=== PATIENT | female | born 1975 | race Caucasian/White ===

== ENCOUNTER 2022-01-21 08:31 | Outpatient (CLI) | payer BC, SELFPAY ==
[2022-01-21 13:51] LABS: Chloride* 101 mmol/L (96-114); Sodium* 133 mmol/L (135-149)
[2022-01-21 13:52] LABS: Potassium* 4.3 mmol/L (3.6-5.1)
[2022-01-21 13:54] LABS: Carbon Dioxide* 25 mmol/L (20-32); Creatinine* 0.5 mg/dL (0.5-1.5); Estimated Glomerular Filt Rate 117 ml/min
[2022-01-21 13:55] LABS: Blood Urea Nitrogen* 14 mg/dL (5-24); Calcium* 9.1 mg/dL (8.4-10.6); Glucose* 95 mg/dL (60-115)
== END 2022-01-21 08:32 | disposition home or self-care (01) ==
LOC: LONREF 08:33
PROVIDERS: PCP Family Medicine; Visit Provider Family Medicine
DX: I10 Essential (primary) hypertension (principal)
CPT/HCPCS: 80048

== ENCOUNTER 2022-01-22 14:27 | Outpatient (CLI) | payer BC, SELFPAY | END 2022-01-22 14:28 | disposition home or self-care (01) | LOC: NFLDREF 14:28 | PROVIDERS: PCP Family Medicine; Visit Provider Registered Nurse | DX: N75.0 Cyst of Bartholin's gland (principal) | CPT/HCPCS: 87070; 87186 ==

== ENCOUNTER 2022-02-11 14:33 | Outpatient (CLI) | payer BC, SELFPAY | END 2022-02-11 14:34 | disposition home or self-care (01) | LOC: AMB 02-18 07:16 | PROVIDERS: PCP Family Medicine; Visit Provider Family Medicine | DX: F10.129 Alcohol abuse with intoxication, unspecified (principal) | CPT/HCPCS: A0425; A0427 ==

== ENCOUNTER 2022-02-11 15:08 | Emergency (ER) | payer BC, SELFPAY ==
[2022-02-11 15:18] VITALS: BP 150/110; PULSE 130; RESP 18; TEMP 36.6; O2SAT 97
[2022-02-11 15:51] VITALS: BP 145/103; PULSE 119; O2SAT 94
--- NOTE | 2022-02-11 15:51 | ED.ALCOHOL ---
HPI - Alcohol General Chief Complaint: Alcohol/Intoxication Stated Complaint: Vomiting Time Seen by Provider: 02/11/22 15:28 History of Present Illness HPI narrative: This 46-year-old female comes in intoxicated with alcohol and has frequent vomiting. She comes in by ambulance. An IV had been established. She did receive Zofran and now has no report of nausea or vomiting. She is not reporting any pain. She states that she knows that she has a problem with alcohol and needs to go to treatment. She states that she has boys at home that she needs take care of and wants to detox at home. She states that she does not crave alcohol but drinks because she is bored. She does have withdrawal symptoms though that arise to propel her to take alcohol again. She is wanting to go home and not willing to go into a detox facility. She does have a person who is willing to come and take her there. She did receive an IV dose of Ativan 0.5 mg. She is not currently tremulous or showing signs of withdrawal. Related Data Home Medications Medication Instructions Recorded Confirmed omeprazole 20 mg capsule,delayed 20 mg PO QDAY PRN 01/21/22 01/22/22 release Previous Rx's Medication Instructions Recorded amoxicillin 875 mg-potassium 1 tab PO BID #20 tabs 01/21/22 clavulanate 125 mg tablet buspirone 30 mg tablet 30 mg PO BID #180 tabs 01/21/22 escitalopram oxalate 20 mg tablet 20 mg PO QDAY #90 tabs 01/21/22 gabapentin 100 mg capsule 100 mg PO QDAY #90 caps 01/21/22 gabapentin 300 mg capsule 300 mg PO QHS #90 caps 01/21/22 naltrexone 50 mg tablet 50 mg PO QDAY #90 tabs 01/21/22 verapamil 120 mg tablet,extended 120 mg PO BID #180 tabs 01/21/22 release lorazepam 0.5 mg tablet (Ativan) 0.5 mg PO BID PRN #10 tabs 02/11/22 Allergies Allergy/AdvReac Type Severity Reaction Status Date / Time No Known Allergies Allergy Unknown Verified 01/22/22 13:41 Review of Systems Status of ROS Reports: 10 or more systems reviewed and unremarkable except as noted in History and below Narrative Constitutional: No fevers, no weight gain or loss. Eyes: No discharge. No vision changes. HENT: No congestion, no sore throat, no ear pain. Cardiovascular: No chest pain, no palpitations. Respiratory: No shortness of breath, no wheezes, no cough. Gastrointestinal: No abdominal pain, no vomiting, no diarrhea. Genitourinary: No dysuria, no hematuria. Musculoskeletal: Normal range of motion. Skin: No rashes, no pruritis. Neurological: No dizziness, weakness, sensory change, speech change. Endo/Heme/Allergies: No bruising or bleeding. No polydipsia. Pysch: no suicidality, no anxiety, no insomnia. Alcohol intoxication. All other systems reviewed and are negative. [facility] Medical History Alcoholic intoxication Fracture of rib Hypothyroidism Surgical History History of section History of loop electrical excision procedure (LEEP) History of tubal ligation Status post cervical spinal arthrodesis Family History Other Diabetes Social History Narrative: alcohol abuse Smoking Status: Current every day smoker Exam Narrative: Exam Narrative: Constitutional: Well-developed, well-nourished, no acute distress. HEENT: Normocephalic, atraumatic. Neck: Normal range of motion. Nontender. Supple. Heart: Regular. No murmurs. Tachycardia. Intact distal pulses. Lungs: Clear to auscultation. No chest discomfort. No wheezes, rhonchi, or rales. Abdomen: Normal bowel sounds. Nontender. No rebound tenderness. Genitalia: Deferred. Back: No midline tenderness. Normal range of motion. Extremities: Normal range of motion. No injury. Skin: Intact. No rash. Warm. No erythema or pallor. Neurologic: No altered sensation. No weakness. Alert and oriented. Psychiatric: No suicidality. No anxiety or depression. No insomnia. Alcohol intoxication. Nursing notes and vitals signs are reviewed. Const: Vital Signs, click to edit/add: Vital Signs - 24 hr 02/11/22 15:18 Temperature 97.9 F Pulse Rate [Right Pulse Oximeter] 130 H Respiratory Rate 18 Blood Pressure [Ri ght Upper Arm] 150/110 H Pulse Oximetry 97 Oxygen Delivery Me thod Room Air Course Vital Signs Vital signs: Initial Vital Signs Temperature 97.9 F 02/11/22 15:18 Temperature Source Temporal Artery Scan 02/11/22 15:18 Pulse Rate 130 H 02/11/22 15:18 Respiratory Rate 18 02/11/22 15:18 Blood Pressure 150/110 H 02/11/22 15:18 Blood Pressure Mean 123 02/11/22 15:18 Blood Pressure Position Sitting 02/11/22 15:18 Pulse Oximetry 97 02/11/22 15:18 Oxygen Delivery Method 02/11/22 15:18 Vital Signs Temperature 97.9 F 02/11/22 15:18 Pulse Rate 130 H 02/11/22 15:18 Respiratory Rate 18 02/11/22 15:18 Blood Pressure 150/110 H 02/11/22 15:18 Pulse Oximetry 97 02/11/22 15:18 Oxygen Delivery Method 02/11/22 15:18 Temperature 97.9 F 02/11/22 15:18 Pulse Rate 130 H 02/11/22 15:18 Respiratory Rate 18 02/11/22 15:18 Blood Pressure 150/110 H 02/11/22 15:18 Pulse Oximetry 97 02/11/22 15:18 Oxygen Delivery Method 02/11/22 15:18 MDM - Alcohol MDM Narrative Medical decision making narrative: This patient comes in because of vomiting related to alcohol. She received Zofran and now feels great relief of the nausea and vomiting symptoms. She is intoxicated with alcohol. She is wanting to return home and is declining any inpatient detox facility resources. She does have a friend who is willing to take her home. I did provide a few tablets of Ativan and stated that this does not mix with alcohol and that she should return if worsening symptoms occur. Discharge Plan Discharge Clinical Impression: Alcohol intoxication Patient Disposition: Home w/ Parent or Adult Condition: Unchanged Additional Instructions: Take medication as needed and indicated. Return if worsening symptoms occur. Prescriptions: New lorazepam [Ativan] 0.5 mg tablet 0.5 mg PO BID PRNQty: 10 0RF No Action omeprazole 20 mg capsule,delayed release(DR/EC) 20 mg PO QDAY PRN buspirone 30 mg tablet 30 mg PO BID Qty: 180 3RF gabapentin 300 mg capsule 300 mg PO QHS Qty: 90 3RF gabapentin 100 mg capsule 100 mg PO QDAY Qty: 90 3RF amoxicillin-pot clavulanate 875-125 mg tablet 1 tab PO BID Qty: 20 0RF verapamil 120 mg tablet extended release 120 mg PO BID Qty: 180 3RF escitalopram oxalate 20 mg tablet 20 mg PO QDAY Qty: 90 3RF Rx Instructions: Take along with 10 mg tablet naltrexone 50 mg tablet 50 mg PO QDAY Qty: 90 3RF Follow Up/Referrals: Dakota Ashraf MD [Primary Care Provider] - Stand Alone [facility]: [facility] Info Inst[facility]
[2022-02-11] MEDS: LORazepam 2 MG/ML inj 0.5 MG IV (16:13)
[2022-02-11 16:35] VITALS: PULSE 112; O2SAT 94
== END 2022-02-11 16:41 | disposition home or self-care (01) ==
PROVIDERS: Emergency Provider Emergency Medicine Emergency Medical Services; PCP Family Medicine
DX: F10.129 Alcohol abuse with intoxication, unspecified (principal)
CPT/HCPCS: 96374; 99283; 99284; J2060

== ENCOUNTER 2022-08-24 09:40 | Emergency (ER) | payer BC, SELFPAY ==
[2022-08-24] VITALS (23 sets, daily range): BP systolic 116–142; BP diastolic 81–100; PULSE 81–101; RESP 8–16; TEMP 36.3; O2SAT 90–100; BMI 23.2
--- NOTE | 2022-08-24 10:51 | CRLHL7_ITS ---
For Patients: As a result of the Century Cures Act, medical imaging exams and procedure reports are released immediately into your electronic medical record. You may view this report before your referring provider. If you have questions, please contact your health care provider. INDICATION: Esophageal pain since Friday. Pain with eating and drinking. TECHNIQUE: Volumetric helical scanning of the thorax was performed with 100 cc of Omnipaque 350 contrast material IV. Coronal and sagittal reconstructions were obtained. COMPARISON: Chest x-ray of 08/19/2022. FINDINGS: No esophageal wall thickening, esophageal foreign body or periesophageal abnormality is evident. There is no mediastinal or hilar lymphadenopathy. The lungs are clear. There is no significant airway abnormality. No pleural effusion is demonstrated. The heart size is normal. Images of the upper abdomen demonstrate a fatty liver. IMPRESSION: 1. Negative chest CT. No esophageal abnormality evident. 2. Fatty liver. Please note that all CT scans at this facility use dose modulation, iterative reconstruction, and/or weight-based dosing when appropriate to reduce radiation dose to as low as reasonably achievable. Dictated by Akbar Alba MD @ 08/24/2022 12:16:49 PM (Electronically Signed)
--- NOTE | 2022-08-24 10:57 | ED.NURSE ---
Endo coder operator called and message left by [facility], per Dr. Jarrell, to schedule an Upper Endoscopy appt for Friday or Friday next week.
--- NOTE | 2022-08-24 11:01 | ED_ITS ---
HPI - General Adult General Chief complaint: Unspecified Complaint, Adult Stated complaint: not able to eat/drink since friday Time Seen by Provider: 08/24/22 10:37 Source: patient Mode of arrival: ambulatory Limitations: no limitations History of Present Illness HPI narrative: Patient is a 47 year white female college who quit drinking about 8 days ago. She was seen in the ED for some burning esophageal type symptoms she has been on proton pump inhibitor she has a history of GERD. She reports that she is hungry and feels like she would like to eat but has trouble with eating she can eat and drink small sips. She has not had a history of an EGD in the past. She has a history of hypertension alcohol abuse, vomiting, depression anxiety. Denies anterior chest pain denies fevers chills or weight loss but does feel like she has lost some weight since she is not eating as much as normal Related Data Previous Rx's Medication Instructions Recorded buspirone 30 mg tablet 30 mg PO BID #180 tabs 01/21/22 escitalopram oxalate 20 mg tablet 20 mg PO QDAY #90 tabs 01/21/22 gabapentin 100 mg capsule 100 mg PO QDAY #90 caps 01/21/22 naltrexone 50 mg tablet 50 mg PO QDAY #90 tabs 01/21/22 verapamil 120 mg tablet,extended 120 mg PO BID #180 tabs 01/21/22 release albuterol sulfate 90 mcg/actuation 2 puff inhalation Q4H PRN 04/14/22 aerosol inhaler (Proventil HFA) shortness of breath or wheezing #8.5 grams azithromycin 250 mg tablet See Rx Instructions PO .COMPLEX #6 07/05/22 tabs gabapentin 300 mg capsule See Rx Instructions PO .ud #120 07/05/22 caps lorazepam 0.5 mg tablet (Ativan) 0.5 mg PO BID PRN alcohol 08/01/22 withdrawal #14 tabs nitrofurantoin 100 mg PO BID #10 caps 08/19/22 monohydrate/macrocrystals 100 mg capsule (Macrobid) benzonatate 200 mg capsule 200 mg PO TID PRN cough #30 caps 08/22/22 omeprazole 20 mg capsule,delayed 20 mg PO QDAY #90 caps 08/22/22 release sucralfate 100 mg/mL oral 10 ml PO QID 30 days #1,200 mL 08/22/22 suspension (Carafate) sucralfate 1 gram tablet 1 g PO BID #30 tabs 08/24/22 sucralfate 1 gram tablet 1 g PO Q6H #30 tabs 08/24/22 Allergies Allergy/AdvReac Type Severity Reaction Status Date / Time No Known Allergies Allergy Unknown Verified 08/24/22 11:15 Review of Systems Status of ROS: Reports: 6 or more systems reviewed and unremarkable except as noted in History and below PFSH [facility] Medical History COVID-19 ?U07.1 - COVID-19 (ICD-10) Bartholin's gland abscess ?N75.1 - Abscess of Bartholin's gland (ICD-10) Injury of finger of right hand ?S69.91XA - Unspecified injury of right wrist, hand and finger(s), initial encounter (ICD-10) Hypothyroidism ?E03.9 - Hypothyroidism, unspecified (ICD-10) Fracture of rib ?S22.39XA - Fracture of one rib, unspecified side, initial encounter for closed fracture (ICD-10) Alcoholic intoxication ?F10.929 - Alcohol use, unspecified with intoxication, unspecified (ICD-10) Surgical History Status post cervical spinal arthrodesis ?Z98.1 - Arthrodesis status (ICD-10) History of tubal ligation ?Z98.51 - Tubal ligation status (ICD-10) History of loop electrical excision procedure (LEEP) ?Z98.890 - Other specified postprocedural states (ICD-10) History of section ?Z98.891 - History of uterine scar from previous surgery (ICD-10) Family History Other Diabetes Social History Narrative: alcohol abuse Smoking Status: Current every day smoker What tobacco products do you use: cigarettes Smoking packs per day: 1 Smoking cigarettes per day: 20.0 Years smoked: 10 Smoking pack-years: 10.00 Do you use any of these nicotine containing products: None Second hand tobacco smoke exposure: No How often do you have a drink containing alcohol: never AUDIT-C Alcohol total score: 0 Non-prescribed substance use: denies use service: No Exam Narrative: Exam Narrative: Objective: Vital signs are unremarkable, respiratory rate appears normal it is for listed is 8 but it appears higher than that. No cyanosis Alert orient x3 Does not smell of alcohol alcohol HEENT is unremarkable throat is clear neck is supple chest is clear heart Reg without murmur abdomen benign soft nontender. Extremities are no edema neurologic nonfocal Const: Vital Signs, click to edit/add: Vital Signs - 24 hr 08/24/22 13:30 08/24/22 13:31 08/24/22 13:45 Pulse Rate 88 86 87 Blood Pressure 125/91 H Pulse Oximetry 92 92 90 08/24/22 14:00 08/24/22 14:01 08/24/22 14:15 Pulse Rate 89 89 93 Blood Pressure 142/91 H Pulse Oximetry 93 94 99 Course Vital Signs Vital signs: Initial Vital Signs Temperature 97.4 F L 08/24/22 09:43 Temperature Source Temporal Artery Scan 08/24/22 09:43 Pulse Rate 101 H 08/24/22 09:43 Respiratory Rate 8 L 08/24/22 09:43 Blood Pressure 116/81 08/24/22 09:43 Blood Pressure Mean 92 08/24/22 09:43 Blood Pressure Position Sitting 08/24/22 09:43 Pulse Oximetry 99 08/24/22 09:43 Oxygen Delivery Method Room Air 08/24/22 09:43 Vital Signs Temperature 97.4 F L 08/24/22 09:43 Pulse Rate 101 H 08/24/22 09:43 Respiratory Rate 8 L 08/24/22 09:43 Blood Pressure 116/81 08/24/22 09:43 Pulse Oximetry 99 08/24/22 09:43 Oxygen Delivery Method Room Air 08/24/22 09:43 Temperature 97.4 F L 08/24/22 09:43 Pulse Rate 93 08/24/22 14:15 Respiratory Rate 16 08/24/22 09:46 Blood Pressure 142/91 H 08/24/22 14:01 Pulse Oximetry 99 08/24/22 14:15 Oxygen Delivery Method Room Air 08/24/22 09:43 Medical Decision Making MDM Narrative Medical decision making narrative: [age] year white female colic who has quit drinking about 8 days ago now with symptoms of esophagitis. She has been on a proton pump inhibitor I think she needs an EGD promptly. Will schedule this within the next couple of days. Will give her some IV fluid and GI cocktail today. Check her laboratory studies and do a chest CT scan to make sure there is no intrathoracic abnormality. Will give her some Carafate as well, will also continue her proton pump inhibitor, and EGD as mentioned above. Addendum: Patient has a very low potassium this will be corrected IV over the next couple of hours. Will give her oral Carafate. Started on Carafate 1 g q.i.d. for the next couple of weeks. Schedule her for an EGD study. She was comfortable this plan at this time, I am awaiting CT results. Addendum 12 19p p.m.: The patient's chest CT looks negative no esophageal abnormalities, fatty liver noted. She does have elevated liver function tests, alcohol is negative. Will give her Carafate for home 1 g q.i.d., set up an EGD should be called Friday with a time. Recommend light diet bland diet small amounts of food and fluid regularly. Will give 125 milk oval in potassium bicar b to take tonight about 8:00 p.m. recheck with regular doctor in the next couple of days to reassess overall condition and symptom symptoms Lab Data Labs: Lab Results 08/24/22 Range/Units 11:00 WBC 9.37 (4.50-11.00) K/uL RBC 4.06 (4.00-5.20) m/uL Hgb 13.9 (12.0-16.0) gm/dL Hct 39.8 (33.0-51.0) % MCV 98 (80-100) fL MCH 34 (26-34) pg MCHC 35 (32-36) gm/dL RDW Coeff of Comfort 13.2 (11.5-15.5) % Plt Count 218 (140-440) K/uL Neut % (Auto) 54.4 (42.0-72.0) % Lymph % (Auto) 22.0 (20-44) % Galax % (Auto) 15.0 H (0.0-11.0) % Eos % (Auto) 7.3 H (0.0-7.0) % Baso % (Auto) 0.1 (0.0-3.0) % Neut # (Auto) 5.10 (1.7-7.0) K/uL Lymph # (Auto) 2.06 (0.90-2.90) K/uL Galax # (Auto) 1.40 H (0.00-0.90) K/UL Eos # (Auto) 0.70 H (0.00-0.50) K/uL Baso # (Auto) 0.01 (0.00-0.30) K/uL Sodium 125 L (135-149) mmol/L Potassium 2.6 L* (3.6-5.1) mmol/L Chloride 93 L (96-114) mmol/L Carbon Dioxide 29 (20-32) mmol/L BUN 13 (5-24) mg/dL Creatinine 0.4 L (0.5-1.5) mg/dL Estimated Creat Clear 169.08 Estimated GFR 123 ml/min Glucose 112 (60-115) mg/dL Calcium 9.0 (8.4-10.6) mg/dL Total Bilirubin 0.7 (0.1-1.5) mg/dL Direct Bilirubin 0.4 (0.0-0.5) mg/dL AST 85 H (12-35) U/L ALT 108 H (4-35) U/L Alkaline Phosphatase 165 H (40-150) U/L C-Reactive Protein 2.2 H (0.5-1.0) mg/dL Total Protein 6.9 (6.0-8.3) g/dL Albumin 3.7 (3.3-5.0) g/dL Amylase 48 (18-89) U/L HCG, Qual Negative (Negative) Ethyl Alcohol < 0.01 L (0.01-0.03) % Discharge Plan Discharge Clinical Impression: Dysphagia, Esophagitis, Acute hypokalemia Patient Disposition: Home w/ Parent or Adult Condition: Improved Additional Instructions: [place] diet, fluids, small frequent meals, continue meds at home, will add Carafate to the mix 4 times a day. We will schedule a upper endoscopy for you to look into your esophagus and stomach. Please call clinic to schedule if you do not receive a call on Friday. Return as needed. Take potassium supplement at about 8:00 p.m. tonight. Activity Level: Light activity Discharge Diet: Full Liquid Prescriptions: New sucralfate 1 gram tablet 1 g PO BID Qty: 30 2RF sucralfate 1 gram tablet 1 g PO Q6H Qty: 30 2RF No Action buspirone 30 mg tablet 30 mg PO BID Qty: 180 3RF gabapentin 100 mg capsule 100 mg PO QDAY Qty: 90 3RF verapamil 120 mg tablet extended release 120 mg PO BID Qty: 180 3RF escitalopram oxalate 20 mg tablet 20 mg PO QDAY Qty: 90 3RF Rx Instructions: Take along with 10 mg tablet naltrexone 50 mg tablet 50 mg PO QDAY Qty: 90 3RF gabapentin 300 mg capsule See Rx Instructions PO .ud Qty: 120 5RF Rx Instructions: 300 mg QAM and QMidday, and 600 mg QHS orally UD; azithromycin 250 mg tablet See Rx Instructions PO .COMPLEX Qty: 6 0RF Rx Instructions: For 250 mg dose pack: take 500 mg today (day 1), then 250 mg for 4 days (days 2-5) PO sucralfate [Carafate] 100 mg/mL suspension 10 ml PO QID 30 Days Qty: 1200 2RF Rx Instructions: swish in mouth and swallow; use after food/drink omeprazole 20 mg capsule,delayed release(DR/EC) 20 mg PO QDAY Qty: 90 0RF nitrofurantoin monohyd/m-cryst [Macrobid] 100 mg capsule 100 mg PO BID Qty: 10 0RF Rx Instructions: must administer with a meal/food albuterol sulfate [Proventil HFA] 90 mcg/actuation HFA aerosol inhaler 2 puff inhalation Q4H PRN (Reason: shortness of breath or wheezing) Qty: 8.5 11RF lorazepam [Ativan] 0.5 mg tablet 0.5 mg PO BID PRN (Reason: alcohol withdrawal) Qty: 14 0RF benzonatate 200 mg capsule 200 mg PO TID PRN (Reason: cough) Qty: 30 0RF Follow Up/Referrals: Dakota Ashraf MD [Primary Care Provider] - Stand Alone Forms: [facility] Info Instructions
[2022-08-24 11:09] LABS: Basophils Absolute Auto 0.01 K/uL (0.00-0.30); Basophils Percent Auto 0.1 % (0.0-3.0); Eosinophils Percent Auto 7.3 % (0.0-7.0); Hematocrit 39.8 % (33.0-51.0); Hemoglobin* 13.9 gm/dL (12.0-16.0); Immature Granulocytes Abs Auto 0.11 K/uL (0.00-0.30); Immature Granulocytes Pct Auto 1.2 %; Lymphocytes Absolute Auto 2.06 K/uL (0.90-2.90); Mean Corpuscular HGB Conc 35 gm/dL (32-36); Mean Corpuscular Hemoglobin 34 pg (26-34); Mean Corpuscular Volume 98 fL (80-100); Neutrophils Percent Auto 54.4 % (42.0-72.0); Platelet Count* 218 K/uL (140-440); RDW Coefficient of Variation % 13.2 % (11.5-15.5); Red Blood Count 4.06 m/uL (4.00-5.20); White Blood Count* 9.37 K/uL (4.50-11.00)
[2022-08-24] MEDS: 0.9 % SODIUM CHLORIDE 1000 ml 1,000 ML 6000 ML IV (11:11)
[2022-08-24] MEDS: LORazepam 2 MG/ML inj 1 MG IVP (11:11)
[2022-08-24 11:22] LABS: Slide Review Reflex No
[2022-08-24 11:24] LABS: Chloride* 93 mmol/L (96-114)
[2022-08-24 11:25] LABS: HCG Qualitative Serum* Negative (Negative); Sodium* 125 mmol/L (135-149)
[2022-08-24 11:26] LABS: Albumin* 3.7 g/dL (3.3-5.0)
[2022-08-24 11:27] LABS: Amylase* 48 U/L (18-89); Creatinine* 0.4 mg/dL (0.5-1.5); Est. Creatinine Clearance* 169.08; Estimated Glomerular Filt Rate 123 ml/min
[2022-08-24 11:28] LABS: Aspartate Amino Transferase* 85 U/L (12-35); Bilirubin Direct* 0.4 mg/dL (0.0-0.5); Bilirubin Total* 0.7 mg/dL (0.1-1.5); Blood Urea Nitrogen* 13 mg/dL (5-24); Carbon Dioxide* 29 mmol/L (20-32); Glucose* 112 mg/dL (60-115); Total Protein* 6.9 g/dL (6.0-8.3)
[2022-08-24 11:29] LABS: Alanine Aminotransferase* 108 U/L (4-35); Alkaline Phosphatase* 165 U/L (40-150)
[2022-08-24 11:30] LABS: C Reactive Protein* 2.2 mg/dL (0.5-1.0)
[2022-08-24 11:33] LABS: Ethanol* < 0.01 % (0.01-0.03); Potassium* 2.6 mmol/L (3.6-5.1)
[2022-08-24] MEDS: GI COCKTAIL (VISC LIDO/ANTACID) 30 ML PO (12:04)
[2022-08-24] MEDS: SUCRALFATE 1 GM TABLET PO (12:04)
[2022-08-24] MEDS: POTASSIUM CHLORIDE 10 MEQ/100 ML PIGGYBACK 100 MEQ IVPB ×2 (12:04→13:16)
[2022-08-24] MEDS: POTASSIUM BICARB 25 MEQ EFFERVESCENT TAB PO (14:21)
== END 2022-08-24 14:23 | disposition home or self-care (01) ==
PROVIDERS: Emergency Provider Family Medicine; PCP Family Medicine
DX: R13.10 Dysphagia, unspecified (principal); K20.90 Esophagitis, unspecified without bleeding; E87.6 Hypokalemia
CPT/HCPCS: 36415; 71260; 80048; 80076; 82077; 82150; 84703; 85025; 86140; 96365; 96375; 99284; A9270; J2060; J3480; J7030; Q9967

== ENCOUNTER 2022-08-28 11:08 | Outpatient (CLI) | payer BC, SELFPAY ==
--- NOTE | 2022-08-28 11:15 | CRLHL7_ITS ---
For Patients: As a result of the Cures Act, medical imaging exams and procedure reports are released immediately into your electronic medical record. You may view this report before your referring provider. If you have questions, please contact your health care provider. INDICATION: Esophageal pain with swallowing fluids. Recent history of excessive vomiting. Possible gastroesophageal reflux disease with esophagitis. TECHNIQUE : Single and double contrast esophagram. FINDINGS: The single-contrast esophagram is within normal limits. No stricture, mass, obstruction, and no holdup of barium. No hiatal hernia. Reflux could not be elicited in the upright position. Subsequently a double contrast esophagram was performed. Again there is no evidence for stricture, mass, or obstruction. No evidence for esophagitis. No hiatal hernia or reflux. The patient was imaged in the supine as well as right and left lateral decubitus positions without and with Valsalva maneuvers. The stomach and duodenum are grossly unremarkable. Incidental note is made of a 2 level cervical spine fusion. 2 minutes 32 seconds fluoroscopic time utilized. IMPRESSION: Normal single and double-contrast esophagram. No evidence for esophagitis. No evidence for hiatal hernia. Reflux could not be elicited. Dictated by Sonu Steward MD @ 08/28/2022 12:11:54 PM (Electronically Signed)
== END 2022-08-28 11:09 | disposition home or self-care (01) ==
LOC: RAD 11:08
PROVIDERS: PCP Family Medicine; Visit Provider Nurse Practitioner Family
DX: K22.89 Other specified disease of esophagus (principal)
CPT/HCPCS: 74221

== ENCOUNTER 2022-10-08 15:22 | Outpatient (CLI) | payer BC, SELFPAY | END 2022-10-08 15:23 | disposition home or self-care (01) | LOC: LONREF 15:22 | PROVIDERS: PCP Family Medicine; Visit Provider Family Medicine | DX: R53.83 Other fatigue (principal); I10 Essential (primary) hypertension | CPT/HCPCS: 84443 ==

== ENCOUNTER 2023-05-14 16:50 | Outpatient (CLI) | payer BC, SELFPAY ==
--- NOTE | 2023-05-14 17:00 | US_ITS ---
Patient: ULISES MARTINEZ Facility:?[facility] Patient ID:?[id number] Site Patient ID:?[id number] Site :?[id number] Study:?US-Pelvis PELVIS TA & TV-05/14/2023 5:37:40 PM Ordering Physician:?CRYSTAL RUFFIN Final Report: INDICATION: Abnormal uterine bleeding COMPARISON: none TECHNIQUE: 2D castro scale and color Doppler images were acquired of the pelvis using a transabdominal and transvaginal approach. FINDINGS: Sonographic images demonstrate a normal size and smooth outer contour of the uterus. Uterus measures 8.1 cm in length by 3.7 cm in AP diameter by 4.7 cm in transverse dimension. section scar. The endometrial lining appears normal and measures 3 mm in composite thickness. The right ovary measures 3.8 x 1.1 x 1.3 cm in size and the left ovary measures 3.6 x 1.6 x 1.3 cm. The ovaries demonstrate normal arterial and venous blood flow on color Doppler analysis. There are no suspicious fluid collections within the cul-de-sac. IMPRESSION: The endometrium is not thickened. No uterine fibroid. Dictated by Randy Jones MD @ 05/15/2023 10:26:30 AM Signed by:?Randy Jones MD @05/15/2023 10:26:30 AM (Electronic Signature)
== END 2023-05-14 16:51 | disposition home or self-care (01) ==
LOC: US 16:53
PROVIDERS: PCP Family Medicine; Visit Provider Obstetrics & Gynecology
DX: N93.9 Abnormal uterine and vaginal bleeding, unspecified (principal)
CPT/HCPCS: 76830; 76856

== ENCOUNTER 2023-05-21 09:22 | Outpatient (CLI) | payer BC, SELFPAY | END 2023-05-21 09:23 | disposition home or self-care (01) | LOC: FRMREF 09:24 | PROVIDERS: PCP Family Medicine; Visit Provider Obstetrics & Gynecology | DX: N92.0 Excessive and frequent menstruation with regular cycle (principal) | CPT/HCPCS: 84443 ==

== ENCOUNTER 2023-05-26 15:10 | Outpatient (CLI) | payer BC, SELFPAY | END 2023-05-26 15:11 | disposition home or self-care (01) | LOC: LKVREF 15:12 | PROVIDERS: PCP Family Medicine; Visit Provider Family Medicine | DX: I10 Essential (primary) hypertension (principal) | CPT/HCPCS: 80048 ==

== ENCOUNTER 2023-06-05 08:36 | Day surgery (SDC) | payer BC, SELFPAY ==
[2023-06-05 09:13] LABS: Ur HCG Qualitative* Negative (Negative)
[2023-06-05] MEDS: LACTATED RINGERS 1000 ML 1,000 ML 100 ML IV (09:40)
[2023-06-05] MEDS: SODIUM CHLORIDE 0.9 % (FLUSH) 10 ML SYRINGE IVF (09:40)
[2023-06-05 09:49] VITALS: BP 126/88; PULSE 74; RESP 16; TEMP 36.4; O2SAT 97; BMI 24.0
--- NOTE | 2023-06-05 09:56 | W.PM.H&PU ---
History & Physical Update History & Physical Update H&P Reviewed and patient assessed: No changes noted
--- NOTE | 2023-06-05 09:56 | PM.PROC ---
Procedure Note Time Seen by Provider: 10:34 Date Seen: 06/05/23 Date of procedure: 06/05/23 Will [facility] bill your pro fee for this procedure?: Yes Procedure: Preoperative diagnosis: 47 year-old with heavy menstrual bleeding Postoperative diagnosis: Same Procedure: 1. Hysteroscopy, Dilation and Curettage using the Truclear incisor 2. Endometrial ablation with the Erin. Anesthesia: Conscious sedation, paracervical block. Surgeon: Jossie Jose MD Photographic Colorist: None Estimated blood loss: 5 mL IV Fluid: 600 mL Specimen: Endometrial curettings to pathology. Findings: Exam under anesthesia: Uterus: Mid position, less than less than 10 week sized, mobile, with no masses or nodularity palpable. Uterus sounded to 9 cm. The cervix sounded to 4.5 cm. Cavity length 4.5 cm. No adnexal masses or nodularity palpable. On hysteroscopy: Atrophic endometrium Procedure: Stefany was taken to the operating operating room more conscious sedation was found to be adequate. The patient was placed on in the dorsal lithotomy position and an exam under anesthesia was performed with findings stated above. She was then prepped and draped in a normal sterile manner. A bivalve speculum was placed in the vagina. The cervix appears multiparous. The paracervical block was placed using 0.5% Marcaine, 5 mL was injected at the 4 and 8 o'clock positions on the cervix. The anterior lip of the cervix was grasped with a single-tooth tenaculum. The cervix dilated to Hegar 6. The uterus sounded to 9 cm. The Truclear hysteroscope was advanced into the uterus. A diagnostic hysteroscopy was performed with normal saline as the insufflation medium. Findings are stated above. No curettage was performed. Saline deficit at the end of the procedure 90 mL. Total saline used 510 mL. Attention was turned to performing the endometrial ablation. The hysteroscope was removed. The cervix was then dilated to Hegar 8. The Erin device was advanced into the uterus. The cavity check was completed and the ablation took place over 2 min. The Erin was removed, the hysteroscope readvanced to document ablation of the entire cavity. The hysteroscope was then removed. The Allis clamp was removed from the cervix. Nothing was needed for hemostasis. The speculum was removed from the vaginal canal. The patient tolerated the procedure well. Sponge, lap and instrument counts were correct x2 at the end of the procedure. The patient was taken to the recovery area in stable condition. Patient received 30 mg of Toradol IV and 2 gm of Ancef prior to the procedure.
[2023-06-05] MEDS: CEFAZOLIN 2 GM INJ IVP (10:19)
[2023-06-05] MEDS: KETOROLAC 30 MG/ML inj IVP (10:19)
--- NOTE | 2023-06-05 10:30 | W.ANESCHARGE ---
Anesthesia Charges Start Date/Time Anesthesia Start Date: 06/05/23 Anesthesia Start Time: 10:07 Stop Date/Time Anesthesia Stop Date: 06/05/23 Anesthesia Stop Time: 10:44
[2023-06-05] MEDS: BUPIVACAINE 0.5% 30 ML INJECTION (10:32)
[2023-06-05 10:41] VITALS: BP 143/90; PULSE 81; RESP 16; TEMP 36.7; O2SAT 96
[2023-06-05 10:45] VITALS: BP 141/78; PULSE 77; RESP 16; O2SAT 97
--- NOTE | 2023-06-05 10:46 | W.ANESCHARGE ---
Anesthesia Charges Start Date/Time Anesthesia Start Date: 06/05/23 Anesthesia Start Time: 10:07 Stop Date/Time Anesthesia Stop Date: 06/05/23 Anesthesia Stop Time: 10:44
[2023-06-05 11:00] VITALS: BP 125/91; PULSE 61; RESP 16; O2SAT 98
[2023-06-05 11:15] VITALS: BP 125/82; PULSE 60; RESP 16; O2SAT 96
[2023-06-05 11:30] VITALS: BP 125/73; PULSE 68; RESP 16; O2SAT 98
[2023-06-05] MEDS: OXYCODONE 5 MG TABLET PO (11:30)
== END 2023-06-05 11:55 | disposition home or self-care (01) ==
PROVIDERS: PCP Family Medicine; Visit Provider Obstetrics & Gynecology
PROC: 0UF98ZZ Fragmentation in Uterus, Via Natural or Artificial Opening Endoscopic (ICD-10-PCS; CPT 58563; principal; 2023-06-05 10:15)
DX: N85.8 Other specified noninflammatory disorders of uterus (principal); N92.0 Excessive and frequent menstruation with regular cycle
CPT/HCPCS: 58563; 00952; 81025; A9270; J0665; J0690; J1100; J1885; J2405; J2704; J3010; J7120

== ENCOUNTER 2023-07-22 07:08 | Outpatient (CLI) | payer BC, SELFPAY ==
--- NOTE | 2023-07-22 07:15 | MR_ITS ---
Patient: ULISES MARTINEZ Facility:?[facility] Patient ID:?[id number] Site Patient ID:?[id number]. Site :?[id number] Study:?MRI-Spine W/O-07/22/2023 8:09:26 AM Ordering Physician:JULIUS JIN Final Report: Indication: Spinal stenosis, lumbar region. Technique: Noncontrast MRI scan of the lumbar spine. Comparison: MRI scan lumbar spine 03/15/2020. Findings: General: Normal conus termination at the L1-L2 disc space. Unremarkable lower thoracic cord. Modic type 2 endplate signal change and Schmorl`s nodes at L4-L5. No fracture or suspicious bone lesion. Normal paraspinal soft tissues. Disc levels: L1-L2: Unremarkable L1-L2 disc and facet joints. L2-L3: Unremarkable L2-L3 disc and facet joints. L3-L4: Mild disc space height loss and decreased disc signal. Mild posterior broad-based disc bulge. Mild bilateral facet hypertrophy. No focal disc protrusion, nerve root impingement or spinal stenosis. L4-L5: Decreased disc signal and mild disc space height loss, slightly progressed since the previous exam. Posterior broad-based disc protrusion and tiny posterior central focal disc extrusion with 3 millimeters of caudal migration, unchanged. No nerve root impingement. Bilateral facet hypertrophy. Mild spinal stenosis, unchanged. L5-S1:Mild posterior broad-based disc bulge and bilateral facet hypertrophy. No focal disc protrusion, nerve root impingement or spinal stenosis. Mild right and moderate left neural foraminal stenosis. Impression: 1. No acute abnormality. 2. Degenerative spondylosis of the lumbar spine. 3. L4-L5 posterior broad-based disc protrusion and tiny posterior central focal disc extrusion with mild spinal stenosis, unchanged. Dictated by Efrain Rojas MD @ 07/22/2023 11:45:18 AM Signed by:?Efrain Rojas MD @07/22/2023 11:45:18 AM (Electronic Signature)
--- OUTSIDE RECORDS SUMMARY | 2023-07-22 07:15 | XMS_ITS | Encounter Summary ---
Author Name Unknown Organization 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 Name Role Phone Unavailable Primary Care Provider Unavailabl e Encounter Details Date Type Department Care Team ([facility] st Contact Info) Description 03/21/2021 Scanned - Medical Reports [facility] [address] [place], [place] [id number] Abstract, Provider, Social History Tobacco Use Types Packs/Day Years Used Date Smoking Tobacco: Never Assessed Sex and Gender Information Value Date Recorded Sex Assigned at Not on file Gender Identity Not on file Sexual Orientation Not on file Job Start Date Occupation Industry Not on file Not on file Not on file documented as of this encounter Plan of Treatment Not on file documented as of this encounter Visit Diagnoses Not on filedocumented in this encounter
--- OUTSIDE RECORDS SUMMARY | 2023-07-22 07:15 | XMS_ITS | Continuity of Care Document ---
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 [address], [id number], [place]. [phone] Established Level 3 or 15-24 min [facility], [address] [address], [place], [id number], [place] tel:[phone] [facility] GI Symptoms or Concerns (chief complaint) Gagging episodeUnspec ified abdominal painAbnormal results of liver function studies 0 Jerry Barros. [address] [place] [address], [id number], [place]. tel:[phone] Referring Provider: Referral Self, USE FOR SELF REFERRALS. [facility], [address] [address], [place], [id number], [place] tel:[phone] [facility] Superficial gastritis, presence of bleeding unspecified, unspecified chronicityNau sea with vomiting, unspecifiedUn specified abdominal painOther gastritis without bleeding 0 Jerry Barros. [address] [place] [address], [id number], [place]. tel:[phone] Referring Provider: Referral Self, USE FOR SELF REFERRALS. Established Level 4 or 25-39 min [facility], [address] [address], [place], [id number], [place] tel:[phone] [facility] Comment (chief complaint) Gagging episodeAbnorm al results of liver function studies 0 Jerry Barros. [address] [place] [address], [id number], [place]. tel:[phone] Referring Provider: Referral Self, USE FOR SELF REFERRALS. [facility], [address] [address], [place], [id number], [place] tel:[phone] [facility] Abnormal results of liver function studies 0 Jerry Barros. [address] [facility], [address], [id number], [place]. tel:[phone] Referring Provider: Referral Self, USE FOR SELF REFERRALS. [facility], [address] [address], [place], [id number], [place] tel:[phone] [facility] No Information 0 Jerry Barros. [address] [facility], [address], [id number], [place]. tel:[phone] Referring Provider: Referral Self, USE FOR SELF REFERRALS. Established Level 4 or 25-39 min [facility], [address] [address], [place], [id number], [place] tel:[phone] [facility] GI Symptoms or Concerns (chief complaint) Abnormal LFTsGagging episode 0 Jerry Barros. [address] [facility], [facility] [address], [place], [id number], [place]. tel:[phone] Referring Provider: Papo Fuller, [address] [facility] [address], [facility] [place], [address] . tel:[phone] [facility], [address] [address], [facility] [place], [id number], [place] tel:[phone] [facility] No Information 0 Pilar Gomes. [address] [facility], [facility] [address], [place], [id number], [place]. [phone] Family History Family Member Type Diagnosis Age [...] has had a very difficult time with COVID and since being under lock-down and/or fci in place, she has been turning increasingly [...]
--- OUTSIDE RECORDS SUMMARY | 2023-07-22 07:15 | XMS_ITS | Clinical Summary ---
Author Name Unknown Organization [employer] [facility] [employer] Address [place], [place] [address] Care Team Providers Care Workers' Compensation Magistrate Name Role Phone Dakota Ashraf MD Primary Care Provider Allergies No known active allergies Medications Medication Sig Dispensed Refills Start Date End Date Status CRANBERRY 1,000 MG CAP 0 07/21/2006 Active VITAMIN TAB 0 07/21/2006 Active NAPROSYN 500 MG TABIndications:Oth er disorder of menstruation and other abnormal bleeding from female genital tract take 1 tablet (500 mg) by oral route 2 times per day with food 30 0 08/09/2006 Active CLEOCIN 2 % VAGINAL CREAMIndications:V aginitis and vulvovaginitis, unspecified 1 appl q hs 1 0 08/13/2006 Active busPIRone (BUSPAR) 5 mg tablet Take 5 mg by mouth 3 times daily. 02/15/2020 Active diazePAM (VALIUM) 5 mg tablet 02/15/2020 Active escitalopram oxalate (LEXAPRO) 5 mg tablet Take 5 mg by mouth once daily. 02/15/2020 Active folic acid 1 mg tablet Take 1 mg by mouth once daily. 02/15/2020 Active multivitamin (MVI) tablet Take 1 tablet by mouth once daily. 02/15/2020 Active nicotine 14 mg/24 hr (NICODERM; HABITROL) 14 mg/24 hr patch 02/15/2020 Active omeprazole (PRILOSEC) 20 mg Delayed-Release capsule TK 1 C PO QD 30 MIN TO 1 HOUR AC 01/12/2020 Active potassium chloride (K-DUR) 20 mEq Extended-Release tablet Take 20 mEq by mouth once daily with a meal. 02/15/2020 Active predniSONE (DELTASONE) 20 mg tablet 02/08/2020 Active ondansetron (ZOFRAN) 4 mg tablet TK 1 T PO Q 6 H PRN 12/07/2019 Activ e thiamine mononitrate, vit B1, (VITAMIN B1) 100 mg tablet Take 100 mg by mouth once daily. 02/15/2020 Active verapamil SR (CALAN SR) 120 mg Sustained-Release tablet 02/13/2020 Active naltrexone (REVIA) 50 mg tablet Take 1 tablet by mouth once daily. 0 02/21/2020 Active acetaminophen (TYLENOL EXTRA STRGTH) 500 mg tablet Take 1 tablet by mouth every 6 hours. Max acetaminophen dose: 4000mg in 24 hrs. 0 02/21/2020 Active gabapentin (NEURONTIN) 100 mg capsuleIndications :Peripheral sensory neuropathy Take 100mg in the morning, 100mg in the afternoon and 300mg at bedtime for neuropathy. 120 capsule 02/21/2020 Active bacitracin-polymyx in b (POLYSPORIN) 500-10,000 unit/gram oint ointmentIndication s:Folliculitis Apply topically to affected area(s) 3 times daily. 1 Tube 02/21/2020 Active Encounters Date Type Department Care Team Description 04/30/2023 Lab Requisition [facility] [phone] Bonny Lopez MD from Last 3 Months Family History Medical History Relation Name Comments Heart Disease Father Diabetes Mother Cancer Sister ? ovarian Relation Name Status Comments Father Mother Sister Social History Tobacco Use Types Packs/Day Years Used Date Smoking Tobacco: Every Day Cigarettes Smokeless Tobacco: Never Tobacco Cessation:Ready to Q uit: No; Counseling Given: Yes Alcohol Use Standard Drinks/Week Comments Yes 0 (1 standard drink = 0.6 oz pur e alcohol) socially Social Connections Answer Date Recorded Frequency of Communication with Friends and Fami ly Not on file 03/10/2021 Financial Resource Strain Answer Date R ecorded Difficulty of Paying Living Expenses Not on file 03/10/2021 Difficulty of Paying Living Expenses Not on file 03/10/2021 Sex and Gender Information Value Date Recorded Sex Assigned at Not on file Gender Identity Not on file Sexual Orientation Not on file Obstetrics History Last Filed Vital Signs Vital Sign Reading Time Taken Comments Blood Pressure 144/97 11/23/2021 10:01 AM CDT Pulse 106 11/23/2021 10:01 AM CDT Temperature 36.7 ??C (98.1 ??F) 11/23/2021 1 0:01 AM CDT Respiratory Rate 20 11/23/2021 10:0 1 AM CDT Oxygen Saturation 98% 11/23/2021 10: 01 AM CDT Inhaled Oxygen Concentration - - Weight 74.3 kg (163 lb 11.2 oz) 02/21/2020 8:26 AM APPLE PACKING HEADER Height 169.4 cm (5' 6.69) 02/21/2020 8:26 AM CS T Body Mass Index 25.88 02/21/2020 8:26 AM APPLE PACKING HEADER Plan of Treatment Health Maintenance Due Date Last Done Comments Tdap 07/09/1986 Depression screening for age 12+ 1987 HIV for age 15-65 07/09/1990 Hepatitis C screening for age 18-79 07/09/1993 Tetanus booster 1995 Colonoscopy through age 75 07/09/2020 Lipids for age 45-75 07/09/2020 Mammogram for age 45-75 07/09/2020 BMI (ht and wt on same day) for age 18+ 02/20/2021 02/21/2020 COVID-19 vaccine series (2022- season) 2022 03/14/2021 Influenza for age 9-49 11/09/2023 Pap test for age 21-65 01/21/2025 , 01/21/2022, 09/16/2016, Additional history exists Pneumococcal series for age 6-64 Aged Out No longer eligible based on patient's age to complete this topic Procedures Procedure Name Priority Date/Time Associated Diagnosis Comments LAB TRACKING EVENT Routine 04/29/2023 1: 35 PM APPLE PACKING HEADER PATH TISSUE EXAM Routine 04/29/2023 1:35 PM APPLE PACKING HEADER HPV THIN PREP Routine 01/21/2022 8:30 AM APPLE PACKING HEADER from Last 3 Months or Most Recently Relevant to Health Maintenance Results * LAB TRACKING EVENT (04/29/2023 1:35 PM APPLE PACKING HEADER) Other (Other) Client Collect / Unknown 04/29/2023 1:35 PM APPLE PACKING HEADER 04/30/2023 4:40 PM APPLE PACKING HEADER Bonny Lopez MD LAB [facility] [address] [place] [address], * PATH TISSUE EXAM (04/29/2023 1:35 PM APPLE PACKING HEADER) Case Report Pathology Report ?Case: [id number] ? Authorizing Provider: ??Bonny Lopez ??Collected: ? 04/29/2023 1335 ? M, MD ? Ordering Location: ? [facility] ?Received: ?04/30/20232038 ? Pathologist: ? Ruchi Morales MD ? Specimens: ?? A) - Cervical Biopsy, 7 o'clock ? B) - Cervical Biopsy, 12 o'clock ? C) - Endocervical Curettings, ECC ? D) - Endometrial Biopsy ? 05/02/2023 1:57 PM APPLE PACKING HEADER [facility] Final Diagnosis A) CERVIX, 7:00, BIOPSY: 1. Benign cervical mucosa ?? a. Sampling: Ectocervix ?? b. Transformation zone: Not visualized 2. Negative for glandular neoplasia, squamous intraepithelial lesion, ?? and malignancy B) CERVIX, 12:00, BIOPSY: 1. Benign cervical epithelium ?? a. Sampling: Ectocervix ?? b. Transformation zone: Not visualized 2. Negative for glandular neoplasia, squamous intraepithelial lesion, ?? and malignancy C) ENDOCERVIX, CURETTAGE: 1. Fragments of benign endocervical and ectocervical tissues 2. Negative for glandular neoplasia, squamous intraepithelial lesion, and malignancy D) ENDOMETRIUM, BIOPSY: 1. Secretory endometrium 2. Negative for chronic endometritis 3. Negative for hyperplasia, atypia, and malignancy 05/02/2023 1:57 PM APPLE PACKING HEADER [facility] Comment A) The patient's prior Pap test ([id number];2021) was diagnosed as negative for intraepithelial lesion or malignancy (NIL) but HR-HPV testing was positive for HR-HPV type 18 and positive for HR-HPV other (non-16/18) subtype(s). 05/02/2023 1:57 PM APPLE PACKING HEADER [facility] Clinical Information with menorrhagia and history of abnormal cervical Pap with positive HR-HPV 18 and non 16/18 (most recent Pap on 2021 was NIL) 05/02/2023 1:57 PM APPLE PACKING HEADER [facility] Gross Description A) Received in formalin, labeled with the patient's name and 7:00, is a single zazueta mucosal fragment measuring 0.3 cm. The specimen is submitted in toto in one cassette. B) Received in formalin, labeled with the patient's name and 12:00, is a single zazueta mucosal fragment measuring 0.2 x 0.2 cm. The specimen is submitted in toto in one cassette. C) Received in formalin, labeled with the patient's name and ECC, is a 2.5 x 0.8 x 0.2 cm aggregate of pink-zazueta mucosa admixed with clotted blood and mucous. The specimen is entirely submitted in 1 cassette. D) Received in formalin, labeled with the patient's name and endobiopsy, is a 2.0 x 1.0 x 0.3 cm aggregate of pink-zazueta mucosa admixed with clotted blood and mucous. The specimen is entirely submitted in 1 cassette. TMO 04/30/2023 ?? 05/02/2023 1:57 PM APPLE PACKING HEADER [facility] Microscopic Description The final diagnosis is based on microscopic examination of appropriate sections of all specimens. 05/02/2023 1:57 PM APPLE PACKING HEADER [facility] Additional Information Interpreted at [facility], Central Laboratory - [address] [place] [address] [address] 05/02/2023 1:57 PM APPLE PACKING HEADER [facility] ENTRAL LABORATORY Other (Cervical Biopsy) 04/29/2023 1:35 PM APPLE PACKING HEADER 04/30/2023 8:39 PM APPLE PACKING HEADER Specimen (specimen) (Cervical Biopsy) 04/29/2023 1:37 PM APPLE PACKING HEADER 04/30/2023 8:39 PM APPLE PACKING HEADER Specimen (specimen) (Endocervical Curettings) 04/29/2023 1:38 PM APPLE PACKING HEADER 04/30/2023 8:39 PM APPLE PACKING HEADER Specimen (specimen) (Endometrial Biopsy) 04/29/2023 1:39 PM APPLE PACKING HEADER 04/30/2023 8:39 PM APPLE PACKING HEADER Bonny Lopez MD PATHOLOGY/ CYTOLOGY Performing Organization Address City/[facility]/ZIP Co de Phone Number [facility] [address] [place] [address], [place] * (ABNORMAL) HPV HIGH RISK (01/21/2022 8:30 AM APPLE PACKING HEADER) TYPE 16 Negative Negative 01/23/2022 5:14 PM APPLE PACKING HEADER [facility] LAB[facility] TYPE 18 Positive(A) Negative 01/23/2022 5:14 PM APPLE PACKING HEADER [facility] TRAL LABORATORY OTHER HIGH RISK TYPES Positive(A) Negative 01/23/2022 5:14 PM APPLE PACKING HEADER [facility] Other (Cervical) 01/21/2022 8:30 AM APPLE PACKING HEADER 01/22/2022 12:18 PM APPLE PACKING HEADER Narrative [facility] - 01/23/2022 5:14 PM APPLE PACKING HEADER Specimen is positive for HPV type 18 DNA and the DNA of any one of, or combination of, the following high risk HPV types: 31, 33, 35, 39, 45, 51, 52, 56, 58,59, 66, 68. HPV type 16 DNA was undetectable or below the pre-set threshold. ?? Methodology: Rodriguez Digna 4800 HPV Test Dakota Ashraf MD MICROBIOLOGY [facility] [address] [place] [address], [place] from Last 3 Months or Most Recently Relevant to Health Maintenance Care Teams Workers' Compensation Magistrate Relationship Specialty Start Date End Date Dakota Ashraf MD PCP - General Family Practice 07/23/16
--- OUTSIDE RECORDS SUMMARY | 2023-07-22 07:15 | XMS_ITS | Clinical Summary ---
Author Name Unknown Organization [facility] Address [address] [address] Phone Care Team Providers Care Stick Welder Name Role Phone Unavailable Primary Care Provider Unavailabl e Allergies No known active allergies Medications Medication Sig Dispensed Refills Start Date End Date Status LORazepam (Ativan) 1 MG tablet Take 0.5 mg by mouth three times a day as needed for Anxiety. Active omeprazole (PriLOSEC OTC) 20 MG delayed-release tablet Take 20 mg by mouth every morning before breakfast. Tablet should be swallowed whole; do not crush or chew. Take before meals. Active hydrOXYzine HCl (Atarax) 25 MG tablet Take 1 Tablet by mouth every six hours as needed for Itching. 20 Tablet 03/23/2021 Active Immunizations Name Administration Dates Next Due TD >7yrs With Preservative 09/26/2003 Tdap (7 years and older) 10/28/2011 Surgical History Surgery Date Site/Laterality Comments WRIST FRACTURE SURGERY 03/21/2021 Right Right distal radius ORIF. ([facility]) Social History Tobacco Use Types Packs/Day Years Used Date Smoking Tobacco: Never Assessed Sex and Gender Information Value Date Recorded Sex Assigned at Not on file Gender Identity Not on file Sexual Orientation Not on file Job Start Date Occupation Industry Not on file Not on file Not on file Obstetrics History Last Filed Vital Signs Vital Sign Reading Time Taken Comments Blood Pressure 157/91 02/12/2020 11:03 PM FLATBED OWNER OPERATOR Pulse 113 02/12/2020 11:03 PM FLATBED OWNER OPERATOR Temperature 36.7 ??C (98.1 ??F) 02/12/2020 11:[address] Respiratory Rate 18 02/12/2020 11:03 PM FLATBED OWNER OPERATOR Oxygen Saturation 99% 02/12/2020 11:03 PM FLATBED OWNER OPERATOR Inhaled Oxygen Concentration - - Weight 74.4 kg (164 lb) 02/12/2020 6:11 PM FLATBED OWNER OPERATOR Height 170.2 cm (5' 7) 02/12/2020 6:11 PM FLATBED OWNER OPERATOR Body Mass Index 25.69 02/12/2020 6:11 PM FLATBED OWNER OPERATOR Plan of Treatment Health Maintenance Due Date Last Done Comments CT Colonography 1975 Cervical Cancer Screening 1975 Cologuard 1975 Colonoscopy 1975 Colorectal Cancer Screening 1975 FIT/FOBT 1975 Last pap w/ HPV Testing 1975 Last pap w/o HPV Testing 1975 MAMMO,SCREEN 1975 Sigmoidoscopy 1975 Hepatitis B Vaccine (Standin g Order) (1 of 3 - 19+ 3-dose series) 07/09/1994 TETANUS (Standing Order) 10/27/2021 012, 09/26/2003 COVID-19 Vaccine (2022-2 4 season) 2022 Influenza Vaccine Seasonal (Standing Order) (#1) 2022 PERTUSSIS (Standing Order) Completed 10/28/2011 HPV Vaccine (Standing Order) Aged Out No longer eligible based on patient's age to complete this topic Pneumococcal/PCV20 Vaccine: Pediatrics (2-5 yrs) and At-Risk Patients (6-64 yrs) (Standing Order) Aged Out No longer eligible b ased on patient's age to complete this topic
== END 2023-07-22 07:09 | disposition home or self-care (01) ==
PROVIDERS: PCP Family Medicine; Visit Provider Nurse Practitioner Family
DX: M48.061 Spinal stenosis, lumbar region without neurogenic claudication (principal); M47.896 Other spondylosis, lumbar region; M51.26 Other intervertebral disc displacement, lumbar region
CPT/HCPCS: 72148

== ENCOUNTER 2023-08-21 08:15 | Outpatient (RCR) | payer BC, SELFPAY | END 2023-12-19 23:59 | disposition home or self-care (01) | PROVIDERS: PCP Family Medicine; Visit Provider Orthopaedic Surgery Hand Surgery | DX: S62.616A Displaced fracture of proximal phalanx of right little finger, initial encounter for closed fracture (principal); M24.541 Contracture, right hand; Z51.89 Encounter for other specified aftercare | CPT/HCPCS: 97110; 97140; 97165; 97530; 97535; X5282 ==

== ENCOUNTER 2023-09-23 14:37 | Outpatient (CLI) | payer BC, SELFPAY ==
--- OUTSIDE RECORDS SUMMARY | 2023-09-23 14:41 | XMS_ITS | Clinical Summary ---
Author Organization [facility] Address [address] [address] Phone Care Team Providers Care Package Clerk Name Role Phone Unavailable Primary Care Provider [...] SURGERY 03/21/2021 Right Right distal radius ORIF. ([facility]) Social History Tobacco Use Types Packs/Day Years [...] Comments Blood Pressure 157/91 02/12/2020 11:[address] MAINTENANCE SUPERVISOR Pulse 113 02/12/2020 11:[address] MAINTENANCE SUPERVISOR Temperature 36.7 ??C (98.1 ??F) 02/12/2020 11:[address] Respiratory Rate 18 02/12/2020 11:[address] MAINTENANCE SUPERVISOR Oxygen Saturation 99% 02/12/2020 11:[address] MAINTENANCE SUPERVISOR Inhaled Oxygen Concentration - - Weight 74.4 kg (164 lb) 02/12/2020 6:[address] MAINTENANCE SUPERVISOR Height 170.2 cm (5' 7) 02/12/2020 6:[address] MAINTENANCE SUPERVISOR Body Mass Index 25.69 02/12/2020 6:[address] MAINTENANCE SUPERVISOR Plan of Treatment Health Maintenance Due Date Last Done Comments CT Colonography 1975 Cervical Cancer Screening 1975 Cologuard 1975 Colonoscopy 1975 Colorectal Cancer Screening 1975 FIT/FOBT 1975 Last pap w/ HPV Testing 1975 Last pap w/o HPV Testing 1975 MAMMO,SCREEN 1975 Sigmoidoscopy 1975 Hepatitis B Vaccine (Standin g Order) (1 of 3 - 19+ 3-dose series) 07/09/1994 TETANUS (Standing Order) 10/27/2021 012, 09/26/2003 Influenza Vaccine Seasonal (Standing Order) (Season Ended) 2023 PERTUSSIS (Standing Order) Completed 10/28/2011 HPV Vaccine (Standing Order) Aged Out No longer eligible based on patient's age to complete this topic Pneumococcal/PCV20 Vaccine: Pediatrics (2-5 yrs) and At-Risk Patients (6-64 yrs) (Standing Order) Aged Out No longer eligible b ased on patient's age to complete this topic
--- OUTSIDE RECORDS SUMMARY | 2023-09-23 14:41 | XMS_ITS | Clinical Summary ---
Author Organization [employer] [facility] [employer] Address [place], [place] [address] Care Team Providers Care Front Office Agent Name Role Phone Dakota Ashraf MD Primary [...] 3 times daily. 1 Tube 02/21/2020 Active Family History Medical History Relation Name Comments [...] (163 lb 11.2 oz) 02/21/2020 8:26 AM SAMPLES AND REPAIRS PREPARER Height 169.4 cm (5' 6.69) 02/21/2020 8:26 AM CS T Body Mass Index 25.88 02/21/2020 8:26 AM SAMPLES AND REPAIRS PREPARER Plan of Treatment Health Maintenance Due Date Last Done Comments Tdap 07/09/1986 Depression screening for age 12+ 1987 HIV for age 15-65 07/09/1990 Hepatitis C screening for age 18-79 07/09/1993 Tetanus booster 1995 Colonoscopy through age 75 07/09/2020 Lipids for age 45-75 07/09/2020 Mammogram for age 45-75 07/09/2020 BMI (ht and wt on same day) for age 18+ 02/20/2021 02/21/2020 COVID-19 vaccine series (2022-24 season) 2022 03/14/2021 Influenza for age 9-49 11/09/2023 Pap test for age 21-65 01/21/2025 , 01/21/2022, 09/16/2016, Additional history exists Pneumococcal series for age 6-64 Aged Out No longer eligible based on patient's age to complete this topic Procedures Procedure Name Priority Date/Time Associated Diagnosis Comments HPV THIN PREP Routine 01/21/2022 8:30 AM SAMPLES AND REPAIRS PREPARER from Last 3 Months or Most Recently Relevant to Health Maintenance Results * (ABNORMAL) HPV HIGH RISK (01/21/2022 8:30 AM SAMPLES AND REPAIRS PREPARER) TYPE 16 Negative Negative 01/23/2022 5:14 PM SAMPLES AND REPAIRS PREPARER [facility] TYPE 18 Positive(A) Negative 01/23/2022 5:14 PM SAMPLES AND REPAIRS PREPARER [facility] OTHER HIGH RISK TYPES Positive(A) Negative 01/23/2022 5:14 PM SAMPLES AND REPAIRS PREPARER [facility] Other (Cervical) 01/21/2022 8:30 AM SAMPLES AND REPAIRS PREPARER 01/22/2022 12:18 PM SAMPLES AND REPAIRS PREPARER [facility]ative [facility] 01/23/2022 5:14 PM SAMPLES AND REPAIRS PREPARER Specimen is positive for HPV type 18 DNA and the DNA of any one of, or combination of, the following high risk HPV types: 31, 33, 35, 39, 45, 51, 52, 56, 58,59, 66, 68. HPV type 16 DNA was undetectable or below the pre-set threshold. ?? Methodology: Rodriguez Digna 4800 HPV Test Dakota Ashraf MD MICROBIOLOGY [facility] [address] [place] [address], from Last 3 Months or Most Recently Relevant to Health Maintenance Care Teams Front Office Agent Relationship Specialty Start Date End Date Dakota Ashraf MD PCP - General Family Practice 07/23/16
--- OUTSIDE RECORDS SUMMARY | 2023-09-23 14:41 | XMS_ITS | Encounter Summary ---
Author Organization [facility] Address [address] [address] Phone Care Team Providers Care Photoengraver Name Role Phone Unavailable Primary Care Provider Unavailabl e Encounter Details Date Type Department Care Team (Late st Contact Info) Description 03/21/2021 Scanned - Medical Reports [facility] [address] [place] [address] Abstract, Provider, Social History Tobacco Use Types [...]
== END 2023-09-23 14:38 | disposition home or self-care (01) ==
LOC: LKVREF 14:38
PROVIDERS: PCP Family Medicine; Visit Provider Family Medicine
DX: Z01.818 Encounter for other preprocedural examination (principal)
CPT/HCPCS: 80048

== ENCOUNTER 2023-10-15 21:47 | Outpatient (CLI) | payer BC, SELFPAY | END 2023-10-15 21:48 | disposition home or self-care (01) | LOC: AMB 10-18 11:15 | PROVIDERS: PCP Family Medicine; Visit Provider Family Medicine | DX: S09.90XA Unspecified injury of head, initial encounter (principal); W18.30XA Fall on same level, unspecified, initial encounter; Y92.59 Other trade areas as the place of occurrence of the external cause | CPT/HCPCS: A0425; A0427 ==

== ENCOUNTER 2023-10-15 22:16 | Emergency (ER) | payer BC, SELFPAY ==
[2023-10-15 22:18] VITALS: BP 134/100; PULSE 66; RESP 16; TEMP 36.7; O2SAT 98
--- NOTE | 2023-10-15 22:22 | ED_ITS ---
HPI - Fall General Time Seen by Provider: 22:22 <Tobi Zamorano MD - Last Filed: 10/20/23 20:06> Date Seen: 10/15/23 <Tobi Zamorano MD - Last Filed: 10/20/23 20:06> Chief Complaint: Fall/Minor Trauma <Tobi Zamorano MD - Last Filed: 10/20/23 20:06> Stated Complaint: fall, etoh <Tobi Zamorano MD - Last Filed: 10/20/23 20:06> Time Seen by Provider: 10/15/23 22:22 <Tobi Zamorano MD - Last Filed: 10/20/23 20:06> Source: patient, EMS, RN notes reviewed and old records reviewed <Tobi Zamorano MD - Last Filed: 10/20/23 20:06> Mode of arrival: EMS <Tobi Zamorano MD - Last Filed: 10/20/23 20:06> Limitations: altered mental status (Alcohol intoxication) <Tobi Zamorano MD - Last Filed: 10/20/23 20:06> History of Present Illness HPI Narrative: 48-year-old female with history of alcohol dependence who presents with head injury after fall. Patient apparently fell backward off a bar stool, did hit her head, unknown loss of consciousness. Patient is not able to provide much history. She has no complaints. Denies chest pain, shortness of breath, abdominal pain, back pain. <Tobi Zamorano MD - Last Filed: 10/20/23 20:06> Related Data Home Medications: Previous Rx's ?Medication ?Instructions ?Recorded verapamil 120 mg tablet,extended 120 mg PO BID #180 tabs 01/21/22 release albuterol sulfate 90 mcg/actuation 2 puff inhalation Q4H PRN 04/14/22 aerosol inhaler (Proventil HFA) shortness of breath or wheezing #8.5 grams omeprazole 20 mg capsule,delayed 20 mg PO QDAY #90 caps 08/22/22 release gabapentin 100 mg capsule See Rx Instructions PO .ud #240 04/02/23 caps buspirone 30 mg tablet 30 mg PO BID #180 tabs 04/17/23 alprazolam 1 mg tablet 1 mg PO TID PRN anxiety #30 tabs 05/29/23 ibuprofen 600 mg tablet 600 mg PO QID PRN #30 tabs 06/05/23 oxycodone 5 mg tablet 5 mg PO 3XD PRN 4 OR GREATER ON 06/05/23 PAIN SCALE #7 tabs bupropion HCl 300 mg 24 hr tablet, 300 mg PO QAM #90 tabs 06/16/23 extended release escitalopram oxalate 20 mg tablet 20 mg PO QDAY #90 tabs 06/16/23 naltrexone 50 mg tablet 50 mg PO QDAY #90 tabs 06/16/23 gabapentin 300 mg capsule See Rx Instructions PO .ud #120 09/05/23 caps lorazepam 1 mg tablet See Rx Instructions PO TID PRN 09/05/23 anxiety #30 tabs nicotine 14 mg/24 hr daily 1 patch transdermal Q24H #14 ea 09/23/23 transdermal patch <Tobi Zamorano MD - Last Filed: 10/20/23 20:06> Allergies/Adverse Reactions: Allergies Allergy/AdvReac Type Severity Reaction Status Date / Time No Known Allergies Allergy Unknown Verified 09/23/23 14:16 <Tobi Zamorano MD - Last Filed: 10/20/23 20:06> [facility] Medical History: Medical History Hypertension ?I10 - Essential (primary) hypertension (ICD-10) History of alcoholic hepatitis ?Z87.19 - Personal history of other diseases of the digestive system (ICD-10) COVID-19 ?U07.1 - COVID-19 (ICD-10) Bartholin's gland abscess ?N75.1 - Abscess of Bartholin's gland (ICD-10) Injury of finger of right hand ?S69.91XA - Unspecified injury of right wrist, hand and finger(s), initial encounter (ICD-10) Hypothyroidism ?E03.9 - Hypothyroidism, unspecified (ICD-10) Fracture of rib ?S22.39XA - Fracture of one rib, unspecified side, initial encounter for closed fracture (ICD-10) <Tobi Zamorano MD - Last Filed: 10/20/23 20:06> Surgical History: Surgical History Status post cervical spinal arthrodesis ?Z98.1 - Arthrodesis status (ICD-10) History of tubal ligation ?Z98.51 - Tubal ligation status (ICD-10) History of loop electrical excision procedure (LEEP) ?Z98.890 - Other specified postprocedural states (ICD-10) History of section ?Z98.891 - History of uterine scar from previous surgery (ICD-10) <Tobi Zamorano MD - Last Filed: 10/20/23 20:06> Family History: Family History Other Diabetes <Tobi Zamorano MD - Last Filed: 10/20/23 20:06> Social History: Social History Narrative: alcohol abuse Smoking Status: Current every day smoker What tobacco products do you use: cigarettes Smoking packs per day: 1 Smoking cigarettes per day: 20.0 Years smoked: 10 Smoking pack-years: 10.00 Do you use any of these nicotine containing products: None Second hand tobacco smoke exposure: No How often do you have a drink containing alcohol: never AUDIT-C Alcohol total score: 0 Non-prescribed substance use: marijuana (any form) Caffeine: Yes Little interest or pleasure in doing things: nearly every day Feeling down, depressed, or hopeless: nearly every day Are you using contraception or practicing any form of control: Yes (tubal) service: No <Tobi Zamorano MD - Last Filed: 10/20/23 20:06> Exam Narrative: Exam Narrative: Airway intact Breathing nonlabored, lungs are clear Circulation no tachycardia or hypotension Disability GCS 15, no focal neurologic deficits General: Well-developed and well-nourished, no acute distress Head: Right occipital parietal hematoma Eyes: Pupils are equal reactive, extraocular motions intact, conjunctiva clear ENT: External nose and ears are normal, posterior pharynx without erythema or exudate Neck: No midline cervical tenderness, full spontaneous range of motion the neck, trachea midline, no adenopathy Heart: Regular rate and rhythm no murmurs or thrills Lungs: Clear to auscultation bilaterally without wheezes or crackles Abdomen: Soft, nontender, nondistended with active bowel sounds Musculoskeletal: No tenderness, deformity, or edema. Specifically no midline lumbar nor thoracic tenderness Neurologic: Awake, alert, and oriented x3, slurred speech, strength in the upper and lower extremities intact Psych: Tearful Skin: No rashes <Tobi Zamorano MD - Last Filed: 10/20/23 20:06> Const: Vital Signs, click to edit/add: Vital Signs - 24 hr 10/15/23 22:18 10/15/23 22:29 10/15/23 22:30 Temperature 98.1 F Pulse Rate 55 L 53 L Pulse Rate [Pulse Oximeter] 66 Respiratory Rate 16 Blood Pressure Blood Pressure [Ri ght Upper Arm] 134/100 H Pulse Oximetry 98 98 [facility] 10/15/23 23:29 10/15/23 23:30 10/15/23 23:45 Temperature Pulse Rate 61 62 64 Pulse Rate [Pulse Oximeter] Respiratory Rate Blood Pressure Blood Pressure [Ri ght Upper Arm] Pulse Oximetry 96 95 99 Oxygen Delivery Nd thod 10/16/23 00:00 10/16/23 00:15 10/16/23 00:18 Temperature Pulse Rate 65 84 Pulse Rate [Pulse Oximeter] 75 Respiratory Rate 16 Blood Pressure Blood Pressure [Ri ght Upper Arm] 124/81 Pulse Oximetry 94 97 99 [facility] 10/16/23 00:34 10/16/23 00:35 10/16/23 00:45 Temperature Pulse Rate 73 67 67 Pulse Rate [Pulse Oximeter] Respiratory Rate Blood Pressure 124/81 Blood Pressure [Ri ght Upper Arm] Pulse Oximetry 96 95 94 Oxygen Delivery Nd thod 10/16/23 01:00 10/16/23 01:15 10/16/23 01:30 Temperature Pulse Rate 62 61 68 Pulse Rate [Pulse Oximeter] Respiratory Rate Blood Pressure Blood Pressure [Ri ght Upper Arm] Pulse Oximetry 93 96 93 Oxygen Delivery Nd thod 10/16/23 01:45 10/16/23 02:00 10/16/23 02:24 Temperature Pulse Rate 65 65 65 Pulse Rate [Pulse Oximeter] Respiratory Rate Blood Pressure Blood Pressure [Ri ght Upper Arm] Pulse Oximetry 94 94 100 Oxygen Delivery Nd thod 10/16/23 02:30 10/16/23 02:45 10/16/23 03:00 Temperature Pulse Rate 68 65 62 Pulse Rate [Pulse Oximeter] Respiratory Rate Blood Pressure Blood Pressure [Ri ght Upper Arm] Pulse Oximetry 94 96 95 Oxygen Delivery Me thod 10/16/23 03:15 10/16/23 03:30 10/16/23 03:45 Temperature Pulse Rate 64 64 69 Pulse Rate [Pulse Oximeter] Respiratory Rate Blood Pressure Blood Pressure [Ri ght Upper Arm] Pulse Oximetry 95 93 94 Oxygen Delivery Me thod 10/16/23 04:00 10/16/23 04:15 10/16/23 04:30 Temperature Pulse Rate 77 69 72 Pulse Rate [Pulse Oximeter] Respiratory Rate Blood Pressure Blood Pressure [Ri ght Upper Arm] Pulse Oximetry 94 92 92 Oxygen Delivery Me thod 10/16/23 04:45 10/16/23 05:00 10/16/23 05:15 Temperature Pulse Rate 79 71 70 Pulse Rate [Pulse Oximeter] Respiratory Rate Blood Pressure Blood Pressure [Ri ght Upper Arm] Pulse Oximetry 96 94 94 Oxygen Delivery Me thod 10/16/23 05:30 10/16/23 05:45 10/16/23 06:00 Temperature Pulse Rate 64 66 65 Pulse Rate [Pulse Oximeter] Respiratory Rate Blood Pressure Blood Pressure [Ri ght Upper Arm] Pulse Oximetry 98 95 96 Oxygen Delivery Me thod <Tobi Zamorano MD - Last Filed: 10/20/23 20:06> Vital Signs, click to edit/add: Vital Signs - 24 hr 10/15/23 22:18 10/15/23 22:29 10/15/23 22:30 Temperature 98.1 F Pulse Rate 55 L 53 L Pulse Rate [Pulse Oximeter] 66 Respiratory Rate 16 Blood Pressure Blood Pressure [Ri ght Upper Arm] 134/100 H Pulse Oximetry 98 98 95 Oxygen Delivery Me thod Room Air 10/15/23 23:29 10/15/23 23:30 10/15/23 23:45 Temperature Pulse Rate 61 62 64 Pulse Rate [Pulse Oximeter] Respiratory Rate Blood Pressure Blood Pressure [Ri ght Upper Arm] Pulse Oximetry 96 95 99 Oxygen Delivery Me thod 10/16/23 00:00 10/16/23 00:15 10/16/23 00:18 Temperature Pulse Rate 65 84 Pulse Rate [Pulse Oximeter] 75 Respiratory Rate 16 Blood Pressure Blood Pressure [Ri ght Upper Arm] 124/81 Pulse Oximetry 94 97 99 Oxygen Delivery Me thod Room Air 10/16/23 00:34 10/16/23 00:35 10/16/23 00:45 Temperature Pulse Rate 73 67 67 Pulse Rate [Pulse Oximeter] Respiratory Rate Blood Pressure 124/81 Blood Pressure [Ri ght Upper Arm] Pulse Oximetry 96 95 94 Oxygen Delivery Me thod 10/16/23 01:00 10/16/23 01:15 10/16/23 01:30 Temperature Pulse Rate 62 61 68 Pulse Rate [Pulse Oximeter] Respiratory Rate Blood Pressure Blood Pressure [Ri ght Upper Arm] Pulse Oximetry 93 96 93 Oxygen Delivery Me thod 10/16/23 01:45 10/16/23 02:00 10/16/23 02:24 Temperature Pulse Rate 65 65 65 Pulse Rate [Pulse Oximeter] Respiratory Rate Blood Pressure Blood Pressure [Ri ght Upper Arm] Pulse Oximetry 94 94 100 Oxygen Delivery Me thod 10/16/23 02:30 10/16/23 02:45 10/16/23 03:00 Temperature Pulse Rate 68 65 62 Pulse Rate [Pulse Oximeter] Respiratory Rate Blood Pressure Blood Pressure [Ri ght Upper Arm] Pulse Oximetry 94 96 95 Oxygen Delivery Me thod 10/16/23 03:15 10/16/23 03:30 10/16/23 03:45 Temperature Pulse Rate 64 64 69 Pulse Rate [Pulse Oximeter] Respiratory Rate Blood Pressure Blood Pressure [Ri ght Upper Arm] Pulse Oximetry 95 93 94 Oxygen Delivery Me thod 10/16/23 04:00 10/16/23 04:15 10/16/23 04:30 Temperature Pulse Rate 77 69 72 Pulse Rate [Pulse Oximeter] Respiratory Rate Blood Pressure Blood Pressure [Ri ght Upper Arm] Pulse Oximetry 94 92 92 Oxygen Delivery Me thod 10/16/23 04:45 10/16/23 05:00 10/16/23 05:15 Temperature Pulse Rate 79 71 70 Pulse Rate [Pulse Oximeter] Respiratory Rate Blood Pressure Blood Pressure [Ri ght Upper Arm] Pulse Oximetry 96 94 94 Oxygen Delivery Me thod 10/16/23 05:30 10/16/23 05:45 10/16/23 06:00 Temperature Pulse Rate 64 66 65 Pulse Rate [Pulse Oximeter] Respiratory Rate Blood Pressure Blood Pressure [Ri ght Upper Arm] Pulse Oximetry 98 95 96 Oxygen Delivery Me thod <Shira Dubon MD - Last Filed: 10/16/23 07:22> Course Course ED Course: Patient seen and examined immediately on EMS arrival, trauma team alert from the field due to head injury and altered mentation. On exam here, patient does have a scalp hematoma it is unable to really provide much history, unknown loss of conscious, CT scan of the head is ordered. Patient has no midline cervical tenderness and full spontaneous range of motion the neck, however given alcohol intoxication, CT scan of cervical spine is ordered. No thoracic or lumbar back pain. No chest wall tenderness or crepitus to suggest rib fracture or subcutaneous air. No abdominal tenderness. No tenderness deformity of the upper lower extremities. Care complicated by history of smoking, anxiety. Social determinates of health included alcohol dependence and access to afford healthcare <Tobi Zamorano MD - Last Filed: 10/20/23 20:06> Reevaluation(s) Time of Reevaluation #1: 23:13 <Tobi Zamorano MD - Last Filed: 10/20/23 20:06> Reevaluation #1: CT scan of the head independently interpreted by me negative for acute findings. Labs independently interpreted by me with leukocytosis white blood cell count 18.9, INR 0.92, potassium slightly low at 3.2, magnesium normal, urine drug screen is pending, blood alcohol 0.43. Patient will be allowed to sober in the department and plan for discharge. EKG ordered and independently interpreted by me performed at 10:25 p.m. demonstrates normal sinus rhythm rate 53, no acute ST elevations or depressions, normal intervals, normal axis, MA 126, QTC 424. No prior for comparison <Tobi Zamorano MD - Last Filed: 10/20/23 20:06> Time of Reevaluation #2: 23:44 <Tobi Zamorano MD - Last Filed: 10/20/23 20:06> Reevaluation #2: Patient is resting comfortably. Sign out to oncoming provider pending CT results and sobriety. <Tobi Zamorano MD - Last Filed: 10/20/23 20:06> Time of Reevaluation #3: 00:30 <Shira Dubon MD - Last Filed: 10/16/23 07:22> Reevaluation #3: I assumed care from Dr. Zamorano. CT results reviewed, all reassuring. I came out to check on patient she was ambulating to the bathroom still quite unsteady on her feet and clearly quite intoxicated. I confirm with the nursing team that none of us agree that she is ready for discharge at this time. We are going to let her sleep, routine checks and once she is sober, holding down food and liquids, we will call for a ride. <Shira Dubon MD - Last Filed: 10/16/23 07:22> Additional Reevaluation(s): Update: 721. Dr. Dubon- patient awake and ambulating. Requesting aspirin for headache. Her right is on her way. Will give 325 of aspirin p.o. x1. Much steadier on her feet now. No changes to discharge instruction and plan <Shira Dubon MD - Last Filed: 10/16/23 07:22> Vital Signs Vital signs: Initial Vital Signs Temperature 98.1 F 10/15/23 22:18 Temperature Source Temporal Artery Scan 10/15/23 22:18 Pulse Rate 66 10/15/23 22:18 Respiratory Rate 16 10/15/23 22:18 Blood Pressure 134/100 H 10/15/23 22:18 Blood Pressure Mean 111 H 10/15/23 22:18 Blood Pressure Position Supine 10/15/23 22:18 Pulse Oximetry 98 10/15/23 22:18 Oxygen Delivery Method Room Air 10/15/23 22:18 Vital Signs Temperature 98.1 F 10/15/23 22:18 Pulse Rate 66 10/15/23 22:18 Respiratory Rate 16 10/15/23 22:18 Blood Pressure 134/100 H 10/15/23 22:18 Pulse Oximetry 98 10/15/23 22:18 Oxygen Delivery Method Room Air 10/15/23 22:18 Temperature 98.1 F 10/15/23 22:18 Pulse Rate 65 10/16/23 06:00 Respiratory Rate 16 10/16/23 00:18 Blood Pressure 124/81 10/16/23 00:35 Pulse Oximetry 96 10/16/23 06:00 Oxygen Delivery Method Room Air 10/16/23 00:18 <Tobi Zamorano MD - Last Filed: 10/20/23 20:06> Initial Vital Signs Temperature 98.1 F 10/15/23 22:18 Temperature Source Temporal Artery Scan 10/15/23 22:18 Pulse Rate 66 10/15/23 22:18 Respiratory Rate 16 10/15/23 22:18 Blood Pressure 134/100 H 10/15/23 22:18 Blood Pressure Mean 111 H 10/15/23 22:18 Blood Pressure Position Supine 10/15/23 22:18 Pulse Oximetry 98 10/15/23 22:18 Oxygen Delivery Method Room Air 10/15/23 22:18 Vital Signs Temperature 98.1 F 10/15/23 22:18 Pulse Rate 66 10/15/23 22:18 Respiratory Rate 16 10/15/23 22:18 Blood Pressure 134/100 H 10/15/23 22:18 Pulse Oximetry 98 10/15/23 22:18 Oxygen Delivery Method Room Air 10/15/23 22:18 Temperature 98.1 F 10/15/23 22:18 Pulse Rate 65 10/16/23 06:00 Respiratory Rate 16 10/16/23 00:18 Blood Pressure 124/81 10/16/23 00:35 Pulse Oximetry 96 10/16/23 06:00 Oxygen Delivery Method Room Air 10/16/23 00:18 <Shira Dubon MD - Last Filed: 10/16/23 07:22> MDM - Fall Lab Data Attestation: I reviewed the patient's lab results. <Shira Dubon MD - Last Filed: 10/16/23 07:22> Lab results narrative: For the etiology of the leukocytosis. Markedly elevated alcohol level. <Shira Dubon MD - Last Filed: 10/16/23 07:22> Labs: Lab Results 10/15/23 10/15/23 10/15/23 Range/Units 22:25 22:25 23:00 WBC 18.92 H (4.50-11.00) K/uL RBC 4.46 (4.00-5.20) m/uL Hgb 13.8 (12.0-16.0) gm/dL Hct 40.8 (33.0-51.0) % MCV 92 (80-100) fL MCH 31 (26-34) pg MCHC 34 (32-36) gm/dL RDW Coeff of Comfort 12.9 (11.5-15.5) % Plt Count 380 (140-440) K/uL Neut % (Auto) 58.7 (42.0-72.0) % Lymph % (Auto) 32.3 (20-44) % [place] % (Auto) 5.9 (0.0-11.0) % Eos % (Auto) 1.2 (0.0-7.0) % Baso % (Auto) 0.6 (0.0-3.0) % Neut # (Auto) 11.10 H (1.7-7.0) K/uL Lymph # (Auto) 6.10 H (0.90-2.90) K/uL [place] # (Auto) 1.10 H (0.00-0.90) K/UL Eos # (Auto) 0.20 (0.00-0.50) K/uL Baso # (Auto) 0.10 (0.00-0.30) K/uL Abs Immat Gran (auto) 0.20 (0.00-0.30) K/uL Imm/Tot Granulo (auto) 1.3 % INR 0.92 (0.91-1.10) Sodium 139 (135-149) mmol/L Potassium 3.2 L (3.6-5.1) mmol/L Chloride 107 (96-114) mmol/L Carbon Dioxide 18 L (20-32) mmol/L Anion Gap 14 (7-15) mEq/L BUN 5 (5-24) mg/dL Creatinine 0.6 (0.5-1.5) mg/dL Estimated GFR 111 ml/min Glucose 110 (60-115) mg/dL Calcium 8.7 (8.4-10.6) mg/dL Magnesium 2.2 (1.5-2.6) mg/dL Urine Opiates Screen POSITIVE A (Negative) Ur Oxycodone Screen Negative (Negative) Urine Methadone Screen Negative (Negative) Ur Barbiturates Screen Negative (Negative) U Tricyclic Antidepress Negative (Negative) Ur Phencyclidine Scrn Negative (Negative) Ur Amphetamines Screen Negative (Negative) U Methamphetamines Scrn Negative (Negative) U Benzodiazepines Scrn Negative (Negative) Urine Cocaine Screen Negative (Negative) U Marijuana (THC) Screen POSITIVE A (Negative) Ur Drug Screen Comment See Note Ethyl Alcohol Cancelled 0.43 H* <Tobi Zamorano MD - Last Filed: 10/20/23 20:06> Lab Results 10/15/23 10/15/23 10/15/23 Range/Units 22:25 22:25 23:00 WBC 18.92 H (4.50-11.00) K/uL RBC 4.46 (4.00-5.20) m/uL Hgb 13.8 (12.0-16.0) gm/dL Hct 40.8 (33.0-51.0) % MCV 92 (80-100) fL MCH 31 (26-34) pg MCHC 34 (32-36) gm/dL RDW Coeff of Comfort 12.9 (11.5-15.5) % Plt Count 380 (140-440) K/uL Neut % (Auto) 58.7 (42.0-72.0) % Lymph % (Auto) 32.3 (20-44) % [place] % (Auto) 5.9 (0.0-11.0) % Eos % (Auto) 1.2 (0.0-7.0) % Baso % (Auto) 0.6 (0.0-3.0) % Neut # (Auto) 11.10 H (1.7-7.0) K/uL Lymph # (Auto) 6.10 H (0.90-2.90) K/uL [place] # (Auto) 1.10 H (0.00-0.90) K/UL Eos # (Auto) 0.20 (0.00-0.50) K/uL Baso # (Auto) 0.10 (0.00-0.30) K/uL Abs Immat Gran (auto) 0.20 (0.00-0.30) K/uL Imm/Tot Granulo (auto) 1.3 % INR 0.92 (0.91-1.10) Sodium 139 (135-149) mmol/L Potassium 3.2 L (3.6-5.1) mmol/L Chloride 107 (96-114) mmol/L Carbon Dioxide 18 L (20-32) mmol/L Anion Gap 14 (7-15) mEq/L BUN 5 (5-24) mg/dL Creatinine 0.6 (0.5-1.5) mg/dL Estimated GFR 111 ml/min Glucose 110 (60-115) mg/dL Calcium 8.7 (8.4-10.6) mg/dL Magnesium 2.2 (1.5-2.6) mg/dL Urine Opiates Screen POSITIVE A (Negative) Ur Oxycodone Screen Negative (Negative) Urine Methadone Screen Negative (Negative) Ur Barbiturates Screen Negative (Negative) U Tricyclic Antidepress Negative (Negative) Ur Phencyclidine Scrn Negative (Negative) Ur Amphetamines Screen Negative (Negative) U Methamphetamines Scrn Negative (Negative) U Benzodiazepines Scrn Negative (Negative) Urine Cocaine Screen Negative (Negative) U Marijuana (THC) Screen POSITIVE A (Negative) Ur Drug Screen Comment See Note Ethyl Alcohol Cancelled 0.43 H* <Shira Dubon MD - Last Filed: 10/16/23 07:22> Imaging Data CT- Other: Attestation: I have reviewed the pertinent imaging results. <Shira Dubon MD - Last Filed: 10/16/23 07:22> My impression: Normal CT of cervical spine <Shira Dubon MD - Last Filed: 10/16/23 07:22> Radiologist's impression: Findings: Alignment: Mild rightward lateral listing, may be positional. Bones: C5-6 ACDF. No acute fracture appreciated. Cervical levels: No acute abnormality appreciated. Mild degenerative changes. Soft tissues: No acute abnormality appreciated. Impression: No acute abnormality appreciated. <Shira Dubon MD - Last Filed: 10/16/23 07:22> CT scan - head: Attestation: I have reviewed the pertinent imaging results. <Shira Dubon MD - Last Filed: 10/16/23 07:22> My impression: No intracranial hemorrhage, mass or other abnormality. Scalp contusion noted. <Shira Dubon MD - Last Filed: 10/16/23 07:22> Radiologist's impression: Impression: Allowing for motion degradation, there is a right posterior scalp contusion with no other acute abnormality appreciated. <Shira Dubon MD - Last Filed: 10/16/23 07:22> Discharge Plan Discharge Clinical Impression: Hematoma of right parietal scalp, Alcohol dependence with acute alcoholic intoxication without complication, Leukocytosis <Tobi Zamorano MD - Last Filed: 10/20/23 20:06> Patient Disposition: Home, Self-Care <Tobi Zamorano MD - Last Filed: 10/20/23 20:06> Condition: Stable <Tobi Zamorano MD - Last Filed: 10/20/23 20:06> Instructions: Leukocytosis (ED), Scalp Contusion in Adults (ED), Alcohol Dependence (ED) <Tobi Zamorano MD - Last Filed: 10/20/23 20:06> Additional Instructions: The CT scans of your head and neck do not show any major abnormality. From your fall, you do have a hematoma on the skin of right back of your head. Your likely to have some concussion symptoms including dizziness, fatigue and headache for the next couple of days. Avoid alcohol for the next 5 days. Rest for today, gradually increasing activity Friday and through the weekend. Your alcohol level is markedly elevated. This is a sign that your drinking far too much in 1 sitting. It is advised that you cut down on your alcohol use considerably. It is okay to use Tylenol and/or ibuprofen for headache. Your white blood cell count is slightly elevated but there are no obvious signs of infection. This can be elevated for other reasons as well. If you start to have high fever, burning with urination, abdominal pain or other symptoms that may signal infection, please seek re-evaluation. No driving for 24 hours <Tobi Zamorano MD - Last Filed: 10/20/23 20:06> Activity Level: Activity as Tolerated <Tobi Zamorano MD - Last Filed: 10/20/23 20:06> Activity as Tolerated <Shira Dubon MD - Last Filed: 10/16/23 07:22> Discharge Diet: Regular <Tobi Zamorano MD - Last Filed: 10/20/23 20:06> Regular <Shira Dubon MD - Last Filed: 10/16/23 07:22> Prescriptions: No Action verapamil 120 mg tablet extended release 120 mg PO BID Qty: 180 3RF gabapentin 100 mg capsule See Rx Instructions PO .ud Qty: 240 2RF Rx Instructions: 100-200 mg QAM and Qmidday orally UD; (To be used with her 300 mg dose) escitalopram oxalate 20 mg tablet 20 mg PO QDAY Qty: 90 3RF Rx Instructions: Take along with 10 mg tablet bupropion HCl 300 mg tablet extended release 24 hr 300 mg PO QAM Qty: 90 1RF naltrexone 50 mg tablet 50 mg PO QDAY Qty: 90 3RF omeprazole 20 mg capsule,delayed release(DR/EC) 20 mg PO QDAY Qty: 90 0RF nicotine 14 mg/24 hr patch 24 hour 1 patch transdermal Q24H Qty: 14 2RF oxycodone 5 mg Tablet 5 mg PO 3XD PRN (Reason: 4 OR GREATER ON PAIN SCALE) Qty: 7 0RF ibuprofen 600 mg tablet 600 mg PO QID PRNQty: 30 0RF albuterol sulfate [Proventil HFA] 90 mcg/actuation HFA aerosol inhaler 2 puff inhalation Q4H PRN (Reason: shortness of breath or wheezing) Qty: 8.5 11RF buspirone 30 mg tablet 30 mg PO BID Qty: 180 3RF alprazolam 1 mg tablet 1 mg PO TID PRN (Reason: anxiety) Qty: 30 0RF lorazepam 1 mg tablet See Rx Instructions PO TID PRN (Reason: anxiety) Qty: 30 0RF Rx Instructions: 1/2 to 1 mg tid orally three times a day PRN; gabapentin 300 mg capsule See Rx Instructions PO .ud Qty: 120 5RF Rx Instructions: 300 mg QAM and QMidday, and 600 mg QHS orally UD; <Tobi Zamorano MD - Last Filed: 10/20/23 20:06> Follow Up/Referrals: Dakota Ashraf MD [Primary Care Provider] - <Tobi Zamorano MD - Last Filed: 10/20/23 20:06> Stand Alone Forms: [employer] Info Instructions <Tobi Zamorano MD - Last Filed: 10/20/23 20:06>
--- NOTE | 2023-10-15 22:25 | CRLHL7_ITS ---
For Patients: As a result of the Century Cures Act, medical imaging exams and procedure reports are released immediately into your electronic medical record. You may view this report before your referring provider. If you have questions, please contact your health care provider. Indication: Fall while intoxicated, head injury Technique: Noncontrast CT through the cervical spine with multiplanar reformats Comparison: Cervical spine radiographs dated 10/08/2022 Findings: Alignment: Mild rightward lateral listing, may be positional. Bones: C5-6 ACDF. No acute fracture appreciated. Cervical levels: No acute abnormality appreciated. Mild degenerative changes. Soft tissues: No acute abnormality appreciated. Impression: No acute abnormality appreciated. Please note that all CT scans at this facility use dose modulation, iterative reconstruction, and/or weight-based dosing when appropriate to reduce radiation dose to as low as reasonably achievable. Dictated by Avery Rivera MD @ 10/16/2023 12:04:10 AM (Electronically Signed)
--- NOTE | 2023-10-15 22:25 | CRLHL7_ITS ---
For Patients: As a result of the Century Cures Act, medical imaging exams and procedure reports are released immediately into your electronic medical record. You may view this report before your referring provider. If you have questions, please contact your health care provider. Indication: Head injury, fall, alcohol intoxication Technique: Noncontrast CT through the head with multiplanar reformats Comparison: None Findings: Mild motion degradation. Brain: No acute hemorrhage. No acute infarct. No significant mass effect or midline shift. No gross evidence of a mass lesion or cerebral edema. Ventricles: No acute abnormality appreciated. Orbits, sinuses, mastoids: No acute abnormality appreciated. Calvarium and soft tissues: Right posterior scalp contusion, no underlying fracture appreciated. Impression: Allowing for motion degradation, there is a right posterior scalp contusion with no other acute abnormality appreciated. Please note that all CT scans at this facility use dose modulation, iterative reconstruction, and/or weight-based dosing when appropriate to reduce radiation dose to as low as reasonably achievable. Dictated by Avery Rivera MD @ 10/16/2023 12:02:36 AM (Electronically Signed)
[2023-10-15 22:29] VITALS: PULSE 55; O2SAT 98
[2023-10-15 22:30] VITALS: PULSE 53; O2SAT 95
--- OUTSIDE RECORDS SUMMARY | 2023-10-15 22:41 | XMS_ITS | Clinical Summary ---
Author Organization [facility] Address [address] [address] Phone Care Team Providers Care Manager Documentation Name Role Phone Unavailable Primary Care Provider [...] SURGERY 03/21/2021 Right Right distal radius ORIF. 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
--- OUTSIDE RECORDS SUMMARY | 2023-10-15 22:41 | XMS_ITS | Encounter Summary ---
Author Organization [facility] Address [address] [address] Phone Care Team Providers Care Breakfast Host Name Role Phone Unavailable Primary Care Provider Unavailabl e Encounter Details Date Type Department Care Team (Late st Contact Info) Description 03/21/2021 Scanned - Medical Reports [facility] [address] [place] [address] Abstract, Provider, Social History Tobacco [...]
--- OUTSIDE RECORDS SUMMARY | 2023-10-15 22:41 | XMS_ITS | Clinical Summary ---
Author Organization [employer] Address [place], [place] [address] Care Team Providers Care Stereo Equipment Installer Name Role Phone Dakota Ashraf MD Primary Care Provider [phone] Allergies No known active allergies Medications Medication [...] (163 lb 11.2 oz) 02/21/2020 8:26 AM PRODUCTION CELL LEADER Height 169.4 cm (5' 6.69) 02/21/2020 8:26 AM CS T Body Mass Index 25.88 02/21/2020 8:26 AM PRODUCTION CELL LEADER Plan of Treatment Health Maintenance Due Date [...] HPV THIN PREP Routine 01/21/2022 8:30 AM PRODUCTION CELL LEADER from Last 3 Months or Most Recently Relevant to Health Maintenance Results * (ABNORMAL) HPV HIGH RISK (01/21/2022 8:30 AM PRODUCTION CELL LEADER) TYPE 16 Negative Negative 01/23/2022 5:14 PM PRODUCTION CELL LEADER [facility] [employer] TYPE 18 Positive(A) Negative 01/23/2022 5:14 PM PRODUCTION CELL LEADER [facility] OTHER HIGH RISK TYPES Positive(A) Negative 01/23/2022 5:14 PM PRODUCTION CELL LEADER [facility] Other (Cervical) 01/21/2022 8:30 AM PRODUCTION CELL LEADER 01/22/2022 12:18 PM PRODUCTION CELL LEADER Narrative [facility] - 01/23/2022 5:14 PM PRODUCTION CELL LEADER Specimen is positive for HPV type 18 DNA and the DNA of any one of, or combination of, the following high risk HPV types: 31, 33, 35, 39, 45, 51, 52, 56, 58,59, 66, 68. HPV type 16 DNA was undetectable or below the pre-set threshold. ?? Methodology: [facility] Dign[facility] 4800 HPV Test Dakota Ashraf MD MICROBIOLOGY [facility] [address] [place] [address], from Last 3 Months or Most Recently Relevant to Health Maintenance Care Teams Stereo Equipment Installer Relationship Specialty Start Date End Date Dakota Ashraf MD PCP - General Family Practice 07/23/16
[2023-10-15 22:42] LABS: Basophils Percent Auto 0.6 % (0.0-3.0); Eosinophils Percent Auto 1.2 % (0.0-7.0); Hematocrit 40.8 % (33.0-51.0); Hemoglobin* 13.8 gm/dL (12.0-16.0); Immature Granulocytes Pct Auto 1.3 %; Lymphocytes Percent Auto 32.3 % (20-44); Mean Corpuscular HGB Conc 34 gm/dL (32-36); Mean Corpuscular Hemoglobin 31 pg (26-34); Mean Corpuscular Volume 92 fL (80-100); Monocytes Percent Auto 5.9 % (0.0-11.0); Neutrophils Percent Auto 58.7 % (42.0-72.0); Platelet Count* 380 K/uL (140-440); RDW Coefficient of Variation % 12.9 % (11.5-15.5); Red Blood Count 4.46 m/uL (4.00-5.20); White Blood Count* 18.92 K/uL (4.50-11.00)
[2023-10-15 22:45] LABS: Slide Review Reflex No
[2023-10-15 22:50] LABS: Chloride* 107 mmol/L (96-114)
[2023-10-15 22:51] LABS: Potassium* 3.2 mmol/L (3.6-5.1); Sodium* 139 mmol/L (135-149)
[2023-10-15 22:53] LABS: Anion Gap 14 mEq/L (7-15); Carbon Dioxide* 18 mmol/L (20-32); Creatinine* 0.6 mg/dL (0.5-1.5); Estimated Glomerular Filt Rate 111 ml/min
[2023-10-15 22:54] LABS: Blood Urea Nitrogen* 5 mg/dL (5-24); Calcium* 8.7 mg/dL (8.4-10.6); Glucose* 110 mg/dL (60-115); INR 0.92 (0.91-1.10); Prothrombin Time 12.9 Seconds
[2023-10-15 22:55] LABS: Magnesium* 2.2 mg/dL (1.5-2.6)
[2023-10-15 23:02] LABS: Ethanol* 0.43 % (0.01-0.03)
[2023-10-15 23:21] LABS: Amphetamine Screen Urine Negative (Negative); Barbiturate Screen Urine Negative (Negative); Benzodiazepines Screen Urine Negative (Negative); Cannabinoid Screen Urine POSITIVE (Negative); Cocaine Screen Urine Negative (Negative); Methadone Screen Urine Negative (Negative); Methamphetamines Screen Urine Negative (Negative); Opiate Screen Urine POSITIVE (Negative); Oxycodone Screen Urine Negative (Negative); Phencyclidine Screen Urine Negative (Negative); Tricyclic Antidepressant Urine Negative (Negative)
[2023-10-15 23:29] VITALS: PULSE 61; O2SAT 96
[2023-10-15 23:30] VITALS: PULSE 62; O2SAT 95
[2023-10-15 23:45] VITALS: PULSE 64; O2SAT 99
[2023-10-16] VITALS (27 sets, daily range): BP systolic 124; BP diastolic 81; PULSE 61–84; RESP 16; O2SAT 92–100
== END 2023-10-16 07:58 | disposition home or self-care (01) ==
PROVIDERS: Family Medicine; Emergency Provider Family Medicine; PCP Family Medicine
DX: S00.03XA Contusion of scalp, initial encounter (principal); F10.129 Alcohol abuse with intoxication, unspecified
CPT/HCPCS: 36415; 70450; 72125; 80048; 80306; 82077; 83735; 85025; 85610; 99285; 99291; G0390

== ENCOUNTER 2024-01-02 20:44 | Emergency (ER) | payer BC, SELFPAY ==
[2024-01-02 21:05] VITALS: BP 134/82; PULSE 100; RESP 16; TEMP 36.6; O2SAT 98; BMI 24.6
[2024-01-02 21:46] LABS: Strep A DNA Probe* NOT DETECTED (Not Detectd)
[2024-01-02 21:58] LABS: PCR FLU A Negative PCR FLU A (Negative); PCR FLU B Negative PCR FLU B (Negative); PCR RSV Negative PCR RSV (Negative); SARS PCR* Negative SARS-CoV-2 (Negative)
--- OUTSIDE RECORDS SUMMARY | 2024-01-02 22:27 | XMS_ITS | Clinical Summary ---
Author Organization [facility] Address [address] [place] [address] Care Team Providers Care Abstract Manager Name Role Phone Elsewhere, Pcp Primary Care Provider Unavailabl e Source Comments Patient records contain information from all sites at [facility]. For routine questions regarding patient records, call [phone] during business hours, M-F 8:00 AM - 5:00 PM Central Time. Record requests for emergency care only can be directed to [phone] at any time.[facility] Allergies No known active allergies Medications clonazePAM (KlonoPIN) 0.5 mg tablet Take 1 tablet by mouth at bedtime. 10/30/2015 Active omeprazole (PriLOSEC OTC) 20 mg EC tablet Take 20 mg by mouth daily. Active busPIRone (BuSpar) 5 mg tablet Take 5 mg by mouth 2 (two) times a day. 02/15/2020 Active escitalopram (Lexapro) 5 mg tablet Take 5 mg by mouth daily. 02/15/2020 Active LORazepam (Ativan) 1 mg tablet Take 0.5 mg by mouth 3 (three) times a day as needed. Active naltrexone (Depade) 50 mg tablet Take 1 tablet by mouth daily as needed. 02/21/2020 Active verapamiL (Calan-SR) 120 mg ER tablet Take 120 mg by mouth daily. 02/13/2020 Active Active Problems No known active problems Encounters Date Type Department Care Team Description 10/29/2023 1:45 PM CDT Comprehensive Visit Department of Obstetrics and Gynecology in [place], [place] [address] [place] [address] Wanda Stout, [employer] MEMBER, C.N.P., M.S.N. Hepatomegaly (Primary Dx); Hematometra; Pain Pelvic Female; Tonsillitis Discharge Disposition: Home or Self Care 10/28/2023 10:11 AM CDT - 10/28/2023 11:59 PM CDT Hospital Encounter Department of Radiology in [address] [phone] Daniel Stark M.D. Hematometra; Pain Pelvic Female Discharge Disposition: Home or Self Care 10/27/2023 Clinical Communication Department of Obstetrics and Gynecology in [address] [phone] Arabella Davidson R.N. 10/27/2023 Clinical Communication Department of Obstetrics and Gynecology in [address] [phone] Salinas Bahena M.D. Communication (Regarding ER visit and follow up) 10/25/2023 9:31 PM CDT - 10/26/2023 2:15 AM CDT Emergency [facility] [address] [place] [phone] Daniel Stark M.D. Hematometra (Primary Dx); Pain Pelvic Female Discharge Disposition: Home or Self Care from Last 3 Months Immunizations Name Administration Dates Next Due Tdap 10/28/2011 Family History Medical History Relation Name Comments Heart valve replacement Father Diabetes Mother Cervical cancer Sister Relation Name Status Comments Father Mother Sister Social History Tobacco Use Types Packs/Day Years Used Date Smoking Tobacco: Every Day Cigarettes Tobacco Cessation:Ready to Q uit: Not Asked; Counseling Given: Not Answered Nutrition Answer Date Recorded Nutrition: EVOO Fat Source 13 10/04 Nutrition: Servings of Fruits/Vegetables per Day Not on file 10/05/2019 Dental Answer Date Recorded Dental: Regular Dentist Unknown 05/11/19 21 Comments No Sex and Gender Information Value Date Recorded Sex Assigned at Not on file 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 Gender Identity Not on file Sexual Orientation Not on file Last Filed Vital Signs Vital Sign Reading Time Taken Comments Blood Pressure 135/80 10/29/2023 1:42 PM CDT Pulse 64 10/29/2023 1:42 PM CDT Temperature 37 ??C (98.6 ??F) 10/25/2023 9:37 PM CDT Respiratory Rate 18 10/25/2023 9:37 PM CDT Oxygen Saturation 100% 10/26/2023 2:00 AM CDT Inhaled Oxygen Concentration - - Weight 72.7 kg (160 lb 3.2 oz) 10/29/2023 1:42 P M CDT Height 170.2 cm (5' 7.01) 10/29/2023 1:42 PM CD T Body Mass Index 25.08 10/29/2023 1:42 PM CDT Plan of Treatment Health Maintenance Due Date Last Done Comments CT Colonography 1975 Cologuard 1975 Colonoscopy 1975 Colorectal Cancer Screening 1975 FIT 1975 HIV Screening 1975 Hepatitis C Screening 1975 Mammogram 1975 Tobacco Cessation counseling 1975 Pneumococcal vaccine (0-64 y ears) (1 of 2 - PCV) 07/09/1981 Hepatitis B Vaccines (1 of 3 - 19+ 3-dose series) 07/09/1994 Lipid (Cholesterol) Screening 04/06/2020 04/06/2015 Depression Screening (Annual PHQ-2) 03/10/2023 COVID-19 Vaccine (2 - 2023-2 5 season) 2023 03/14/2021 Influenza Vaccine (#1) 2023 Cervical Cancer Screening 01/21/2025 01/21/2022, Fasting Glucose for Diabetes Screening 10/24/2026 10/25/2023, 02/12/2020, 06/13/2019, Additional history exists DTaP,Tdap,and Td Vaccines (3 - Td or Tdap) 03/14/2031 03/14/2021, 10/28/2011, 09/26/2003 Procedures Procedure Name Priority Date/Time Associated Diagnosis Comments US PELVIS TRANSVAGINAL AND TRANSABDOMINAL RAD - Routine (most inpatients and all outpatients) 10/28/2023 11:09 AM CDT Hematometra Pain Pelvic Female VAGINITIS PANEL STAT 10/26/2023 12:51 AM CDT CHLAMYDIA/GONORRHOEAE AMPLIFIED RNA STAT 10/26/2023 12:[address] ABDOMEN PELVIS WITH IV CONTRAST RAD - Semiurgent (Fast; most ED patients; some inpatients) 10/25/2023 11:21 PM CDT C-REACTIVE PROTEIN (CRP), S/P STAT 10/25/2023 10:07 PM CDT MORPHOLOGY EVALUATION STAT 10/25/2023 10:07 PM CDT COMPREHENSIVE METABOLIC PANEL, S/P STAT 10/25/2023 10:07 PM CDT CBC WITH DIFFERENTIAL, B STAT 10/25/2023 10:07 PM CDT HC URINALYSIS AUTO W MICRO Routine 10/25/2023 9:46 PM CDT URINALYSIS WITH MICROSCOPIC IF INDICATED, U Routine 10/25/2023 9:46 PM CDT LIPID PANEL, S Routine 04/06/2015 8:15 AM 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 The junction between the myometrium and endometrium is somewhat indistinct likely secondary to prior ablation. Uterus otherwise unremarkable. Normal ovaries. No free fluid Narrative 10/28/2023 11:22 AM CDT EXAM: US PELVIS TRANSVAGINAL AND TRANSABDOMINAL COMPARISON: Pelvic ultrasound 10/04/2015 TECHNIQUE: Transabdominal and transvaginal. Transvaginal exam performed to better visualize the uterus and/or adnexal regions. FINDINGS: Uterus: 5.0 cm x 6.6 cm x 9.0 cm. . Myometrium: There few tiny myometrial cysts. Endometrium: There few tiny endometrial cyst. The junction between the myometrium and endometrium is somewhat indistinct likely secondary to prior ablation. Thickness: 9 mm Right ovary: Normal. ??Ovarian volume: 8 ml. Left ovary: Normal. ??Ovarian volume: 16 ml. Intraperitoneal Fluid: None. Procedure Note Khadar West M.D. - 10/28/2023 EXAM: US PELVIS TRANSVAGINAL AND TRANSABDOMINAL COMPARISON: Pelvic ultrasound 10/04/2015 TECHNIQUE: Transabdominal and transvaginal. Transvaginal exam performed tobetter visualize the uterus and/or adnexal regions. FINDINGS: Uterus: 5.0 cm x 6.6 cm x 9.0 cm. . Myometrium: There few tiny myometrial cysts. Endometrium: There few tiny endometrial cyst. The junction between themyometrium and endometrium is somewhat indistinct likely secondary toprior ablation. Thickness: 9 mm Right ovary: Normal. Ovarian volume: 8 ml. Left ovary: Normal. Ovarian volume: 16 ml. Intraperitoneal Fluid: None. IMPRESSION: There few tiny endometrial cyst. The junction between the myometrium andendometrium is somewhat indistinct likely secondary to prior ablation.Uterus otherwise unremarkable. Normal ovaries. No free fluid Daniel Stark M.D. IMG US PROCEDURES Final Resu lt * (ABNORMAL) Vaginitis Panel (10/26/2023 12:51 AM CDT) Lianna species, DNA Negative Negative 10/26/2023 1:52 AM CDT NPRG Gardnerella vaginalis, DNA Positive(A) Negative 10/26/2023 1:52 AM CDT NPRG Trichomonas vaginalis, DNA Negative Negative 10/26/2023 1:52 AM CDT NPRG Swab 10/26/2023 12:5 1 AM CDT 10/26/2023 12:56 AM CDT us Soft Results Interface LAB MICROBIOLOGY - GENERA L ORDERABLES Final Result Performing Organization Address City/[facility]/ZIP Co de Phone Number [facility] [address] [place] [address], [facility] NPRG [facility] [address] [place] [address] * Chlamydia / Gonorrhoeae Amplified RNA (10/26/2023 12:50 AM CDT) Source Swab, Cervix/Endoc ervix 10/27/2023 11:05 AM CDT MK[facility] Chlamydia trachomatis amplified RNA Negative Negative 10/27/2023 11:05 AM CDT MKTO Source Swab, Cervix/Endoc ervix 10/27/2023 11:05 AM CDT [facility] Neisseria gonorrhoeae amplified RNA Negative Negative 10/27/2023 11:05 AM CDT MKTO Swab (Cervix/Endocerv ix) 10/26/2023 12:50 AM CDT 10/26/2023 4:38 PM CDT Daniel Stark M.D. LAB MICROBIOLOGY - GENERAL O RDERABLES Final Result Performing Organization Address [facility] Co de Phone Number [facility] [address] [place] [address], [facility] MKTO [address] [place] [address] * CT Abdomen Pelvis with IV Contrast (10/25/2023 11:21 PM CDT) Anatomical Region Laterality Modality Abdomen, Pelvis, Abdominal R ST LOS, Abdominal ARZ LOS, Abdominal FLA LOS N/A Computed Tomography 10/25/2023 11:2 0 PM CDT Impressions 10/25/2023 11:49 PM CDT 1. No evidence of urinary tract stone disease or obstructive uropathy. No evidence of pyelonephritis and lateral urinalysis findings. 2. Fluid within the uterine fundus with expanded appearance in the lower uterine segment/cervix. Correlate with phase of menstrual cycle and consider follow-up pelvic ultrasound. 3. Hepatomegaly. Narrative 10/25/2023 11:49 PM CDT EXAM: CT ABDOMEN PELVIS WITH IV CONTRAST COMPARISON: Pelvic ultrasound 10/04/2015 FINDINGS: Lower Thorax: Dependent and basilar atelectasis. Normal included heart and pericardium. Liver: Liver is enlarged, measuring 21 cm craniocaudal. Mild fatty infiltration along the falciform ligament. Gallbladder/bile ducts: Decompressed gallbladder. No bile duct dilatation. Pancreas: Normal. Spleen: Normal. Adrenal glands: Normal. Kidneys/Ureters: Kidneys are symmetric in size and parenchymal enhancement pattern. No hydronephrosis or nephrolithiasis. Gastrointestinal tract: Normal distal esophagus, stomach and duodenal sweep. No bowel obstruction or appreciable wall thickening. Normal appendix. Moderate colonic stool volume. Peritoneum/Retroperitoneum: No free air or free fluid. No suspicious nodule or mass. Lymph nodes: No lymphadenopathy. Vascular: Normal caliber abdominal aorta. Normal IVC. Patent portal, superior mesenteric and splenic veins. Pelvis: No free fluid. Distended thin-walled urinary bladder.Low-attenuation fluid within the uterine fundus, expanded in the lower uterine segment and cervix. Vaginal canal is decompressed. Simple fluid attenuation follicles in the ovaries. Musculoskeletal: Normal bones and soft tissues. Procedure Note Johnnie Bran M.D. - 10/25/2023 EXAM: CT ABDOMEN PELVIS WITH IV CONTRAST COMPARISON: Pelvic ultrasound 10/04/2015 FINDINGS: Lower Thorax: Dependent and basilar atelectasis. Normal included heart andpericardium. Liver: Liver is enlarged, measuring 21 cm craniocaudal. Mild fattyinfiltration along the falciform ligament. Gallbladder/bile ducts: Decompressed gallbladder. No bile ductdilatation. Pancreas: Normal. Spleen: Normal. Adrenal glands: Normal. Kidneys/Ureters: Kidneys are symmetric in size and parenchymal enhancementpattern. No hydronephrosis or nephrolithiasis. Gastrointestinal tract: Normal distal esophagus, stomach and duodenalsweep. No bowel obstruction or appreciable wall thickening. Normalappendix. Moderate colonic stool volume. Peritoneum/Retroperitoneum: No free air or free fluid. No suspiciousnodule or mass. Lymph nodes: No lymphadenopathy. Vascular: Normal caliber abdominal aorta. Normal IVC. Patent portal,superior mesenteric and splenic veins. Pelvis: No free fluid. Distended thin-walled urinarybladder.Low-attenuation fluid within the uterine fundus, expanded in thelower uterine segment and cervix. Vaginal canal is decompressed. Simplefluid attenuation follicles in the ovaries. Musculoskeletal: Normal bones and soft tissues. IMPRESSION: 1. No evidence of urinary tract stone disease or obstructive uropathy. Noevidence of pyelonephritis and lateral urinalysis findings. 2. Fluid within the uterine fundus with expanded appearance in the loweruterine segment/cervix. Correlate with phase of menstrual cycle andconsider follow-up pelvic ultrasound. 3. Hepatomegaly. us Daniel Stark M.D. IMG CT PROCEDURES Final Resu lt * Morphology Evaluation (10/25/2023 10:07 PM CDT) RBC Morphology Normal 10/25/2023 10:37 PM CDT NPRG PLT Morphology Normal 10/25/2023 10:37 PM CDT NPRG PLT Estimate Adequate Adequate 10/25/2023 10:37 PM CDT NPRG Blood 10/25/2023 10:0 7 PM CDT 10/25/2023 10:09 PM CDT us Soft Results Interface LAB BLOOD ADD-ON Final Re sult [facility] [address] [place] [address], [facility] NPRG [facility] [address] [place] [address] * (ABNORMAL) CBC with Differential, Blood (10/25/2023 10:07 PM CDT) Hemoglobin 12.5 11.6 - 15.0 g/dL 10/25/2023 10:37 PM CDT NPRG Hematocrit 37.1 35.5 - 44.9 % 10/25/2023 10:37 PM CDT NPRG Erythrocytes 4.00 3.92 - 5.13 x10(12)/L 10/25/2023 10:37 PM CDT NPRG MCV 92.8 78.2 - 97.9 fL 10/25/2023 10:37 PM CDT NPRG RBC Distrib Width 12.6 12.2 - 16.1 % 10/25/2023 10:37 PM CDT NPRG Platelet Count 293 157 - 371 x10(9)/L 10/25/2023 10:37 PM CDT NPRG Leukocytes 21.8(H) 3.4 - 9.6 x10(9)/L 10/25/2023 10:37 PM CDT NPRG Neutrophils 14.74(H) 1.56 - 6.45 x10(9)/L 10/25/2023 10:37 PM CDT NPRG Lymphocytes 5.32(H) 0.95 - 3.07 x10(9)/L 10/25/2023 10:37 PM CDT NPRG Monocytes 1.24(H) 0.26 - 0.81 x10(9)/L 10/25/2023 10:37 PM CDT NPRG Eosinophils 0.39 0.03 - 0.48 x10(9)/L 10/25/2023 10:37 PM CDT NPRG Basophils 0.07 0.01 - 0.08 x10(9)/L 10/25/2023 10:37 PM CDT NPRG Blood (Blood, Venous) 10/25/2023 10:07 PM CDT 10/25/2023 10:09 PM CDT us Daniel Stark M.D. LAB BLOOD ADD-ON Final Resul t [facility] [address] [place] [address], [facility] NPRG [place] [place] [address] * (ABNORMAL) CRP (C-Reactive Protein) (10/25/2023 10:07 PM CDT) C-Reactive Protein (CRP), P 58.6(H) <5.0 mg/L 10/26/2023 2:16 AM CDT NPRG Blood (Blood, Venous) 10/25/2023 10:07 PM CDT 10/26/2023 1:23 AM CDT us Daniel Stark M.D. LAB BLOOD ADD-ON Final Resul t [facility] [address] [place] [address], [place] NPRG [facility] [address] [place] [address] * Comprehensive Metabolic Panel (10/25/2023 10:07 PM CDT) Potassium, P 3.8 3.6 - 5.2 mmol/L 10/25/2023 10:34 PM CDT NPRG Sodium, P 135 135 - 145 mmol/L 10/25/2023 10:34 PM CDT NPRG Chloride, P 99 98 - 107 mmol/L 10/25/2023 10:34 PM CDT NPRG Bicarbonate, P 24 22 - 29 mmol/L 10/25/2023 10:34 PM CDT NPRG Anion Gap, P 12 7 - 15 10/25/2023 10:34 PM CDT NPRG BUN (Blood Urea Nitrogen), P 9 6 - 21 mg/dL 10/25/2023 10:34 PM CDT NPRG Creatinine 0.68 0.59 - 1.04 mg/dL 10/25/2023 10:34 PM CDT NPRG Estimated GFR (eGFR) >90 >=60 mL/min/BS A 10/25/2023 10:34 PM CDT NPRG Comment: Estimated GFR calculated using the 2020 CKD_EPI creatinine equation. Calcium, Total, P 8.8 8.6 - 10.0 mg/dL 10/25/2023 10:34 PM CDT NPRG Glucose, P 116 70 - 140 mg/dL 10/25/2023 10:34 PM CDT NPRG Protein, Total, P 7.3 6.3 - 7.9 g/dL 10/25/2023 10:34 PM CDT NPRG Albumin, P 4.2 3.5 - 5.0 g/dL 10/25/2023 10:34 PM CDT NPRG Aspartate Aminotransferase (AST), P 14 8 - 43 U/L 10/25/2023 10:34 PM CDT NPRG Alkaline Phosphatase, P 71 35 - 104 U/L 10/25/2023 10:34 PM CDT NPRG Alanine Aminotransferase (ALT), P 9 7 - 45 U/L 10/25/2023 10:34 PM CDT NPRG Bilirubin, Total, P <0.2 0.0 - 1.2 mg/dL 10/25/2023 10:34 PM CDT NPRG Blood (Blood, Venous) 10/25/2023 10:07 PM CDT 10/25/2023 10:09 PM CDT us Daniel Stark M.D. LAB BLOOD ADD-ON Final Resul t [facility] [address] [place] [address], [place] NPRG [facility] [address] [place] [address] * (ABNORMAL) Urinalysis with Microscopic if Indicated (10/25/2023 9:46 PM CDT) Source Urine, Urine, Midstream 10/25/2023 9:53 PM CDT NPRG Clarity Clear Clear 10/25/2023 9:56 PM CDT NPRG Color Yellow 10/25/2023 9:56 PM CDT NPRG Comment: ----REFERENCE VALUE---- Colorless Yellow Kathia Blood Negative Negative 10/25/2023 9:56 PM CDT NPRG Nitrite Positive(A) Negative 10/25/2023 9:56 PM CDT NPRG Leukocyte Esterase Negative Negative 10/25/2023 9:56 PM CDT NPRG Protein Trace mg/dL 10/25/2023 9:56 PM CDT NPRG Comment: ----REFERENCE VALUE---- Negative Trace Glucose Negative Negative mg/dL 10/25/2023 9:56 PM CDT NPRG Ketones, QI(U) 15(A) Negative mg/dL 10/25/2023 9:56 PM CDT NPRG Bilirubin Small(A) Negative 10/25/2023 9:56 PM CDT NPRG pH 6.5 5.0 - 8.0 10/25/2023 9:56 PM CDT NPRG Specific [place] 1.025 1.001 - 1.035 10/25/2023 9:56 PM CDT NPRG Urobilinogen 0.2 0.2 - 1.0 mg/dL 10/25/2023 9:56 PM CDT NPRG Urine (Urine, Midstream) 10/25/2023 9:46 PM CDT 10/25/2023 9:53 PM CDT us Daniel Stark M.D. LAB URINE ORDERABLES Final R esult Performing Organization Address City/[facility]/ZIP Co de Phone Number [facility] [address] [place] [address], [facility] NPRG [facility] [address] [place] [address] * (ABNORMAL) Microscopic Manual (10/25/2023 9:46 PM CDT) White Blood Cells Occ-3 /hpf 10/25/2023 10:04 PM CDT NPRG Comment: ----REFERENCE VALUE---- Males: 0-3 Females: 0-10 Unknown: 0-10 Red Blood Cells Occ-2 0 - 2 /hpf 10/25/2023 10:04 PM CDT NPRG Dysmorphic Red Blood Cells <=25 <=25 % 10/25/2023 10:04 PM CDT NPRG Crystals Calcium Oxalate(A) None Seen /lpf 10/25/2023 10:04 PM CDT NPRG Squamous Cells 4-10 /hpf 10/25/2023 10:04 PM CDT NPRG Bacteria Present(A) None Seen 10/25/2023 10:04 PM CDT NPRG Urine 10/25/2023 9:46 PM CDT 10/25/2023 9:53 PM CDT us Soft Results Interface LAB URINE ORDERABLES Jennifer l Result Performing Organization Address City/[facility]/ZIP Co de Phone Number [facility] [address] [place] [address], [facility] NPRG [place] [address] [place] [address] * Lipid Panel (04/06/2015 8:15 AM CORPORATION PILOT) Cholesterol, Total 174 <=199 MGDL POWERCHART Comment: 2014 National Lipid Association recommendations for Total Cholesterol in adults ages 18 and up: Desirable <200 mg/dL Borderline high 200-239 mg/dL High 240 mg/dL 2014 National Lipid Association recommendations for Total Cholesterol in children ages 2 to 17. Acceptable <170 mg/dL Borderline High 170-199 mg/dL High 200 mg/dL HX HDL 76 >=50 MGDL POWERCHART Comment: 2014 National Lipid Association recommendations for HDL-C in adults ages 18 and up: Low <40 mg/dL (Men) Low <50 mg/dL (Women) 2014 National Lipid Association recommendations for HDL-C in children ages 2 to 17. Low <40 mg/dL Borderline Low 40-45 mg/dL Acceptable >45 mg/dL Triglycerides 93 <=149 MGDL POWERCHART Comment: 2014 National Lipid Association recommendations for Triglycerides in adults ages 18 and up: Normal <150 mg/dL Borderline High 150-199 mg/dL High 200-499 mg/dL Very High 500 mg/dL 2014 National Lipid Association recommendations for Triglycerides in children ages 2 to 9. Acceptable <75 mg/dL Borderline High 75-99 mg/dL High 100 mg/dL 2014 National Lipid Association recommendations for Triglycerides in children ages 10 to 17. Acceptable <90 mg/dL Borderline High 90-129 mg/dL High 130 mg/dL Trigs >400mg/dL: Triglycerides >400 mg/dL. Calculated LDL cholesterol is not valid. Non-HDL cholesterol may be used for risk assessment when triglycerides are >400mg/dL. Calculated LDL 79 <=129 MGDL POWERCHART Comment: 2014 National Lipid Association recommendations for LDL-C in adults ages 18 and up: Desirable <100 mg/dL Above desirable 100-129 mg/dL Borderline high 130-159 mg/dL High 160-189 mg/dL Very High 190 mg/dL 2014 National Lipid Association recommendations for LDL-C in children ages 2 to 17. Acceptable <110 mg/dL Borderline High 110-129mg/dL High 130 mg/dL LDL-C >190mg/dL: The markedly elevated LDL level is suggestive of a genetic condition such as familial hypercholesterolemia(FH) or familial defective apolipoprotein B-100 (FDB). Molecular genetic testing for FH and FDB is available through [facility] (ML[facility]): FH/ADH Genetic Reflex Panel (test ADHP). Acquired (non-genetic) causes of markedly increased LDL cholesterol include cholestatic liver disease due to the presence of LpX. If a genetic form of hypercholesterolemia is suspected, family studies including biochemical testing for lipids (total cholesterol,triglycerides, LDL cholesterol and HDL cholesterol) are recommended. ??Please contact the laboratory at or the on-line test catalog at [facility] for information about how to order these tests or to speak with a genetic counselor. Further interpretation would require clinical information. Blood 04/06/2015 8:15 AM CORPORATION PILOT Danny De Oliveira M.D. LAB BLOOD ADD-ON Final Result POWERCHART * Pathology PRESS LOADER Cytology (12/01/2014 12:00 AM CDT) 12/01/2014 Narrative [facility] LAB - 12/13/2014 1:36 PM CDT [facility] in [address] ??[phone] Patient Name: ULISES MORENO Collected: 12/01/2014 Address: [facility]/Zip: [address] [place] [address] ??[phone] Received: Reported: 12/02/2014 12/13/2014 Soc. Sec. #: ?/Age/Sex 1975 (Age: 39) ??F Physician(s): SHAHANA DE OLIVEIRA MD Copy To: ? [facility] IN [facility] ??[id number] [address] [place] [address], ??[place] ??[phone] CYTOPATHOLOGY PRESS LOADER REPORT FINAL CYTOLOGIC DIAGNOSIS Pap Smear - ThinPrep: NEGATIVE FOR INTRAEPITHELIAL LESION OR MALIGNANCY SPARSE TO NO ENDOCERVICAL COMPONENT PRESENT. SATISFACTORY SPECIMEN FOR EVALUATION. Electronically Signed Out By robin/12/13/2014 DEYANIRA QUINTEROS(ASCP) The Pap test is a screening procedure and, as such, is subject to both false positive and false negative results as evidenced by published data. ??It is not a diagnostic test and results should be interpreted in the context of the patient's history and other clinical findings. ??Obtaining periodic Pap tests may help to minimize the consequences of any false negatives that may occur. SPECIMEN(S) RECEIVED: Pap Smear - ThinPrep CLINICAL HISTORY: Date of Last PAP: 2012 Treatment History: LEEP: 2000 Other Clinical Conditions: HPV TYPING REQUESTED: IF ASCUS HPV TYPING REQUESTED: IF BRITTANY Danny De Oliveira M.D. LAB PAP COPATH ORDERABLES Final Result [facility] from Last 3 Months or Most Recently Relevant to Health Maintenance Insurance [facility] [place] Care Teams Abstract Manager Relationship Specialty Start Date End Date Elsewhere, Pcp PCP - General Family Medicine 01/27/19
--- OUTSIDE RECORDS SUMMARY | 2024-01-02 22:28 | XMS_ITS | Encounter Summary ---
Author Organization [facility] Address [address] [address] Phone Care Team Providers Care Filter Pulp Washer Name Role Phone Unavailable Primary Care Provider Unavailabl e Encounter Details Date Type Department Care Team (Late st Contact Info) Description 03/21/2021 Scanned - Medical Reports 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
--- OUTSIDE RECORDS SUMMARY | 2024-01-02 22:28 | XMS_ITS ---
Author Organization [facility] Address [address] [place] [address] Care Team Providers Care Cluster Bore Operator Name Role Phone Unavailable Unavailable Unavailable Surgery Details Not on file Complications Check Surgery Details section. Procedure Estimated Blood Loss Check Surgery Details section. Procedure Findings Check Surgery Details section. Procedure Specimens Taken Check Surgery Details section.
--- OUTSIDE RECORDS SUMMARY | 2024-01-02 22:28 | XMS_ITS | Clinical Summary ---
Author Organization [facility] Address [place], [place] [address] Care Team Providers Care Insurance Checker Name Role Phone Dakota Ashraf MD Primary [...] (163 lb 11.2 oz) 02/21/2020 8:26 AM FAMILY EDUCATOR Height 169.4 cm (5' 6.69) 02/21/2020 8:26 AM CS T Body Mass Index 25.88 02/21/2020 8:26 AM FAMILY EDUCATOR Plan of Treatment Health Maintenance Due Date Last Done Comments Tdap 07/09/1986 Depression screening for age 12+ 1987 HIV for age 15-65 07/09/1990 Hepatitis C screening for age 18-79 07/09/1993 Tetanus booster 1995 Colonoscopy through age 75 07/09/2020 Lipids for age 45-75 07/09/2020 Mammogram for age 45-75 07/09/2020 BMI (ht and wt on same day) for age 18+ 02/20/2021 02/21/2020 COVID-19 vaccine series ( season) 2023 03/14/2021 Influenza for age 9-49 11/09/2023 Pap test for age 21-65 01/21/2025 , 01/21/2022, 09/16/2016, Additional history exists Pneumococcal series for age 6-64 Aged Out No longer eligible based on patient's age to complete this topic Procedures Procedure Name Priority Date/Time Associated Diagnosis Comments HPV HIGH RISK Routine 01/21/2022 8:30 AM FAMILY EDUCATOR from Last 3 Months or Most Recently Relevant to Health Maintenance Results * (ABNORMAL) HPV HIGH RISK (01/21/2022 8:30 AM FAMILY EDUCATOR) TYPE 16 Negative Negative 01/23/2022 5:14 PM FAMILY EDUCATOR [facility] [employer] [facility] TYPE 18 Positive(A) Negative 01/23/2022 5:14 PM FAMILY EDUCATOR [facility] OTHER HIGH RISK TYPES Positive(A) Negative 01/23/2022 5:14 PM FAMILY EDUCATOR [facility] Other (Cervical) 01/21/2022 8:30 AM FAMILY EDUCATOR 01/22/2022 12:18 PM FAMILY EDUCATOR Narrative [facility] - 01/23/2022 5:14 PM FAMILY EDUCATOR Specimen is positive for HPV type 18 DNA and the DNA of any one of, or combination of, the following high risk HPV types: 31, 33, 35, 39, 45, 51, 52, 56, 58,59, 66, 68. HPV type 16 DNA was undetectable or below the pre-set threshold. ?? Methodology: [facility] Dign[employer] 4800 HPV Test Dakota Ashraf MD MICROBIOLOGY [facility] [address] [place] [address], from Last 3 Months or Most Recently Relevant to Health Maintenance Care Teams Insurance Checker Relationship Specialty Start Date End Date Dakota Ashraf MD PCP - General Family Practice 07/23/16
--- OUTSIDE RECORDS SUMMARY | 2024-01-02 22:28 | XMS_ITS | Encounter Summary ---
Author Organization [facility] Address [address] [place] [address] Care Team Providers Care Lard Refiner Name Role Phone Elsewhere, Pcp Primary Care Provider Unavailabl e Reason for Referral * Outpatient (Routine) - Closed Specialty Diagnoses / Procedures Referred By Contac t Referred To Contact Diagnoses Hematometra Pain Pelvic Female Procedures US Pelvis Transvaginal and Transabdominal US Pelvis Transvaginal Daniel Stark M.D. [address] [place] [phone] Phone: tel: fax: [facility] Referral ID Status Reason Start Date Expiration Date Visits Re quested Visits Authorized [id number] Closed 10/26/2023 10/25/2024 1 1 * Outpatient (Routine) - Closed Specialty Diagnoses / Procedures Referred By Cindy t Referred To Contact Emergency Medicine Diagnoses Hematometra Pain Pelvic Female Daniel Stark M.D. [address] [place] [phone] Phone: tel: fax: [facility] Referral ID Status Reason Start Date Expiration Date Visits Re quested Visits Authorized [id number] Closed 10/26/2023 04/26/2025 1 1 Scheduling Instructions LENY per Dr. Pinto, ideally M/T/W this week, for ED f/u. Reason for Visit * Reason Comments Pelvic Pain Patient presents wit h 10/10 intermittent pelvic pain that radiates to L flank. Pain has been ongoing for past 2 weeks. Has been taking Tylenol and Aleve at home w/ little relief. Encounter Details Date Type Department Care Team (Late st Contact Info) Description 10/25/2023 9:31 PM CDT - 10/26/2023 2:15 AM CDT Emergency [facility] [address] [place] [phone] Daniel Stark M.D. [address] [place] [phone] Hematometra (Primary Dx); Pain Pelvic Female Discharge Disposition: Home or Self Care Social History Tobacco Use Types Packs/Day Years Used Date Smoking Tobacco: Every Day Cigarettes Tobacco Cessation:Ready to Q uit: Not Asked; Counseling Given: Not Answered Nutrition Answer Date Recorded Nutrition: EVOO Fat Source 13 10/04 Nutrition: Servings of Fruits/Vegetables per Day Not on file 10/05/2019 Dental Answer Date Recorded Dental: Regular Dentist Unknown 05/11/19 21 Comments Unknown Sex and Gender Information Value Date Recorded Sex Assigned at Not on file Legal Sex Female 9:01 PM CARE ATTENDANT Gender Identity Not on file Sexual Orientation Not on file documented as of this encounter Last Filed Vital Signs Vital Sign Reading Time Taken Comments Blood Pressure 117/69 10/26/2023 2:00 AM CDT Pulse 57 10/26/2023 2:00 AM CDT Temperature 37 ??C (98.6 ??F) 10/25/2023 9:37 PM CDT Respiratory Rate 18 10/25/2023 9:37 PM CDT Oxygen Saturation 100% 10/26/2023 2:00 AM CDT Inhaled Oxygen Concentration - - Weight 73 kg (161 lb) 10/25/2023 9:54 PM CDT Height 170.2 cm (5' 7) 10/25/2023 9:54 PM CDT Body Mass Index 25.22 10/25/2023 9:54 PM CDT documented in this encounter Discharge Instructions * Discharge Instructions* Daniel Stark M.D. - 10/26/2023 1:54 AM CDT We suspect that there is a condition called hematometra, or blood stuck in the uterus unable to drain due to scarring at the cervix. This explains your cramping and pain quite well. Referral has been placed see OBGYN as soon as possible outpatient. I have asked that they schedule you on Friday, Friday, or Friday. I would encourage you to also call the claims support specialist who did your initial ablation in May. They maybe able to squeeze you in even earlier. This way you have two different [employer] TECHNICIAN groups trying to get you in as soon as possible. Start the metronidazole antibiotic as prescribed. We will also set you up for an outpatient ultrasound. Expect a call on Friday for scheduling. documented in this encounter Medications at Time of Discharge busPIRone (BuSpar) 5 mg tablet Take 5 mg by mouth 2 (two) times a day. 02/15/2020 clonazePAM (KlonoPIN) 0.5 mg tablet Take 1 tablet by mouth at bedtime. 10/30/2015 escitalopram (Lexapro) 5 mg tablet Take 5 mg by mouth daily. 02/15/2020 LORazepam (Ativan) 1 mg tablet Take 0.5 mg by mouth 3 (three) times a day as needed. naltrexone (Depade) 50 mg tablet Take 1 tablet by mouth daily as needed. 02/21/2020 omeprazole (PriLOSEC OTC) 20 mg EC tablet Take 20 mg by mouth daily. verapamiL (Calan-SR) 120 mg ER tablet Take 120 mg by mouth daily. 02/13/2020 metroNIDAZOLE (FlagyL) 500 mg tablet Take 1 tablet (500 mg total) by mouth 2 (two) times a day for 7 days. 14 tablet 10/26/2023 11/02/2023 oxyCODONE (Roxicodone) 5 mg immediate release tabletIndications :Acute Pain Take 1 tablet (5 mg total) by mouth every 6 (six) hours as needed for pain for up to 3 days Indication: Acute Pain. 10/26/2023 10/29/2023 documented as of this encounter ED Notes * Daniel Stark M.D. - 10/25/2023 9:26 PM CDT [facility] 10/26/2023 1:59 AM CDT *Encounter labs and radiology results at the end of this note* Chief Complaint Patient presents with Pelvic Pain Patient presents with 10/10 intermittent pelvic pain that radiates to L flank. Pain has been ongoing for past 2 weeks. Has been taking Tylenol and Aleve at home w/ little relief. PCP: ELSEWHERE, PCP HPI: Stefany Murray is a 48 y.o. woman, history of anxiety/depression, GERD, endometrial ablation May 2023 for what sounds like a history of Metro menorrhagia, though records are not available as this was done in the [facility] in clinic system to which I do not have access right now. Presenting with about two weeks of smoldering lower abdominal/suprapubic/pelvic pain pretty reliably in the midline without radiation. Very crampy, compared to uterine contractions during delivery. No fevers or chills. No nausea vomiting or diarrhea. No chest pain or shortness of breath. The pain is very crampy in intense, provoked sometimes by urinating or standing up from sitting. Taking NSAIDsand Tylenol without much improvement. She presents tonight due to acute worsening to the point she is unable to tolerate the pain and discomfort. Denies any increases or abnormalities in vaginal discharge. Denies any abnormal vaginal bleeding or discharge. Denies any urinary symptoms such as frequency urgency or incomplete voiding. History of appendectomy, history of C-sections, history of tubal ligation 2012. A complete review of systems was obtained and negative except as in the HPI. Denies alcohol or illicit drugs. Does smoke cigarettes daily. She reports she has not had sexual intercourse in at least a year. PHYSICAL EXAMINATION General: Well-appearing in no acute distress. HEENT: Head is normocephalic and atraumatic. Hearing and vision are grossly normal. No scleral icterus, jaundice, or pallor. Neck: Supple, with normal range of motion. Heart: Heart rate is normal and regular, no murmurs. Lungs: Clear to auscultation bilaterally, no wheezes or rales. Abdomen: Soft, very tender in the suprapubic region, no rebound, nontender elsewhere, nondistended. : Normal external genitalia, normal vaginal canal. Moderate amount of thick moderately malodorousvaginal discharge. Bimanual exam unable to palpate ovaries, but with significant cervical motion tenderness. Skin: Warm and well-perfused Neurologic: GCS 15. Moving all 4 extremities spontaneously. Speech clear. Psychiatric: Normal mood and affect. Differential diagnosis includes tubo-ovarian abscess, fits you Donald, pelvic inflammatory disease,urinary tract infection, fungal infection, urinary retention, endometritis, pyometra, hematometra, fibroids, ovarian torsion or cyst, appendicitis, intestinal pathology. MDM: 40-year-old woman presenting with two weeks of pelvic cramping, much worse in the last day or two, with some increased clearish vaginal discharge that she mentioned on our final discussion. No fevers or other infectious symptoms, though white count is 22 with a left shift. This led to a CT scan of the abdomen pelvis which revealed a fluid-filled uterus concerning for hematometra or pyometra,though no other significant findings are identified to explain her pain. Labs are otherwise reassuring. Discussed with Dr. Pinto of mutual fund manager who felt this sounded most like a hematometra, especially given her ablation about five months ago.. That fits with her cramping episodes and increased discharge.We will plan to start on antibiotics for both gonorrhea/chlamydia as well as PID with ceftriaxone/azithromycin, and seven days of metronidazole. Will also send with the pain meds. Final Diagnoses: as of 10/26/23 0159 Hematometra - Suspected Pain Pelvic Female - Uterine contractions/spasm Vitals: 10/26/23 0000 10/26/23 0115 10/26/23 0130 10/26/23 0145 BP: 104/74 118/71 102/82 134/82 Pulse: (!) 58 (!) 57 (!) 55 61 Resp: Temp: SpO2: 98% 98% 98% 100% Weight: Height: Medications cefTRIAXone 500 mg in lidocaine 1% (has no administration in time range) azithromycin tablet 1,000 mg (Zithromax) (has no administration in time range) oxyCODONE IR tablet 5 mg (Roxicodone) (5 mg oral Given 10/25/232217) HYDROmorphone injection 1 mg (Dilaudid) (1 mg intravenous Given 10/25/232247) ketorolac injection 15 mg (ToradoL) (15 mg intravenous Given 10/25/232248) iohexoL 300 mg iodine/mL solution 1-200 mL (Omnipaque) (140 mL intravenous Given 10/25/232321) sodium chloride (PF) 0.9 % injection 1-100 mL (100 mL intravenous Given 10/25/232322) sodium chloride 0.9 % injection 10 mL (10 mL intravenous Given 10/25/232322) Consults: RIGOBERTO Mitchell Clinical Impression: Final diagnoses: [N85.7] Hematometra - Suspected [R10.2] Pain Pelvic Female - Uterine contractions/spasm Disposition: Discharge ED Prescriptions Medication Sig Dispense Start Date End Date Auth. Provider metroNIDAZOLE (FlagyL) 500 mg tablet Take 1 tablet (500 mg total) by mouth 2 (two) times a day for 7 days. 14 tablet 10/26/2023 11/02/2023 Daniel Stark M.D. Labs Reviewed VAGINITIS PANEL - Abnormal Result Value Lianna species, DNA Negative Gardnerella vaginalis, DNA Positive (*) Trichomonas vaginalis, DNA Negative URINALYSIS WITH MICROSCOPIC IF INDICATED, U - Abnormal Source Urine, Urine, Midstream Clarity Clear Color Yellow Blood Negative Nitrite Positive (*) Leukocyte Esterase Negative Protein Trace Glucose Negative Ketones, QI(U) 15 (*) Bilirubin Small (*) pH 6.5 Specific Vona 1.025 Urobilinogen 0.2 MICROSCOPIC MANUAL - Abnormal White Blood Cells Occ-3 Red Blood Cells Occ-2 Dysmorphic Red Blood Cells <=25 Crystals Calcium Oxalate (*) Squamous Cells 4-10 Bacteria Present (*) CBC WITH DIFFERENTIAL, B - Abnormal Hemoglobin 12.5 Hematocrit 37.1 Erythrocytes 4.00 MCV 92.8 RBC Distrib Width 12.6 Platelet Count 293 Leukocytes 21.8 (*) Neutrophils 14.74 (*) Lymphocytes 5.32 (*) Monocytes 1.24 (*) Eosinophils 0.39 Basophils 0.07 CHLAMYDIA/GONORRHOEAE AMPLIFIED RNA COMPREHENSIVE METABOLIC PANEL, S/P Potassium, P 3.8 Sodium, P 135 Chloride, P 99 Bicarbonate, P 24 Anion Gap, P 12 BUN (Blood Urea Nitrogen), P 9 Creatinine 0.68 Estimated GFR (eGFR) >90 Calcium, Total, P 8.8 Glucose, P 116 Protein, Total, P 7.3 Albumin, P 4.2 Aspartate Aminotransferase (AST), P 14 Alkaline Phosphatase, P 71 Alanine Aminotransferase (ALT), P 9 Bilirubin, Total, P <0.2 MORPHOLOGY EVALUATION RBC Morphology Normal PLT Morphology Normal PLT Estimate Adequate C-REACTIVE PROTEIN (CRP), S/P CT Abdomen Pelvis with IV Contrast Final Result 1. No evidence of urinary tract stone disease or obstructive uropathy. No evidence of pyelonephritis and lateral urinalysis findings. 2. Fluid within the uterine fundus with expanded appearance in the lower uterine segment/cervix. Correlate with phase of menstrual cycle and consider follow-up pelvic ultrasound. 3. Hepatomegaly. US Pelvis Transvaginal (Results Pending) Daniel Stark M.D. 10/26/23 0204 documented in this encounter Plan of Treatment Scheduled Referrals Name Type Priority Associated Diagnoses Order Schedule POST ED VISIT Gynecology Outpatient Referral Routine Hematometra Pain Pelvic Female Expected: 10/26/2023, Expires: 01/25/2025 documented as of this encounter Procedures Procedure Name Priority Date/Time Associated Diagnosis Comments VAGINITIS PANEL STAT 10/26/2023 12:51 AM CDT CHLAMYDIA/GONORRHOEA E AMPLIFIED RNA STAT 10/26/2023 12:[address] ABDOMEN PELVIS WITH IV CONTRAST RAD - Semiurgent (Fast; most ED patients; some inpatients) 10/25/2023 11:21 PM CDT MORPHOLOGY EVALUATION STAT 10/25/2023 10:07 PM CDT CBC WITH DIFFERENTIAL, B STAT 10/25/2023 10:07 PM CDT C-REACTIVE PROTEIN (CRP), S/P STAT 10/25/2023 10:07 PM CDT COMPREHENSIVE METABOLIC PANEL, S/P STAT 10/25/2023 10:07 PM CDT URINALYSIS WITH MICROSCOPIC IF INDICATED, U Routine 10/25/2023 9:46 PM CDT HC URINALYSIS AUTO W MICRO Routine 10/25/2023 9:46 PM CDT documented in this encounter Results * US Pelvis Transvaginal and Transabdominal [...] otherwise unremarkable. Normal ovaries. No free fluid us Daniel Stark M.D. IMG US PROCEDURES Final [...] MICROBIOLOGY - GENERA L ORDERABLES Final Result [facility] [address] [place] [address], [facility] [address] [place] [address] * Chlamydia / Gonorrhoeae Amplified RNA (10/26/2023 12:50 AM CDT) Source Swab, Cervix/Endoc ervix 10/27/2023 11:05 AM CDT [facility] Chlamydia trachomatis amplified RNA Negative Negative 10/27/2023 11:05 AM CDT MK[facility] Source Swab, Cervix/Endoc ervix 10/27/2023 11:05 AM CDT [facility] Neisseria gonorrhoeae amplified RNA Negative Negative 10/27/2023 11:05 AM CDT MKTO Swab (Cervix/Endocerv ix) 10/26/2023 12:50 AM CDT 10/26/2023 4:38 PM CDT us Daniel Stark M.D. LAB MICROBIOLOGY - GENERAL O RDERABLES Final Result [facility] [address] [place] [address], [facility] [address] [facility] [address] [place] [address] * CT Abdomen Pelvis with IV Contrast [...] Normal bones and soft tissues. Procedure Note Sigakis, Christopher, M.D. - 10/25/2023 EXAM: CT ABDOMEN PELVIS [...] cycle andconsider follow-up pelvic ultrasound. 3. Hepatomegaly. Daniel Stark M.D. IMG CT PROCEDURES Final Resu lt * (ABNORMAL) CRP (C-Reactive Protein) (10/25/2023 10:07 PM CDT) C-Reactive Protein (CRP), P 58.6(H) <5.0 mg/L 10/26/2023 2:16 AM CDT [facility] Blood (Blood, Venous) 10/25/2023 10:07 PM CDT 10/26/2023 1:23 AM CDT us Daniel Stark M.D. LAB BLOOD ADD-ON Final Resul t Performing Organization Address City/[facility]/ZIP Co de Phone Number [facility] [address] [place] [address], [facility] NPR[facility] [place] [address] [address] [place] [address] * Morphology Evaluation (10/25/2023 10:07 PM CDT) RBC Morphology Normal 10/25/2023 10:37 PM CDT NPR[facility] PLT Morphology Normal 10/25/2023 10:37 PM CDT [facility] PLT Estimate Adequate Adequate 10/25/2023 10:37 PM CDT [facility] Blood 10/25/2023 10:0 7 PM CDT 10/25/2023 10:09 PM CDT us Soft Results Interface LAB BLOOD ADD-ON Final Re sult Performing Organization Address [facility]/ZIP Co de Phone Number [facility] [address] [place] [address], [facility] NPRG [place] [address] [address] [place] [address] * Comprehensive Metabolic Panel (10/25/2023 10:07 PM [...] M.D. LAB BLOOD ADD-ON Final Resul t [facility] [address] [place] [address], [facility] [address] [place] [address] * (ABNORMAL) CBC with Differential, Blood (10/25/2023 [...] M.D. LAB BLOOD ADD-ON Final Resul t [facility] [address] [place] [address], [facility] [address] [place] [address] * (ABNORMAL) Microscopic Manual (10/25/2023 9:46 PM [...] Interface LAB URINE ORDERABLES Jennifer l Result [facility] [address] [place] [address], [facility] [address] [place] [address] * (ABNORMAL) Urinalysis with Microscopic if Indicated [...] 8.0 10/25/2023 9:56 PM CDT NPR[facility] Specific Vona 1.025 1.001 - 1.035 10/25/2023 9:56 PM CDT NPR[facility] Urobilinogen 0.2 0.2 - 1.0 mg/dL 10/25/2023 9:56 PM CDT [facility] Urine (Urine, Midstream) 10/25/2023 9:46 PM CDT 10/25/2023 9:53 PM CDT us Daniel Stark M.D. LAB URINE ORDERABLES Final R esult [facility] [address] [place] [address], [facility] [address] [place] [address] documented in this encounter Visit Diagnoses Diagnosis Hematometra- Primary Pain Pelvic Female Hematometra Pain Pelvic Female documented in this encounter Administered Medications Inactive Administered Medications - up to 3 most recent administrations Medication Order MAR Action Action Date Dose Rate Site azithromycin tablet 1,000 mg (Zithromax) 1,000 mg, oral, Once, On 10/26/23 at 0149, For 1 dose, Drug Monitoring Program: Pharmacist to adjust medication dosing based on indication and drug clearance factors., Indications: Obstetric or gynecological infectionIndications:Obste tric or gynecological infection Given 10/26/2023 1:59 AM CDT 1,000 mg cefTRIAXone 500 mg in lidocaine 1% 500 mg, intramuscular, Once, On 10/26/23 at 0149, For 1 dose, FOR IM INJECTION ONLY DO NOT GIVE IF PATIENT HAS LIDOCAINE ALLERGY Reconstitute with lidocaine 1% to a concentration of 350 mg/mL: 500 mg vial: add 1 mL 1 g vial: add 2.1 mL 2 g vial: add 4.2 mL Lidocaine volume is the reconstitution volume - draw up appropriate dose Record configured for RN compounding, check math before compounding, Drug Monitoring Program: Pharmacist to adjust medication dosing based on indication and drug clearance factors., Indications: Obstetric or gynecological infectionIndications:Obste tric or gynecological infection Given 10/26/2023 2:01 AM CDT 500 mg Left Deltoid HYDROmorphone injection 1 mg (Dilaudid) 1 mg, intravenous, Once, On 10/25/23 at 2245, For 1 dose Given 10/25/2023 10:48 PM CDT 1 mg iohexoL 300 mg iodine/mL solution 1-200 mL (Omnipaque) 1-200 mL, intravenous, Once in imaging, contrast, Starting on 10/25/23 at 2321, For 1 dose, Imaging Protocol Orders, Dose per Radiant Medication Guidelines Given 10/25/2023 11:22 PM CDT 140 mL Left Antecubital ketorolac injection 15 mg (ToradoL) 15 mg, intravenous, Once, On 10/25/23 at 2245, For 1 dose, Adult IV push rate: Over 15 seconds. Peds IV push rate: Over 1 minute. Doses > 15 mg IV/IM are discouraged due to lack of additional analgesic benefit. Given 10/25/2023 10:49 PM CDT 15 mg oxyCODONE IR tablet 5 mg (Roxicodone) 5 mg, oral, Once, On 10/25/23 at 2218, For 1 dose Given 10/25/2023 10:18 PM CDT 5 mg sodium chloride (PF) 0.9 % injection 1-100 mL 1-100 mL, intravenous, Once, On 10/25/23 at 2322, For 1 dose, Imaging Protocol Orders, Dose per Radiant Medication Guidelines Given 10/25/2023 11:23 PM CDT 100 mL Left Antecubital sodium chloride 0.9 % injection 10 mL 10 mL, intravenous, Once in imaging, line care, BEFORE CT EXAM, Starting on 10/25/23 at 2322, For 1 dose Given 10/25/2023 11:23 PM CDT 10 mL Left Antecubital documented in this encounter Active and Recently Administered Medications Times are shown in CDT. Scheduled Medication Order 10/24/2023 10/25/2023 10/26/2023 azithromycin tablet 1,000 mg (Zithromax) (COMPLETED) 1,000 mg, oral, Once, On 10/26/23 at 0149, For 1 dose, Drug Monitoring Program: Pharmacist to adjust medication dosing based on indication and drug clearance factors., Indications: Obstetric or gynecological infection 0159 (Given - Provid er: Jennifer Martin R.N.) cefTRIAXone 500 mg in lidocaine 1% (COMPLETED) 500 mg, intramuscular, Once, On 10/26/23 at 0149, For 1 dose, FOR IM INJECTION ONLY DO NOT GIVE IF PATIENT HAS LIDOCAINE ALLERGY Reconstitute with lidocaine 1% to a concentration of 350 mg/mL: 500 mg vial: add 1 mL 1 g vial: add 2.1 mL 2 g vial: add 4.2 mL Lidocaine volume is the reconstitution volume - draw up appropriate dose Record configured for RN compounding, check math before compounding, Drug Monitoring Program: Pharmacist to adjust medication dosing based on indication and drug clearance factors., Indications: Obstetric or gynecological infection 0201 (Given - Provid er: Jennifer Martin R.N.) HYDROmorphone injection 1 mg (Dilaudid) (COMPLETED) 1 mg, intravenous, Once, On 10/25/23 at 2245, For 1 dose 2248 (Given - Provider: Jennifer Martin R.N.) ketorolac injection 15 mg (ToradoL) (COMPLETED) 15 mg, intravenous, Once, On 10/25/23 at 2245, For 1 dose, Adult IV push rate: Over 15 seconds. Peds IV push rate: Over 1 minute. Doses > 15 mg IV/IM are discouraged due to lack of additional analgesic benefit. 2249 (Given - Provider: Jennifer Martin R.N.) oxyCODONE IR tablet 5 mg (Roxicodone) (COMPLETED) 5 mg, oral, Once, On 10/25/23 at 2218, For 1 dose 2218 (Given - Provider: Jennifer Martin R.N.) sodium chloride (PF) 0.9 % injection 1-100 mL (COMPLETED) 1-100 mL, intravenous, Once, On 10/25/23 at 2322, For 1 dose, Imaging Protocol Orders, Dose per Radiant Medication Guidelines 2323 (Given - Provider: Hedy Merino RArinTArin(R)(CT), R.T.(R)) PRN Medication Order 10/24/2023 10/25/2023 10/26/2023 iohexoL 300 mg iodine/mL solution 1-200 mL (Omnipaque) (COMPLETED) 1-200 mL, intravenous, Once in imaging, contrast, Starting on 10/25/23 at 2321, For 1 dose, Imaging Protocol Orders, Dose per Radiant Medication Guidelines 2322 (Given - Provider: Michele Bass(Carolyn)(CT), Michele(R) - Comment: exp 12 may [id number] [id number]) sodium chloride 0.9 % injection 10 mL (COMPLETED) 10 mL, intravenous, Once in imaging, line care, BEFORE CT EXAM, Starting on 10/25/23 at 2322, For 1 dose 2322 (Given - Provider: Michele Bass(Carolyn)(CT), Michele(R)) documented in this encounter Additional Health Concerns Assessment Noted Time PHQ-9 Depression Total Score: 17 015 10:09 AM CDT documented as of this encounter Care Teams Lard Refiner Relationship Specialty Start Date End Date Elsewhere, Pcp PCP - General Family Medicine 01/27/19 documented as of this encounter
--- OUTSIDE RECORDS SUMMARY | 2024-01-02 22:28 | XMS_ITS | Encounter Summary ---
Author Organization [facility] Address [address] [place] [address] Care Team Providers Care Polymerization Engineer Name Role Phone Elsewhere, Pcp Primary Care Provider Unavailabl e Reason for Visit * Reason Onset Date Comments Communication 10/27/2023 Regarding ER vis it and follow up Encounter Details Date Type Department Care Team (Latest Contact Info) Description 10/27/2023 Clinical Communication Department of Obstetrics and Gynecology in [address] [phone] Salinas Bahena M.D. 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 - 10/27/2023 12:52 PM CDT Patient was called, all questions answered to the best of my ability. Patient stated she was confused because ED Dr told her she needed to be rushed into surgery Friday,Friday or Friday. Patient has an US appointment tomorrow 10/27 and an appointment with a provider on 10/28. Patient is not bleeding at this time, but states she is in pain and would like to know what to do. Patient encouraged tocontinue the antibiotics that were prescribed and follow up with the appointments. Patient stated understanding and agreed with the plan of care. documented in this encounter Plan of Treatment Not on file documented as of this encounter Visit Diagnoses Not on filedocumented in this encounter Additional Health Concerns Assessment Noted Time PHQ-9 Depression Total Score: 17 015 10:09 AM CDT documented as of this encounter Care Teams Polymerization Engineer Relationship Specialty Start Date End Date Elsewhere, Pcp PCP - General Family Medicine 01/27/19 documented as of this encounter
--- OUTSIDE RECORDS SUMMARY | 2024-01-02 22:28 | XMS_ITS | Referral Summary ---
Author Organization [facility] Address [address] [place] [address] Care Team Providers Care Director Public Name Role Phone Elsewhere, Pcp Primary Care Provider Unavailabl e Source Comments Patient records contain information from all sites at [facility]. For routine questions regarding patient records, call [phone] during business hours, M-F 8:00 AM - 5:00 PM Central Time. Record requests for emergency care only can be directed to [phone] at any time.[facility] Encounters Date Type Department Care Team Description 10/29/2023 1:45 PM CDT Comprehensive Visit Department of Obstetrics and Gynecology in [address] [phone] Wanda Stout, SURFBOARD MAKER, C.N.P., M.S.N. Hepatomegaly (Primary Dx); Hematometra; Pain Pelvic Female; Tonsillitis Discharge Disposition: Home or Self Care 10/28/2023 10:11 AM CDT - 10/28/2023 11:59 PM CDT Hospital Encounter Department of Radiology in [address] [phone] Daniel Stark M.D. Hematometra; Pain Pelvic Female Discharge Disposition: Home or Self Care 10/27/2023 Clinical Communication Department of Obstetrics and Gynecology in [address] [phone] Arabella Davidson RArinN. 10/27/2023 Clinical Communication Department of Obstetrics and Gynecology in [address] [phone] Salinas Bahena M.D. Communication (Regarding ER visit and follow up) 10/25/2023 9:31 PM CDT - 10/26/2023 2:15 AM CDT Emergency [facility] [address] [place] [address] Daniel Stark M.D. Hematometra (Primary Dx); Pain Pelvic Female Discharge Disposition: Home or Self Care from Last 3 Months Allergies No known active allergies Medications clonazePAM [...] Active Active Problems No known active problems Immunizations Name Administration Dates Next Due Tdap 10/28/2011 Social History Tobacco Use Types Packs/Day Years [...] on file Legal Sex Female 9:01 PM OFFICE SUPPORT ASSOCIATE Gender Identity Not on file Sexual Orientation [...] 10/29/2023 1:42 PM CDT Plan of Treatment Not on file Procedures Procedure Name Priority Date/Time Associated Diagnosis [...] LIPID PANEL, S Routine 04/06/2015 8:15 AM OFFICE SUPPORT ASSOCIATE PATHOLOGY OTR TANKER TRUCK DRIVER CYTOLOGY Routine 12/01/2014 12:00 AM CDT from [...] L ORDERABLES Final Result Performing Organization Address [facility]/ZIP Co de Phone Number [facility] [address] [place] [address], [facility] NPRG [facility] [address] [place] [address] * Chlamydia / Gonorrhoeae Amplified RNA (10/26/2023 [...] MICROBIOLOGY - GENERAL O RDERABLES Final Result [facility] [address] [place] [address], [place] [facility] [address] * CT Abdomen Pelvis with IV Contrast [...] Interface LAB BLOOD ADD-ON Final Re sult [facility] [address] [place] [address], [facility] NPRG [facility] [place] [address] * (ABNORMAL) CBC with Differential, Blood (10/25/2023 [...] M.D. LAB BLOOD ADD-ON Final Resul t [facility] [address] [place] [address], [facility] NPRG [place] [address] [place] [address] * (ABNORMAL) CRP (C-Reactive Protein) (10/25/2023 10:07 PM CDT) C-Reactive Protein (CRP), P 58.6(H) <5.0 mg/L 10/26/2023 2:16 AM CDT NPRG Blood (Blood, Venous) 10/25/2023 10:07 PM CDT 10/26/2023 1:23 AM CDT Daniel Stark M.D. LAB BLOOD ADD-ON Final Resul t [facility] [address] [place] [address], [facility] NPRG [place] [address] [place] [address] * Comprehensive Metabolic Panel (10/25/2023 10:07 PM [...] M.D. LAB BLOOD ADD-ON Final Resul t [facility] [place] [facility] [address] [place] [address], [facility] NPRG [place] [address] [place] [address] * (ABNORMAL) Urinalysis with Microscopic if Indicated [...] 8.0 10/25/2023 9:56 PM CDT NPRG Specific [place] 1.025 1.001 - 1.035 10/25/2023 9:56 PM CDT NPRG Urobilinogen 0.2 0.2 - 1.0 mg/dL 10/25/2023 9:56 PM CDT NPRG Urine (Urine, Midstream) 10/25/2023 9:46 PM CDT 10/25/2023 9:53 PM CDT us Daniel Stark M.D. LAB URINE ORDERABLES Final R esult [facility] [place] [facility] [address] [place] [address], [facility] NPRG [facility] [address] [place] [address] * (ABNORMAL) Microscopic Manual (10/25/2023 9:46 PM [...] Interface LAB URINE ORDERABLES Jennifer l Result [facility] [place] [facility] [address] [place] [address], [facility] NPRG [facility] [address] [place] [address] * Lipid Panel (04/06/2015 8:15 AM OFFICE SUPPORT ASSOCIATE) Cholesterol, Total 174 <=199 MGDL POWERCHART Comment: [...] for FH and FDB is available through [facility]: FH/ADH Genetic Reflex Panel (test ADHP). Acquired (non-genetic) causes of markedly increased LDL cholesterol include cholestatic liver disease due to the presence of LpX. If a genetic form of hypercholesterolemia is suspected, family studies including biochemical testing for lipids (total cholesterol,triglycerides, LDL cholesterol and HDL cholesterol) are recommended. ??Please contact the laboratory at or the on-line test catalog at [employer] for information about how to order these tests or to speak with a genetic counselor. Further interpretation would require clinical information. Blood 04/06/2015 8:15 AM OFFICE SUPPORT ASSOCIATE us Danny De Oliveira M.D. LAB BLOOD ADD-ON Final Result Performing Organization Address City/State/[facility] Co de Phone Number POWERCHART * Pathology OTR TANKER TRUCK DRIVER Cytology (12/01/2014 12:00 AM CDT) 12/01/2014 Narrative [facility] - 12/13/2014 1:[address] [facility] in [address] [place], [place] ??[phone] Patient Name: STEFANY MORENO VIDHI Collected: 12/01/2014 Address: [facility]/State/Zip: [address] [place] [address] ??[phone] Received: Reported: 12/02/2014 12/13/2014 Soc. Sec. #: ?/Age/Sex 1975 (Age: 39) ??F Physician(s): SHAHANA DE OLIVEIRA MD Copy To: ? [facility] [place] ??[id number] [address] [place] [address], ??[place] ??[id number] CYTOPATHOLOGY OTR TANKER TRUCK DRIVER REPORT FINAL CYTOLOGIC DIAGNOSIS Pap Smear - ThinPrep: NEGATIVE FOR INTRAEPITHELIAL LESION OR MALIGNANCY SPARSE TO NO ENDOCERVICAL COMPONENT PRESENT. SATISFACTORY SPECIMEN FOR EVALUATION. Electronically Signed Out By ajw/12/13/[address](ASCP) The Pap test is a screening procedure [...] of Last PAP: 2012 Treatment History: LEEP: 2001 Other Clinical Conditions: HPV TYPING REQUESTED: IF ASCUS HPV TYPING REQUESTED: IF BRITTANY Danny De Oliveira M.D. LAB PAP COPATH ORDERABLES Final Result [facility] from Last 3 Months or Most Recently Relevant to Health Maintenance Insurance [facility] Care Teams Director Public Relationship Specialty Start Date End Date Elsewhere, Pcp PCP - General Family Medicine 01/27/19
--- OUTSIDE RECORDS SUMMARY | 2024-01-02 22:28 | XMS_ITS | Clinical Summary ---
Author Organization [facility] Address [address] [address] Phone Care Team Providers Care Investment Fund Manager Name Role Phone Unavailable Primary Care Provider Unavailabl e Allergies No known active allergies Medications LORazepam (Ativan) 1 MG tablet Take 0.5 [...] hours as needed for Itching. 20 Tablet 2 Active Immunizations Name Administration Dates Next Due TD >7yrs With Preservative 09/26/2003 Tdap (7 years and older) 10/28/2011 Surgical History Surgery Date Site/Laterality Comments WRIST FRACTURE SURGERY 03/21/2021 Right Right distal radius ORIF. ([facility]) Social History Tobacco Use Types Packs/Day Years Used Date Smoking Tobacco: Never Assessed Comments No Sex and Gender Information Value Date Recorded Sex Assigned at Not on file Legal Sex Female 9:34 PM FLIGHT COMMUNICATIONS SPECIALIST Gender Identity Not on file Sexual Orientation Not on file Obstetrics History Last Filed Vital Signs Vital Sign Reading Time Taken Comments Blood Pressure 157/91 02/12/2020 11:03 PM FLIGHT COMMUNICATIONS SPECIALIST Pulse 113 02/12/2020 11:03 PM FLIGHT COMMUNICATIONS SPECIALIST Temperature 36.7 ??C (98.1 ??F) 02/12/2020 11:[address] Respiratory Rate 18 02/12/2020 11:03 PM FLIGHT COMMUNICATIONS SPECIALIST Oxygen Saturation 99% 02/12/2020 11:03 PM FLIGHT COMMUNICATIONS SPECIALIST Inhaled Oxygen Concentration - - Weight 74.4 kg (164 lb) 02/12/2020 6:11 PM FLIGHT COMMUNICATIONS SPECIALIST Height 170.2 cm (5' 7) 02/12/2020 6:11 PM FLIGHT COMMUNICATIONS SPECIALIST Body Mass Index 25.69 02/12/2020 6:11 PM FLIGHT COMMUNICATIONS SPECIALIST Plan of Treatment Health Maintenance Due Date [...] (Standing Order) 10/27/2021 012, 09/26/2003 COVID-19 Vaccine (2023-2 5 season) 2023 Influenza Vaccine Seasonal (Standing Order) (#1) 2023 RSV Vaccination (60+ yrs) (Abrysvo/Arexvy) (1 - 1-dose 75+ series) 07/09/2050 PERTUSSIS (Standing Order) Completed 10/28/2011 HPV Vaccine (Standing Order) Aged Out No longer eligible based on patient's age to complete this topic Pneumococcal/PCV20 Vaccine: Pediatrics (2-5 yrs) and At-Risk Patients (6-64 yrs) (Standing Order) Aged Out No longer eligible b ased on patient's age to complete this topic Insurance BLUE PLUS [facility] REF REQ
--- OUTSIDE RECORDS SUMMARY | 2024-01-02 22:28 | XMS_ITS | Encounter Summary ---
Author Organization [facility] Address [address] [place] [address] Care Team Providers Care Reception Centre Manager Name Role Phone Elsewhere, Pcp Primary Care Provider Unavailabl e Encounter Details Date Type Department Care Team (Late st Contact Info) Description 10/27/2023 Clinical Communication Department of Obstetrics and Gynecology in [address] [phone] Arabella Davidson R.N. 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 - 10/27/2023 1:04 PM CDT Patient was transferred to nursing, stating she needs to see a provider today. Please see previous note. Patient has an US appointment on Friday and will see a provider on Friday. documented in this encounter Plan of Treatment Not on file documented as of this encounter Visit Diagnoses Not on filedocumented in this encounter Additional Health Concerns Assessment Noted Time PHQ-9 Depression Total Score: 17 12/19/ 015 10:09 AM CDT documented as of this encounter Care Teams Reception Centre Manager Relationship Specialty Start Date End Date Elsewhere, Pcp PCP - General Family Medicine 11/20/19 documented as of this encounter
--- OUTSIDE RECORDS SUMMARY | 2024-01-02 22:28 | XMS_ITS | Encounter Summary ---
Author Organization [facility] Address [address] [place] [address] Care Team Providers Care Claims Adjudicator Name Role Phone Elsewhere, Pcp Primary Care Provider Unavailabl e Reason for Visit * Reason Comments Post Ed Visit Follow-up * Outpatient (Routine) - Closed Specialty Diagnoses / Procedures Referred By Cindy rosenthal Referred To Contact Emergency Medicine Diagnoses Hematometra Pain Pelvic Female Daniel Stark M.D. [address] [place] [address] Phone: tel: fax: [facility] Region Referral ID Status Reason Start Date Expiration Date Visits Re quested Visits Authorized [id number] Closed 10/26/2023 04/26/2025 1 1 Encounter Details Date Type Department Care Team (Latest Contact Info) Description 10/29/2023 1:45 PM CDT Comprehensive Visit Department of Obstetrics and Gynecology in [place], [place] [address] [place] [phone] Wanad Stout, EVIN, C.N.P., M.S.N. 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 - 10/29/2023 1:45 PM CDT Images from the original note were not included. SUBJECTIVE REASON FOR VISIT ER follow up HISTORY OF PRESENT ILLNESS Ms. Murray is a 48 y.o. who presents for ER follow up on pelvic pain. Stefany was experiencing increasing suprapubic pelvic pain over the last 3 weeks, which ultimately brought her to the ER on 10/25/23. She describes the pain as a cramping in waves, like labor pains, which would focus low in the pelvic and wrap around the torso to her back. The CT scan during her ER visit suggested fluid accumulation low in uterus and cervix, suggesting possible hematometra. Following that ER visit she started having vaginal bleeding. She describes at least 24 hours of a moderate to heavy, gush, of bleeding which tapered to spotting and now stopped. Her pain was improved when this occurred. She is still feeling very mild cramping at this time. She was given treatment for PIDwhile in the ER and was sent home on metronidazole for vaginitis results. Her history is pertinent for menorrhagia and dysmenorrhea. She underwent an endometrial ablation inMay 2023 at [facility]. (Records are not available for review today). She hadbeen amenorrheic since time of ablation until this week. She reports abstinence over 1 year. I have reviewed and updated the following: allergies, current medications, medical history, and problem list REVIEW OF SYSTEMS A comprehensive review of systems was negative except for: Ears, nose, mouth, throat, and face: earaches and sore throat Gastrointestinal: abdominal pain and suprapubic pain OBJECTIVE VITAL SIGNS Blood Pressure: (135)/(80) 135/80 Height: [170.2 cm] 170.2 cm Weight: [72.7 kg] 72.7 kg BSA (Calculated - sq m): [1.85 sq meters] 1.85 sq meters BMI (Calculated): [25.1 kg/m??] 25.1 kg/m?? Pulse Rate: [64] 64 PHYSICAL EXAM Constitutional General: She is not in acute distress. Appearance: Normal appearance. She is well-groomed. She is not ill-appearing. HENT Mouth/Throat: Pharynx: Oropharynx is clear. Tonsils: 1+ on the right. Neck Neurological Mental Status: She is alert. Psychiatric Mood and Affect: Mood normal. Speech: Speech normal. Behavior: Behavior normal. Behavior is cooperative. Cognition and Memory: Cognition normal. DIAGNOSTICS 10/25/23 EXAM: CT ABDOMEN PELVIS WITH IV CONTRAST COMPARISON: Pelvic ultrasound 10/04/2015 FINDINGS: Lower Thorax: Dependent and basilar atelectasis. Normal included heart and pericardium. Liver: Liver is enlarged, measuring 21 cm craniocaudal. Mild fatty infiltration along the falciformligament. Gallbladder/bile ducts: Decompressed gallbladder. No bile duct [...] and consider follow-up pelvic ultrasound. 3. Hepatomegaly. 10/29/23 EXAM: US PELVIS TRANSVAGINAL AND TRANSABDOMINAL COMPARISON: [...] otherwise unremarkable. Normal ovaries. No free fluid ASSESSMENT / PLAN #1 Hematometra #2 Pain Pelvic Female Her pain is improving following release of menstrual product, as confirmed by pelvic US yesterday when compared to CT last week. Discussed the possible reasons that led to this, including her endometrial ablation and scarring effect from procedure earlier this year. With a history of painful and heavy menstrual cycles, it is possible the ablation won't be a curative treatment for her. If this repeats itself, it may be appropriate to consider hysterectomy down the road. She declines surgical consultation at this time. #3 Hepatomegaly Incidental notation of 21 cm craniocaudal measurement on recent CT imaging. Recommend outpatient follow up with her PCP regarding this. (CT report printed for record sharing. Her PCP is Dr. Ashraf in [place]) #4 Tonsillitis Patient reports frequent tonsillitis and strep infections. Clinical exam not as suspicious for strep at this time. She was offered, and declined, strep testing. Recommend Urgent Care or PCP evaluation of symptoms as this is outside DIRECTOR OF INFECTION CONTROL specialty. Wanda Stout APRN, C.NBernice., M.S.N. documented in this encounter Plan of Treatment Not on file documented as of this encounter Visit Diagnoses Diagnosis Hepatomegaly- Primary Hematometra Pain Pelvic Female Tonsillitis documented in this encounter Additional Health Concerns Assessment Noted Time PHQ-9 Depression Total Score: 17 015 10:09 AM CDT documented as of this encounter Care Teams Claims Adjudicator Relationship Specialty Start Date End Date Elsewhere, Pcp PCP - General Family Medicine 01/27/19 documented as of this encounter
--- OUTSIDE RECORDS SUMMARY | 2024-01-02 22:28 | XMS_ITS | Encounter Summary ---
Author Organization [facility] Address [address] [place] [address] Care Team Providers Care Coremaker Experimental Name Role Phone Elsewhere, Pcp Primary Care Provider Unavailabl e Reason for Referral * Outpatient (Routine) - Closed Specialty Diagnoses / Procedures Referred By Contac t Referred To Contact Diagnoses Hematometra Pain Pelvic Female Procedures US Pelvis Transvaginal and Transabdominal US Pelvis Transvaginal Daniel Stark M.D. [address] [place] [phone] Phone: tel: fax: [facility] Referral ID Status Reason Start Date Expiration Date Visits Re quested Visits Authorized [id number] Closed 10/26/2023 10/25/2024 1 1 Reason for Visit * Outpatient (Routine) - Closed Specialty Diagnoses / Procedures Referred By Contac t Referred To Contact Diagnoses Hematometra Pain Pelvic Female Procedures US Pelvis Transvaginal and Transabdominal US Pelvis Transvaginal Daniel Stark M.D. [address] [place] [phone] Phone: tel: fax: [facility] Referral ID Status Reason Start Date Expiration Date Visits Re quested Visits Authorized [id number] Closed 10/26/2023 10/25/2024 1 1 Encounter Details Date Type Department Care Team (Latest Contact Info) Description 10/28/2023 10:11 AM CDT - 10/28/2023 11:59 PM CDT Hospital Encounter Department of Radiology in [place], [place] [address] [place] [phone] Daniel Stark M.D. 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 IMG US PROCEDURES Final Resu lt documented in this encounter Visit Diagnoses Diagnosis Hematometra Pain Pelvic Female documented in this encounter Additional Health Concerns Assessment Noted Time PHQ-9 Depression Total Score: 17 015 10:09 AM CDT documented as of this encounter Care Teams Coremaker Experimental Relationship Specialty Start Date End Date Elsewhere, Pcp PCP - General Family Medicine 01/27/19 documented as of this encounter
== END 2024-01-02 22:36 | disposition home or self-care (01) ==
LOC: ED 22:25
PROVIDERS: Family Medicine; PCP Family Medicine
DX: Z53.21 Procedure and treatment not carried out due to patient leaving prior to being seen by health care provider (principal)
CPT/HCPCS: 87631; 87651

== ENCOUNTER 2024-04-07 02:45 | Emergency (ER) | payer BC, SELFPAY ==
[2024-04-07 02:50] VITALS: BP 163/97; PULSE 96; RESP 18; TEMP 37.1; O2SAT 98; BMI 21.9
--- NOTE | 2024-04-07 02:57 | ED.GENADULT ---
HPI - General Adult General Time Seen by Provider: 02:57 Date Seen: 04/07/24 Chief complaint: Abdominal Pain Stated complaint: Abdominal pain, vomiting Time Seen by Provider: 04/07/24 02:57 Source: patient, RN notes reviewed and old records reviewed Mode of arrival: ambulatory Limitations: no limitations History of Present Illness HPI narrative: 40-year-old female who presents today with nausea vomiting as well as diarrhea, generalized abdominal pain, abrupt onset about 4 hours prior to coming the emergency department. No blood in the vomitus flu or stool. No fever chills, no cough or runny nose, also has a frontal headache. Last alcohol was yesterday morning. Related Data Previous Rx's ?Medication ?Instructions ?Recorded gabapentin 100 mg capsule See Rx Instructions PO .ud #240 04/02/23 caps buspirone 30 mg tablet 30 mg PO BID #180 tabs 04/17/23 alprazolam 1 mg tablet 1 mg PO TID PRN anxiety #30 tabs 05/29/23 ibuprofen 600 mg tablet 600 mg PO QID PRN #30 tabs 06/05/23 oxycodone 5 mg tablet 5 mg PO 3XD PRN 4 OR GREATER ON 06/05/23 PAIN SCALE #7 tabs escitalopram oxalate 20 mg tablet 20 mg PO QDAY #90 tabs 06/16/23 naltrexone 50 mg tablet 50 mg PO QDAY #90 tabs 06/16/23 gabapentin 300 mg capsule See Rx Instructions PO .ud #120 09/05/23 caps lorazepam 1 mg tablet See Rx Instructions PO TID PRN 09/05/23 anxiety #30 tabs omeprazole 20 mg capsule,delayed 20 mg PO QDAY #90 caps 11/17/23 release albuterol sulfate 90 mcg/actuation 2 puff inhalation Q4H PRN 12/04/23 aerosol inhaler (Proventil HFA) shortness of breath or wheezing #8.5 grams verapamil 120 mg tablet,extended 120 mg PO BID #180 tabs 12/24/23 release ondansetron 4 mg disintegrating 4 mg PO Q8H PRN nausea and 01/07/24 tablet vomiting #10 tabs lorazepam 0.5 mg tablet 0.5 mg PO BID PRN anxiety #20 tabs 02/04/24 bupropion HCl 300 mg 24 hr tablet, 300 mg PO QAM #90 tabs 02/06/24 extended release Allergies Allergy/AdvReac Type Severity Reaction Status Date / Time No Known Allergies Allergy Unknown Verified 04/07/24 02:55 [facility] Medical History Hypertension ?I10 - Essential (primary) hypertension (ICD-10) History of alcoholic hepatitis ?Z87.19 - Personal history of other diseases of the digestive system (ICD-10) COVID-19 ?U07.1 - COVID-19 (ICD-10) Bartholin's gland abscess ?N75.1 - Abscess of Bartholin's gland (ICD-10) Injury of finger of right hand ?S69.91XA - Unspecified injury of right wrist, hand and finger(s), initial encounter (ICD-10) Hypothyroidism ?E03.9 - Hypothyroidism, unspecified (ICD-10) Fracture of rib ?S22.39XA - Fracture of one rib, unspecified side, initial encounter for closed fracture (ICD-10) Surgical History Status post cervical spinal arthrodesis ?Z98.1 - Arthrodesis status (ICD-10) History of tubal ligation ?Z98.51 - Tubal ligation status (ICD-10) History of loop electrical excision procedure (LEEP) ?Z98.890 - Other specified postprocedural states (ICD-10) History of section ?Z98.891 - History of uterine scar from previous surgery (ICD-10) Family History Other Diabetes Social History Narrative: alcohol abuse Smoking Status: Current every day smoker What tobacco products do you use: cigarettes Smoking packs per day: 1 Smoking cigarettes per day: 20.0 Years smoked: 10 Smoking pack-years: 10.00 Do you use any of these nicotine containing products: None Second hand tobacco smoke exposure: No How often do you have a drink containing alcohol: never AUDIT-C Alcohol total score: 0 Non-prescribed substance use: marijuana (any form) Caffeine: Yes Are you using contraception or practicing any form of control: Yes (tubal) service: No Exam Narrative: Exam Narrative: General: Well-developed and well-nourished, appears uncomfortable Head: Atraumatic and normocephalic Eyes: Pupils are equal reactive, extraocular motions intact, conjunctiva clear ENT: External nose and ears are normal, posterior pharynx without erythema or exudate Neck: No midline cervical tenderness, full spontaneous range of motion the neck, trachea midline, no adenopathy Heart: Regular rate and rhythm no murmurs or thrills Lungs: Clear to auscultation bilaterally without wheezes or crackles Abdomen: Soft, generalized tenderness with no focal tenderness, nondistended with active bowel sounds Musculoskeletal: No tenderness, deformity, or edema Neurologic: Awake, alert, and oriented x3, no gross focal neurologic deficits, cranial nerves intact as tested Psych: Mood and affect are appropriate Skin: No rashes Const: Vital Signs, click to edit/add: Vital Signs - 24 hr 04/07/24 02:50 Temperature 98.7 F Pulse Rate [Right Pulse Oximeter] 96 Respiratory Rate 18 Blood Pressure [Ri ght Upper Arm] 163/97 H Pulse Oximetry 98 Oxygen Delivery Me thod Room Air Course Course ED Course: Reviewed prior emergency department visit from October 2019 for when patient was seen for alcohol intoxication and fall, had a reassuring workup at that time which included labs and a CT, negative CT scan and patient was discharged after sobering. Also previously seen for hypokalemia. Patient presents today with nausea, vomiting, diarrhea, abrupt onset about 4 hours prior to coming the emergency department. On exam here she has vital is stable, appears to have frequent abdominal cramping, generalized tenderness. Symptoms are consistent with community gastrointestinal infection, also consider pancreatitis, electrolyte disturbance, acute cholecystitis. No focal right lower quadrant tenderness, acute appendicitis is clinically unlikely it. Labs ordered along with Zofran, Toradol. Chronic conditions influencing presentation today include alcohol dependence and nicotine dependence Reevaluation(s) Time of Reevaluation #1: 04:15 Reevaluation #1: Labs ordered and independently interpreted by me with normal basic panel, normal hepatic panel, normal lipase, negative respiratory panel. Patient rechecked and reexamined, the nausea vomiting improved, generalized abdominal tenderness improved as well with no focal tenderness. Plan to discharge with Zofran for symptom management. Vital Signs Vital signs: Initial Vital Signs Temperature 98.7 F 04/07/24 02:50 Temperature Source Temporal Artery Scan 04/07/24 02:50 Pulse Rate 96 04/07/24 02:50 Pulse Rhythm Regular 04/07/24 02:50 Pulse Strength 3+ Normal 04/07/24 02:50 Respiratory Rate 18 04/07/24 02:50 Blood Pressure 163/97 H 04/07/24 02:50 Blood Pressure Mean 119 H 04/07/24 02:50 Blood Pressure Position Sitting 04/07/24 02:50 Pulse Oximetry 98 04/07/24 02:50 Oxygen Delivery Method Room Air 04/07/24 02:50 Vital Signs Temperature 98.7 F 04/07/24 02:50 Pulse Rate 96 04/07/24 02:50 Respiratory Rate 18 04/07/24 02:50 Blood Pressure 163/97 H 04/07/24 02:50 Pulse Oximetry 98 04/07/24 02:50 Oxygen Delivery Method Room Air 04/07/24 02:50 Temperature 98.7 F 04/07/24 02:50 Pulse Rate 96 04/07/24 02:50 Respiratory Rate 18 04/07/24 02:50 Blood Pressure 163/97 H 04/07/24 02:50 Pulse Oximetry 98 04/07/24 02:50 Oxygen Delivery Method Room Air 04/07/24 02:50 Medications Administered Medications: Generic Name Dose Route Start Last Admin Trade Name Grahamq PRN Reason Stop Dose Admin Famotidine 20 mg 04/07/24 03:06 04/07/24 03:19 Famotidine 10 Mg/Ml Inj IVP 04/07/24 03:07 20 mg ONCE ONE Administration Sodium Chloride 1,000 mls @ 1,000 mls/hr 04/07/24 03:15 04/07/24 03:45 0.9 % Sodium Chloride 1000 Ml IV 04/07/24 04:14 Infused .Q1H DAVID Infusion Ketorolac Tromethamine 15 mg 04/07/24 03:06 04/07/24 03:19 Ketorolac 15 Mg/Ml Inj IVP 04/07/24 03:07 15 mg ONCE ONE Administration Lorazepam 0.5 mg 04/07/24 03:16 04/07/24 03:30 Lorazepam 2 Mg/Ml Inj IVP 04/07/24 03:17 0.5 mg ONCE ONE Administration Ondansetron HCl 4 mg 04/07/24 03:06 04/07/24 03:20 Ondansetron 2 Mg/Ml Inj IVP 04/07/24 03:07 4 mg ONCE ONE Administration Medical Decision Making Lab Data Labs: Lab Results 04/07/24 Range/Units 02:55 Sodium 139 (135-149) mmol/L Potassium 3.8 (3.6-5.1) mmol/L Chloride 106 (96-114) mmol/L Carbon Dioxide 18 L (20-32) mmol/L Anion Gap 15 (7-15) mEq/L BUN 13 (5-24) mg/dL Creatinine 0.6 (0.5-1.5) mg/dL Estimated Creat Clear 111.51 Estimated GFR 111 ml/min Glucose 122 H (60-115) mg/dL Calcium 8.8 (8.4-10.6) mg/dL Magnesium 2.0 (1.5-2.6) mg/dL Total Bilirubin 0.3 (0.1-1.5) mg/dL Direct Bilirubin 0.2 (0.0-0.5) mg/dL AST 24 (12-35) U/L ALT 13 (4-35) U/L Alkaline Phosphatase 64 (40-150) U/L Total Protein 7.6 (6.0-8.3) g/dL Albumin 4.6 (3.3-5.0) g/dL Lipase 60 (23-300) U/L SARS-CoV-2 (PCR) Negative SARS-CoV-2 (Negative) Influenza Type A (PCR) Negative PCR FLU A (Negative) Influenza Type B (PCR) Negative PCR FLU B (Negative) RSV (PCR) Negative PCR RSV (Negative) Discharge Plan Discharge Clinical Impression: Nausea vomiting and diarrhea Patient Disposition: Home, Self-Care Condition: Stable Instructions: Acute Nausea and Vomiting (DC), Acute Diarrhea (ED) Additional Instructions: Take Imodium [id number]-bobtbhi as needed for diarrhea Take Zofran every 6 hours as needed for nausea vomiting Activity Level: Activity as Tolerated Discharge Diet: Clear Liquid Prescriptions: No Action gabapentin 100 mg capsule See Rx Instructions PO .ud Qty: 240 2RF Rx Instructions: 100-200 mg QAM and Qmidday orally UD; (To be used with her 300 mg dose) escitalopram oxalate 20 mg tablet 20 mg PO QDAY Qty: 90 3RF Rx Instructions: Take along with 10 mg tablet naltrexone 50 mg tablet 50 mg PO QDAY Qty: 90 3RF ondansetron 4 mg tablet,disintegrating 4 mg PO Q8H PRN (Reason: nausea and vomiting) Qty: 10 0RF oxycodone 5 mg Tablet 5 mg PO 3XD PRN (Reason: 4 OR GREATER ON PAIN SCALE) Qty: 7 0RF ibuprofen 600 mg tablet 600 mg PO QID PRNQty: 30 0RF buspirone 30 mg tablet 30 mg PO BID Qty: 180 3RF alprazolam 1 mg tablet 1 mg PO TID PRN (Reason: anxiety) Qty: 30 0RF lorazepam 1 mg tablet See Rx Instructions PO TID PRN (Reason: anxiety) Qty: 30 0RF Rx Instructions: 1/2 to 1 mg tid orally three times a day PRN; gabapentin 300 mg capsule See Rx Instructions PO .ud Qty: 120 5RF Rx Instructions: 300 mg QAM and QMidday, and 600 mg QHS orally UD; omeprazole 20 mg capsule,delayed release(DR/EC) 20 mg PO QDAY Qty: 90 0RF albuterol sulfate [Proventil HFA] 90 mcg/actuation HFA aerosol inhaler 2 puff inhalation Q4H PRN (Reason: shortness of breath or wheezing) Qty: 8.5 0RF verapamil 120 mg tablet extended release 120 mg PO BID Qty: 180 3RF lorazepam 0.5 mg tablet 0.5 mg PO BID PRN (Reason: anxiety) Qty: 20 0RF bupropion HCl 300 mg tablet extended release 24 hr 300 mg PO QAM Qty: 90 0RF Follow Up/Referrals: Dakota Ashraf MD [Primary Care Provider] - Stand Alone Forms: [facility] Info Instructions
[2024-04-07] MEDS: KETOROLAC 15 MG/ML inj IVP (03:19)
[2024-04-07] MEDS: FAMOTIDINE 10 MG/ML inj 20 MG IVP (03:19)
[2024-04-07] MEDS: ONDANSETRON 2 MG/ML inj 4 MG IVP (03:20)
[2024-04-07] MEDS: 0.9 % SODIUM CHLORIDE 1000 ml 1,000 ML IV (03:20)
[2024-04-07] MEDS: LORazepam 2 MG/ML inj 0.5 MG IVP (03:30)
[2024-04-07 03:48] LABS: PCR FLU A Negative PCR FLU A (Negative); PCR FLU B Negative PCR FLU B (Negative); PCR RSV Negative PCR RSV (Negative); SARS PCR* Negative SARS-CoV-2 (Negative)
[2024-04-07 04:05] LABS: Albumin* 4.6 g/dL (3.3-5.0)
[2024-04-07 04:06] LABS: Chloride* 106 mmol/L (96-114); Potassium* 3.8 mmol/L (3.6-5.1); Sodium* 139 mmol/L (135-149)
[2024-04-07 04:08] LABS: Anion Gap 15 mEq/L (7-15); Aspartate Amino Transferase* 24 U/L (12-35); Bilirubin Direct* 0.2 mg/dL (0.0-0.5); Bilirubin Total* 0.3 mg/dL (0.1-1.5); Carbon Dioxide* 18 mmol/L (20-32); Creatinine* 0.6 mg/dL (0.5-1.5); Est. Creatinine Clearance* 111.51; Estimated Glomerular Filt Rate 111 ml/min; Total Protein* 7.6 g/dL (6.0-8.3)
[2024-04-07 04:09] LABS: Alanine Aminotransferase* 13 U/L (4-35); Alkaline Phosphatase* 64 U/L (40-150); Blood Urea Nitrogen* 13 mg/dL (5-24); Calcium* 8.8 mg/dL (8.4-10.6); Glucose* 122 mg/dL (60-115); Lipase* 60 U/L (23-300)
--- OUTSIDE RECORDS SUMMARY | 2024-04-07 14:57 | XMS_ITS | Clinical Summary ---
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 Gender Identity Not on file Sexual Orientation Not on file Obstetrics History Last Filed Vital Signs Vital Sign Reading Time Taken Comments Blood Pressure 157/91 02/12/2020 11:03 PM EMPLOYMENT AGENCY MANAGER Pulse 113 02/12/2020 11:03 PM EMPLOYMENT AGENCY MANAGER Temperature 36.7 C (98.1 F) 02/12/2020 11:03 PM EMPLOYMENT AGENCY MANAGER Respiratory Rate 18 02/12/2020 11:03 PM EMPLOYMENT AGENCY MANAGER Oxygen Saturation 99% 02/12/2020 11:03 PM EMPLOYMENT AGENCY MANAGER Inhaled Oxygen Concentration - - Weight 74.4 kg (164 lb) 02/12/2020 6:11 PM EMPLOYMENT AGENCY MANAGER Height 170.2 cm (5' 7) 02/12/2020 6:11 PM EMPLOYMENT AGENCY MANAGER Body Mass Index 25.69 02/12/2020 6:11 PM EMPLOYMENT AGENCY MANAGER Plan of Treatment Health Maintenance Due Date [...] Vaccine: Pediatrics (2-5 yrs) and At-Risk Patients (6-49 yrs) (Standing Order) Aged Out No longer eligible b ased on patient's age to complete this topic Insurance BLUE PLUS [facility] REF REQ
--- OUTSIDE RECORDS SUMMARY | 2024-04-07 14:58 | XMS_ITS | Encounter Summary ---
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
--- OUTSIDE RECORDS SUMMARY | 2024-04-07 14:58 | XMS_ITS | Clinical Summary ---
Author Organization [facility] Address [address] [place] [address] Care Team Providers Care Senior Product Designer Name Role Phone Elsewhere, Pcp Primary Care Provider Unavailabl e Source Comments Patient records contain information from all sites at [facility]. For routine questions regarding patient records, call [phone] during business hours, M-F 8:00 AM - 5:00 PM Central Time. Record requests for emergency care only can be directed to [phone] at any time.[facility] Allergies No known active allergies Medications clonazePAM [...] Active Problems No known active problems Immunizations Immunization Administration Dates Next Due Tdap 10/28/2011 Family [...] on file Legal Sex Female 9:01 PM TRACK COACH Gender Identity Not on file Sexual Orientation Not on file Last Filed Vital Signs Vital Sign Reading Time Taken Comments Blood Pressure 135/80 10/29/2023 1:42 PM CDT Pulse 64 10/29/2023 1:42 PM CDT Temperature 37 C (98.6 F) 10/25/2023 9:37 PM CDT Respiratory Rate 18 [...] 1975 Mammogram 1975 Tobacco Cessation counseling 1975 Hepatitis B Vaccines (1 of 3 - 19+ 3-dose series) 07/09/1994 Pneumococcal vaccine (0-49 years) (1 of 2 - PCV) 07/09/1994 Lipid (Cholesterol) Screening 04/06/2020 04/06/2015 COVID-19 Vaccine (2 - 2023- season) 2023 03/14/2021 Influenza Vaccine (#1) 2023 Depression Screening (Annual PHQ-2) 03/10/2024 Cervical/Vaginal Cancer Screening 01/21/2025 01/21/2022, 12/01/2014 Fasting Glucose for Diabetes Screening 10/24/2026 10/25/2023, 02/12/2020, 06/13/2019, Additional history exists DTaP,Tdap,and Td Vaccines (3 - Td or Tdap) 03/14/2031 03/14/2021, 10/28/2011, 09/26/2003 IPV Vaccines Aged Out No longer eligi ble based on patient's age to complete this topic Procedures Procedure Name Priority Date/Time Associated Diagnosis Comments COMPREHENSIVE METABOLIC PANEL, S/P STAT 10/25/2023 10:07 PM CDT LIPID PANEL, S Routine 04/06/2015 8:15 AM TRACK COACH PATHOLOGY SYSTEMS INTEGRATOR CYTOLOGY Routine 5 12:00 AM CDT from Last 3 Months or Most Recently Relevant to Health Maintenance Results * Comprehensive Metabolic Panel (10/25/2023 10:07 PM [...] 10:07 PM CDT 10/25/2023 10:09 PM CDT Daniel Stark M.D. LAB BLOOD ADD-ON Final Resul t [facility] [address] [place] [address], [place] [facility] [address] [place] [address] * Lipid Panel (04/06/2015 8:15 AM TRACK COACH) [facility] Cholesterol, Total 174 <=199 MGDL POWERCHART Comment: [...] for FH and FDB is available through [facility] Netadmin: FH/ADH Genetic Reflex Panel (test ADHP). Acquired (non-genetic) causes of markedly increased LDL cholesterol include cholestatic liver disease due to the presence of LpX. If a genetic form of hypercholesterolemia is suspected, family studies including biochemical testing for lipids (total cholesterol,triglycerides, LDL cholesterol and HDL cholesterol) are recommended. Please contact the laboratory at or the on-line test catalog at [employer] for information about how to order these tests or to speak with a genetic counselor. Further interpretation would require clinical information. Blood 04/06/2015 8:15 AM TRACK COACH us Danny De Oliveira M.D. LAB BLOOD ADD-ON Final Result POWERCHART * Pathology SYSTEMS INTEGRATOR Cytology (12/01/2014 12:00 AM CDT) 12/01/2014 Narrative [facility] - 12/13/2014 1:[address] [facility] [address] [place] [address] Patient Name: MICHAEL MORENOLL JENNIFER Collected: 12/01/2014 Address: [facility]/[address]: [address] [place], [place] [id number] Received: Reported: 12/02/2014 12/13/2014 Soc. Sec. #: /Age/Sex 1975 (Age: 39) F Physician(s): SHAHANA DE OLIVEIRA MD Copy To: [facility] [id number] [address] [place] [address] [address] [place] [address] CYTOPATHOLOGY SYSTEMS INTEGRATOR REPORT FINAL CYTOLOGIC DIAGNOSIS Pap Smear - ThinPrep: NEGATIVE FOR INTRAEPITHELIAL LESION OR MALIGNANCY SPARSE TO NO ENDOCERVICAL COMPONENT PRESENT. SATISFACTORY SPECIMEN FOR EVALUATION. Electronically Signed Out By ajw/12/13/2014 DEYANIRA QUINTEROS(ASCP) The Pap test is a screening procedure and, as such, is subject to both false positive and false negative results as evidenced by published data. It is not a diagnostic test and results should be interpreted in the context of the patient's history and other clinical findings. Obtaining periodic Pap tests may help to minimize the consequences of any false negatives that may occur. SPECIMEN(S) RECEIVED: Pap Smear - ThinPrep CLINICAL HISTORY: Date of Last PAP: 2012 Treatment History: LEEP: 2001 Other Clinical Conditions: HPV TYPING REQUESTED: IF ASCUS HPV TYPING REQUESTED: IF BRITTANY Danny De Oliveira M.D. LAB PAP COPATH ORDERABLES Final Result [facility] from Last 3 Months or Most Recently Relevant to Health Maintenance Insurance [facility] Care Teams Senior Product Designer Relationship Specialty Start Date End Date Elsewhere, Pcp PCP - General Family Medicine 01/27/19
--- OUTSIDE RECORDS SUMMARY | 2024-04-07 14:59 | XMS_ITS | Clinical Summary ---
Author Organization [facility] Address [place], [place] [address] Care Team Providers Care Distribution Technician Name Role Phone Dakota Ashraf MD Primary Care Provider Allergies No known active allergies Medications CRANBERRY 1,000 MG CAP 0 07/22/19 07 Active VITAMIN TAB 0 07/22/19 07 Active NAPROSYN 500 MG TABIndications:O ther disorder of menstruation and other abnormal bleeding from female genital tract take 1 tablet (500 mg) by oral route 2 times per day with food 30 0 08/10/19 07 Active CLEOCIN 2 % VAGINAL CREAMIndications :Vaginitis and vulvovaginitis, unspecified 1 appl q hs 1 0 08/14/19 07 Active busPIRone (BUSPAR) 5 mg tablet Take 5 mg by mouth 3 times daily. 02/15/20 20 Active diazePAM (VALIUM) 5 mg tablet 02/15/20 20 Active escitalopram oxalate (LEXAPRO) 5 mg tablet Take 5 mg by mouth once daily. 02/15/20 20 Active folic acid 1 mg tablet Take 1 mg by mouth once daily. 02/15/20 20 Active multivitamin (MVI) tablet Take 1 tablet by mouth once daily. 02/15/20 20 Active nicotine 14 mg/24 hr (NICODERM; HABITROL) 14 mg/24 hr patch 02/15/20 20 Active omeprazole (PRILOSEC) 20 mg Delayed-Release capsule TK 1 C PO QD 30 MIN TO 1 HOUR AC 01/12/20 Active potassium chloride (K-DUR) 20 mEq Extended-Release tablet Take 20 mEq by mouth once daily with a meal. 02/15/20 20 Active predniSONE (DELTASONE) 20 mg tablet 02/08/20 Active ondansetron (ZOFRAN) 4 mg tablet TK 1 T PO Q 6 H PRN 12/07/19 Active thiamine mononitrate, vit B1, (VITAMIN B1) 100 mg tablet Take 100 mg by mouth once daily. 02/15/20 20 Active verapamil SR (CALAN SR) 120 mg Sustained-Releas e tablet 02/13/20 Active naltrexone (REVIA) 50 mg tablet Take 1 tablet by mouth once daily. 0 02/21/20 Active acetaminophen (TYLENOL EXTRA STRGTH) 500 mg tablet Take 1 tablet by mouth every 6 hours. Max acetaminophen dose: 4000mg in 24 hrs. 0 02/21/20 Active gabapentin (NEURONTIN) 100 mg capsuleIndicatio ns:Peripheral sensory neuropathy Take 100mg in the morning, 100mg in the afternoon and 300mg at bedtime for neuropathy. 120 capsule 02/21/20 Active bacitracin-polym yxin b (POLYSPORIN) 500-10,000 unit/gram oint ointmentIndicati ons:Folliculitis Apply topically to affected area(s) 3 times daily. 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 Not on file Not on file Obstetrics History Last Filed Vital Signs Vital Sign Reading Time Taken Comments Blood Pressure 144/97 11/23/2021 10:01 AM CDT Pulse 106 11/23/2021 10:01 AM CDT Temperature 36.7 C (98.1 F) 11/23/2021 10:01 AM CDT Respiratory Rate 20 11/23/2021 10:0 1 AM CDT Oxygen Saturation 98% 11/23/2021 10: 01 AM CDT Inhaled Oxygen Concentration - - Weight 74.3 kg (163 lb 11.2 oz) 02/21/2020 8:26 AM CANE FEEDER Height 169.4 cm (5' 6.69) 02/21/2020 8:26 AM CS T Body Mass Index 25.88 02/21/2020 8:26 AM CANE FEEDER Plan of Treatment Health Maintenance Due Date [...] Additional history exists Pneumococcal series for age 6-49 Aged Out No longer eligible based on patient's age to complete this topic Procedures Procedure Name Priority Date/Time Associated Diagnosis Comments HPV HIGH RISK Routine 01/21/2022 8:30 AM CANE FEEDER from Last 3 Months or Most Recently Relevant to Health Maintenance Results * (ABNORMAL) HPV HIGH RISK (01/21/2022 8:30 AM CANE FEEDER) TYPE 16 Negative Negative 01/23/2022 5:14 PM CANE FEEDER [facility] TYPE 18 Positive(A) Negative 01/23/2022 5:14 PM CANE FEEDER [facility] OTHER HIGH RISK TYPES Positive(A) Negative 01/23/2022 5:14 PM CANE FEEDER [facility] Other (Cervical) 01/21/2022 8:30 AM CANE FEEDER 01/22/2022 12:18 PM CANE FEEDER Narrative [facility] - 01/23/2022 5:14 PM CANE FEEDER Specimen is positive for HPV type 18 DNA and the DNA of any one of, or combination of, the following high risk HPV types: 31, 33, 35, 39, 45, 51, 52, 56, 58,59, 66, 68. HPV type 16 DNA was undetectable or below the pre-set threshold. Methodology: Whisher Digna 4800 HPV Test us Dakota Ashraf MD MICROBIOLOGY Final Resul t [facility] [address] [place] [address], from Last 3 Months or Most Recently Relevant to Health Maintenance Insurance [employer] [facility] Care Teams Distribution Technician Relationship Specialty Start Date End Date Dakota Ashraf MD PCP - General Family Practice 07/23/16
== END 2024-04-07 04:44 | disposition home or self-care (01) ==
PROVIDERS: Emergency Provider Family Medicine; PCP Family Medicine
DX: R11.2 Nausea with vomiting, unspecified (principal)
CPT/HCPCS: 36415; 80048; 80076; 83690; 83735; 87631; 96374; 96375; 99283; 99284; J1885; J2060; J2405; J7030; S0028

== ENCOUNTER 2024-04-10 01:19 | Emergency (ER) | payer BC, SELFPAY ==
--- OUTSIDE RECORDS SUMMARY | 2024-04-10 01:22 | XMS_ITS | Clinical Summary ---
Author Organization [facility] Address [address] [place] [address] Care Team Providers Care Bd Special Education Teacher Name Role Phone Elsewhere, Pcp Primary Care Provider Unavailabl e Source Comments Patient records contain information from all sites at [facility]. For routine questions regarding patient records, call [phone] during business hours, M-F 8:00 AM - 5:00 PM Central Time. Record requests for emergency care only can be directed to [phone] at any time.[facility] Allergies No known active allergies Medications clonazePAM [...] on file Legal Sex Female 9:01 PM ACCOUNTING ADMINISTRATIVE ASSISTANT Gender Identity Not on file Sexual Orientation [...] LIPID PANEL, S Routine 04/06/2015 8:15 AM ACCOUNTING ADMINISTRATIVE ASSISTANT PATHOLOGY FLIGHT LINE MECHANIC CYTOLOGY Routine 5 12:00 AM CDT from [...] M.D. LAB BLOOD ADD-ON Final Resul t [facility] [address] [place] [address], [place] NPRG [facility] [address] [place] [address] * Lipid Panel (04/06/2015 8:15 AM ACCOUNTING ADMINISTRATIVE ASSISTANT) [facility] Cholesterol, Total 174 <=199 MGDL POWERCHART [...] for FH and FDB is available through [facility] [employer]: FH/ADH Genetic Reflex Panel (test ADHP). Acquired (non-genetic) causes of markedly increased LDL cholesterol include cholestatic liver disease due to the presence of LpX. If a genetic form of hypercholesterolemia is suspected, family studies including biochemical testing for lipids (total cholesterol,triglycerides, LDL cholesterol and HDL cholesterol) are recommended. Please contact the laboratory at or the on-line test catalog at [employer] for information about how to order these tests or to speak with a genetic counselor. Further interpretation would require clinical information. Blood 04/06/2015 8:15 AM ACCOUNTING ADMINISTRATIVE ASSISTANT us Danny De Oliveira M.D. LAB BLOOD ADD-ON Final Result POWERCHART * Pathology FLIGHT LINE MECHANIC Cytology (12/01/2014 12:00 AM CDT) 12/01/2014 Narrative [facility] - 12/13/2014 1:36 PM CDT [facility] [address] [facility] [address] [place] [address] Patient Name: MICHAEL MORENOLL JENNIFER Collected: 12/01/2014 Address: [facility]/Zip: [address] [place], [place] [id number] Received: Reported: 12/02/2014 12/13/2014 Soc. Sec. #: /Age/Sex 1975 (Age: 39) F Physician(s): SHAHANA DE OLIVEIRA MD Copy To: [facility] [id number] [place] [address] [address] [place] [address] CYTOPATHOLOGY FLIGHT LINE MECHANIC REPORT FINAL CYTOLOGIC DIAGNOSIS Pap Smear - [...] M.D. LAB PAP COPATH ORDERABLES Final Result [facility] from Last 3 Months or Most Recently Relevant to Health Maintenance Insurance [facility] Care Teams Bd Special Education Teacher Relationship Specialty Start Date End Date Elsewhere, Pcp PCP - General Family Medicine 01/27/19
--- OUTSIDE RECORDS SUMMARY | 2024-04-10 01:22 | XMS_ITS | Encounter Summary ---
Author Organization [facility] Address [address] [address] Phone Care Team Providers Care Ios Architect Name Role Phone Unavailable Primary Care Provider Unavailabl e Encounter Details Date Type Department Care Team (Late st Contact Info) Description 03/21/2021 Scanned - Medical Reports [facility] [address] [place] [address] Abstract, Provider, Social History Tobacco Use Types Packs/Day Years Used Date Smoking Tobacco: Never Assessed Comments No Sex and Gender Information Value Date Recorded Sex Assigned at Not on file Legal Sex Female 9:34 PM PRACTICE MANAGEMENT CONSULTANT Gender Identity Not on file Sexual Orientation Not on file documented as of this encounter Plan of Treatment Not on file documented as of this encounter Visit Diagnoses Not on filedocumented in this encounter
--- OUTSIDE RECORDS SUMMARY | 2024-04-10 01:22 | XMS_ITS | Clinical Summary ---
Author Organization [facility] [place], [place] [address] Care Team Providers Care Waterworks Operator Name Role Phone Dakota Ashraf MD Primary Care Provider [phone] Allergies No known active allergies Medications CRANBERRY [...] on file Legal Sex Female 7:22 AM MICROSOFT APPLICATION DEVELOPER Gender Identity Not on file Sexual Orientation [...] (163 lb 11.2 oz) 02/21/2020 8:26 AM MICROSOFT APPLICATION DEVELOPER Height 169.4 cm (5' 6.69) 02/21/2020 8:26 AM CS T Body Mass Index 25.88 02/21/2020 8:26 AM MICROSOFT APPLICATION DEVELOPER Plan of Treatment Health Maintenance Due Date [...] HPV HIGH RISK Routine 01/21/2022 8:30 AM MICROSOFT APPLICATION DEVELOPER from Last 3 Months or Most Recently Relevant to Health Maintenance Results * (ABNORMAL) HPV HIGH RISK (01/21/2022 8:30 AM MICROSOFT APPLICATION DEVELOPER) TYPE 16 Negative Negative 01/23/2022 5:14 PM MICROSOFT APPLICATION DEVELOPER [facility] TYPE 18 Positive(A) Negative 01/23/2022 5:14 PM MICROSOFT APPLICATION DEVELOPER [facility] OTHER HIGH RISK TYPES Positive(A) Negative 01/23/2022 5:14 PM MICROSOFT APPLICATION DEVELOPER [facility] Other (Cervical) 01/21/2022 8:30 AM MICROSOFT APPLICATION DEVELOPER 01/22/2022 12:18 PM MICROSOFT APPLICATION DEVELOPER Narrative [facility] - 01/23/2022 5:14 PM MICROSOFT APPLICATION DEVELOPER Specimen is positive for HPV type 18 DNA and the DNA of any one of, or combination of, the following high risk HPV types: 31, 33, 35, 39, 45, 51, 52, 56, 58,59, 66, 68. HPV type 16 DNA was undetectable or below the pre-set threshold. Methodology: [employer]ign[employer] 4800 HPV Test us Dakota Ashraf MD MICROBIOLOGY Final Resul t [facility] [address] [place] [address], from Last 3 Months or Most Recently Relevant to Health Maintenance [place] [address] [facility] [place] [address] Care Teams Waterworks Operator Relationship Specialty Start Date End Date Dakota Ashraf MD PCP - General Family Practice 07/23/16
--- OUTSIDE RECORDS SUMMARY | 2024-04-10 01:22 | XMS_ITS | Clinical Summary ---
Author Organization [facility] Address [address] [address] Phone Care Team Providers Care Checker Loader Name Role Phone Unavailable Primary Care Provider [...] SURGERY 03/21/2021 Right Right distal radius ORIF. ([facility]) Social History Tobacco Use Types Packs/Day Years Used Date Smoking Tobacco: Never Assessed Comments No Sex and Gender Information Value Date Recorded Sex Assigned at Not on file Legal Sex Female 9:34 PM FINANCIAL PLANNING ADVISOR Gender Identity Not on file Sexual Orientation Not on file Obstetrics History Last Filed Vital Signs Vital Sign Reading Time Taken Comments Blood Pressure 157/91 02/12/2020 11:03 PM FINANCIAL PLANNING ADVISOR Pulse 113 02/12/2020 11:03 PM FINANCIAL PLANNING ADVISOR Temperature 36.7 C (98.1 F) 02/12/2020 11:03 PM FINANCIAL PLANNING ADVISOR Respiratory Rate 18 02/12/2020 11:03 PM FINANCIAL PLANNING ADVISOR Oxygen Saturation 99% 02/12/2020 11:03 PM FINANCIAL PLANNING ADVISOR Inhaled Oxygen Concentration - - Weight 74.4 kg (164 lb) 02/12/2020 6:11 PM FINANCIAL PLANNING ADVISOR Height 170.2 cm (5' 7) 02/12/2020 6:11 PM FINANCIAL PLANNING ADVISOR Body Mass Index 25.69 02/12/2020 6:11 PM FINANCIAL PLANNING ADVISOR Plan of Treatment Health Maintenance Due Date [...] to complete this topic Insurance [facility]UE PLUS [facility] REF REQ
--- OUTSIDE RECORDS SUMMARY | 2024-04-10 01:22 | XMS_ITS | Continuity of Care Document ---
Author Organization [facility] Address [address] [address] [place] [address] Phone Care Team Providers Care Powertrain Calibration Engineer Name Role Phone No Information Unavailable Unavailable [...] Diagnoses Date Provider Providers Copied on Encounter [facility], [address] [address], [place], [id number], [place] tel:[phone] No Information 0 No Information [facility], [address] [address], [place], [id number], [place] tel:[phone] [facility] No Information 0 Jerry Barros. [address], [id number], [place]. tel:[phone] Established Level 3 or 15-24 min [facility], [address] [address], [place], [id number], [place] tel:[phone] [facility] GI Symptoms or Concerns (chief complaint) Gagging episodeUnspec ified abdominal painAbnormal results of liver function studies 0 Jerry Barros. [address] [place] [address], [id number], [place]. tel:[phone] Referring Provider: Referral Self, USE FOR SELF REFERRALS. [facility], [address] [address], [place], [id number], [place] tel:[phone] [facility] Superficial gastritis, presence of bleeding unspecified, unspecified chronicityNau sea with vomiting, unspecifiedUn specified abdominal painOther gastritis without bleeding 0 Jerry Barros. [address] [place] [address], [id number], [place]. tel:[phone] Referring Provider: Referral Self, USE FOR SELF REFERRALS. Established Level 4 or 25-39 min [facility], [address] [address], [place], [id number], [place] tel:[phone] [facility] Comment (chief complaint) Gagging episodeAbnorm al results of liver function studies 0 Jerry Barros. [address] [place] [address], [id number], [place]. tel:[phone] Referring Provider: Referral Self, USE FOR SELF REFERRALS. [facility], [address] [address], [place], [id number], [place] tel:[phone] [facility] Abnormal results of liver function studies 0 Jerry Barros. [address] [facility] [address], [place], [id number], [place]. tel:[phone] Referring Provider: Referral Self, USE FOR SELF REFERRALS. [facility], [address] [address], [place], [id number], [place] tel:[phone] [facility] No Information 0 Jerry Barros. [address] [facility], [address], [id number], [place]. tel:[phone] Referring Provider: Referral Self, USE FOR SELF REFERRALS. Established Level 4 or 25-39 min [facility], [address] [address], [place], [id number], [place] tel:[phone] [facility] GI Symptoms or Concerns (chief complaint) Abnormal LFTsGagging episode 0 Jerry Barros. [address] [facility] [address], [place], [id number], [place]. tel:[phone] Referring Provider: Papo Fuller, [address] [facility] [address], [facility] [place], [address] . tel:[phone] [facility], [address] [address], [place], [id number], [place] tel:[phone] [facility] No Information 0 Pilar Gomes. [address] [facility] [address], [place], [id number], [place]. tel:[phone] Family History Family Member Type Diagnosis Age [...] COVID and since being under lock-down and/or jail in place, she has been turning increasingly [...]
[2024-04-10 01:27] VITALS: BP 121/82; PULSE 100; RESP 18; TEMP 36.4; O2SAT 99; BMI 23.5
--- NOTE | 2024-04-10 01:44 | ED.GENADULT ---
HPI - General Adult General Chief complaint: Headache/Migraine Stated complaint: Headache Time Seen by Provider: 04/10/24 01:33 Source: patient Mode of arrival: ambulatory Limitations: no limitations History of Present Illness HPI narrative: 48-year-old female presents the emergency department with headache. Nausea but no vomiting. Headache has been slow brewing over the last 4 days, no trauma or injury. Does not take anticoagulants. No fall. Headache is diffuse, frontal area. Had GI illness 4 days ago, notes reviewed was seen in ED. Labs reassuring. Viral swabs were negative. Patient tried taking some Tylenol at 11 but has not been diligent use of Tylenol and ibuprofen to try to break the headache. Does have a history of alcoholism but states that she has not had any alcohol for over a month. Does smoke. Headache came on gradually. No neurological changes, vision changes. Not prone to migraines or headaches. Eating and drinking well, no recent changes in medications. No fever. No neck stiffness. Is concerned that her nephew is performing in a major rodeo later today and she wants to be able to go but feel well. Reports that her GI symptoms have improved since prior ED visit. Notes are reviewed. Past medical history notable for depression, anxiety, prior alcoholism. Reports that her medications are lorazepam once daily, BuSpar and escitalopram. Several other medications are listed that she denies use of. No known drug allergies. Related Data Previous Rx's ?Medication ?Instructions ?Recorded gabapentin 100 mg capsule See Rx Instructions PO .ud #240 04/02/23 caps buspirone 30 mg tablet 30 mg PO BID #180 tabs 04/17/23 alprazolam 1 mg tablet 1 mg PO TID PRN anxiety #30 tabs 05/29/23 ibuprofen 600 mg tablet 600 mg PO QID PRN #30 tabs 06/05/23 oxycodone 5 mg tablet 5 mg PO 3XD PRN 4 OR GREATER ON 06/05/23 PAIN SCALE #7 tabs escitalopram oxalate 20 mg tablet 20 mg PO QDAY #90 tabs 06/16/23 naltrexone 50 mg tablet 50 mg PO QDAY #90 tabs 06/16/23 gabapentin 300 mg capsule See Rx Instructions PO .ud #120 09/05/23 caps lorazepam 1 mg tablet See Rx Instructions PO TID PRN 09/05/23 anxiety #30 tabs omeprazole 20 mg capsule,delayed 20 mg PO QDAY #90 caps 11/17/23 release albuterol sulfate 90 mcg/actuation 2 puff inhalation Q4H PRN 12/04/23 aerosol inhaler (Proventil HFA) shortness of breath or wheezing #8.5 grams verapamil 120 mg tablet,extended 120 mg PO BID #180 tabs 12/24/23 release ondansetron 4 mg disintegrating 4 mg PO Q8H PRN nausea and 01/07/24 tablet vomiting #10 tabs lorazepam 0.5 mg tablet 0.5 mg PO BID PRN anxiety #20 tabs 02/04/24 bupropion HCl 300 mg 24 hr tablet, 300 mg PO QAM #90 tabs 02/06/24 extended release Allergies Allergy/AdvReac Type Severity Reaction Status Date / Time No Known Allergies Allergy Unknown Verified 04/07/24 02:55 [facility] Medical History Hypertension ?I10 - Essential (primary) hypertension (ICD-10) History of alcoholic hepatitis ?Z87.19 - Personal history of other diseases of the digestive system (ICD-10) COVID-19 ?U07.1 - COVID-19 (ICD-10) Bartholin's gland abscess ?N75.1 - Abscess of Bartholin's gland (ICD-10) Injury of finger of right hand ?S69.91XA - Unspecified injury of right wrist, hand and finger(s), initial encounter (ICD-10) Hypothyroidism ?E03.9 - Hypothyroidism, unspecified (ICD-10) Fracture of rib ?S22.39XA - Fracture of one rib, unspecified side, initial encounter for closed fracture (ICD-10) Surgical History Status post cervical spinal arthrodesis ?Z98.1 - Arthrodesis status (ICD-10) History of tubal ligation ?Z98.51 - Tubal ligation status (ICD-10) History of loop electrical excision procedure (LEEP) ?Z98.890 - Other specified postprocedural states (ICD-10) History of section ?Z98.891 - History of uterine scar from previous surgery (ICD-10) Family History Other Diabetes Social History Narrative: alcohol abuse Smoking Status: Current every day smoker What tobacco products do you use: cigarettes Smoking packs per day: 1 Smoking cigarettes per day: 20.0 Years smoked: 10 Smoking pack-years: 10.00 Do you use any of these nicotine containing products: None Second hand tobacco smoke exposure: No How often do you have a drink containing alcohol: never AUDIT-C Alcohol total score: 0 Non-prescribed substance use: marijuana (any form) Caffeine: Yes Are you using contraception or practicing any form of control: Yes (tubal) service: No Exam Const: Vital Signs, click to edit/add: Vital Signs - 24 hr 04/10/24 01:27 Temperature 97.6 F Pulse Rate [Left P ulse Oximeter] 100 Respiratory Rate 18 Blood Pressure [Ri ght Upper Arm] 121/82 Pulse Oximetry 99 Oxygen Delivery Me thod Room Air Documenting provider has reviewed patient's vital signs: yes Common normals: no apparent distress and alert Other: Somewhat unkempt. Does not seem intoxicated. Answers questions appropriately. HENMT: Common normals: normocephalic, head/scalp atraumatic, TM's normal bilaterally, moist oral mucous membranes and oropharynx normal Head and scalp: normocephalic and atraumatic Face and sinus: normal facial exam Tympanic membrane: TM's normal bilaterally Eye: Common normals: PERRL, EOMs intact bilaterally and conjunctivae normal General eye: normal appearance of both eyes Conjunctiva: conjunctiva(e) normal Pupil: PERRL Neck & C-Spine: Common normals: full ROM, no lymphadenopathy and no meningeal signs General: normal visual inspection Resp: Common normals: normal respiratory effort, no use of accessory muscles and clear to auscultation bilaterally Effort & inspection: able to speak in complete sentences Auscultation: clear to auscultation bilaterally Cardio: Common normals: regular rate, regular rhythm, S1 normal heart sound, S2 normal heart sound and no murmurs Rate: regular rate Rhythm: regular rhythm Heart sounds: S1 normal and S2 normal Extremity: Common normals: normal to inspection, normal capillary refill and no pedal edema Neuro: Sensorium/orientation: alert Meningeal signs: no meningeal signs Speech: speech normal Motor exam: no tremor noted Psych: Attitude: engaged Insight: fair Judgement: fair Skin: Common normals: no rashes or lesions noted General skin exam: no rashes or lesions noted Course Course ED Course: 48-year-old female with headache. No neurological changes to suggest stroke, mass. No trauma to suggest intracranial hemorrhage. Symptoms are most likely consistent with acute viral illness, similar to a few days ago. Labs were reassuring at that time. Recommend placement of IV, 1 L normal saline, 15 mg of Toradol, 10 of Reglan and re-evaluate. Differential diagnosis also including migraine, intracranial hemorrhage, tumor, tension headache, dehydration, influenza, amongst others Reevaluation(s) Time of Reevaluation #1: 02:47 Reevaluation #1: Patient feeling a little better after Reglan, Toradol and fluids. She is reassured that on my clinical exam there are not any alarm symptoms for stroke, brain tumor, etc.. We discussed the rationale for this. We also discussed that the only way to tell for sure would to do scans of the brain but she has had a lot of CTs over her life in a lot of radiation. I do not feel as though her symptoms today warrant the radiation risk. This rationale is discussed and she is in agreement. She is counseled on proper dosing of Tylenol and ibuprofen tius-aye-gunlrok to help mitigate her symptoms. Alarm symptoms reviewed that would warrant ED presentation. Written instructions provided. Work note provided for Friday and Friday which is today. Attempt return to work encouraged for Friday. Vital Signs Vital signs: Initial Vital Signs Temperature 97.6 F 04/10/24 01:27 Temperature Source Temporal Artery Scan 04/10/24 01:27 Pulse Rate 100 04/10/24 01:27 Pulse Rhythm Regular 04/10/24 01:27 Respiratory Rate 18 04/10/24 01:27 Blood Pressure 121/82 04/10/24 01:27 Blood Pressure Mean 95 04/10/24 01:27 Blood Pressure Position Sitting 04/10/24 01:27 Pulse Oximetry 99 04/10/24 01:27 Oxygen Delivery Method Room Air 04/10/24 01:27 Vital Signs Temperature 97.6 F 04/10/24 01:27 Pulse Rate 100 04/10/24 01:27 Respiratory Rate 18 04/10/24 01:27 Blood Pressure 121/82 04/10/24 01:27 Pulse Oximetry 99 04/10/24 01:27 Oxygen Delivery Method Room Air 04/10/24 01:27 Temperature 97.6 F 04/10/24 01:27 Pulse Rate 100 04/10/24 01:27 Respiratory Rate 18 04/10/24 01:27 Blood Pressure 121/82 04/10/24 01:27 Pulse Oximetry 99 04/10/24 01:27 Oxygen Delivery Method Room Air 04/10/24 01:27 Medications Administered Medications: Generic Name Dose Route Start Last Admin Trade Name Freq PRN Reason Stop Dose Admin Sodium Chloride 1,000 mls @ 1,000 mls/hr 04/10/24 01:45 04/10/24 02:36 0.9 % Sodium Chloride 1000 Ml IV 04/10/24 02:44 Infused .Q1H DAVID Infusion Metoclopramide HCl 10 mg/ 102 mls @ 306 mls/hr 04/10/24 01:44 04/10/24 02:37 Sodium Chloride IVPB 04/10/24 01:45 Infused ONCE ONE Infusion Ketorolac Tromethamine 15 mg 04/10/24 01:44 04/10/24 02:01 Ketorolac 15 Mg/Ml Inj IVP 04/10/24 01:45 15 mg ONCE ONE Administration Medical Decision Making Lab Data Labs: Lab Results 04/10/24 Range/Units 01:35 SARS-CoV-2 (PCR) Negative SARS-CoV-2 (Negative) Influenza Type A (PCR) Negative PCR FLU A (Negative) Influenza Type B (PCR) Negative PCR FLU B (Negative) RSV (PCR) Negative PCR RSV (Negative) Discharge Plan Discharge Clinical Impression: Headache, Viral illness Patient Disposition: Home w/ Parent or Adult Condition: Stable Instructions: Viral Syndrome (ED) Additional Instructions: As we discussed, your symptoms are consistent with a viral illness, most likely 1 similar to influenza. Your swabs are negative for COVID, influenza and RSV but as we discussed, false negatives are not uncommon. There are no signs of stroke, severe neurological injury or other dangerous pathology at this time. I do not think that the risk of a CT scan of your head is justified based on the radiation risk. Hopefully, the medications continue to kick in and he start to feel better. You could take a 1000 mg of Tylenol again at 5:00 a.m., you may take 600 mg of ibuprofen at 7:00 a.m.. Continue to push fluids, eat lots of salty foods. You will probably not feel well enough to attend public events today but hopefully start to improve on Friday. Work note is given for Friday and Friday. You should come to an emergency department if you have a seizure, loss of consciousness, headache that is accompanied by high fever over 100.4, persistent vomiting that lasts for more than 24 hours or other major signs of illness. Activity Level: Activity as Tolerated Discharge Diet: Regular Prescriptions: No Action gabapentin 100 mg capsule See Rx Instructions PO .ud Qty: 240 2RF Rx Instructions: 100-200 mg QAM and Qmidday orally UD; (To be used with her 300 mg dose) escitalopram oxalate 20 mg tablet 20 mg PO QDAY Qty: 90 3RF Rx Instructions: Take along with 10 mg tablet naltrexone 50 mg tablet 50 mg PO QDAY Qty: 90 3RF ondansetron 4 mg tablet,disintegrating 4 mg PO Q8H PRN (Reason: nausea and vomiting) Qty: 10 0RF oxycodone 5 mg Tablet 5 mg PO 3XD PRN (Reason: 4 OR GREATER ON PAIN SCALE) Qty: 7 0RF ibuprofen 600 mg tablet 600 mg PO QID PRNQty: 30 0RF buspirone 30 mg tablet 30 mg PO BID Qty: 180 3RF alprazolam 1 mg tablet 1 mg PO TID PRN (Reason: anxiety) Qty: 30 0RF lorazepam 1 mg tablet See Rx Instructions PO TID PRN (Reason: anxiety) Qty: 30 0RF Rx Instructions: 1/2 to 1 mg tid orally three times a day PRN; gabapentin 300 mg capsule See Rx Instructions PO .ud Qty: 120 5RF Rx Instructions: 300 mg QAM and QMidday, and 600 mg QHS orally UD; omeprazole 20 mg capsule,delayed release(DR/EC) 20 mg PO QDAY Qty: 90 0RF albuterol sulfate [Proventil HFA] 90 mcg/actuation HFA aerosol inhaler 2 puff inhalation Q4H PRN (Reason: shortness of breath or wheezing) Qty: 8.5 0RF verapamil 120 mg tablet extended release 120 mg PO BID Qty: 180 3RF lorazepam 0.5 mg tablet 0.5 mg PO BID PRN (Reason: anxiety) Qty: 20 0RF bupropion HCl 300 mg tablet extended release 24 hr 300 mg PO QAM Qty: 90 0RF Follow Up/Referrals: Dakota Ashraf MD [Primary Care Provider] - Stand Alone Forms: 120 [employer] Info Instructions
--- OUTSIDE RECORDS SUMMARY | 2024-04-10 01:55 | XMS_ITS | Encounter Summary ---
Author Organization [facility] Address [address] [address] Phone Care Team Providers Care Supervisor Instrument Maintenance Name Role Phone Unavailable Primary Care Provider Unavailabl e Encounter Details Date Type Department Care Team (Late st Contact Info) Description 03/21/2021 Scanned - Medical Reports [facility] [address] [place] [address] Abstract, Provider, Social History Tobacco Use Types Packs/Day Years Used Date Smoking Tobacco: Never Assessed Comments No Sex and Gender Information Value Date Recorded Sex Assigned at Not on file Legal Sex Female 9:34 PM FIELD INVESTIGATOR Gender Identity Not on file Sexual Orientation Not on file documented as of this encounter Plan of Treatment Not on file documented as of this encounter Visit Diagnoses Not on filedocumented in this encounter
--- OUTSIDE RECORDS SUMMARY | 2024-04-10 01:55 | XMS_ITS | Continuity of Care Document ---
Author Organization [facility] Address [address] [address] [place] [address] Phone Care Team Providers Care Home Health Cna Name Role Phone No Information Unavailable Unavailable [...] Diagnoses Date Provider Providers Copied on Encounter [facility], [address] [address], [place], [id number], [place] tel:[phone] No Information 0 No Information [facility], [address] [address], [place], [id number], [place] tel:[phone] [facility] No Information 0 Jerry Barros. [address], [id number], [place]. tel:[phone] Established Level 3 or 15-24 min [facility], [address] [address], [place], [id number], [place] tel:[phone] [facility] GI Symptoms or Concerns (chief complaint) Gagging episodeUnspec ified abdominal painAbnormal results of liver function studies 0 Jerry Barros. [address] [place] [address], [id number], [place]. tel:[phone] Referring Provider: Referral Self, USE FOR SELF REFERRALS. [facility], [address] [address], [place], [id number], [place] tel:[phone] [facility] Superficial gastritis, presence of bleeding unspecified, unspecified chronicityNau sea with vomiting, unspecifiedUn specified abdominal painOther gastritis without bleeding 0 Jerry Barros. [address] [place] [address], [id number], [place]. tel:[phone] Referring Provider: Referral Self, USE FOR SELF REFERRALS. Established Level 4 or 25-39 min [facility], [address] [address], [place], [id number], [place] tel:[phone] [facility] Comment (chief complaint) Gagging episodeAbnorm al results of liver function studies 0 Jerry Barros. [address] [place] [address], [id number], [place]. tel:[phone] Referring Provider: Referral Self, USE FOR SELF REFERRALS. [facility], [address] [address], [place], [id number], [place] tel:[phone] [facility] Abnormal results of liver function studies 0 Jerry Barros. [address] [facility] [address], [place], [id number], [place]. tel:[phone] Referring Provider: Referral Self, USE FOR SELF REFERRALS. [facility], [address] [address], [place], [id number], [place] tel:[phone] [facility] No Information 0 Jerry Barros. [address] [facility], [address], [id number], [place]. tel:[phone] Referring Provider: Referral Self, USE FOR SELF REFERRALS. Established Level 4 or 25-39 min [facility], [address] [address], [place], [id number], [place] tel:[phone] [facility] GI Symptoms or Concerns (chief complaint) Abnormal LFTsGagging episode 0 Jerry Barros. [address] [facility] [address], [place], [id number], [place]. tel:[phone] Referring Provider: Papo Fuller, [address] [facility] [address], [facility] [place], [address] . tel:[phone] [facility], [address] [address], [place], [id number], [place] tel:[phone] [facility] No Information 0 Pilar Gomes. [address] [facility] [address], [place], [id number], [place]. tel:[phone] Family History Family Member Type Diagnosis Age [...] Registry Payers Payer name Insurance type Covered democrat ID Authoriza tion(s) No Information Social History [...] COVID and since being under lock-down and/or longterm in place, she has been turning increasingly [...]
--- OUTSIDE RECORDS SUMMARY | 2024-04-10 01:55 | XMS_ITS | Clinical Summary ---
Author Organization [facility] Address [place], [place] [address] Care Team Providers Care Researcher Name Role Phone Dakota Ashraf MD Primary [...] on file Legal Sex Female 7:22 AM LIVE TRUCK TECHNICIAN Gender Identity Not on file Sexual Orientation [...] (163 lb 11.2 oz) 02/21/2020 8:26 AM LIVE TRUCK TECHNICIAN Height 169.4 cm (5' 6.69) 02/21/2020 8:26 AM CS T Body Mass Index 25.88 02/21/2020 8:26 AM LIVE TRUCK TECHNICIAN Plan of Treatment Health Maintenance Due Date [...] HPV HIGH RISK Routine 01/21/2022 8:30 AM LIVE TRUCK TECHNICIAN from Last 3 Months or Most Recently Relevant to Health Maintenance Results * (ABNORMAL) HPV HIGH RISK (01/21/2022 8:30 AM LIVE TRUCK TECHNICIAN) TYPE 16 Negative Negative 01/23/2022 5:14 PM LIVE TRUCK TECHNICIAN [facility] TYPE 18 Positive(A) Negative 01/23/2022 5:14 PM LIVE TRUCK TECHNICIAN [facility] OTHER HIGH RISK TYPES Positive(A) Negative 01/23/2022 5:14 PM LIVE TRUCK TECHNICIAN [facility] Other (Cervical) 01/21/2022 8:30 AM LIVE TRUCK TECHNICIAN 01/22/2022 12:18 PM LIVE TRUCK TECHNICIAN Narrative [facility] - 01/23/2022 5:14 PM LIVE TRUCK TECHNICIAN Specimen is positive for HPV type 18 DNA and the DNA of any one of, or combination of, the following high risk HPV types: 31, 33, 35, 39, 45, 51, 52, 56, 58,59, 66, 68. HPV type 16 DNA was undetectable or below the pre-set threshold. Methodology: KwiClick Digna 4800 HPV Test us Dakota Ashraf MD MICROBIOLOGY Final Resul t [facility] [address] [place] [address], from Last 3 Months or Most Recently Relevant to Health Maintenance Insurance MEDICA CHOICE [facility] Care Teams Researcher Relationship Specialty Start Date End Date Dakota Ashraf MD PCP - General Family Practice 07/23/16
--- OUTSIDE RECORDS SUMMARY | 2024-04-10 01:55 | XMS_ITS | Clinical Summary ---
Author Organization [facility] Address [address] [address] Phone Care Team Providers Care Proof Technician Name Role Phone Unavailable Primary Care Provider [...] SURGERY 03/21/2021 Right Right distal radius ORIF. ([facility]) Social History Tobacco Use Types Packs/Day Years Used Date Smoking Tobacco: Never Assessed Comments No Sex and Gender Information Value Date Recorded Sex Assigned at Not on file Legal Sex Female 9:34 PM INSTRUCTOR TECHNICAL TRAINING Gender Identity Not on file Sexual Orientation Not on file Obstetrics History Last Filed Vital Signs Vital Sign Reading Time Taken Comments Blood Pressure 157/91 02/12/2020 11:03 PM INSTRUCTOR TECHNICAL TRAINING Pulse 113 02/12/2020 11:03 PM INSTRUCTOR TECHNICAL TRAINING Temperature 36.7 C (98.1 F) 02/12/2020 11:03 PM INSTRUCTOR TECHNICAL TRAINING Respiratory Rate 18 02/12/2020 11:03 PM INSTRUCTOR TECHNICAL TRAINING Oxygen Saturation 99% 02/12/2020 11:03 PM INSTRUCTOR TECHNICAL TRAINING Inhaled Oxygen Concentration - - Weight 74.4 kg (164 lb) 02/12/2020 6:11 PM INSTRUCTOR TECHNICAL TRAINING Height 170.2 cm (5' 7) 02/12/2020 6:11 PM INSTRUCTOR TECHNICAL TRAINING Body Mass Index 25.69 02/12/2020 6:11 PM INSTRUCTOR TECHNICAL TRAINING Plan of Treatment Health Maintenance Due Date [...] to complete this topic Insurance BLUE PLUS [facility] REF [facility] Address[facility] [id number] [place] [id number]
--- OUTSIDE RECORDS SUMMARY | 2024-04-10 01:55 | XMS_ITS | Clinical Summary ---
Author Organization [facility] Address [address] [place] [address] Care Team Providers Care Physicist Light And Optics Name Role Phone Elsewhere, Pcp Primary Care Provider Unavailabl e Source Comments Patient records contain information from all sites at [facility]. For routine questions regarding patient records, call [phone] during business hours, M-F 8:00 AM - 5:00 PM Central Time. Record requests for emergency care only can be directed to [phone] at any time.[facility] Allergies No known active allergies Medications clonazePAM [...] on file Legal Sex Female 9:01 PM REVIEW ENGINEER Gender Identity Not on file Sexual Orientation [...] LIPID PANEL, S Routine 04/06/2015 8:15 AM REVIEW ENGINEER PATHOLOGY CARBURETOR EXPERT CYTOLOGY Routine 5 12:00 AM CDT from [...] M.D. LAB BLOOD ADD-ON Final Resul t [facility] [address] [place] [address], [place] [facility] [address] [place] [address] * Lipid Panel (04/06/2015 8:15 AM REVIEW ENGINEER) [facility] Cholesterol, Total 174 <=199 MGDL POWERCHART [...] for FH and FDB is available through [facility] WebNotes: FH/ADH Genetic Reflex Panel (test ADHP). Acquired (non-genetic) causes of markedly increased LDL cholesterol include cholestatic liver disease due to the presence of LpX. If a genetic form of hypercholesterolemia is suspected, family studies including biochemical testing for lipids (total cholesterol,triglycerides, LDL cholesterol and HDL cholesterol) are recommended. Please contact the laboratory at or the on-line test catalog at [employer] for information about how to order these tests or to speak with a genetic counselor. Further interpretation would require clinical information. Blood 04/06/2015 8:15 AM REVIEW ENGINEER us Danny De Oliveira M.D. LAB BLOOD ADD-ON Final Result POWERCHART * Pathology CARBURETOR EXPERT Cytology (12/01/2014 12:00 AM CDT) 12/01/2014 Narrative [facility] - 12/13/2014 1:36 PM CDT [facility] [address] [facility] [address] [place] [address] Patient Name: MICHAEL MORENOLL JENNIFER Collected: 12/01/2014 Address: [facility]/[address]: [address] [place], [place] [id number] Received: Reported: 12/02/2014 12/13/2014 Soc. Sec. #: /Age/Sex 1975 (Age: 39) F Physician(s): SHAHANA DE OLIVEIRA MD Copy To: [facility] [id number] [address] [place] [address] [address] [place] [address] CYTOPATHOLOGY CARBURETOR EXPERT REPORT FINAL CYTOLOGIC DIAGNOSIS Pap Smear - [...] LAB PAP COPATH ORDERABLES Final Result [facility] from Last 3 Months or Most Recently Relevant to Health Maintenance Insurance [facility] Care Teams Physicist Light And Optics Relationship Specialty Start Date End Date Elsewhere, Pcp PCP - General Family Medicine 01/27/19
[2024-04-10] MEDS: KETOROLAC 15 MG/ML inj IVP (02:01)
[2024-04-10] MEDS: 0.9 % SODIUM CHLORIDE 1000 ml 1,000 ML IV (02:01)
[2024-04-10] MEDS: METOCLOPRAMIDE HCL 10 MG in 0.9 % SODIUM CHLORIDE 100 ml 100 ML 306 MG IVPB (02:06)
[2024-04-10 02:26] LABS: PCR FLU A Negative PCR FLU A (Negative); PCR FLU B Negative PCR FLU B (Negative); PCR RSV Negative PCR RSV (Negative); SARS PCR* Negative SARS-CoV-2 (Negative)
[2024-04-10 02:53] VITALS: BP 119/78; PULSE 70; RESP 18; O2SAT 98
== END 2024-04-10 02:54 | disposition home or self-care (01) ==
PROVIDERS: Emergency Provider Family Medicine; PCP Family Medicine
DX: R51.9 Headache, unspecified (principal); B34.9 Viral infection, unspecified
CPT/HCPCS: 87631; 96365; 96375; 99283; J1885; J2765; J7030

== ENCOUNTER 2024-05-07 10:52 | Emergency (ER) | payer BC, SELFPAY ==
[2024-05-07] VITALS (42 sets, daily range): BP systolic 125–190; BP diastolic 81–111; PULSE 76–120; RESP 10–29; TEMP 36.8; O2SAT 89–97; BMI 23.8
--- OUTSIDE RECORDS SUMMARY | 2024-05-07 10:55 | XMS_ITS | Encounter Summary ---
Author Organization [facility] Address [address] [address] Phone Care Team Providers Care Malt Roaster Name Role Phone Gene Ashraf MD Primary Care Provider Encounter Details Date Type Department Care Team (Late st Contact Info) Description 04/14/2024 3:05 PM MANAGER IMMUNOLOGY Ancillary Procedure [facility] [address] [address] Social History Tobacco Use Types Packs/Day Years Used Date Smoking Tobacco: Every Day Cigarettes Smokeless Tobacco: Never Alcohol Use Standard Drinks/Week Comments Yes 0 (1 standard drink = 0.6 oz pur e alcohol) IP Custom IPV Answer Date Recorded Do you feel UNSAFE in any of your personal relationships with your family members or any other acquaintances? No 2024 Comments No Sex and Gender Information Value Date Recorded Sex Assigned at Not on file Legal Sex Female 9:34 PM MANAGER IMMUNOLOGY Gender Identity Not on file Sexual Orientation Not on file documented as of this encounter Functional Status * Patient's Vision Adequate to Safely Complete Daily Activities Answer Date of Assessment Author Yes 04/14/2024 12:45 PM Devaughn Lobato RN * Patient's Memory Adequate to Safely Complete Daily Activities Answer Date of Assessment Author Yes 04/14/2024 12:45 PM Devaughn Lobato RN documented as of this encounter Mental Status * Patient's Judgment Adequate to Safely Complete Daily Activities Answer Entry Date Author Yes 04/14/2024 12:45 PM Devaughn Lobato RN documented in this encounter Plan of Treatment Not on file documented as of this encounter Procedures Procedure Name Priority Date/Time Associated Diagnosis Comments MR BRAIN WO W CONTRAST STAT 04/14/2024 3:50 PM MANAGER IMMUNOLOGY Witnessed seizure-like activity (HCC) documented in this encounter Visit Diagnoses Not on filedocumented in this encounter Administered Medications Inactive Administered Medications Medication Order MAR Action Action Date Dose Rate Site gadoterate meglumine (Dotarem, Clariscan) 7.5 MMOL/15ML injection 15 mL 15 mL, IV Push, ONCE, 1 dose, On Fri04/14/24 at 1600 Given 04/14/2024 3:51 PM MANAGER IMMUNOLOGY 15 mL documented in this encounter Orders Medications Ordered That Shawn ht Not Have Been Administered Count Last Ordered Date First Ordered Date gadoterate meglumine (Dotare m, Clariscan) 7.5 MMOL/15ML injection 15 mL 1 04/14/2024 documented in this encounter Care Teams Malt Roaster Relationship Specialty Start Date End Date Gene Ashraf MD [address] [address] PCP - General Family Medicine 04/14/24 documented as of this encounter
--- OUTSIDE RECORDS SUMMARY | 2024-05-07 10:55 | XMS_ITS | Clinical Summary ---
Author Organization [facility] Address [address] [place] [address] Care Team Providers Care Maintenance Mechanic Supervisor Name Role Phone Dakota Ashraf MD Primary [...] (NICODERM; HABITROL) 14 mg/24 hr patch 02/15/20 Active omeprazole (PRILOSEC) 20 mg Delayed-Release capsule TK 1 C PO QD 30 MIN TO 1 HOUR AC 01/12/20 20 Active potassium chloride (K-DUR) 20 mEq Extended-Release tablet Take 20 mEq by mouth once daily with a meal. 02/15/20 20 Active predniSONE (DELTASONE) 20 mg tablet 02/08/20 20 Active ondansetron (ZOFRAN) 4 mg tablet TK 1 T PO Q 6 H PRN 12/07/19 20 Active thiamine mononitrate, vit B1, (VITAMIN B1) 100 mg tablet Take 100 mg by mouth once daily. 02/15/20 20 Active verapamil SR (CALAN SR) 120 mg Sustained-Releas e tablet 02/13/20 20 Active naltrexone (REVIA) 50 mg tablet Take 1 tablet by mouth once daily. 0 02/21/20 20 Active acetaminophen (TYLENOL EXTRA STRGTH) 500 mg tablet Take 1 tablet by mouth every 6 hours. Max acetaminophen dose: 4000mg in 24 hrs. 0 02/21/20 20 Active gabapentin (NEURONTIN) 100 mg capsuleIndicatio ns:Peripheral sensory neuropathy Take 100mg in the morning, 100mg in the afternoon and 300mg at bedtime for neuropathy. 120 capsule 02/21/20 20 Active bacitracin-polym yxin b (POLYSPORIN) 500-10,000 unit/gram [...] on file Legal Sex Female 7:22 AM CLINICAL SOCIAL WORK AIDE Gender Identity Not on file Sexual Orientation [...] (163 lb 11.2 oz) 02/21/2020 8:26 AM CLINICAL SOCIAL WORK AIDE Height 169.4 cm (5' 6.69) 02/21/2020 8:26 AM CS T Body Mass Index 25.88 02/21/2020 8:26 AM CLINICAL SOCIAL WORK AIDE Plan of Treatment Health Maintenance Due Date Last Done Comments Tdap 07/09/1986 Depression screening for age 12+ 1987 HIV for age 15-65 07/09/1990 Hepatitis C screening for age 18-79 07/09/1993 Tetanus booster 1995 Colonoscopy through age 75 07/09/2020 Lipids for age 45-75 07/09/2020 Mammogram for age 45-75 07/09/2020 BMI (ht and wt on same day) for age 18+ 02/20/2021 02/21/2020 COVID-19 vaccine series (2023- season) 2023 03/14/2021 Influenza for age 9-49 11/09/2023 Pap test for age 21-65 01/21/2025 , 01/21/2022, 09/16/2016, Additional history exists Pneumococcal series for age 6-49 Aged Out No longer eligible based on patient's age to complete this topic Procedures Procedure Name Priority Date/Time Associated Diagnosis Comments HPV HIGH RISK Routine 01/21/2022 8:30 AM CLINICAL SOCIAL WORK AIDE from Last 3 Months or Most Recently Relevant to Health Maintenance Results * (ABNORMAL) HPV HIGH RISK (01/21/2022 8:30 AM CLINICAL SOCIAL WORK AIDE) TYPE 16 Negative Negative 01/23/2022 5:14 PM CLINICAL SOCIAL WORK AIDE [facility] TYPE 18 Positive(A) Negative 01/23/2022 5:14 PM CLINICAL SOCIAL WORK AIDE [facility] OTHER HIGH RISK TYPES Positive(A) Negative 01/23/2022 5:14 PM CLINICAL SOCIAL WORK AIDE [facility] Other (Cervical) 01/21/2022 8:30 AM CLINICAL SOCIAL WORK AIDE 01/22/2022 12:18 PM CLINICAL SOCIAL WORK AIDE Narrative [facility] - 01/23/2022 5:14 PM CLINICAL SOCIAL WORK AIDE Specimen is positive for HPV type 18 DNA and the DNA of any one of, or combination of, the following high risk HPV types: 31, 33, 35, 39, 45, 51, 52, 56, 58,59, 66, 68. HPV type 16 DNA was undetectable or below the pre-set threshold. Methodology: [employer] Digna 4800 HPV Test us Dakota Ashraf MD MICROBIOLOGY Final Resul t [facility] [address] [place] [address], [place] from Last 3 Months or Most Recently Relevant to Health Maintenance Insurance MEDICA CHOICE [facility] Care Teams Maintenance Mechanic Supervisor Relationship Specialty Start Date End Date Dakota Ashraf MD PCP - General Family Practice 07/23/16
--- OUTSIDE RECORDS SUMMARY | 2024-05-07 10:55 | XMS_ITS | Encounter Summary ---
Author Organization [facility] Address [address] [address] Phone Care Team Providers Care Cattle Inspector Name Role Phone Gene Ashraf MD Primary Care Provider [phone] Encounter Details Date Type Department Care Team (Late st Contact Info) Description 04/14/2024 4:55 PM HEEL WASHER STRINGING MACHINE OPERATOR Ancillary Procedure [facility] [address] [facility] [address] [place] [address] Social History Tobacco Use Types Packs/Day [...] on file Legal Sex Female 9:34 PM HEEL WASHER STRINGING MACHINE OPERATOR Gender Identity Not on file Sexual [...] Procedure Name Priority Date/Time Associated Diagnosis Comments XR CHEST 1 VIEW STAT 04/14/2024 5:03 PM HEEL WASHER STRINGING MACHINE OPERATOR Witnessed seizure-like activity (HCC) documented in this encounter Results * XR CHEST 1 VIEW (04/14/2024 5:03 PM HEEL WASHER STRINGING MACHINE OPERATOR) Anatomical Region Laterality Modality Chest Radiographic Josefa ging 04/14/2024 4:57 PM HEEL WASHER STRINGING MACHINE OPERATOR Narrative 04/15/2024 7:16 AM HEEL WASHER STRINGING MACHINE OPERATOR PROCEDURE: XR CHEST 1 VIEW HISTORY: cough COMPARISON: None FINDINGS: The cardiovascular structures are normal. The lungs are clear. The osseous structures are unremarkable. IMPRESSION: Negative chest Electronically signed by Paddy Tavarez MD Report Date: 04/15/2024 7:16 AM Procedure Note Paddy Tavarez MD - 04/15/2024 PROCEDURE: XR CHEST 1 VIEW HISTORY: cough COMPARISON: None FINDINGS: The cardiovascular structures are normal. The lungs are clear.The osseous structures are unremarkable. IMPRESSION: Negative chest Electronically signed by Paddy Tavarez MD Report Date: 04/15/2024 7:16 AM Samir Gale MD [facility] DIAGNOSTIC [facility]AG[facility] ORDERABLES Final Result documented in this encounter Visit Diagnoses Not on filedocumented in this encounter Care Teams Cattle Inspector Relationship Specialty Start Date End Date Gene Ashraf MD [address] [address] PCP - General Family Medicine 04/14/24 documented as of this encounter
--- OUTSIDE RECORDS SUMMARY | 2024-05-07 10:55 | XMS_ITS | Clinical Summary ---
Author Organization [facility] Address [address] [place] [address] Care Team Providers Care Cigar Sorter Name Role Phone Elsewhere, Pcp Primary Care Provider Unavailabl e Source Comments Patient records contain information from all sites at [facility]. For routine questions regarding patient records, call [phone] during business hours, M-F 8:00 AM - 5:00 PM Central Time. Record requests for emergency care only can be directed to [phone] at any time.[facility] Allergies No known active allergies Medications clonazePAM [...] on file Legal Sex Female 9:01 PM BILLET HEATER Gender Identity Not on file Sexual Orientation [...] 1975 FIT 1975 HIV Screening 1975 Hepatitis B Screening 1975 Hepatitis C Screening 1975 Mammogram 1975 Tobacco Cessation counseling 1975 Hepatitis B Vaccines (1 of 3 - 19+ 3-dose series) 07/09/1994 Pneumococcal vaccine (0-49 years) (1 of 2 - PCV) 07/09/1994 Lipid (Cholesterol) Screening 04/06/2020 04/06/2015 COVID-19 Vaccine (2 - season) 2023 03/14/2021 Influenza Vaccine (#1) 2023 [...] LIPID PANEL, S Routine 04/06/2015 8:15 AM BILLET HEATER PATHOLOGY PUNCH PRESS OPERATOR HELPER CYTOLOGY Routine 12:00 AM CDT from Last 3 Months [...] M.D. LAB BLOOD ADD-ON Final Resul t [facility] [address] [place] [address], [facility] [address] [place] [address] * Lipid Panel (04/06/2015 8:15 AM BILLET HEATER) [facility] Cholesterol, Total 174 <=199 MGDL POWERCHART Comment: [...] for FH and FDB is available through [facility]: FH/ADH Genetic Reflex Panel (test ADHP). Acquired (non-genetic) causes of markedly increased LDL cholesterol include cholestatic liver disease due to the presence of LpX. If a genetic form of hypercholesterolemia is suspected, family studies including biochemical testing for lipids (total cholesterol,triglycerides, LDL cholesterol and HDL cholesterol) are recommended. Please contact the laboratory at or the on-line test catalog at [facility] for information about how to order these tests or to speak with a genetic counselor. Further interpretation would require clinical information. Blood 04/06/2015 8:15 AM BILLET HEATER Danny De Oliveira M.D. LAB BLOOD ADD-ON Final Result POWERCHART * Pathology PUNCH PRESS OPERATOR HELPER Cytology (12/01/2014 12:00 AM CDT) 12/01/2014 Narrative [facility] - 12/13/2014 1:36 PM CDT [facility] [place] [address] [facility] [address] [place] [address] Patient Name: TIFFANIE ULISES MOSHER Collected: 12/01/2014 Address: [facility]/Zip: [address] [place] [phone] Received: Reported: 12/02/2014 12/13/2014 Soc. Sec. #: /Age/Sex 1975 (Age: 39) F Physician(s): SHAHANA DE OLIVEIRA MD Copy To: [facility] [id number] [address] [place] [address] [address] [place] [address] CYTOPATHOLOGY PUNCH PRESS OPERATOR HELPER REPORT FINAL CYTOLOGIC DIAGNOSIS Pap Smear - ThinPrep: NEGATIVE FOR INTRAEPITHELIAL LESION OR MALIGNANCY SPARSE TO NO ENDOCERVICAL COMPONENT PRESENT. SATISFACTORY SPECIMEN FOR EVALUATION. Electronically Signed Out By princessw/12/13/2014 PRINCESS QUINTEROS(ASCP) The Pap test is a screening [...] M.D. LAB PAP COPATH ORDERABLES Final Result [facility] from Last 3 Months or Most Recently Relevant to Health Maintenance Insurance * Guarantor: Ulises Murray Account Type Relation to Patient Date of Phone Billing Address Personal/Family Self [address] [place] [id number] [facility] Care Teams Cigar Sorter Relationship Specialty Start Date End Date Elsewhere, Pcp PCP - General Family Medicine 01/27/19
--- OUTSIDE RECORDS SUMMARY | 2024-05-07 10:55 | XMS_ITS | Encounter Summary ---
Author Organization [facility] Address [address] [address] Phone Care Team Providers Care Line Out Man Name Role Phone Gene Ashraf MD Primary Care Provider [phone] Reason for Visit * Reason Comments Seizure- New Onset Encounter Details Date Type Department Care Team (Late st Contact Info) Description 04/14/2024 12:38 PM GREENHOUSE TECHNICIAN - 04/14/2024 5:59 PM GREENHOUSE TECHNICIAN Emergency [facility] [address] [place] [phone] Hetal Paris DO [address] [place] [address] Samir Gale MD [address] [place] [address] Witnessed seizure-like activity (HCC) (Primary Dx); History of alcohol withdrawal syndrome; Hypokalemia; Acute cough; Acute nonintractable headache, unspecified headache type Discharge Disposition: Home and/or Self Care Social History Tobacco Use Types Packs/Day Years Used Date Smoking Tobacco: Every Day Cigarettes Smokeless Tobacco: Never Tobacco Cessation:Ready to Q uit: Not Asked; Counseling Given: Not Answered Alcohol Use Standard Drinks/Week Comments Yes 0 (1 standard drink = 0.6 oz pur e alcohol) IP Custom IPV Answer Date Recorded Do you feel UNSAFE in any of your personal relationships with your family members or any other acquaintances? No 2024 Comments No Sex and Gender Information Value Date Recorded Sex Assigned at Not on file Legal Sex Female 9:34 PM GREENHOUSE TECHNICIAN Gender Identity Not on file Sexual Orientation Not on file documented as of this encounter Last Filed Vital Signs Vital Sign Reading Time Taken Comments Blood Pressure 146/92 04/14/2024 5:30 PM GREENHOUSE TECHNICIAN Pulse 93 04/14/2024 5:30 PM GREENHOUSE TECHNICIAN Temperature 36.9 C (98.5 F) 04/14/2024 12:52 PM GREENHOUSE TECHNICIAN Respiratory Rate 16 04/14/2024 12:52 PM GREENHOUSE TECHNICIAN Oxygen Saturation 99% 04/14/2024 5:00 PM GREENHOUSE TECHNICIAN Inhaled Oxygen Concentration - - Weight - - Height - - Body Mass Index - - documented in this encounter Functional Status * Patient's Vision Adequate to Safely Complete Daily Activities Answer Date of Assessment Author Yes 04/14/2024 12:45 PM GREENHOUSE TECHNICIAN Devaughn Sams RN * Patient's Memory Adequate to Safely Complete Daily Activities Answer Date of Assessment Author Yes 04/14/2024 12:45 PM GREENHOUSE TECHNICIAN Devaughn Sams RN documented as of this encounter Mental Status * Patient's Judgment Adequate to Safely Complete Daily Activities Answer Entry Date Author Yes 04/14/2024 12:45 PM GREENHOUSE TECHNICIAN Devaughn Sams RN documented in this encounter Discharge Instructions * Discharge Instructions* Samir Gale MD - 04/14/2024 5:39 PM GREENHOUSE TECHNICIAN Unclear etiology of seizure-like activity. It is possible with your last alcoholic drink being about 72 hours ago that this was an alcohol withdrawal seizure. We did recommend admission for continuedobservation and monitoring for alcohol withdrawal and withdrawal seizures. You are leaving AGAINST MEDICAL ADVICE. We are concerned that you could have recurrent seizure and worsening withdrawal symptoms. Do come back or go to the nearest emergency department immediately if any new or worsening symptoms. Push fluids and rest. No driving until follow-up with primary care provider as we want to ensure that you do not have a seizure while driving. Discuss possible outpatient EEG monitoring for further evaluation of seizure as an outpatient. NHOUSE TECHNICIAN * Attachments The following attachments cannot be sent through Care Everywhere. * Alcohol Withdrawal Seizure (Congolese) * Seizure, New Onset, Unknown Cause (Adult) (Congolese) documented in this encounter Medications at Time of Discharge gabapentin (Neurontin) 100 MG capsule Take 100mg in the morning, 100mg in the afternoon and 300mg at bedtime for neuropathy. 02/21/2020 busPIRone (Buspar) 5 MG tablet Take 5 mg by mouth two times a day. 02/15/2020 clonazePAM (KlonoPIN) 0.5 MG tablet Take 1 Tablet by mouth at bedtime. 10/30/2015 escitalopram (Lexapro) 5 MG tablet Take 5 mg by mouth one time a day. 02/15/2020 Multiple Vitamin (One-A-Day Essential) tablet Take 1 Tablet by mouth one time a day. 02/15/2020 naltrexone (Depade, Revia) 50 MG tablet Take 1 Tablet by mouth one time a day as needed. 02/21/2020 nicotine (Nicoderm CQ) 14 MG/24HR patch 02/15/2020 ondansetron (Zofran) 4 MG tablet TK 1 T PO Q 6 H PRN 12/07/2019 oxyCODONE (Roxicodone) 5 MG immediate release tablet Take 5-10 mg by mouth. 06/04/2013 potassium chloride CR (K-Dur, Klor-Con M) 20 MEQ tablet Take 2 Tablets by mouth one time a day. Do not crush. 30 Tablet 04/14/2024 omeprazole magnesium (PriLOSEC OTC) 20 MG delayed-release tablet Take 20 mg by mouth one time a day. propranolol (Innopran XL) 120 MG 24 hour capsule Take by mouth. hydrOXYzine HCl (Atarax) 25 MG tablet Take 1 Tablet by mouth every six hours as needed for Itching. 20 Tablet 03/23/2021 LORazepam (Ativan) 1 MG tablet Take 0.5 mg by mouth three times a day as needed for Anxiety. documented as of this encounter Ordered Prescriptions Prescription Sig Dispense Quantity Refills Last Filled Start Date End Date potassium chloride CR (K-Dur, Klor-Con M) 20 MEQ tablet Take 2 Tablets by mouth one time a day. Do not crush. 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 She presentedto [address] [place] [address], where BP was 157/99. Per ED staff, pt has symptoms of alcohol withdrawal. CTHead was unrevealing. --MRI Brain +/- contrast MD [facility] Neurohospitalist NHOUSE TECHNICIAN documented in this encounter ED Notes * Samir Gale MD - 04/14/2024 5:42 PM CST ED PROVIDER - TRANSFER OF CARE NOTE Name: Stefany Murray Date of : 1975 ED COURSE, MEDICAL DECISION MAKING: ED Course as of 04/14/24 1742 FriApr 14, 2024 1313 WBC(!): 13.7 [LG] 1313 HGB: 13.2 [LG] 1313 LACTIC ACID, ANA PAULA(!): 2.5 [LG] 1317 ALCOHOL: <0.010 [LG] 1325 Sodium(!): 132 [LG] 1325 POTASSIUM(!!): 2.9 Magnesium level ordered, as well as oral potassium replacement. [LG] 1325 Creatinine: 0.64 [LG] 1326 BUN: 13 [LG] 1326 GLUCOSE(!): 130 [LG] 1326 ALK PHOSPHATASE: 88 [LG] 1326 AST(SGOT)(!): 47 [LG] 1326 ALT(SGPT): 31 [LG] 1356 Magnesium: 1.8 [LG] 1439 Urine Leukocyte Esterase(!): Trace [LG] 1440 Urine Nitrites: Negative [LG] 1440 Urine WBC's: 0-5 [LG] 1440 Urine Bacteria(!): Packed [LG] 1440 Pt not having any symptoms of UTI, no antibiotics started at this time, will await urine culture. [LG] [address] Cheng, [facility], who recommends MRI w/ and w/o contrast here to rule out acute intracranial process. If negative, disposition pending pt reassessment. He would not recommend starting any anti-seizure medications at this time. [LG] 1442 Urine Drug Screen(!) Negative. [LG] ED Course User Index [LG] Hetal Paris DO Patient was signed out to me at change of shift. She is a 48-year-old female with a history of alcohol use and alcohol withdrawal. No history of withdrawal seizures. She was at work when she was found laying on the ground with seizure- like activity. Initially she had stated that she has not had anyalcohol in about 3 weeks. MRI was performed and pending at time of signout. Results were reviewed and radiology noted no seizure focus or other acute pathology. There was some on specific white matter changes that could be related to Gliosis or early chronic hypertensive microvascular ischemic changes. Patient has been hypertensive while here in the emergency department. She notes that she is supp osed to be on a blood pressure medication but often forgets to take it. She had been given reglan and benadryl for headache with improvement. I did do a chest x-ray because she notes that she has been having URI symptoms for the last week and chest x-ray was negative forany acute cardiopulmonary pathology. After further discussion about concerned that her seizure-like activity may be due to alcohol withdrawal since her MRI returned without any seizure focus or other acute pathology, patient does admit that she was drinking over the weekend and last drink was on Friday. I did recommend that we admit her to [facility] for continued observation on the CIWA protocol and benzos as needed. Patient initially agreeable but now states that she just wants to go home. She does have a friend that will stay with her overnight and bring her back if any new or worsening symptoms. She understands that she could have worsening withdrawal symptoms and another withdrawal seizure that can lead to permanent disability or if she does not get help right away or has any significant decreased perfusion/ oxygenation of her brain prolonged seizure activity. Discharged home with her friend. Follow-up closely with her primary care provider. Return sooner ifany new or worsening symptoms. I will discharge her with potassium supplementation for her hypokalemia. Final Clinical Impression: (R56.9) Witnessed seizure-like activity (HCC) (primary encounter diagnosis) (F10.91) History of alcohol withdrawal syndrome (E87.6) Hypokalemia (R05.1) Acute cough (R51.9) Acute nonintractable headache, unspecified headache type Samir Gale MD 04/14/24 [id number] NHOUSE TECHNICIAN * Jason Grover RN - 04/14/2024 5:04 PM CST After speaking with the MD about MRI results, pt finally admitted to ETOH use - pt states her last drink was on Friday. Plan to admit to the hospital for withdrawal protocol - pt agrees. VS stable, will continue to monitor. NHOUSE TECHNICIAN * Tootie Sanchez HUC - 04/14/2024 2:14 PM CST [facility] neurology provider paged NHOUSE TECHNICIAN * Hetal Paris DO - 04/14/2024 12:47 PM CST Images from the original note were not included. ED PROVIDER NOTE SUBJECTIVE: Room: ED 7/ED 7 Chief Complaint: Chief Complaint Patient presents with Seizure- New Onset History of Present Illness: Stefany Murray is a 48 year old female with a past medical history of alcohol abuse, history of alcohol withdrawal, who presents for evaluation of witnessed seizure-like activity. 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 Unclear duration of symptoms. Patient does not recall events leading up to the seizure/loss of consciousness. She does state that she woke up this morning and felt a mild headache, but otherwise states she felt fine today. No history of seizures or alcohol withdrawal seizures in the past. Patient states that she last drink a few weeks ago, but is not specific with her history. She states that she used to drink more heavily, but reports that she only drinks occasionally at this time. She denies drinking yesterday or in the past few days. She does not believe she is withdrawing at this time. She denies abdominal pain, nausea/vomiting, diarrhea, shakiness, or palpitations. She denies recent falls or head injuries. She states she has been having flulike symptoms earlierin the week but these have improved. No recent fevers. No change in vision, neck pain, back pain, chest pain, or difficulty breathing. She endorses tobacco use, but denies recreational drug use. Supplemental history from: N/A External record(s) reviewed: Chart reviewed including external records available via Care Everywhere. Patient does have a history of alcohol withdrawal symptoms in the past, but no history of alcoholwithdrawal seizure on my chart review. PAST MEDICAL HISTORY: There is no problem list on file for this patient. No past medical history on file. Prior to Admission Medication List busPIRone (Buspar) 5 MG tablet Take 5 mg by mouth two times a day. clonazePAM (KlonoPIN) 0.5 MG tablet Take 1 Tablet by mouth at bedtime. escitalopram (Lexapro) 5 MG tablet Take 5 mg by mouth one time a day. gabapentin (Neurontin) 100 MG capsule Take 100mg in the morning, 100mg in the afternoon and 300mg at bedtime for neuropathy. hydrOXYzine HCl (Atarax) 25 MG tablet Take 1 Tablet by mouth every six hours as needed for Itching. LORazepam (Ativan) 1 MG tablet Take 0.5 mg by mouth three times a day as needed for Anxiety. Multiple Vitamin (One-A-Day Essential) tablet Take 1 Tablet by mouth one time a day. naltrexone (Depade, Revia) 50 MG tablet Take 1 Tablet by mouth one time a day as needed. nicotine (Nicoderm CQ) 14 MG/24HR patch omeprazole magnesium (PriLOSEC OTC) 20 MG delayed-release tablet Take 20 mg by mouth one time a day. ondansetron (Zofran) 4 MG tablet TK 1 T PO Q 6 H PRN oxyCODONE (Roxicodone) 5 MG immediate release tablet Take 5-10 mg by mouth. propranolol (Innopran XL) 120 MG 24 hour capsule Take by mouth. OBJECTIVE: Physical Exam: VITALS: Blood pressure (!) 143/86, pulse 103, temperature 98.5 ??F (36.9 ??C), temperature source Oral, resp. rate 16, SpO2 100%. GENERAL: Slightly disheveled appearing, tremulous. HEENT: Normocephalic, atraumatic. Slight abrasion noted to bottom lip, no tongue laceration or other intraoral lacerations noted. No midline C-spine tenderness to palpation. Normal range of motion ofneck. HEART: Tachycardic rate, regular rhythm. Extremities warm and well-perfused. LUNGS: Airway patent. No respiratory distress. Clear to auscultation bilaterally. No wheezing. ABDOMEN: Non-distended. Soft, nontender. No rebound or guarding. EXTREMITIES: No edema or asymmetry. No bony tenderness to palpation or restricted range of motion. NEURO: Awake and alert. Grossly intact. Data: All laboratory data, imaging, and EKGs were interpreted independently. Diagnostics (reviewed and interpreted independently): Results for orders placed or performed during the hospital encounter of 04/14/24 URINALYSIS, REFLEX TO CULTURE Collection Time: 04/14/24 2:20 PM Specimen: Urine CVMS Result Value Ref Range UA Color Kathia (A) Light Yellow, Yellow Urine Appearance Cloudy (A) Clear Urine Specific Gordon 1.015 1.005 - 1.030 Urine pH 6.0 5.0 - 8.0 Urine Leukocyte Esterase Trace (A) Negative Urine Nitrates Negative Negative Urine Protein Trace (A) Negative Urine Glucose Negative Negative Urine Ketones Negative Negative Urine Urobilinogen Normal Normal Urine Bilirubin Negative Negative Urine Blood 2+ (A) Negative Urine WBC's 0-5 0 - 5 /HPF Urine RBC's 0-2 0 - 2 /HPF Urine Epithelial Cells Occasional (A) Negative /HPF Urine Bacteria Packed (A) Negative /HPF URINE DRUG SCREEN Collection Time: 04/14/24 2:20 PM Result Value Ref Range Urine Amphetamines Screen Negative Negative Urine Barbiturates Screen Negative Negative Urine Benzodiazepines Screen Negative Negative Urine Cocaine Screen Negative Negative Urine Fentanyl Screen Negative Negative Urine Opiates Screen Negative Negative Urine Oxycodone Screen Negative Negative Urine Phencyclidine Screen Negative Negative Urine Methadone Screen Negative Negative Urine Methamphetamine Screen Negative Negative Urine Tetrahydrocannabinol Screen Presumptive Positive (A) Negative Urine Tricyclic Antidepressants Screen Negative Negative LACTIC ACID W/2HR REFLEX Collection Time: 04/14/24 12:57 PM Result Value Ref Range Lactic Acid, Venous 2.5 (H) 0.7 - 2.1 mmol/L COMPREHENSIVE METABOLIC PANEL Collection Time: 04/14/24 12:57 PM Result Value Ref Range Sodium 132 (L) 135 - 144 mmol/L Potassium 2.9 (LL) 3.4 - 5.1 mmol/L Chloride 96 (L) 98 - 107 mmol/L Carbon Dioxide 22 22 - 30 mmol/L Calcium 8.6 8.6 - 10.3 mg/dL Alkaline Phosphatase 88 38 - 126 U/L Aspartate Aminotransferase 47 (H) 14 - 36 U/L Alanine Aminotransferase 31 <35 U/L Glucose 130 (H) 74 - 100 mg/dL Blood Urea nitrogen 13 7 - 17 mg/dL Creatinine 0.64 0.52 - 1.04 mg/dL Protein, Total 7.1 6.3 - 8.2 g/dL Albumin 4.3 3.5 - 5.0 g/dL Bilirubin, Total 1.0 0.2 - 1.3 mg/dL Globulin 2.8 1.4 - 4.8 g/dL Anion Gap 14 5 - 15 mmol/L Glomerular Filtration Rate >60 >60 mL/min/1.73 m*2 HEMOGRAM/DIFFERENTIAL Collection Time: 04/14/24 12:57 PM Result Value Ref Range WBC 13.7 (H) 4.0 - 11.0 10*3/uL RBC 4.01 3.80 - 5.20 10*6/uL HGB 13.2 12.0 - 16.0 g/dl HCT 38.1 35.0 - 47.0 % MCV 95.0 80 - 98 fL MCH 32.9 27.0 - 34.0 pg MCHC 34.6 32 - 36 g/dl PLT 208 150 - 420 10*3/uL Neutrophils Absolute 9.19 (H) 2.10 - 7.50 10*3/uL Lymphocytes Absolute 3.11 0.76 - 4.00 10*3/uL Monocytes Absolute 0.83 0.00 - 0.90 10*3/uL Eosinophils Absolute 0.47 0.04 - 0.54 10*3/uL Basophils Absolute 0.03 0.00 - 0.20 10*3/uL RDW-SD 41.9 36.5 - 46.3 fL RDW-CV 12.0 11.6 - 14.4 % Immature Granulocytes Absolute 0.03 0.00 - 0.10 10*3/uL MAGNESIUM Collection Time: 04/14/24 12:57 PM Result Value Ref Range Magnesium 1.8 1.6 - 2.3 mg/dL ALCOHOL Collection Time: 04/14/24 12:57 PM Result Value Ref Range Alcohol <0.010 <=0.010 % Imaging (reviewed and interpreted independently): Imaging Results CT HEAD WO IV CONTRAST (Final result) Result time 04/14/24 13:40:08 Final result by Donald Deshpande MD (04/14/24 13:40:08) Narrative: PROCEDURE: CT OF THE HEAD WITHOUT IV CONTRAST CLINICAL HISTORY: Seizure. TECHNIQUE: Noncontrast axial images were acquired through the head with coronal and sagittal reconstructions. CT DLP DOSE: 514 mGy-cm COMPARISON: None. FINDINGS: Brain: There is no abnormal intracranial mass effect or midline shift. No acute intraparenchymal hemorrhage. No suspicious areas of abnormal attenuation within the brain. CSF spaces: Age appropriate. No extra-axial hemorrhage. Orbits: No acute abnormality. Osseous structures: No acute enterology Visualized paranasal sinuses and mastoids: Clear. IMPRESSION: No CT evidence of an acute intracranial abnormality. Please note that all CT scans at this facility use dose modulation, iterative reconstruction, and/or weight-based dosing when appropriate to reduce radiation dose to as low as reasonably achievable. Electronically signed by Donald Deshpande MD Report Date: 04/14/2024 1:40 PM EKG: Sinus tachycardia with ventricular rate 109. Nonspecific ST segment abnormality. No ST segmentelevation. No previous for comparison. ED COURSE, MEDICAL DECISION MAKIN-year-old female with above medical history presents for evaluation of witnessed suspected seizure-like activity. Vitals on arrival notable for slight hypertension with blood pressure 157/99, and mild tachycardia with heart rate 116. Patient is afebrile and nontoxic-appearing. She is slightly tremulous appearing, and clinically I have suspicion for acute alcohol withdrawal however patient states that she has not had a drink in several weeks. She does have a history of alcohol withdrawal in the past, but no history of alcohol withdrawal seizure. Due to concerns for possible acute metabolic derangements, electrolyte abnormalities, renal dysfunction, alcohol intoxication, intracranial pathology, other, IV access obtained and labs sent. Patient provided with IV Valium for both treatment of potential alcohol withdrawal as well as to prevent further potential seizure-like activity. She was provided with IV fluid bolus, acetaminophen, and Toradol for management of her headache. Seizure precautions placed, and patient placed on continuous cardiac monitoring and pulse oximetry while workupin process. Will plan for CT head to rule out acute intracranial pathology. ED Course as of 04/14/24 1502 Wed Apr 14, 2024 1313 WBC(!): 13.7 [LG] 1313 HGB: 13.2 [LG] 1313 LACTIC ACID, ANA PAULA(!): 2.5 [LG] 1317 ALCOHOL: <0.010 [LG] 1325 Sodium(!): 132 [LG] 1325 POTASSIUM(!!): 2.9 Magnesium level ordered, as well as oral potassium replacement. [LG] 1325 Creatinine: 0.64 [LG] 1326 BUN: 13 [LG] 1326 GLUCOSE(!): 130 [LG] 1326 ALK PHOSPHATASE: 88 [LG] 1326 AST(SGOT)(!): 47 [LG] 1326 ALT(SGPT): 31 [LG] 1356 Magnesium: 1.8 [LG] 1439 Urine Leukocyte Esterase(!): Trace [LG] 1440 Urine Nitrites: Negative [LG] 1440 Urine WBC's: 0-5 [LG] 1440 Urine Bacteria(!): Packed [LG] 1440 Pt not having any symptoms of UTI, no antibiotics started at this time, will await urine culture. [LG] [address] Cheng, [facility], who recommends MRI w/ and w/o contrast here to rule out acute intracranial process. If negative, disposition pending pt reassessment. He would not recommend starting any anti-seizure medications at this time. [LG] 1442 Urine Drug Screen(!) Negative. [LG] ED Course User Index [LG] Hetal Paris DO Patient remained in the Emergency Department throughout the duration of my shift. [facility], Dr. Gale, for continued management. Please see oncoming provider note for further disposition and plan. FINAL CLINICAL IMPRESSION: (R56.9) Witnessed seizure-like activity (HCC) (primary encounter diagnosis) (F10.91) History of alcohol withdrawal syndrome Hetal Paris DO 04/14/24 1502 NHOUSE TECHNICIAN * Shira Sams RN - 04/14/2024 12:38 PM CST Pt arrived by [facility] from Other work alone with complaints of seizure. 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 Pt states she doesn't remember what happened other than feeling flu like symptoms earlier this week. C/o frontal DALEY with pressure behind eyes. Unknown duration of seizure. No Hx of seizures NHOUSE TECHNICIAN * Jason Grover RN - 04/14/2024 12:38 PM CST Bed: ED 7 Expected date: Expected time: Means of arrival: Comments: EMS NHOUSE TECHNICIAN documented in this encounter Plan of Treatment Not on file documented as of this encounter Procedures Procedure Name Priority Date/Time Associated Diagnosis Comments XR CHEST 1 VIEW STAT 04/14/2024 5:03 PM GREENHOUSE TECHNICIAN Witnessed seizure-like activity (HCC) MR BRAIN WO W CONTRAST STAT 3:50 PM GREENHOUSE TECHNICIAN Witnessed seizure-like activity (HCC) LACTIC ACID W/2HR REFLEX LENY 04/14/2024 2:48 PM GREENHOUSE TECHNICIAN BASIC METABOLIC PANEL LENY 04/14/2024 2:48 PM GREENHOUSE TECHNICIAN CULTURE, URINE LENY 04/14/2024 2:20 PM GREENHOUSE TECHNICIAN URINALYSIS, REFLEX TO CULTURE LENY 04/14/2024 2:20 PM GREENHOUSE TECHNICIAN URINE DRUG SCREEN [facility] 04/14/2024 2:2 [address] HEAD WO IV CONTRAST STAT 1:35 PM GREENHOUSE TECHNICIAN LACTIC ACID W/2HR REFLEX LENY 04/14/2024 12:57 PM GREENHOUSE TECHNICIAN COMPREHENSIVE METABOLIC PANEL LENY 04/14/2024 12:57 PM GREENHOUSE TECHNICIAN HEMOGRAM/DIFF LENY 04/14/2024 12:57 PM GREENHOUSE TECHNICIAN MAGNESIUM Add on 04/14/2024 12:57 PM GREENHOUSE TECHNICIAN ALCOHOL LENY 04/14/2024 12:57 PM GREENHOUSE TECHNICIAN EKG 12-LEAD STAT 04/14/2024 12:48 PM GREENHOUSE TECHNICIAN documented in this encounter Results * XR CHEST 1 VIEW (04/14/2024 5:03 PM GREENHOUSE TECHNICIAN) Anatomical Region Laterality Modality Chest Radiographic Josefa ging 04/14/2024 4:57 PM GREENHOUSE TECHNICIAN Narrative 04/15/2024 7:16 AM GREENHOUSE TECHNICIAN PROCEDURE: XR CHEST 1 VIEW HISTORY: cough [...] MD EC DIAGNOSTIC IMAGING ORDERABLES Final Result * MR BRAIN WO W CONTRAST (04/14/2024 3:50 PM GREENHOUSE TECHNICIAN) Anatomical Region Laterality Modality Head Magnetic Resonan ce 04/14/2024 3:24 PM GREENHOUSE TECHNICIAN Narrative 04/14/2024 4:28 PM GREENHOUSE TECHNICIAN EXAM: MR BRAIN WO W CONTRAST LOCATION: [facility] DATE: 04/14/2024 INDICATION: Seizure COMPARISON: Head CT 04/14/2024 CONTRAST: 15ml clariscan TECHNIQUE: 1.5 Carmen multiplanar multisequence head MRI without and with intravenous contrast according to the seizure protocol. FINDINGS: INTRACRANIAL CONTENTS: Dedicated imaging of the temporal lobes demonstrates symmetrical size and signal intensity of the mesial temporal structures including the hippocampus. Diffusion-weighted images demonstrate restricted diffusion. No subacute or chronic intracranial hemorrhage. Normal cerebral parenchymal volume. No midline shift. The basilar cisterns are patent. Mild periventricular and scattered foci of deep white matter T2 prolongation involving both cerebral hemispheres. Postcontrast images demonstrate no abnormal enhancement. SELLA: No abnormality accounting for technique. OSSEOUS STRUCTURES/SOFT TISSUES: Normal marrow signal. There is some susceptibility artifacts over the right forehead. The major intracranial vascular flow voids are maintained. ORBITS: No abnormality accounting for technique. SINUSES/MASTOIDS: Mild mucosal thickening of the ethmoid air cells and the maxillary sinuses. Mild opacification of the right mastoid air cells. IMPRESSION: 1. No epileptogenic focus identified. No acute intracranial process. 2. Mild periventricular and scattered foci of deep white matter T2 prolongation involving both cerebral hemispheres, nonspecific. These could represent foci of nondescript gliosis or early chronic hypertensive/microvascular ischemic white matter changes. Electronically signed by: Jude Wheatley M.D. 04/14/2024 4:28 PM GREENHOUSE TECHNICIAN Procedure Note Jude Wheatley MD - 04/14/2024 EXAM: MR BRAIN WO W CONTRAST LOCATION: [facility] DATE: 04/14/2024 INDICATION: Seizure COMPARISON: Head CT 04/14/2024 CONTRAST: 15ml clariscan TECHNIQUE: 1.5 Carmen multiplanar multisequence head MRI without and with intravenous contrast according to the seizure protocol. FINDINGS: INTRACRANIAL CONTENTS: Dedicated imaging of the temporal lobesdemonstrates symmetrical size and signal intensity of the mesial temporal structures including the hippocampus. Diffusion-weighted images demonstraterestricted diffusion. No subacute or chronic intracranial hemorrhage. Normalcerebral parenchymal volume. No midline shift. The basilar cisterns are patent.Mild periventricular and scattered foci of deep white matter T2 prolongation involving both cerebral hemispheres. Postcontrast images demonstrate noabnormal enhancement. SELLA: No abnormality accounting for technique. OSSEOUS STRUCTURES/SOFT TISSUES: Normal marrow signal. There is some susceptibility artifacts over the right forehead. The major intracranial vascular flow voids are maintained. ORBITS: No abnormality accounting for technique. SINUSES/MASTOIDS: Mild mucosal thickening of the ethmoid air cells andthe maxillary sinuses. Mild opacification of the right mastoid air cells. IMPRESSION: 1. No epileptogenic focus identified. No acute intracranial process. 2. Mild periventricular and scattered foci of deep white matter [id number] involving both cerebral hemispheres, nonspecific. These could representfoci of nondescript gliosis or early chronic hypertensive/microvascular ischemicwhite matter changes. Electronically signed by: Jude Wheatley M.D. 04/14/2024 4:28 PM GREENHOUSE TECHNICIAN Hetal Paris DO MRI ORDERABLES Final Result * (ABNORMAL) BASIC METABOLIC PANEL (04/14/2024 2:48 PM GREENHOUSE TECHNICIAN) Sodium 132(L) 135 - 144 mmol/L 04/14/2024 3:14 PM GREENHOUSE TECHNICIAN [facility] Potassium 2.9(LL) 3.4 - 5.1 mmol/L 04/14/2024 3:14 PM GREENHOUSE TECHNICIAN [facility] Chloride 100 98 - 107 mmol/L 04/14/2024 3:14 PM GREENHOUSE TECHNICIAN [facility] Carbon Dioxide 24 22 - 30 mmol/L 04/14/2024 3:14 PM GREENHOUSE TECHNICIAN [facility] Calcium 8.0(L) 8.6 - 10.3 mg/dL 04/14/2024 3:14 PM GREENHOUSE TECHNICIAN [facility] Glucose 107(H) 74 - 100 mg/dL 04/14/2024 3:14 PM GREENHOUSE TECHNICIAN [facility] Blood Urea nitrogen 12 7 - 17 mg/dL 04/14/2024 3:14 PM GREENHOUSE TECHNICIAN [facility] Creatinine 0.61 0.52 - 1.04 mg/dL 04/14/2024 3:14 PM GREENHOUSE TECHNICIAN [facility] Anion Gap 8 5 - 15 mmol/L 04/14/2024 3:14 PM GREENHOUSE TECHNICIAN [facility] Glomerular Filtration Rate >60 >60 mL/min/1.7 3 m*2 04/14/2024 3:14 PM GREENHOUSE TECHNICIAN [facility] Comment:This calculation use s CKD-EPI 2020 equation; it has not been validated in women. Blood BLOOD SPECIMEN / Unknown Venipuncture / Unknown 04/14/2024 2:48 PM GREENHOUSE TECHNICIAN 04/14/2024 2:52 PM GREENHOUSE TECHNICIAN [facility] CHEMISTRY ORDERABLES Final Result Performing Organization Address [facility] de Phone Number [facility] [address] [place] [address] * LACTIC ACID W/2HR REFLEX (04/14/2024 2:48 PM GREENHOUSE TECHNICIAN) Lactic Acid, Venous 0.9 0.7 - 2.1 mmol/L 04/14/2024 3:09 PM GREENHOUSE TECHNICIAN [facility] Blood BLOOD SPECIMEN / Unknown Venipuncture / Unknown 04/14/2024 2:48 PM GREENHOUSE TECHNICIAN 04/14/2024 2:52 PM GREENHOUSE TECHNICIAN [facility] CHEMISTRY ORDERABLES Final Result Performing Organization Address [facility] Phone Number [facility] [address] [place] [address] * (ABNORMAL) CULTURE, URINE (04/14/2024 2:20 PM GREENHOUSE TECHNICIAN) Pathologist [facility] Urine Culture >100,000 cfu/mL Escherichia coli(A) 04/16/2024 7:53 AM GREENHOUSE TECHNICIAN [facility] Urine URINE SPECIMEN COLLECTION, CLEAN CATCH / Unknown Non-blood collection / Unknown 04/14/2024 2:20 PM GREENHOUSE TECHNICIAN 04/14/2024 2:37 PM GREENHOUSE TECHNICIAN Narrative Organism Antibiotic Method Susceptibility Escherichia coli Extended Spectrum Beta Lactamase Neg Escherichia coli Ampicillin ($) 16: Intermediate Escherichia coli Ampicillin/Sulbactam ($) 4: Sensitive Escherichia coli Piperacillin/Tazobactam ($) <=4: Sensitive Escherichia coli Cefazolin, Urine 2: Sensitive Escherichia coli Meropenem ($$) <=0.25: Sensitive Escherichia coli Amikacin ($) 2: Sensitive Escherichia coli Gentamicin ($) <=1: Sensitive Escherichia coli Tobramycin ($) <=1: Sensitive Escherichia coli Ciprofloxacin ($) <=0.06: Sensitive Escherichia coli Levofloxacin ($$) <=0.12: Sensitive Escherichia coli Nitrofurantoin ($) <=16: Sensitive Escherichia coli Trimethoprim/Sulfa ($) <=20: Sensitive Hetal Paris DO MICROBIOLOGY - GENERAL ORDAravind DYER Final Result [facility] [address] [place] [address] * (ABNORMAL) URINE DRUG SCREEN (04/14/2024 2:20 PM GREENHOUSE TECHNICIAN) [facility] Urine Amphetamines Screen Negative Negative 5 2:41 PM GREENHOUSE TECHNICIAN [facility] Urine Barbiturates Screen Negative Negative 5 2:41 PM GREENHOUSE TECHNICIAN [facility] Urine Benzodiazepines Screen Negative Negative 5 2:41 PM GREENHOUSE TECHNICIAN [facility] Urine Cocaine Screen Negative Negative 5 2:41 PM GREENHOUSE TECHNICIAN [facility] Urine Fentanyl Screen Negative Negative 5 2:41 PM GREENHOUSE TECHNICIAN [facility] Urine Opiates Screen Negative Negative 5 2:41 PM GREENHOUSE TECHNICIAN [facility] Urine Oxycodone Screen Negative Negative 5 2:41 PM GREENHOUSE TECHNICIAN [facility] Urine Phencyclidine Screen Negative Negative 5 2:41 PM GREENHOUSE TECHNICIAN [facility] Urine Methadone Screen Negative Negative 5 2:41 PM GREENHOUSE TECHNICIAN [facility] Urine Methamphetamine Screen Negative Negative 5 2:41 PM GREENHOUSE TECHNICIAN [facility] Urine Tetrahydrocannabinol Screen Presumptive Positive(A) Negative 5 2:41 PM GREENHOUSE TECHNICIAN [facility] Urine Tricyclic Antidepressants Screen Negative Negative 5 2:41 PM GREENHOUSE TECHNICIAN [facility] Urine URINE SPECIMEN COLLECTION, CLEAN CATCH / Unknown Non-blood collection / Unknown 04/14/2024 2:20 PM GREENHOUSE TECHNICIAN 04/14/2024 2:24 PM GREENHOUSE TECHNICIAN Narrative [facility] - 04/14/2024 2:41 PM GREENHOUSE TECHNICIAN False presumptive positives may occur with prescription and [id number] medications due to cross-reactivity and interfering compounds.Urine drug screen results are for medical use only and are not intended for legal or employment purposes. Confirmatory testing is available upon request at an additional charge. Qualitative positive cut-off concentrations in urine drugs of abuse: Amphetamines: 500 ng/mL Barbiturates: 200 ng/mL Benzodiazepines: 150 ng/mL Cocaine: 150 ng/mL Fentanyl: 1 ng/mL Methamphetamine: 500 ng/mL Methadone: 200 ng/mL Opiates: 100 ng/mL Oxycodone: 100 ng/mL Phencyclidine: 25 ng/mL Tetrahydrocannabinol: 50 ng/mL Tricyclic Antidepressants: 300 ng/mL Hetal Paris DO URINE ORDERABLES Final Resu lt [facility] [address] [place] [address] * (ABNORMAL) URINALYSIS, REFLEX TO CULTURE (04/14/2024 2:20 PM GREENHOUSE TECHNICIAN) UA Color Kathia(A) Light Yellow, Yellow 04/14/2024 2:37 PM GREENHOUSE TECHNICIAN [facility] Urine Appearance Cloudy(A) Clear 04/14/19 2:37 PM GREENHOUSE TECHNICIAN [facility] Urine Specific Gordon 1.015 1.005 - 1.030 04/14/2024 2:37 PM GREENHOUSE TECHNICIAN [facility] Urine pH 6.0 5.0 - 8.0 04/14/2024 2:37 PM GREENHOUSE TECHNICIAN [facility] Urine Leukocyte Esterase Trace(A) Negative 04/14/2024 2:37 PM GREENHOUSE TECHNICIAN [facility] Urine Nitrates Negative Negative 04/14/2024 2:37 PM GREENHOUSE TECHNICIAN [facility] Urine Protein Trace(A) Negative 04/14/2024 2:37 PM GREENHOUSE TECHNICIAN [facility] Urine Glucose Negative Negative 04/14/2024 2:37 PM GREENHOUSE TECHNICIAN [facility] Urine Ketones Negative Negative 04/14/2024 2:37 PM GREENHOUSE TECHNICIAN [facility] Urine Urobilinogen Normal Normal 04/14/2024 2:37 PM GREENHOUSE TECHNICIAN [facility] Urine Bilirubin Negative Negative 2:37 PM GREENHOUSE TECHNICIAN [facility] Urine Blood 2+(A) Negative 04/14/2024 2:37 PM GREENHOUSE TECHNICIAN [facility] Urine WBC's 0-5 0 - 5 /HPF 04/14/2024 2:37 PM GREENHOUSE TECHNICIAN [facility] Urine RBC's 0-2 0 - 2 /HPF 04/14/2024 2:37 PM GREENHOUSE TECHNICIAN [facility] Urine Epithelial Cells Occasional( A) Negative /HPF 04/14/2024 2:37 PM GREENHOUSE TECHNICIAN [facility] Urine Bacteria Packed(A) Negative /HPF 04/14/2024 2:37 PM GREENHOUSE TECHNICIAN [facility] Urine URINE SPECIMEN COLLECTION, CLEAN CATCH / Unknown Non-blood collection / Unknown 04/14/2024 2:20 PM GREENHOUSE TECHNICIAN 04/14/2024 2:24 PM GREENHOUSE TECHNICIAN Hetal Paris DO EC URINE ORDERABLES Final Resu lt Performing Organization Address City/State/[facility] Co de Phone Number [facility] [address] [place] [address] * CT HEAD WO IV CONTRAST (04/14/2024 1:35 PM GREENHOUSE TECHNICIAN) Anatomical Region Laterality Modality Head Computed Tomogra phy 04/14/2024 1:25 PM GREENHOUSE TECHNICIAN Narrative 04/14/2024 1:40 PM GREENHOUSE TECHNICIAN PROCEDURE: CT OF THE HEAD WITHOUT IV CONTRAST CLINICAL HISTORY: Seizure. TECHNIQUE: Noncontrast axial images were acquired through the head with coronal and sagittal reconstructions. CT DLP DOSE: 514 mGy-cm COMPARISON: None. FINDINGS: Brain: There is no abnormal intracranial mass effect or midline shift. No acute intraparenchymal hemorrhage. No suspicious areas of abnormal attenuation within the brain. CSF spaces: Age appropriate. No extra-axial hemorrhage. Orbits: No acute abnormality. Osseous structures: No acute enterology Visualized paranasal sinuses and mastoids: Clear. IMPRESSION: No CT evidence of an acute intracranial abnormality. Please note that all CT scans at this facility use dose modulation, iterative reconstruction, and/or weight-based dosing when appropriate to reduce radiation dose to as low as reasonably achievable. Electronically signed by Donald Deshpande MD Report Date: 04/14/2024 1:40 PM Procedure Note Donald Deshpande MD - 04/14/2024 PROCEDURE: CT OF THE HEAD WITHOUT IV CONTRAST CLINICAL HISTORY: Seizure. TECHNIQUE: Noncontrast axial images were acquired through the head withcoronal and sagittal reconstructions. CT DLP DOSE: 514 mGy-cm COMPARISON: None. FINDINGS: Brain: There is no abnormal intracranial mass effect or midline shift. Noacute intraparenchymal hemorrhage. No suspicious areas of abnormal attenuationwithin the brain. CSF spaces: Age appropriate. No extra-axial hemorrhage. Orbits: No acute abnormality. Osseous structures: No acute enterology Visualized paranasal sinuses and mastoids: Clear. IMPRESSION: No CT evidence of an acute intracranial abnormality. Please note that all CT scans at this facility use dose modulation,iterative reconstruction, and/or weight-based dosing when appropriate to reduceradiation dose to as low as reasonably achievable. Electronically signed by Donald Deshpande MD Report Date: 04/14/2024 1:40 PM Hetal Paris DO CT ORDERABLES Final Result * MAGNESIUM (04/14/2024 12:57 PM GREENHOUSE TECHNICIAN) Pathologist [facility] Magnesium 1.8 1.6 - 2.3 mg/dL 04/14/2024 1:34 PM GREENHOUSE TECHNICIAN [facility] Blood BLOOD SPECIMEN / Unknown Venipuncture / Unknown 04/14/2024 12:57 PM GREENHOUSE TECHNICIAN 04/14/2024 1:00 PM GREENHOUSE TECHNICIAN Hetal Paris DO CHEMISTRY ORDERABLES Final Result [facility] [address] [place] [address] * (ABNORMAL) COMPREHENSIVE METABOLIC PANEL (04/14/2024 12:57 PM GREENHOUSE TECHNICIAN) Sodium 132(L) 135 - 144 mmol/L 04/14/2024 1:18 PM GREENHOUSE TECHNICIAN [facility] Potassium 2.9(LL) 3.4 - 5.1 mmol/L 04/14/2024 1:18 PM [facility] Chloride 96(L) 98 - 107 mmol/L 04/14/2024 1:18 PM [facility] Carbon Dioxide 22 22 - 30 mmol/L 04/14/2024 1:18 PM [facility] Calcium 8.6 8.6 - 10.3 mg/dL 04/14/2024 1:18 PM [facility] Alkaline Phosphatase 88 38 - 126 U/L 04/14/2024 1:18 PM [facility] Aspartate Aminotransferase 47(H) 14 - 36 U/L 04/14/2024 1:18 PM [facility] Alanine Aminotransferase 31 <35 U/L 04/14/2024 1:18 PM [facility] Glucose 130(H) 74 - 100 mg/dL 04/14/2024 1:18 PM [facility] Blood Urea nitrogen 13 7 - 17 mg/dL 04/14/2024 1:18 PM [facility] Creatinine 0.64 0.52 - 1.04 mg/dL 04/14/2024 1:18 PM [facility] Protein, Total 7.1 6.3 - 8.2 g/dL 04/14/2024 1:18 PM [facility] Albumin 4.3 3.5 - 5.0 g/dL 04/14/2024 1:18 PM [facility] Bilirubin, Total 1.0 0.2 - 1.3 mg/dL 04/14/2024 1:18 PM [facility] Globulin 2.8 1.4 - 4.8 g/dL 04/14/2024 1:18 PM [facility] Anion Gap 14 5 - 15 mmol/L 04/14/2024 1:18 PM [facility] Glomerular Filtration Rate >60 >60 mL/min/1. 73 m*2 04/14/2024 1:18 PM [facility] Comment:This calculation use s CKD-EPI 2020 equation; it has not been validated in women. Blood BLOOD SPECIMEN / Unknown Venipuncture / Unknown 04/14/2024 12:57 PM [facility] 04/14/2024 1:00 PM GREENHOUSE TECHNICIAN Hetal Raina GREER EC CHEMISTRY ORDERABLES Final Result Performing Organization Address [facility] Phone Number [facility] [address] [place] [address] * ALCOHOL (04/14/2024 12:57 PM GREENHOUSE TECHNICIAN) Alcohol <0.010 <=0.010 % 04/14/2024 1:16 PM GREENHOUSE TECHNICIAN [facility] Blood BLOOD SPECIMEN / Unknown Venipuncture / Unknown 04/14/2024 12:57 PM GREENHOUSE TECHNICIAN 04/14/2024 1:00 PM GREENHOUSE TECHNICIAN Hetal Raina GREER EC CHEMISTRY ORDERABLES Final Result Performing Organization Address [facility] Phone Number [facility] [address] [place] [address] * (ABNORMAL) LACTIC ACID W/2HR REFLEX (04/14/2024 12:57 PM GREENHOUSE TECHNICIAN) Lactic Acid, Venous 2.5(H) 0.7 - 2.1 mmol/L 04/14/2024 1:13 PM GREENHOUSE TECHNICIAN [facility] Blood BLOOD SPECIMEN / Unknown Venipuncture / Unknown 04/14/2024 12:57 PM GREENHOUSE TECHNICIAN 04/14/2024 1:00 PM GREENHOUSE TECHNICIAN Hetal Raina GREER EC CHEMISTRY ORDERABLES Final Result Performing Organization Address [facility] de Phone Number [facility] [address] [place] [address] * (ABNORMAL) HEMOGRAM/DIFFERENTIAL (04/14/2024 12:57 PM GREENHOUSE TECHNICIAN) WBC 13.7(H) 4.0 - 11.0 10*3/uL 04/14/2024 1:09 PM GREENHOUSE TECHNICIAN [facility] RBC 4.01 3.80 - 5.20 10*6/uL 04/14/2024 1:09 PM [facility] HGB 13.2 12.0 - 16.0 g/dl 04/14/2024 1:09 PM [facility] HCT 38.1 35.0 - 47.0 % 04/14/2024 1:09 PM [facility] MCV 95.0 80 - 98 fL 04/14/2024 1:09 PM [facility] MCH 32.9 27.0 - 34.0 pg 04/14/2024 1:09 PM [facility] MCHC 34.6 32 - 36 g/dl 04/14/2024 1:09 PM [facility] PLT 208 150 - 420 10*3/uL 04/14/2024 1:09 PM [facility] Neutrophils Absolute 9.19(H) 2.10 - 7.50 10*3/uL 04/14/2024 1:09 PM [facility] Lymphocytes Absolute 3.11 0.76 - 4.00 10*3/uL 04/14/2024 1:09 PM [facility] Monocytes Absolute 0.83 0.00 - 0.90 10*3/uL 04/14/2024 1:09 PM [facility] Eosinophils Absolute 0.47 0.04 - 0.54 10*3/uL 04/14/2024 1:09 PM [facility] Basophils Absolute 0.03 0.00 - 0.20 10*3/uL 04/14/2024 1:09 PM [facility] RDW-SD 41.9 36.5 - 46.3 fL 04/14/2024 1:09 PM [facility] RDW-CV 12.0 11.6 - 14.4 % 04/14/2024 1:09 PM [facility] Immature Granulocytes Absolute 0.03 0.00 - 0.10 10*3/uL 04/14/2024 1:09 PM [facility] Blood BLOOD SPECIMEN / Unknown Venipuncture / Unknown 04/14/2024 12:57 PM GREENHOUSE TECHNICIAN 04/14/2024 1:00 PM [facility] Hetal Raina DO EC HEMATOLOGY ORDERABLES Final Result NAEEM CHAUDHRY [address] [phone] * EKG 12-LEAD (04/14/2024 12:48 PM GREENHOUSE TECHNICIAN) Ventricular Rate 109 BPM RMCMUSE Atrial Rate 109 BPM RMCM[facility] P-R Interval 140 ms RMCMUSE QRS Duration 88 ms RMCMUSE QT 332 ms RMCMUSE QTc 447 ms RMCMUSE P Mason 59 degrees RMCMUSE R Mason 15 degrees RMCMUSE T Mason -7 degrees RMCMUSE 04/14/2024 12:4 8 PM GREENHOUSE TECHNICIAN 04/16/2024 8:01 PM GREENHOUSE TECHNICIAN Narrative [facility] - 04/16/2024 8:01 PM GREENHOUSE TECHNICIAN Confirming Doc Eliseo Stewart Sinus tachycardia Nonspecific ST abnormality Abnormal ECG No previous ECGs available Procedure Note Eliseo Stewart DO - 04/16/[address] Eliseo Stewart Sinus tachycardia Nonspecific ST abnormality Abnormal ECG No previous ECGs available Hetal Paris DO IP ECG ORDERABLES Final Result Performing Organization Address [facility] de Phone Number RMCMUSE documented in this encounter Visit Diagnoses Diagnosis Witnessed seizure-like activity (HCC)- Primary History of alcohol withdrawal syndrome Hypokalemia Hypopotassemia Acute cough Acute nonintractable headache, unspecified headache type documented in this encounter Administered Medications Inactive Administered Medications Medication Order MAR Action Action Date Dose Rate Site acetaminophen (Ofirmev) injection 1,000 mg 1,000 mg, Intravenous, at 400 mL/hr, ONCE, 1 dose, On Fri04/14/24 at 1300 New Bag 04/14/2024 1:02 PM GREENHOUSE TECHNICIAN 1,000 mg 400 mL/hr diazePAM (Valium) injection 10 mg 10 mg, IV Push, ONCE, 1 dose, On Fri04/14/24 at 1300Indications:Anxiety Given 04/14/2024 1:04 PM GREENHOUSE TECHNICIAN 10 mg diazePAM (Valium) injection 5-20 mg 5-20 mg, IV Push, EVERY 1 HOUR NEEDED, Starting on Fri04/14/24 at 1709, Until Fri04/14/24 at 215, WithdrawalIndications:Anxiet y diazePAM (Valium) injection 5-20 mg 5-20 mg, Intramuscular, EVERY 1 HOUR NEEDED, Starting on Fri04/14/24 at 1709, Until Fri04/14/24 at 215, WithdrawalIndications:Anxiet y diazePAM (Valium) tablet 5-20 mg 5-20 mg, Oral, EVERY 1 HOUR NEEDED, Starting on Fri04/14/24 at 1709, Until Fri04/14/24 at 2158, Withdrawal diphenhydrAMINE (Benadryl) injection 25 mg 25 mg, IV Push, ONCE, 1 dose, On Fri04/14/24 at 1630 Given 04/14/2024 4:19 PM GREENHOUSE TECHNICIAN 25 mg ketorolac (TORADOL) injection 15 mg 15 mg, IV Push, ONCE, 1 dose, On Fri04/14/24 at 1430 Given 04/14/2024 2:19 PM GREENHOUSE TECHNICIAN 15 mg metoclopramide (Reglan) injection 10 mg 10 mg, IV Push, ONCE, 1 dose, On Fri04/14/24 at 1630 Given 04/14/2024 4:21 PM GREENHOUSE TECHNICIAN 10 mg potassium chloride CR (K-Dur, Klor-Con M) tablet 40 mEq 40 mEq, Oral, ONCE, 1 dose, On Fri04/14/24 at 1330 Given 04/14/2024 1:46 PM GREENHOUSE TECHNICIAN 40 mEq sodium chloride 0.9% BOLUS BAG 1,000 mL 1,000 mL, Intravenous, at 1,000 mL/hr, ONCE, 1 dose, On Fri04/14/24 at 1300 New Bag 04/14/2024 1:08 PM GREENHOUSE TECHNICIAN 1,000 mL 1000 mL/hr thiamine (B-1) 400 mg in sodium chloride 0.9% (NS) 50 mL IVPB 400 mg, Intravenous, at 100 mL/hr, ONCE DAILY, 3 doses, First dose on Fri04/14/24 at 1730, Last dose on Fri04/16/24 at 0800 New Bag 04/14/2024 5:23 PM GREENHOUSE TECHNICIAN 400 mg 100 mL/hr thiamine (Vitamin B-1) tablet 500 mg 500 mg, Oral, ONCE DAILY, First dose on Fri04/17/24 at 0800, Until Discontinued documented in this encounter Discontinued Medications Medication Sig Discontinue Reason Start Date End Da te omeprazole (PriLOSEC OTC) 20 MG delayed-release tablet Take 20 mg by mouth every morning before breakfast. Tablet should be swallowed whole; do not crush or chew. Take before meals. Deleted via home med review 04/14/2024 documented as of this encounter Historical Medications * This list may reflect changes made after this encounter. propranolol (Innopran XL) 120 MG 24 hour capsule Take by mouth. oxyCODONE (Roxicodone) 5 MG immediate release tablet Take 5-10 mg by mouth. 06/04/2013 ondansetron (Zofran) 4 MG tablet TK 1 T PO Q 6 H PRN 12/07/2019 omeprazole magnesium (PriLOSEC OTC) 20 MG delayed-release tablet Take 20 mg by mouth one time a day. nicotine (Nicoderm CQ) 14 MG/24HR patch 02/15/2020 naltrexone (Depade, Revia) 50 MG tablet Take 1 Tablet by mouth one time a day as needed. 02/21/2020 Multiple Vitamin (One-A-Day Essential) tablet Take 1 Tablet by mouth one time a day. 02/15/2020 escitalopram (Lexapro) 5 MG tablet Take 5 mg by mouth one time a day. 02/15/2020 clonazePAM (KlonoPIN) 0.5 MG tablet Take 1 Tablet by mouth at bedtime. 10/30/2015 busPIRone (Buspar) 5 MG tablet Take 5 mg by mouth two times a day. 02/15/2020 gabapentin (Neurontin) 100 MG capsule Take 100mg in the morning, 100mg in the afternoon and 300mg at bedtime for neuropathy. 02/21/2020 added in this encounter Active and Recently Administered Medications Times are shown in GREENHOUSE TECHNICIAN. Scheduled Medication Order 04/12/2024 04/13/2024 04/14/2024 acetaminophen (Ofirmev) injection 1,000 mg (COMPLETED) 1,000 mg, Intravenous, at 400 mL/hr, ONCE, 1 dose, On Fri04/14/24 at 1300 1302 (New Bag - Prov ider: Shira Sams RN)1343 (Stopped - Provider: Dilshad Alonso RN) diazePAM (Valium) injection 10 mg (COMPLETED) 10 mg, IV Push, ONCE, 1 dose, On Fri04/14/24 at 1300 1304 (Given - Provid er: Shira Sams RN) diphenhydrAMINE (Benadryl) injection 25 mg (COMPLETED) 25 mg, IV Push, ONCE, 1 dose, On Fri04/14/24 at 1630 1619 (Given - Provid er: Jason Grover RN) ketorolac (TORADOL) injection 15 mg (COMPLETED) 15 mg, IV Push, ONCE, 1 dose, On Fri04/14/24 at 1430 1419 (Given - Provid er: Shira Sams RN) metoclopramide (Reglan) injection 10 mg (COMPLETED) 10 mg, IV Push, ONCE, 1 dose, On Fri04/14/24 at 1630 1621 (Given - Provid er: Jason Grover RN) potassium chloride CR (K-Dur, Klor-Con M) tablet 40 mEq (COMPLETED) 40 mEq, Oral, ONCE, 1 dose, On Fri04/14/24 at 1330 1346 (Given - Provid er: Dilshad Alonso RN) sodium chloride 0.9% BOLUS BAG 1,000 mL (COMPLETED) 1,000 mL, Intravenous, at 1,000 mL/hr, ONCE, 1 dose, On Fri04/14/24 at 1300 1308 (New Bag - Prov ider: Shira Sams RN)1345 (Stopped - Provider: Dilshad Alonso RN) thiamine (B-1) 400 mg in sodium chloride 0.9% (NS) 50 mL IVPB(Linked Group 1) 400 mg, Intravenous, at 100 mL/hr, ONCE DAILY, 3 doses, First dose on Fri04/14/24 at 1730, Last dose on Fri04/16/24 at 0800 1723 (New Bag - Prov ider: Jason Grover RN)1755 (Stopped - Provider: Jason Grover RN) thiamine (Vitamin B-1) tablet 500 mg(Linked Group 1) 500 mg, Oral, ONCE DAILY, First dose on Fri04/17/24 at 0800, Until Discontinued PRN Medication Order 04/12/2024 04/13/2024 04/14/2024 diazePAM (Valium) injection 5-20 mg(Linked Group 2) 5-20 mg, IV Push, EVERY 1 HOUR NEEDED, Starting on Fri04/14/24 at 1709, Until Fri04/14/24 at 2158, Withdrawal diazePAM (Valium) injection 5-20 mg(Linked Group 2) 5-20 mg, Intramuscular, EVERY 1 HOUR NEEDED, Starting on Fri04/14/24 at 1709, Until Fri04/14/24 at 2158, Withdrawal diazePAM (Valium) tablet 5-20 mg(Linked Group 2) 5-20 mg, Oral, EVERY 1 HOUR NEEDED, Starting on Fri04/14/24 at 1709, Until Fri04/14/24 at 2158, Withdrawal Linked Groups Order Group 1: thiamine (B-1) 400 mg in sodium chloride 0.9% (NS) 50 mL IVPBJump to med 400 mg, Intravenous, at 100 mL/hr, ONCE DAILY, 3 doses, First dose on Fri04/14/24 at 1730, Last dose on Fri04/16/24 at 0800 Followed by thiamine (Vitamin B-1) tablet 500 mgJump to med 500 mg, Oral, ONCE DAILY, First dose on Fri04/17/24 at 0800, Until Discontinued Group 2: diazePAM (Valium) tablet 5-20 mgJump to med 5-20 mg, Oral, EVERY 1 HOUR NEEDED, Starting on Fri04/14/24 at 1709, Until Fri04/14/24 at 2158, Withdrawal Or diazePAM (Valium) injection 5-20 mgJump to med 5-20 mg, IV Push, EVERY 1 HOUR NEEDED, Starting on Fri04/14/24 at 1709, Until Fri04/14/24 at 2158, Withdrawal Or diazePAM (Valium) injection 5-20 mgJump to med 5-20 mg, Intramuscular, EVERY 1 HOUR NEEDED, Starting on Fri04/14/24 at 1709, Until Fri04/14/24 at 2158, Withdrawal documented in this encounter Orders Medications Ordered That Shawn ht Not Have Been Administered Count Last Ordered Date First Ordered Date diazePAM (Valium) injection 5-20 mg 2 04/14 diazePAM (Valium) tablet 5-20 mg 04/14/19 thiamine (Vitamin B-1) tablet 500 mg 07/2024 Nursing Count Last Ordered Date First Orde red Date [facility]* 1 04/14/2024 CONTINUOUS PULSE OXIMETRY 1 04/14/2024 INSERT PERIPHERAL IV 1 04/14/2024 NEURO CHECKS 1 04/14/2024 documented in this encounter Care Teams Line Out Man Relationship Specialty Start Date End Date Gene Ashraf MD [address] [address] PCP - General Family Medicine 04/14/24 documented as of this encounter
--- OUTSIDE RECORDS SUMMARY | 2024-05-07 10:55 | XMS_ITS | Encounter Summary ---
Author Organization [facility] Address [address] [address] Phone Care Team Providers Care Rn Liaison Name Role Phone Gene Ashraf MD Primary Care Provider [phone] Encounter Details Date Type Department Care Team (Latest Contact Info) Description 04/14/2024 Travel Social History Tobacco Use Types Packs/Day Years Used Date Smoking Tobacco: Every Day Cigarettes Smokeless Tobacco: Never Alcohol Use Standard Drinks/Week Comments Yes 0 (1 standard drink = 0.6 oz pur e alcohol) [facility] Custom IPV Answer Date Recorded Do you feel UNSAFE in any of your personal relationships with your family members or any other acquaintances? 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
--- OUTSIDE RECORDS SUMMARY | 2024-05-07 10:55 | XMS_ITS | Encounter Summary ---
Author Organization [facility] Address [address] [address] Phone Care Team Providers Care Composition Weatherboard Installer Name Role Phone Gene Ashraf MD Primary Care Provider [phone] Encounter Details Date Type Department Care Team (Late st Contact Info) Description 03/21/2021 Scanned - Medical Reports [facility] [address] [place] [address] Abstract, Provider, Social History Tobacco Use Types Packs/Day Years Used Date Smoking Tobacco: Never Assessed Comments No Sex and Gender Information Value Date Recorded Sex Assigned at Not on file 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
--- OUTSIDE RECORDS SUMMARY | 2024-05-07 10:55 | XMS_ITS | Encounter Summary ---
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 Gender Identity Not on file Sexual Orientation [...] Procedure Name Priority Date/Time Associated Diagnosis Comments CT HEAD WO IV CONTRAST STAT 04/14/2024 1:35 PM CALL WORKER PERSON documented in this encounter Results * CT HEAD WO IV CONTRAST (04/14/2024 1:35 PM CALL WORKER PERSON) Anatomical Region Laterality Modality Head Computed Tomogra phy 04/14/2024 1:25 PM CALL WORKER PERSON Narrative 04/14/2024 1:40 PM CALL WORKER PERSON PROCEDURE: CT OF THE HEAD WITHOUT IV [...] Deshpande MD Report Date: 04/14/2024 1:40 PM us Hetal Raina EC CT ORDERABLES Final Result documented in this encounter Visit Diagnoses Not on filedocumented in this encounter Care Teams Automatic Bandsaw Tender Relationship Specialty Start Date End Date Gene Ashraf MD [facility] [address], [place] [address] PCP - General Family Medicine 04/14/24 documented as of this encounter
--- OUTSIDE RECORDS SUMMARY | 2024-05-07 10:55 | XMS_ITS | Clinical Summary ---
Author Organization [facility] Address [address] [address] Phone Care Team Providers Care Riveting Machine Operator Automatic Name Role Phone Gene Ashraf MD Primary Care Provider Allergies No known active allergies Medications LORazepam (Ativan) 1 MG tablet Take 0.5 mg by mouth three times a day as needed for Anxiety. Active hydrOXYzine HCl (Atarax) 25 MG tablet Take 1 Tablet by mouth every six hours as needed for Itching. 20 Tablet 2 Active gabapentin (Neurontin) 100 MG capsule Take 100mg in the morning, 100mg in the afternoon and 300mg at bedtime for neuropathy. 0 Active busPIRone (Buspar) 5 MG tablet Take 5 mg by mouth two times a day. 0 Active clonazePAM (KlonoPIN) 0.5 MG tablet Take 1 Tablet by mouth at bedtime. 6 Active escitalopram (Lexapro) 5 MG tablet Take 5 mg by mouth one time a day. 0 Active Multiple Vitamin (One-A-Day Essential) tablet Take 1 Tablet by mouth one time a day. 0 Active naltrexone (Depade, Revia) 50 MG tablet Take 1 Tablet by mouth one time a day as needed. 0 Active nicotine (Nicoderm CQ) 14 MG/24HR patch 0 Active omeprazole magnesium (PriLOSEC OTC) 20 MG delayed-release tablet Take 20 mg by mouth one time a day. Active ondansetron (Zofran) 4 MG tablet TK 1 T PO Q 6 H PRN 0 Active oxyCODONE (Roxicodone) 5 MG immediate release tablet Take 5-10 mg by mouth. 4 Active propranolol (Innopran XL) 120 MG 24 hour capsule Take by mouth. Activ e potassium chloride CR (K-Dur, Klor-Con M) 20 MEQ tablet Take 2 Tablets by mouth one time a day. Do not crush. 30 Tablet 5 Active Encounters Date Type Department Care Team Description 04/14/2024 4:55 PM RIFFLER TENDER Ancillary Procedure [facility] RADIOLOGY [address] [address] [place] [phone] 04/14/2024 3:05 PM RIFFLER TENDER Ancillary Procedure [facility] MRI [address] [address] [address] [place] [phone] 04/14/2024 1:05 PM RIFFLER TENDER Ancillary Procedure [facility] CT [address] [address] [place] [phone] 04/14/2024 12:38 PM RIFFLER TENDER - 04/14/2024 5:59 PM RIFFLER TENDER Emergency [facility] [address] [place] [id number] Hetal Paris DO Fong, Erine O, MD Witnessed seizure-like activity (HCC) (Primary Dx); History of alcohol withdrawal syndrome; Hypokalemia; Acute cough; Acute nonintractable headache, unspecified headache type Discharge Disposition: Home and/or Self Care 04/14/2024 Travel from Last 3 Months Immunizations Name Administration Dates Next Due TD >7yrs With Preservative 09/26/2003 Tdap (7 years and older) 10/28/2011 Surgical History Surgery Date Site/Laterality Comments WRIST FRACTURE SURGERY 03/21/2021 Right Right distal radius ORIF. ([facility]) Social History Tobacco Use Types Packs/Day Years Used Date Smoking Tobacco: Every Day Cigarettes Smokeless Tobacco: Never Tobacco Cessation:Ready to Q uit: Not Asked; Counseling Given: Not Answered Alcohol Use Standard Drinks/Week Comments Yes 0 (1 standard drink = 0.6 oz pur e alcohol) [facility] Custom IPV Answer Date Recorded Do you feel UNSAFE in any of your personal relationships with your family members or any other acquaintances? 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 Gender Identity Not on file Sexual Orientation Not on file Obstetrics History Last Filed Vital Signs Vital Sign Reading Time Taken Comments Blood Pressure 146/92 04/14/2024 5:30 PM RIFFLER TENDER Pulse 93 04/14/2024 5:30 PM RIFFLER TENDER Temperature 36.9 C (98.5 F) 04/14/2024 12:52 PM RIFFLER TENDER Respiratory Rate 16 04/14/2024 12:52 PM RIFFLER TENDER Oxygen Saturation 99% 04/14/2024 5:00 PM RIFFLER TENDER Inhaled Oxygen Concentration - - Weight 74.4 kg (164 lb) 02/12/2020 6:11 PM RIFFLER TENDER Height 170.2 cm (5' 7) 02/12/2020 6:11 PM RIFFLER TENDER Body Mass Index 25.69 02/12/2020 6:11 PM RIFFLER TENDER Plan of Treatment Health Maintenance Due Date Last Done Comments CT Colonography 1975 Cervical Cancer Screening 1975 Cologuard 1975 Colonoscopy 1975 Colorectal Cancer Screening 1975 FIT/FOBT 1975 Last pap w/ HPV Testing 1975 Last pap w/o HPV Testing 1975 MAMMO,SCREEN 1975 Sigmoidoscopy 1975 Hepatitis B Vaccine (Standin g Order) (1 of 3 - 19+ 3-dose series) 07/09/1994 Pneumococcal/PCV20 Vaccine: Pediatrics (2-5 yrs) and At-Risk Patients (6-49 yrs) (Standing Order) (1 of 2 - PCV) 07/09/1994 TETANUS (Standing Order) 10/27/2021 012, 09/26/2003 COVID-19 Vaccine ( - 2023-2 5 season) 2023 Influenza Vaccine Seasonal (Standing Order) (#1) 2023 PERTUSSIS (Standing Order) Completed 10/28/2011 HPV Vaccine (Standing Order) Aged Out No longer eligible based on patient's age to complete this topic Procedures Procedure Name Priority Date/Time Associated Diagnosis Comments XR CHEST 1 VIEW STAT 04/14/2024 5:03 PM RIFFLER TENDER Witnessed seizure-like activity (HCC) MR BRAIN WO W CONTRAST STAT 3:50 PM RIFFLER TENDER Witnessed seizure-like activity (HCC) BASIC METABOLIC PANEL LENY 04/14/2024 2:48 PM RIFFLER TENDER LACTIC ACID W/2HR REFLEX LENY 04/14/2024 2:48 PM RIFFLER TENDER CULTURE, URINE LENY 04/14/2024 2:20 PM RIFFLER TENDER URINE DRUG SCREEN LENY 04/14/2024 2:2 0 PM RIFFLER TENDER URINALYSIS, REFLEX TO CULTURE LENY 04/14/2024 2:[address] HEAD WO IV CONTRAST STAT 1:35 PM RIFFLER TENDER MAGNESIUM Add on 04/14/2024 12:57 PM RIFFLER TENDER COMPREHENSIVE METABOLIC PANEL LENY 04/14/2024 12:57 PM RIFFLER TENDER ALCOHOL LENY 04/14/2024 12:57 PM RIFFLER TENDER LACTIC ACID W/2HR REFLEX LENY 04/14/2024 12:57 PM RIFFLER TENDER HEMOGRAM/DIFF LENY 04/14/2024 12:57 PM RIFFLER TENDER EKG 12-LEAD STAT 04/14/2024 12:48 PM RIFFLER TENDER from Last 3 Months Results * XR CHEST 1 VIEW (04/14/2024 5:03 PM RIFFLER TENDER) Anatomical Region Laterality Modality Chest Radiographic Josefa ging 04/14/2024 4:57 PM RIFFLER TENDER Narrative 04/15/2024 7:16 AM RIFFLER TENDER PROCEDURE: XR CHEST 1 VIEW HISTORY: cough [...] BRAIN WO W CONTRAST (04/14/2024 3:50 PM RIFFLER TENDER) Anatomical Region Laterality Modality Head Magnetic Resonan ce 04/14/2024 3:24 PM RIFFLER TENDER Narrative 04/14/2024 4:28 PM RIFFLER TENDER EXAM: MR BRAIN WO W CONTRAST LOCATION: [facility] DATE: 04/14/2024 INDICATION: Seizure COMPARISON: Head [...] by: Jude Wheatley M.D. 04/14/2024 4:28 PM RIFFLER TENDER Procedure Note Jude Wheatley MD - 04/14/2024 [...] and scattered foci of deep white matter [id number] involving both cerebral hemispheres, nonspecific. These could representfoci of nondescript gliosis or early chronic hypertensive/microvascular ischemicwhite matter changes. Electronically signed by: Jude Wheatley M.D. 04/14/2024 4:28 PM RIFFLER TENDER Hetal Paris DO MRI ORDERABLES Final Result * LACTIC ACID W/2HR REFLEX (04/14/2024 2:48 PM RIFFLER TENDER) Lactic Acid, Venous 0.9 0.7 - 2.1 mmol/L 04/14/2024 3:09 PM RIFFLER TENDER [facility] Blood BLOOD SPECIMEN / Unknown Venipuncture / Unknown 04/14/2024 2:48 PM RIFFLER TENDER 04/14/2024 2:52 PM RIFFLER TENDER Hetal Paris DO EC CHEMISTRY ORDERABLES Final Result [facility] [address] [place] [address] * (ABNORMAL) BASIC METABOLIC PANEL (04/14/2024 2:48 PM RIFFLER TENDER) Sodium 132(L) 135 - 144 mmol/L 04/14/2024 3:14 PM RIFFLER TENDER [facility] Potassium 2.9(LL) 3.4 - 5.1 mmol/L 04/14/2024 3:14 PM RIFFLER TENDER [facility] Chloride 100 98 - 107 mmol/L 04/14/2024 3:14 PM RIFFLER TENDER [facility] Carbon Dioxide 24 22 - 30 mmol/L 04/14/2024 3:14 PM RIFFLER TENDER [facility] Calcium 8.0(L) 8.6 - 10.3 mg/dL 04/14/2024 3:14 PM RIFFLER TENDER [facility] Glucose 107(H) 74 - 100 mg/dL 04/14/2024 3:14 PM RIFFLER TENDER [facility] Blood Urea nitrogen 12 7 - 17 mg/dL 04/14/2024 3:14 PM RIFFLER TENDER [facility] Creatinine 0.61 0.52 - 1.04 mg/dL 04/14/2024 3:14 PM RIFFLER TENDER [facility] Anion Gap 8 5 - 15 mmol/L 04/14/2024 3:14 PM RIFFLER TENDER [facility] Glomerular Filtration Rate >60 >60 mL/min/1.7 3 m*2 04/14/2024 3:14 PM RIFFLER TENDER [facility] Comment:This calculation use s CKD-EPI 2020 equation; it has not been validated in women. Blood BLOOD SPECIMEN / Unknown Venipuncture / Unknown 04/14/2024 2:48 PM RIFFLER TENDER 04/14/2024 2:52 PM RIFFLER TENDER Hetal Paris DO EC CHEMISTRY ORDERABLES Final Result [facility] [address] [place] [address] * (ABNORMAL) CULTURE, URINE (04/14/2024 2:20 PM RIFFLER TENDER) Pathologist [facility] Urine Culture >100,000 cfu/mL Escherichia coli(A) 04/16/2024 7:53 AM RIFFLER TENDER [facility] Urine URINE SPECIMEN COLLECTION, CLEAN CATCH / Unknown Non-blood collection / Unknown 04/14/2024 2:20 PM RIFFLER TENDER 04/14/2024 2:37 PM RIFFLER TENDER Narrative Organism Antibiotic Method Susceptibility Escherichia coli [...] Sensitive Hetal Paris DO MICROBIOLOGY - GENERAL ORDE GOMEZ Final Result [facility] [address] [place] [address] * (ABNORMAL) URINALYSIS, REFLEX TO CULTURE (04/14/2024 2:20 PM RIFFLER TENDER) Pathologist [facility] UA Color Kathia(A) Light Yellow, Yellow 04/14/2024 2:37 PM RIFFLER TENDER [facility] Urine Appearance Cloudy(A) Clear 04/14/19 2:37 PM RIFFLER TENDER [facility] Urine Specific [place] 1.015 1.005 - 1.030 04/14/2024 2:37 PM RIFFLER TENDER [facility] Urine pH 6.0 5.0 - 8.0 04/14/2024 2:37 PM RIFFLER TENDER [facility] Urine Leukocyte Esterase Trace(A) Negative 04/14/2024 2:37 PM RIFFLER TENDER [facility] Urine Nitrates Negative Negative 04/14/2024 2:37 PM RIFFLER TENDER [facility] Urine Protein Trace(A) Negative 04/14/2024 2:37 PM RIFFLER TENDER [facility] Urine Glucose Negative Negative 04/14/2024 2:37 PM RIFFLER TENDER [facility] Urine Ketones Negative Negative 04/14/2024 2:37 PM RIFFLER TENDER [facility] Urine Urobilinogen Normal Normal 04/14/2024 2:37 PM RIFFLER TENDER [facility] Urine Bilirubin Negative Negative 2:37 PM RIFFLER TENDER [facility] Urine Blood 2+(A) Negative 04/14/2024 2:37 PM RIFFLER TENDER [facility] Urine WBC's 0-5 0 - 5 /HPF 04/14/2024 2:37 PM RIFFLER TENDER [facility] Urine RBC's 0-2 0 - 2 /HPF 04/14/2024 2:37 PM RIFFLER TENDER [facility] Urine Epithelial Cells Occasional( A) Negative /HPF 04/14/2024 2:37 PM RIFFLER TENDER [facility] Urine Bacteria Packed(A) Negative /HPF 04/14/2024 2:37 PM RIFFLER TENDER [facility] Urine URINE SPECIMEN COLLECTION, CLEAN CATCH / Unknown Non-blood collection / Unknown 04/14/2024 2:20 PM RIFFLER TENDER 04/14/2024 2:24 PM RIFFLER TENDER Hetal Paris DO URINE ORDERABLES Final Resu lt [facility] [address] [place] [address] * (ABNORMAL) URINE DRUG SCREEN (04/14/2024 2:20 PM RIFFLER TENDER) Pathologist [facility] Urine Amphetamines Screen Negative Negative 2:41 PM RIFFLER TENDER [facility] Urine Barbiturates Screen Negative Negative 2:41 PM RIFFLER TENDER [facility] Urine Benzodiazepines Screen Negative Negative 5 2:41 PM RIFFLER TENDER [facility] Urine Cocaine Screen Negative Negative 0 5 2:41 PM RIFFLER TENDER [facility] Urine Fentanyl Screen Negative Negative 5 2:41 PM RIFFLER TENDER [facility] Urine Opiates Screen Negative Negative 0 5 2:41 PM RIFFLER TENDER [facility] Urine Oxycodone Screen Negative Negative 5 2:41 PM RIFFLER TENDER [facility] Urine Phencyclidine Screen Negative Negative 5 2:41 PM RIFFLER TENDER [facility] Urine Methadone Screen Negative Negative 5 2:41 PM RIFFLER TENDER [facility] Urine Methamphetamine Screen Negative Negative 5 2:41 PM RIFFLER TENDER [facility] Urine Tetrahydrocannabinol Screen Presumptive Positive(A) Negative 5 2:41 PM RIFFLER TENDER [facility] Urine Tricyclic Antidepressants Screen Negative Negative 5 2:41 PM RIFFLER TENDER [facility] Urine URINE SPECIMEN COLLECTION, CLEAN CATCH / Unknown Non-blood collection / Unknown 04/14/2024 2:20 PM RIFFLER TENDER 04/14/2024 2:24 PM RIFFLER TENDER Narrative [facility] - 04/14/2024 2:41 PM RIFFLER TENDER False presumptive positives may occur with prescription and [id number] medications due to cross-reactivity and interfering compounds.Urine [...] Tetrahydrocannabinol: 50 ng/mL Tricyclic Antidepressants: 300 ng/mL us Hetal Paris DO EC URINE ORDERABLES Final Resu lt [facility] [address] [phone] * CT HEAD WO IV CONTRAST (04/14/2024 1:35 PM RIFFLER TENDER) Anatomical Region Laterality Modality Head Computed Tomogra phy 04/14/2024 1:25 PM RIFFLER TENDER Narrative 04/14/2024 1:40 PM RIFFLER TENDER PROCEDURE: CT OF THE HEAD WITHOUT IV [...] Date: 04/14/2024 1:40 PM Hetal Paris DO EC CT ORDERABLES Final Result * (ABNORMAL) LACTIC ACID W/2HR REFLEX (04/14/2024 12:57 PM RIFFLER TENDER) Lactic Acid, Venous 2.5(H) 0.7 - 2.1 mmol/L 04/14/2024 1:13 PM RIFFLER TENDER [facility] Blood BLOOD SPECIMEN / Unknown Venipuncture / Unknown 04/14/2024 12:57 PM RIFFLER TENDER 04/14/2024 1:00 PM RIFFLER TENDER Hetal Paris DO CHEMISTRY ORDERABLES Final Result [facility] [address] [place] [address] * (ABNORMAL) COMPREHENSIVE METABOLIC PANEL (04/14/2024 12:57 PM RIFFLER TENDER) Pathologist [facility] Sodium 132(L) 135 - 144 mmol/L 04/14/2024 1:18 PM RIFFLER TENDER [facility] Potassium 2.9(LL) 3.4 - 5.1 mmol/L 04/14/2024 1:18 PM RIFFLER TENDER [facility] Chloride 96(L) 98 - 107 mmol/L 04/14/2024 1:18 PM [facility] Carbon Dioxide 22 22 - 30 mmol/L 04/14/2024 1:18 PM [facility] Calcium 8.6 8.6 - 10.3 mg/dL 04/14/2024 1:18 PM RIFFLER TENDER [facility] Alkaline Phosphatase 88 38 - 126 U/L 04/14/2024 1:18 PM RIFFLER TENDER [facility] Aspartate Aminotransferase 47(H) 14 - 36 U/L 04/14/2024 1:18 PM RIFFLER TENDER [facility] Alanine Aminotransferase 31 <35 U/L 04/14/2024 1:18 PM [facility] Glucose 130(H) 74 - 100 mg/dL 04/14/2024 1:18 PM [facility] Blood Urea nitrogen 13 7 - 17 mg/dL 04/14/2024 1:18 PM [facility] Creatinine 0.64 0.52 - 1.04 mg/dL 04/14/2024 1:18 PM [facility] Protein, Total 7.1 6.3 - 8.2 g/dL 04/14/2024 1:18 PM [facility] Albumin 4.3 3.5 - 5.0 g/dL 04/14/2024 1:18 PM [facility] Bilirubin, Total 1.0 0.2 - 1.3 mg/dL 04/14/2024 1:18 PM [facility] Globulin 2.8 1.4 - 4.8 g/dL 04/14/2024 1:18 PM [facility] Anion Gap 14 5 - 15 mmol/L 04/14/2024 1:18 PM [facility] Glomerular Filtration Rate >60 >60 mL/min/1. 73 m*2 04/14/2024 1:18 PM [facility] Comment:This calculation use s CKD-EPI 2020 equation; it has not been validated in women. Blood BLOOD SPECIMEN / Unknown Venipuncture / Unknown 04/14/2024 12:57 PM RIFFLER TENDER 04/14/2024 1:00 PM RIFFLER TENDER Hetal GONSALES CHEMISTRY ORDERABLES Final Result Performing Organization Address City/State/[facility] Co de Phone Number [facility] [address] [place] [address] * (ABNORMAL) HEMOGRAM/DIFFERENTIAL (04/14/2024 12:57 PM RIFFLER TENDER) WBC 13.7(H) 4.0 - 11.0 10*3/uL 04/14/2024 1:09 PM [facility] RBC 4.01 3.80 - 5.20 10*6/uL 04/14/2024 1:09 PM [facility] HGB 13.2 12.0 - 16.0 g/dl 04/14/2024 1:09 PM [facility] HCT 38.1 35.0 - 47.0 % 04/14/2024 1:09 PM [facility] MCV 95.0 80 - 98 fL 04/14/2024 1:09 PM RIFFLER TENDER [facility] MCH 32.9 27.0 - 34.0 pg 04/14/2024 1:09 PM RIFFLER TENDER [facility] MCHC 34.6 32 - 36 g/dl 04/14/2024 1:09 PM RIFFLER TENDER [facility] PLT 208 150 - 420 10*3/uL 04/14/2024 1:09 PM RIFFLER TENDER [facility] Neutrophils Absolute 9.19(H) 2.10 - 7.50 10*3/uL 04/14/2024 1:09 PM RIFFLER TENDER [facility] Lymphocytes Absolute 3.11 0.76 - 4.00 10*3/uL 04/14/2024 1:09 PM RIFFLER TENDER [facility] Monocytes Absolute 0.83 0.00 - 0.90 10*3/uL 04/14/2024 1:09 PM RIFFLER TENDER [facility] Eosinophils Absolute 0.47 0.04 - 0.54 10*3/uL 04/14/2024 1:09 PM RIFFLER TENDER [facility] Basophils Absolute 0.03 0.00 - 0.20 10*3/uL 04/14/2024 1:09 PM RIFFLER TENDER [facility] RDW-SD 41.9 36.5 - 46.3 fL 04/14/2024 1:09 PM RIFFLER TENDER [facility] RDW-CV 12.0 11.6 - 14.4 % 04/14/2024 1:09 PM RIFFLER TENDER [facility] Immature Granulocytes Absolute 0.03 0.00 - 0.10 10*3/uL 04/14/2024 1:09 PM RIFFLER TENDER [facility] Blood BLOOD SPECIMEN / Unknown Venipuncture / Unknown 04/14/2024 12:57 PM RIFFLER TENDER 04/14/2024 1:00 PM RIFFLER TENDER Hetal GONSALES HEMATOLOGY ORDERABLES Final Result [facility] [address] [place] [address] * MAGNESIUM (04/14/2024 12:57 PM RIFFLER TENDER) [facility] Signature Magnesium 1.8 1.6 - 2.3 mg/dL 04/14/2024 1:34 PM RIFFLER TENDER [facility] Blood BLOOD SPECIMEN / Unknown Venipuncture / Unknown 04/14/2024 12:57 PM RIFFLER TENDER 04/14/2024 1:00 PM RIFFLER TENDER [facility] EC CHEMISTRY ORDERABLES Final Result Performing Organization Address [facility] de Phone Number [facility] [address] [place] [address] * ALCOHOL (04/14/2024 12:57 PM RIFFLER TENDER) Alcohol <0.010 <=0.010 % 04/14/2024 1:16 PM [facility] Blood BLOOD SPECIMEN / Unknown Venipuncture / Unknown 04/14/2024 12:57 PM RIFFLER TENDER 04/14/2024 1:00 PM RIFFLER TENDER [facility] EC CHEMISTRY ORDERABLES Final Result Performing Organization Address [facility] de Phone Number [facility] [address] [place] [address] * EKG 12-LEAD (04/14/2024 12:48 PM RIFFLER TENDER) Ventricular Rate 109 BPM [facility] Atrial Rate 109 BPM [facility] P-R Interval 140 ms [facility] QRS Duration 88 ms [facility] QT 332 ms [facility] QTc 447 ms [facility] P [place] 59 degrees [facility]USE R [place] 15 degrees [facility] T [place] -7 degrees [facility]USE 04/14/2024 12:4 8 PM RIFFLER TENDER 04/16/2024 8:01 PM RIFFLER TENDER Narrative [facility] - 04/16/2024 8:01 PM RIFFLER TENDER Confirming Doc Eliseo Stewart Sinus tachycardia Nonspecific ST abnormality Abnormal ECG No previous ECGs available Procedure Note Eliseo Stewart, DO - 04/16/[address] Eliseo Stewart Sinus tachycardia Nonspecific ST abnormality Abnormal ECG No previous ECGs available us Heatl Paris DO IP ECG ORDERABLES Final Result [facility] from Last 3 Months Insurance BLUE PLUS [facility] REF REQ [facility] [place]UE PLUS [place] Care Teams Riveting Machine Operator Automatic Relationship Specialty Start Date End Date Gene Ashraf MD [facility] [address] [place] [address] (work) PCP - General Family Medicine 04/14/24
--- NOTE | 2024-05-07 11:47 | ED.GENADULT ---
HPI - General Adult General Date Seen: 05/07/24 Chief complaint: Abdominal Pain Stated complaint: Sore throat, vomiting Time Seen by Provider: 05/07/24 11:24 History of Present Illness HPI narrative: 48-year-old female with a history of lumbar stenosis, GERD, anxiety/depression, tobacco use, alcohol use, who presents to the ER today with concern for nausea and vomiting, left lower quadrant abdominal pain, diarrhea, and sore throat History is a little bit disjointed from the patient. She says she started having nausea and vomiting about 2 days ago, approximately on Friday. She has had uncomfortable numbers of clear liquid he emesis. She has not been able to keep any solid food down since Friday. She has been trying to drink to stay hydrated but mostly throws up whenever she tries to drink any liquids. She has also developed some liquidy diarrhea that began yesterday. The not able to report how many episodes of diarrhea. It sounds like there has been no blood in her emesis or diarrhea. She has felt warm but has not had a fever. She did not measure temperature at home but did not have a fever here in the ER triage process She has also had a sore throat that began about 4 or 5 days ago. She was seen in urgent care and had a negative strep swab. When asked about medications she does say that she takes a medicine for depression and a medicine for anxiety. She has not been able to take her meds for the past couple of days due to vomiting. 1 asked about alcohol consumption she does say that she quit drinking. When asked her how long ago she says, at the beginning of the week. Not able to get a clear report of how much alcohol alcohol she had been consuming before she quit or got sick. This morning after vomiting she started having some intense sharp left lower quadrant abdominal pain. Previous abdominal surgeries include only . Related Data Previous Rx's ?Medication ?Instructions ?Recorded gabapentin 100 mg capsule See Rx Instructions PO .ud #240 04/02/23 caps alprazolam 1 mg tablet 1 mg PO TID PRN anxiety #30 tabs 05/29/23 ibuprofen 600 mg tablet 600 mg PO QID PRN #30 tabs 06/05/23 oxycodone 5 mg tablet 5 mg PO 3XD PRN 4 OR GREATER ON 06/05/23 PAIN SCALE #7 tabs escitalopram oxalate 20 mg tablet 20 mg PO QDAY #90 tabs 06/16/23 naltrexone 50 mg tablet 50 mg PO QDAY #90 tabs 06/16/23 gabapentin 300 mg capsule See Rx Instructions PO .ud #120 09/05/23 caps omeprazole 20 mg capsule,delayed 20 mg PO QDAY #90 caps 11/17/23 release albuterol sulfate 90 mcg/actuation 2 puff inhalation Q4H PRN 12/04/23 aerosol inhaler (Proventil HFA) shortness of breath or wheezing #8.5 grams verapamil 120 mg tablet,extended 120 mg PO BID #180 tabs 12/24/23 release bupropion HCl 300 mg 24 hr tablet, 300 mg PO QAM #90 tabs 02/06/24 extended release lorazepam 0.5 mg tablet 0.5 mg PO BID PRN anxiety #20 tabs 04/15/24 albuterol sulfate 90 mcg/actuation 2 puff inhalation Q4-6H PRN 04/30/24 aerosol inhaler shortness of breath or wheezing #6.7 grams buspirone 30 mg tablet 30 mg PO BID #180 tabs 05/06/24 Allergies Allergy/AdvReac Type Severity Reaction Status Date / Time No Known Allergies Allergy Unknown Verified 05/07/24 13:37 [facility] Medical History Hypertension ?I10 - Essential (primary) hypertension (ICD-10) History of alcoholic hepatitis ?Z87.19 - Personal history of other diseases of the digestive system (ICD-10) COVID-19 ?U07.1 - COVID-19 (ICD-10) Bartholin's gland abscess ?N75.1 - Abscess of Bartholin's gland (ICD-10) Injury of finger of right hand ?S69.91XA - Unspecified injury of right wrist, hand and finger(s), initial encounter (ICD-10) Hypothyroidism ?E03.9 - Hypothyroidism, unspecified (ICD-10) Fracture of rib ?S22.39XA - Fracture of one rib, unspecified side, initial encounter for closed fracture (ICD-10) Surgical History Status post cervical spinal arthrodesis ?Z98.1 - Arthrodesis status (ICD-10) History of tubal ligation ?Z98.51 - Tubal ligation status (ICD-10) History of loop electrical excision procedure (LEEP) ?Z98.890 - Other specified postprocedural states (ICD-10) History of section ?Z98.891 - History of uterine scar from previous surgery (ICD-10) Family History Other Diabetes Social History Narrative: alcohol abuse Smoking Status: Current every day smoker What tobacco products do you use: cigarettes Smoking packs per day: 1 Smoking cigarettes per day: 20.0 Years smoked: 10 Smoking pack-years: 10.00 Do you use any of these nicotine containing products: None Second hand tobacco smoke exposure: No How often do you have a drink containing alcohol: 2-4 times a month AUDIT-C Alcohol total score: 2 Non-prescribed substance use: marijuana (any form) Caffeine: Yes Are you using contraception or practicing any form of control: Yes (tubal) service: No Exam Narrative: Exam Narrative: During my initial evaluation she had sudden projectile emesis of watery fluid all over herself, her bed, and the floor. Constitutional: Appears well-developed and well-nourished. Alert. Conversant. Very pleasant but a little bit of a non chronological historian. Very uncomfortable and needs assistance to sit up because of severe lower abdominal pain HENT: Head: Atraumatic. Nose: Nose normal. Mouth/Throat: Oral mucosa is clear and moist. no trismus. Pharynx erythematous. No exudates.. Tonsils symmetric. No tonsillar enlargement, or exudate. Eyes: Conjunctivae normal. EOM normal. Pupils equal, round, and reactive to light. No scleral icterus. Neck: Normal range of motion. Neck supple. No tracheal deviation present. Cardiovascular: Tachycardic, 120 on the monitor, regular rhythm. No gallop. No friction rub. No murmur heard. Symmetric radial artery pulses Pulmonary/Chest: Effort normal. No stridor. No respiratory distress. No wheezes. No rales. No rhonchi . No tenderness. Abdominal: Soft. Bowel sounds normal. No distension. No mass. Marked left lower quad> suprapubic and right lower quadrant> left upper quadrant and left CVA tenderness. Positive guarding and rebound. rebound. No guarding. Musculoskeletal: RUE: Normal range of motion. No tenderness. No deformity LUE: Normal range of motion. No tenderness. No deformity RLE: Normal range of motion. No edema. No tenderness. No deformity LLE: Normal range of motion. No edema. No tenderness. No deformity Lymph: No cervical adenopathy. Neurological: Alert and oriented to person, place, and time. Normal strength. CN II-VII intact. No sensory deficit. GCS eye subscore is 4. GCS verbal subscore is 5. GCS motor subscore is 6. Normal coordination Skin: Skin is warm and dry. No rash noted. No pallor. Normal capillary refill. Psychiatric: Normal mood. Normal affect. Const: Vital Signs, click to edit/add: Vital Signs - 24 hr 05/07/24 11:07 05/07/24 12:58 05/07/24 13:00 Temperature 98.2 F Pulse Rate 97 100 Pulse Rate [Pulse Oximeter] 120 H Respiratory Rate 16 13 18 Blood Pressure Blood Pressure [Ri ght Upper Arm] 159/111 H Pulse Oximetry 97 93 94 Oxygen Delivery Me thod Room Air 05/07/24 13:15 05/07/24 13:30 05/07/24 13:46 Temperature Pulse Rate 96 89 97 Pulse Rate [Pulse Oximeter] Respiratory Rate 29 H 19 20 Blood Pressure Blood Pressure [Ri ght Upper Arm] Pulse Oximetry 95 92 93 Oxygen Delivery Me thod 05/07/24 14:05 05/07/24 14:15 05/07/24 14:30 Temperature Pulse Rate 91 90 95 Pulse Rate [Pulse Oximeter] Respiratory Rate 17 16 Blood Pressure Blood Pressure [Ri ght Upper Arm] Pulse Oximetry 95 94 93 Oxygen Delivery Me thod 05/07/24 14:35 05/07/24 14:45 05/07/24 15:00 Temperature Pulse Rate 95 97 93 Pulse Rate [Pulse Oximeter] Respiratory Rate 19 18 13 Blood Pressure 157/97 H Blood Pressure [Ri ght Upper Arm] Pulse Oximetry 94 95 94 Oxygen Delivery Me thod 05/07/24 15:01 05/07/24 15:15 05/07/24 15:30 Temperature Pulse Rate 94 94 90 Pulse Rate [Pulse Oximeter] Respiratory Rate 14 11 L 22 Blood Pressure 131/90 H Blood Pressure [Ri ght Upper Arm] Pulse Oximetry 95 93 95 Oxygen Delivery Me thod 05/07/24 15:31 05/07/24 15:32 05/07/24 15:45 Temperature Pulse Rate 93 88 87 Pulse Rate [Pulse Oximeter] Respiratory Rate 17 15 Blood Pressure 125/93 H Blood Pressure [Ri ght Upper Arm] Pulse Oximetry 95 92 91 Oxygen Delivery Me thod 05/07/24 16:00 05/07/24 16:01 05/07/24 16:15 Temperature Pulse Rate 88 88 86 Pulse Rate [Pulse Oximeter] Respiratory Rate 17 13 14 Blood Pressure 148/91 H Blood Pressure [Ri ght Upper Arm] Pulse Oximetry 92 91 92 Oxygen Delivery Me thod 05/07/24 16:30 05/07/24 16:31 05/07/24 16:45 Temperature Pulse Rate 88 87 83 Pulse Rate [Pulse Oximeter] Respiratory Rate 13 14 Blood Pressure 148/90 H Blood Pressure [Ri ght Upper Arm] Pulse Oximetry 93 93 91 Oxygen Delivery Me thod 05/07/24 17:00 05/07/24 17:02 05/07/24 17:15 Temperature Pulse Rate 81 83 83 Pulse Rate [Pulse Oximeter] Respiratory Rate 21 15 12 Blood Pressure 143/81 H Blood Pressure [Ri ght Upper Arm] Pulse Oximetry 89 92 91 Oxygen Delivery Me thod 05/07/24 17:30 05/07/24 17:31 05/07/24 17:32 Temperature Pulse Rate 82 82 81 Pulse Rate [Pulse Oximeter] Respiratory Rate 10 L 12 12 Blood Pressure 159/92 H Blood Pressure [Ri ght Upper Arm] Pulse Oximetry 92 92 92 Oxygen Delivery Me thod 05/07/24 17:45 05/07/24 18:00 05/07/24 18:04 Temperature Pulse Rate 82 81 83 Pulse Rate [Pulse Oximeter] Respiratory Rate 13 13 13 Blood Pressure 154/111 H Blood Pressure [Ri ght Upper Arm] Pulse Oximetry 95 91 93 Oxygen Delivery Me thod Course Course ED Course: The to the recheck-feeling slightly better, less nauseous after Zofran. Still has significant abdominal pain. I am able to form a more comprehensive exam now that she is no longer retching. Reevaluation(s) Reevaluation #1: Recheck-reviewed CT imaging. I am concerned about apparent air surrounding the urinary bladder and possibly in the pelvis. Also and apparently a swelling of the left lower abdominal wall, possibly a rectus sheath abscess or hematoma. Called for stat Radiology read. Antibiotics ordered Repeat lactic is pending. I added on a repeat hemoglobin to her to our blood draw. Recheck-discussed with Radiology, Dr. Crane, by phone. He indicates that the CT shows a rectus sheath hematoma. There is some contrast plus indicating a small amount of active bleeding and some signs of blood in the abdominal wall but not penetrating into the peritoneal cavity. He recommends consultation with IR since there is active bleeding. 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 No evidence for any bowel perforation. Radiology recommends antibiotics and Urology consultatio I immediately placed a phone call to the [facility] transfer line. After some conversation with the transfer line permit review assistant I was put in contact with aerial sprayer, Dr. Reynolds. He and I reviewed the patient's presenting symptoms, vital signs, lab and imaging finding. He agrees the patient does need transfer to [place]. We were able to consult with Interventional Radiology, Dr. Lemus who recommends no intervention for the rectus sheath hematoma. Repeat hemoglobin came back at 12. This is down by 2 g compared to arrival which I think is consistent with hemodilution from the IV fluids she has received not necessarily dropping because of active blood loss she remains hemodynamically stable, even slightly hypertensive Dr. Reynolds advises that at this point she does not need emergent transfer ED to ED or to the ICU. He think she is stable to go to the medical floor Recheck-discussed with hospitalist, Dr. Ley. He accepts the patient in transfer. They should be fairly expeditious bed availability Update-bed has been delayed at [place]. Still waiting on bed assignment patient remains hemodynamically stable Update-still waiting on bed At approximately 6:00 p.m. patient was finally assigned a bed. Vital Signs Vital signs: Initial Vital Signs Temperature 98.2 F 05/07/24 11:07 Temperature Source Temporal Artery Scan 05/07/24 11:07 Pulse Rate 120 H 05/07/24 11:07 Respiratory Rate 16 05/07/24 11:07 Blood Pressure 159/111 H 05/07/24 11:07 Blood Pressure Mean 127 H 05/07/24 11:07 Blood Pressure Position Sitting 05/07/24 11:07 Pulse Oximetry 97 05/07/24 11:07 Oxygen Delivery Method Room Air 05/07/24 11:07 Vital Signs Temperature 98.2 F 05/07/24 11:07 Pulse Rate 120 H 05/07/24 11:07 Respiratory Rate 16 05/07/24 11:07 Blood Pressure 159/111 H 05/07/24 11:07 Pulse Oximetry 97 05/07/24 11:07 Oxygen Delivery Method Room Air 05/07/24 11:07 Temperature 98.2 F 05/07/24 11:07 Pulse Rate 83 05/07/24 18:04 Respiratory Rate 13 05/07/24 18:04 Blood Pressure 154/111 H 05/07/24 18:04 Pulse Oximetry 93 05/07/24 18:04 Oxygen Delivery Method Room Air 05/07/24 11:07 Medications Administered Medications: Generic Name Dose Route Start Last Admin Trade Name Freq PRN Reason Stop Dose Admin Hydromorphone HCl 0.5 mg 05/07/24 12:41 05/07/24 16:22 Hydromorphone 0.5 Mg/0.5 Ml Inj IVP 0.5 mg Q1H PRN Administration Pain Piperacillin Sod/Tazobactam 100 mls @ 200 mls/hr 05/07/24 14:00 05/07/24 14:51 Sod 4.5 gm/ Sodium Chloride IVPB Infused Q6H DAVID Infusion Discontinued Medications Generic Name Dose Route Start Last Admin Trade Name Freq PRN Reason Stop Dose Admin Sodium Chloride 1,000 mls @ 1,000 mls/hr 05/07/24 12:15 05/07/24 12:50 0.9 % Sodium Chloride 1000 Ml IV 05/07/24 13:14 Infused .Q1H DAVID Infusion Lactated Ringer's 1,000 mls @ 1,000 mls/hr 05/07/24 12:41 05/07/24 13:40 Lactated Ringers 1000 Ml IV 05/07/24 13:40 Infused .Q1H ONE Infusion Vancomycin/PEG/NADA/Lysine/Water 1.5 gm in 300 mls @ 200 mls/hr 05/07/24 13:50 05/07/24 16:29 Vancomycin 1.5 Gm/300 Ml IVPB 05/07/24 15:19 Infused ONCE ONE Infusion Protocol Lorazepam 1 mg 05/07/24 12:01 05/07/24 12:28 Lorazepam 2 Mg/Ml Inj IVP 05/07/24 12:02 1 mg ONCE ONE Administration Ondansetron HCl 4 mg 05/07/24 12:01 05/07/24 12:28 Ondansetron 2 Mg/Ml Inj IVP 05/07/24 12:02 4 mg ONCE ONE Administration Medical Decision Making [facility] Narrative Medical decision making narrative: 48-year-old female presenting to the ER today with several symptoms including sore throat for for 5 days, nausea, vomiting, diarrhea for 2-3 days, and left lower quadrant abdominal pain that started when she felt something rip this morning while retching. She had already had a negative strep screening clinic. Differential would include viral pharyngitis. Also consider viral gastroenteritis versus other causes. She also may have a history of alcohol use and stop drinking on Friday. Differential also includes alcohol withdrawal .Based on her presenting vital signs and significant abdominal tenderness I was concerned about intra-abdominal infection such as UTI, pyelonephritis, diverticulitis, colitis. Labs and CT were ordered along with IV fluids, anti emetics, IV opiate pain meds. Patient had marked improvement her vital signs with correction of her tachycardia after receiving a L of saline and nausea meds. Initial lactic acid came back elevated at 4.2. With this I ordered a 2 L of crystalloid (lactated Ringer's) with plan to recheck lactic at about the 90 minute kellen after completion of her 2 L. white count came back at 14. Unclear if this is a bacterial infection, viral infection. So hold off on antibiotics pending further workup Recheck-CT scan reviewed by me showed evidence for free air or air inside the wall of the urinary bladder. Very concerning for infection. Zosyn and vancomycin ordered. CT scan also shows evidence for a rectus sheath hematoma with active bleeding. 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 No evidence for urinary obstruction or renal failure. No need for emergency surgery with the bladder. No need for emergent IR intervention for rectus sheath at these typically will tamponade themselves with time. At this point her blood pressure and pulse are stable. Mental status is normal per She will be transferred to [facility] where she can have consultation with Interventional Radiology and Urology as well as admission for broad-spectrum IV antibiotics. She also did report that she quit drinking on Friday. Alcohol level is undetectable today. She was tachycardic and mildly tremulous. She also takes Ativan for her anxiety normally and has not been able to take it for the past couple of days because of vomiting. IV Ativan 1 mg ordered here along with her other medications. There may be some component of alcohol withdrawal but overall she is mentating normally and only minimally shaky after the Ativan LFTs, lipase normal. Repeat lactic acid trending down from 4.2 down to 2.8. Heart rate improving. Blood pressure improving. Patient still has signs of good perfusion. Lab Data Labs: Lab Results 05/07/24 05/07/24 05/07/24 Range/Units 12:12 13:56 14:10 WBC 14.18 H (4.50-11.00) K/uL RBC 4.37 (4.00-5.20) m/uL Hgb 14.3 (12.0-16.0) gm/dL Hct 40.2 (33.0-51.0) % MCV 92 (80-100) fL MCH 33 (26-34) pg MCHC 36 (32-36) gm/dL RDW Coeff of Comfort 12.5 (11.5-15.5) % Plt Count 252 (140-440) K/uL Neut % (Auto) 64.8 (42.0-72.0) % Lymph % (Auto) 24.3 (20-44) % Medina % (Auto) 7.5 (0.0-11.0) % Eos % (Auto) 3.0 (0.0-7.0) % Baso % (Auto) 0.2 (0.0-3.0) % Neut # (Auto) 9.20 H (1.7-7.0) K/uL Lymph # (Auto) 3.40 H (0.90-2.90) K/uL Medina # (Auto) 1.10 H (0.00-0.90) K/UL Eos # (Auto) 0.40 (0.00-0.50) K/uL Baso # (Auto) 0.00 (0.00-0.30) K/uL Abs Immat Gran (auto) 0.00 (0.00-0.30) K/uL Imm/Tot Granulo (auto) 0.2 % Sodium 128 L (135-149) mmol/L Potassium 3.1 L (3.6-5.1) mmol/L Chloride 87 L (96-114) mmol/L Carbon Dioxide 24 (20-32) mmol/L Anion Gap 17 H (7-15) mEq/L BUN 27 H (5-24) mg/dL Creatinine 0.7 (0.5-1.5) mg/dL Estimated Creat Clear 95.58 Estimated GFR 107 ml/min Glucose 132 H (60-115) mg/dL Lactate 4.2 H* 2.8 H (0.5-1.9) mmol/L Calcium 8.4 (8.4-10.6) mg/dL Magnesium 1.6 (1.5-2.6) mg/dL Total Bilirubin 1.1 (0.1-1.5) mg/dL AST 40 H (12-35) U/L ALT 29 (4-35) U/L Alkaline Phosphatase 86 (40-150) U/L Total Protein 7.6 (6.0-8.3) g/dL Albumin 4.6 (3.3-5.0) g/dL Lipase 149 (23-300) U/L Urine Color Yellow (Yellow) Urine Appearance Clear (Clear) Urine pH 7.0 (5.0-8.5) Ur Specific Radiant 1.010 (1.000-1.030) Urine Protein Negative (Negative) Urine Glucose (UA) Negative (Negative) Urine Ketones Negative (Negative) Urine Blood 2+ A (Negative) Urine Nitrite Negative (Negative) Urine Bilirubin Negative (Negative) Urine Urobilinogen 0.2 (0.2-1.0) Ur Leukocyte Esterase Trace A (Negative) Urine RBC 10-25 A (0-2) Urine WBC 5-10 A (0-5) Ur Squamous Epith Cells None (None-Few) Urine Bacteria Few A (None) Urine HCG, Qual Negative (Negative) Ethyl Alcohol < 0.01 L (0.01-0.03) % 05/07/24 Range/Units 14:24 WBC (4.50-11.00) K/uL RBC (4.00-5.20) m/uL Hgb 12.2 (12.0-16.0) gm/dL Hct (33.0-51.0) % MCV (80-100) fL MCH (26-34) pg MCHC (32-36) gm/dL RDW Coeff of Comfort (11.5-15.5) % Plt Count (140-440) K/uL Neut % (Auto) (42.0-72.0) % Lymph % (Auto) (20-44) % Medina % (Auto) (0.0-11.0) % Eos % (Auto) (0.0-7.0) % Baso % (Auto) (0.0-3.0) % Neut # (Auto) (1.7-7.0) K/uL Lymph # (Auto) (0.90-2.90) K/uL Medina # (Auto) (0.00-0.90) K/UL Eos # (Auto) (0.00-0.50) K/uL Baso # (Auto) (0.00-0.30) K/uL Abs Immat Gran (auto) (0.00-0.30) K/uL Imm/Tot Granulo (auto) % Sodium (135-149) mmol/L Potassium (3.6-5.1) mmol/L Chloride (96-114) mmol/L Carbon Dioxide (20-32) mmol/L Anion Gap (7-15) mEq/L BUN (5-24) mg/dL Creatinine (0.5-1.5) mg/dL Estimated Creat Clear Estimated GFR ml/min Glucose (60-115) mg/dL Lactate (0.5-1.9) mmol/L Calcium (8.4-10.6) mg/dL Magnesium (1.5-2.6) mg/dL Total Bilirubin (0.1-1.5) mg/dL AST (12-35) U/L ALT (4-35) U/L Alkaline Phosphatase (40-150) U/L Total Protein (6.0-8.3) g/dL Albumin (3.3-5.0) g/dL Lipase (23-300) U/L Urine Color (Yellow) Urine Appearance (Clear) Urine pH (5.0-8.5) Ur Specific Radiant (1.000-1.030) Urine Protein (Negative) Urine Glucose (UA) (Negative) Urine Ketones (Negative) Urine Blood (Negative) Urine Nitrite (Negative) Urine Bilirubin (Negative) Urine Urobilinogen (0.2-1.0) Ur Leukocyte Esterase (Negative) Urine RBC (0-2) Urine WBC (0-5) Ur Squamous Epith Cells (None-Few) Urine Bacteria (None) Urine HCG, Qual (Negative) Ethyl Alcohol (0.01-0.03) % ECG Data Attestation: I personally reviewed and interpreted this ECG as follows: Interpretation: Normal sinus rhythm Rate: 97 IA: 136 QRS axis: Normal axis ST segment/T wave: Nonspecific T-wave abnormality with T-wave inversions V1-V4. No ST segment elevation or depression. QTc: 408 Discharge Plan Discharge Clinical Impression: Hematoma of rectus sheath, Emphysematous cystitis Patient Disposition: Xfer Other Prescriptions: No Action gabapentin 100 mg capsule See Rx Instructions PO .ud Qty: 240 2RF Rx Instructions: 100-200 mg QAM and Qmidday orally UD; (To be used with her 300 mg dose) escitalopram oxalate 20 mg tablet 20 mg PO QDAY Qty: 90 3RF Rx Instructions: Take along with 10 mg tablet naltrexone 50 mg tablet 50 mg PO QDAY Qty: 90 3RF albuterol sulfate 90 mcg/actuation HFA aerosol inhaler 2 puff inhalation Q4-6H PRN (Reason: shortness of breath or wheezing) Qty: 6.7 0RF oxycodone 5 mg Tablet 5 mg PO 3XD PRN (Reason: 4 OR GREATER ON PAIN SCALE) Qty: 7 0RF ibuprofen 600 mg tablet 600 mg PO QID PRNQty: 30 0RF alprazolam 1 mg tablet 1 mg PO TID PRN (Reason: anxiety) Qty: 30 0RF gabapentin 300 mg capsule See Rx Instructions PO .ud Qty: 120 5RF Rx Instructions: 300 mg QAM and QMidday, and 600 mg QHS orally UD; omeprazole 20 mg capsule,delayed release(DR/EC) 20 mg PO QDAY Qty: 90 0RF albuterol sulfate [Proventil HFA] 90 mcg/actuation HFA aerosol inhaler 2 puff inhalation Q4H PRN (Reason: shortness of breath or wheezing) Qty: 8.5 0RF verapamil 120 mg tablet extended release 120 mg PO BID Qty: 180 3RF bupropion HCl 300 mg tablet extended release 24 hr 300 mg PO QAM Qty: 90 0RF lorazepam 0.5 mg tablet 0.5 mg PO BID PRN (Reason: anxiety) Qty: 20 0RF buspirone 30 mg tablet 30 mg PO BID Qty: 180 3RF Stand Alone Forms: MyHealth Info Instructions
[2024-05-07 12:22] LABS: Lactate* 4.2 mmol/L (0.5-1.9)
[2024-05-07] MEDS: 0.9 % SODIUM CHLORIDE 1000 ml 1,000 ML IV (12:25)
[2024-05-07] MEDS: LORazepam 2 MG/ML inj 1 MG IVP (12:28)
[2024-05-07] MEDS: ONDANSETRON 2 MG/ML inj 4 MG IVP (12:28)
[2024-05-07 12:36] LABS: Albumin* 4.6 g/dL (3.3-5.0)
[2024-05-07 12:37] LABS: Chloride* 87 mmol/L (96-114); Potassium* 3.1 mmol/L (3.6-5.1); Sodium* 128 mmol/L (135-149)
[2024-05-07 12:38] LABS: Basophils Percent Auto 0.2 % (0.0-3.0); Hematocrit 40.2 % (33.0-51.0); Hemoglobin* 14.3 gm/dL (12.0-16.0); Immature Granulocytes Pct Auto 0.2 %; Lymphocytes Percent Auto 24.3 % (20-44); Mean Corpuscular HGB Conc 36 gm/dL (32-36); Mean Corpuscular Hemoglobin 33 pg (26-34); Mean Corpuscular Volume 92 fL (80-100); Monocytes Percent Auto 7.5 % (0.0-11.0); Neutrophils Percent Auto 64.8 % (42.0-72.0); Platelet Count* 252 K/uL (140-440); RDW Coefficient of Variation % 12.5 % (11.5-15.5); Red Blood Count 4.37 m/uL (4.00-5.20); White Blood Count* 14.18 K/uL (4.50-11.00)
[2024-05-07 12:39] LABS: Alkaline Phosphatase* 86 U/L (40-150); Anion Gap 17 mEq/L (7-15); Aspartate Amino Transferase* 40 U/L (12-35); Bilirubin Total* 1.1 mg/dL (0.1-1.5); Blood Urea Nitrogen* 27 mg/dL (5-24); Carbon Dioxide* 24 mmol/L (20-32); Creatinine* 0.7 mg/dL (0.5-1.5); Est. Creatinine Clearance* 95.58; Estimated Glomerular Filt Rate 107 ml/min; Total Protein* 7.6 g/dL (6.0-8.3)
[2024-05-07 12:40] LABS: Alanine Aminotransferase* 29 U/L (4-35); Calcium* 8.4 mg/dL (8.4-10.6); Glucose* 132 mg/dL (60-115); Lipase* 149 U/L (23-300); Magnesium* 1.6 mg/dL (1.5-2.6)
[2024-05-07 12:46] LABS: Ethanol* < 0.01 % (0.01-0.03)
--- OUTSIDE RECORDS SUMMARY | 2024-05-07 12:49 | XMS_ITS | Clinical Summary ---
Author Organization [employer] [facility] Address [address] [place] [id number] Care Team Providers Care Software Integrator Name Role Phone Dakota Ashraf MD Primary [...] on file Legal Sex Female 7:22 AM LINING PRINTER Gender Identity Not on file Sexual Orientation [...] (163 lb 11.2 oz) 02/21/2020 8:26 AM LINING PRINTER Height 169.4 cm (5' 6.69) 02/21/2020 8:26 AM CS T Body Mass Index 25.88 02/21/2020 8:26 AM LINING PRINTER Plan of Treatment Health Maintenance Due Date [...] HPV HIGH RISK Routine 01/21/2022 8:30 AM LINING PRINTER from Last 3 Months or Most Recently Relevant to Health Maintenance Results * (ABNORMAL) HPV HIGH RISK (01/21/2022 8:30 AM LINING PRINTER) TYPE 16 Negative Negative 01/23/2022 5:14 PM LINING PRINTER [facility] TYPE 18 Positive(A) Negative 01/23/2022 5:14 PM LINING PRINTER [facility] OTHER HIGH RISK TYPES Positive(A) Negative 01/23/2022 5:14 PM LINING PRINTER [facility] Other (Cervical) 01/21/2022 8:30 AM LINING PRINTER 01/22/2022 12:18 PM LINING PRINTER Narrative [facility] - 01/23/2022 5:14 PM LINING PRINTER Specimen is positive for HPV type 18 DNA and the DNA of any one of, or combination of, the following high risk HPV types: 31, 33, 35, 39, 45, 51, 52, 56, 58,59, 66, 68. HPV type 16 DNA was undetectable or below the pre-set threshold. Methodology: Rodriguez Digna 4800 HPV Test us Dakota Ashraf MD MICROBIOLOGY Final Resul t [facility] [address] [place] [address], [place] from Last 3 Months or Most Recently Relevant to Health Maintenance Insurance [employer] [facility] Care Teams Software Integrator Relationship Specialty Start Date End Date Dakota Ashraf MD PCP - General Family Practice 07/23/16
--- OUTSIDE RECORDS SUMMARY | 2024-05-07 12:49 | XMS_ITS | Clinical Summary ---
Author Organization [facility]IT [facility] Address [address] [address] Phone Care Team Providers Care V Belt Coverer Name Role Phone Gene Ashraf MD Primary Care Provider [phone] Allergies No known active allergies Medications LORazepam [...] Department Care Team Description 04/14/2024 4:55 PM [facility] Ancillary Procedure [facility] RADIOLOGY [address] [place] [address] 04/14/2024 3:05 PM [employer] Ancillary Procedure [facility] MRI [address] [place] [address] 04/14/2024 1:05 PM [employer] Ancillary Procedure [facility] CT [address] [place] [address] 04/14/2024 12:38 PM [employer] - 04/14/2024 5:59 PM ASS[employer] Emergency [facility] EMERGENCY DEPARTMENT [address] [place] [id number] Hetal Paris DO Fong, Erine O, MD [...] SURGERY 03/21/2021 Right Right distal radius [facility]. ([facility]) Social History Tobacco Use Types Packs/Day Years Used Date Smoking Tobacco: Every Day Cigarettes Smokeless Tobacco: Never Tobacco Cessation:Ready to Q uit: Not Asked; Counseling Given: Not Answered Alcohol Use Standard Drinks/Week Comments Yes 0 (1 standard drink = 0.6 oz pur e alcohol) [facility] Custom IPV Answer Date Recorded Do you feel UNSAFE in any of your personal relationships with your family members or any other acquaintances? No 2024 Comments No Sex and Gender Information Value Date Recorded Sex Assigned at Not on file Legal Sex Female 9:34 PM ASS[employer] Gender Identity Not on file Sexual Orientation Not on file Obstetrics History Last Filed Vital Signs Vital Sign Reading Time Taken Comments Blood Pressure 146/92 04/14/2024 5:30 PM [employer] Pulse 93 04/14/2024 5:30 PM ASS[employer] Temperature 36.9 C (98.5 F) 04/14/2024 12:52 PM ASS[employer] Respiratory Rate 16 04/14/2024 12:52 PM ASS[employer]ACH Oxygen Saturation 99% 04/14/2024 5:00 PM ASS[employer] Inhaled Oxygen Concentration - - Weight 74.4 kg (164 lb) 02/12/2020 6:11 PM ASSIST[employer]S LA[employer] CO[employer] Height 170.2 cm (5' 7) 02/12/2020 6:11 PM ASS[employer] Body Mass Index 25.69 02/12/2020 6:11 PM ASS[employer] LA[employer] COACH Plan of Treatment Health Maintenance Due Date [...] CHEST 1 VIEW STAT 04/14/2024 5:03 PM ASS[employer] COACH Witnessed seizure-like activity (HCC) MR BRAIN WO W CONTRAST STAT 3:50 PM ASS[employer]ACH Witnessed seizure-like activity (HCC) BASIC METABOLIC PANEL LENY 04/14/2024 2:48 PM ASS[employer] LACROS[employer] COACH LACTIC ACID W/2HR REFLEX LENY 04/14/2024 2:48 PM ASS[employer]ACH CULTURE, URINE LNEY 04/14/2024 2:20 PM ASS[employer] LA[employer] COACH URINE DRUG SCREEN LENY 04/14/2024 2:2 0 PM ASS[employer] LA[employer]ACH URINALYSIS, REFLEX TO CULTURE LENY 04/14/2024 2:20 PM ASSIST[facility] M[employer]CR[employer] CT HEAD WO IV CONTRAST STAT 1:35 PM ASSIST[employer] LACROS[employer] COACH MAGNESIUM Add on 04/14/2024 12:57 PM ASS[employer]ACH COMPREHENSIVE METABOLIC PANEL LENY 04/14/2024 12:57 PM ASSIST[employer]S LACROS[employer] COACH ALCOHOL LENY 04/14/2024 12:57 PM ASS[employer]ACH LACTIC ACID W/2HR REFLEX LENY 04/14/2024 12:57 PM ASS[employer]ACH HEMOGRAM/DIFF LENY 04/14/2024 12:57 PM ASSIST[employer]S LACROS[employer] COACH EKG 12-LEAD STAT 04/14/2024 12:48 PM ASSISTANT M[employer]S LACROS[employer] COACH from Last 3 Months Results * XR CHEST 1 VIEW (04/14/2024 5:03 PM ASSISTANT MEN[employer]S LACROSSE COACH) Anatomical Region Laterality Modality Chest Radiographic Josefa ging 04/14/2024 4:57 PM ASS[employer]S LA[employer]OS[employer] COACH Narrative 04/15/2024 7:16 AM ASS[employer]OS[employer] COACH PROCEDURE: XR CHEST 1 VIEW HISTORY: cough [...] BRAIN WO W CONTRAST (04/14/2024 3:50 PM ASSISTANT M[employer]S LACROS[employer] COACH) Anatomical Region Laterality Modality Head Magnetic Resonan ce 04/14/2024 3:24 PM ASS[employer]S LA[employer] COACH Narrative 04/14/2024 4:28 PM ASSIST[employer]EN'S LACROSSE COACH EXAM: MR BRAIN WO W CONTRAST [facility]ATION[facility] DATE: 04/14/2024 INDICATION: Seizure COMPARISON: Head [...] by: Jude Wheatley M.D. 04/14/2024 4:28 PM ASS[employer] Procedure Note Jude Wheatley MD - 04/14/2024 [...] and scattered foci of deep white matter [id number] involving both cerebral hemispheres, nonspecific. These could representfoci of nondescript gliosis or early chronic hypertensive/microvascular ischemicwhite matter changes. Electronically signed by: Jude Wheatley M.D. 04/14/2024 4:28 PM ASS[employer]OS[employer]ACH Hetal Paris DO MRI ORDERABLES Final Result * LACTIC ACID W/2HR REFLEX (04/14/2024 2:48 PM ASSIST[employer] LACROS[employer] COACH) Lactic Acid, Venous 0.9 0.7 - 2.1 mmol/L 04/14/2024 3:09 PM ASSISTANT MEN'S LACROSSE COACH [facility] Blood BLOOD SPECIMEN / Unknown Venipuncture / Unknown 04/14/2024 2:48 PM ASS[employer] LACR[employer] COACH 04/14/2024 2:52 PM ASS[employer] LA[employer] COACH Hetal Paris DO EC CHEMISTRY ORDERABLES Final Result [facility] [address] [place] [address] * (ABNORMAL) BASIC METABOLIC PANEL (04/14/2024 2:48 PM ASSISTANT [employer] LACROSSE COACH) Sodium 132(L) 135 - 144 mmol/L 04/14/2024 3:14 PM ASSISTANT MEN'S LACROSSE COACH [facility] Potassium 2.9(LL) 3.4 - 5.1 mmol/L 04/14/2024 3:14 PM ASSIST[employer] LACROS[employer]ACH [facility] Chloride 100 98 - 107 mmol/L 04/14/2024 3:14 PM ASSIST[employer] M[employer] LACROSSE [employer]ACH [facility] Carbon Dioxide 24 22 - 30 mmol/L 04/14/2024 3:14 PM ASSIST[employer]S LACROSSE [employer]ACH [facility] Calcium 8.0(L) 8.6 - 10.3 mg/dL 04/14/2024 3:14 PM ASSIST[employer]S LACROSSE COACH [facility] Glucose 107(H) 74 - 100 mg/dL 04/14/2024 3:14 PM ASSIST[employer]S LACROSSE COACH [facility] Blood Urea nitrogen 12 7 - 17 mg/dL 04/14/2024 3:14 PM ASSIST[employer] M[employer] LACROSSE COACH [facility] Creatinine 0.61 0.52 - 1.04 mg/dL 04/14/2024 3:14 PM ASSIST[employer] LACROS[employer] COACH [facility] Anion Gap 8 5 - 15 mmol/L 04/14/2024 3:14 PM ASSIST[employer] LACROS[employer]ACH [facility] Glomerular Filtration Rate >60 >60 mL/min/1.7 3 m*2 04/14/2024 3:14 PM ASSIST[employer]S LACROSSE COACH [facility] Comment:This calculation use s CKD-EPI 2020 equation; it has not been validated in women. Blood BLOOD SPECIMEN / Unknown Venipuncture / Unknown 04/14/2024 2:48 PM ASS[employer]OS[employer] COACH 04/14/2024 2:52 PM ASS[employer] LACROS[employer] COACH Hetal Paris DO EC CHEMISTRY ORDERABLES Final Result [facility] [address] [place] [address] * (ABNORMAL) CULTURE, URINE (04/14/2024 2:20 PM ASSIST[employer] LACROSSE COACH) Pathologist [facility] Urine Culture >100,000 cfu/mL Escherichia coli(A) 04/16/2024 7:53 AM ASSISTANT MEN'S LACROSSE COACH [facility] Urine URINE SPECIMEN COLLECTION, CLEAN CATCH / Unknown Non-blood collection / Unknown 04/14/2024 2:20 PM ASSIST[employer] LACROS[employer] COACH 04/14/2024 2:37 PM ASSIST[employer]S LACROSSE COACH Narrative Organism Antibiotic Method Susceptibility Escherichia coli [...] MICROBIOLOGY - GENERAL ORDE GOMEZ Final Result [facility] [address] [place] [address] * (ABNORMAL) URINALYSIS, REFLEX TO CULTURE (04/14/2024 2:20 PM ASSISTANT MEN[employer] LACROSSE COACH) Pathologist [facility] UA Color Kathia(A) Light Yellow, Yellow 04/14/2024 2:37 PM ASSISTANT MEN[employer]S LACROSSE COACH [facility] Urine Appearance Cloudy(A) Clear 04/14/19 2:37 PM ASSISTANT MEN[employer] LACROS[employer] COACH [facility] Urine Specific Henning 1.015 1.005 - 1.030 04/14/2024 2:37 PM ASSISTANT MEN'S LACROSSE COACH [facility] Urine pH 6.0 5.0 - 8.0 04/14/2024 2:37 PM ASSISTANT MEN'S LACROSSE COACH [facility] Urine Leukocyte Esterase Trace(A) Negative 04/14/2024 2:37 PM ASSISTANT MEN'S LACROSSE COACH [facility] Urine Nitrates Negative Negative 04/14/2024 2:37 PM ASSISTANT MEN'S LACROSSE COACH [facility] Urine Protein Trace(A) Negative 04/14/2024 2:37 PM ASSIST[employer] MEN'S LACROSSE COACH [facility] Urine Glucose Negative Negative 04/14/2024 2:37 PM ASSISTANT MEN'S LACROSSE COACH [facility] Urine Ketones Negative Negative 04/14/2024 2:37 PM ASSIST[employer] MEN'S LACROSSE COACH [facility] Urine Urobilinogen Normal Normal 04/14/2024 2:37 PM ASSIST[employer] MEN'S LACROSSE COACH [facility] Urine Bilirubin Negative Negative 2:37 PM ASSISTANT MEN[employer]S LACROSSE COACH [facility] Urine Blood 2+(A) Negative 04/14/2024 2:37 PM ASSISTANT MEN'S LACROSSE COACH [facility] Urine WBC's 0-5 0 - 5 /HPF 04/14/2024 2:37 PM ASSIST[employer] MEN[employer]S LACROSSE COACH [facility] Urine RBC's 0-2 0 - 2 /HPF 04/14/2024 2:37 PM ASSISTANT MEN'S LACROSSE COACH [facility] Urine Epithelial Cells Occasional( A) Negative /HPF 04/14/2024 2:37 PM ASSISTANT MEN'S LACROSSE COACH [facility] Urine Bacteria Packed(A) Negative /HPF 04/14/2024 2:37 PM ASSISTANT MEN'S LACROSSE COACH [facility] Urine URINE SPECIMEN COLLECTION, CLEAN CATCH / Unknown Non-blood collection / Unknown 04/14/2024 2:20 PM ASSIST[employer]CR[employer] COACH 04/14/2024 2:24 PM ASSIST[employer]EN[employer]S LACROS[employer] COACH Hetal Paris DO URINE ORDERABLES Final Resu lt [facility] [address] [place] [address] * (ABNORMAL) URINE DRUG SCREEN (04/14/2024 2:20 PM ASSISTANT MEN[employer]S LACROS[employer] COACH) Pathologist [facility] Urine Amphetamines Screen Negative Negative 2:41 PM ASSISTANT [employer]EN[employer]S LACROSSE COACH [facility] Urine Barbiturates Screen Negative Negative 2:41 PM ASSISTANT [employer]EN'[employer] LACROSSE COACH [facility] Urine Benzodiazepines Screen Negative Negative 5 2:41 PM ASSIST[employer] LACROSSE COACH [facility] Urine Cocaine Screen Negative Negative 0 5 2:41 PM ASSIST[employer] LACROSSE COACH [facility] Urine Fentanyl Screen Negative Negative 5 2:41 PM ASSISTANT [employer] LACROSSE COACH [facility] Urine Opiates Screen Negative Negative 0 5 2:41 PM ASSIST[employer] LACROSSE COACH [facility] Urine Oxycodone Screen Negative Negative 5 2:41 PM ASSISTANT MEN'[employer] LACROSSE COACH [facility] Urine Phencyclidine Screen Negative Negative 5 2:41 PM ASSIST[employer] LACROSSE [employer]ACH [facility] Urine Methadone Screen Negative Negative 5 2:41 PM ASSIST[employer] LACROSSE COACH [facility] Urine Methamphetamine Screen Negative Negative 5 2:41 PM ASSIST[employer] MEN'S LACROSSE COACH [facility] Urine Tetrahydrocannabinol Screen Presumptive Positive(A) Negative 5 2:41 PM ASSISTANT [employer]EN'S LACROSSE COACH [facility] Urine Tricyclic Antidepressants Screen Negative Negative 5 2:41 PM ASSISTANT MEN'S LACROSSE COACH [facility] Urine URINE SPECIMEN COLLECTION, CLEAN CATCH / Unknown Non-blood collection / Unknown 04/14/2024 2:20 PM ASSIST[employer]S LACROS[employer] COACH 04/14/2024 2:24 PM ASSISTANT MEN'S LACROSSE COACH Narrative [facility] - 04/14/2024 2:41 PM ASSIST[employer] MEN'S LACROSSE COACH False presumptive positives may occur with prescription and [id number] medications due to cross-reactivity and interfering compounds.Urine [...] DO EC URINE ORDERABLES Final [facility] [address] [phone] * CT HEAD WO IV CONTRAST (04/14/2024 1:35 PM ASSISTANT M[employer]S LACROSSE COACH) Anatomical Region Laterality Modality Head Computed Tomogra phy 04/14/2024 1:25 PM ASSIST[employer]'S LACROSSE COACH Narrative 04/14/2024 1:40 PM ASSISTANT [employer]S LACROS[employer] COACH PROCEDURE: CT OF THE HEAD WITHOUT IV [...] LACTIC ACID W/2HR REFLEX (04/14/2024 12:57 PM ASSISTANT MEN'S LACROSSE COACH) Lactic Acid, Venous 2.5(H) 0.7 - 2.1 mmol/L 04/14/2024 1:13 PM ASSISTANT MEN'S LACROSSE COACH [facility] Blood BLOOD SPECIMEN / Unknown Venipuncture / Unknown 04/14/2024 12:57 PM ASSIST[employer]EN'S LACROSSE COACH 04/14/2024 1:00 PM ASSIST[employer] LACROS[employer] COACH Hetal Paris DO CHEMISTRY ORDERABLES Final Result [facility] [address] [place] [address] * (ABNORMAL) COMPREHENSIVE METABOLIC PANEL (04/14/2024 12:57 PM ASSISTANT MEN'S LACROSSE COACH) Pathologist [facility] Sodium 132(L) 135 - 144 mmol/L 04/14/2024 1:18 PM ASSISTANT MEN'S LACROSSE COACH [facility] Potassium 2.9(LL) 3.4 - 5.1 mmol/L 04/14/2024 1:18 PM ASSIST[employer] M[employer]'S LACROSSE COACH [facility] Chloride 96(L) 98 - 107 mmol/L 04/14/2024 1:18 PM [facility] Carbon Dioxide 22 22 - 30 mmol/L 04/14/2024 1:18 PM [facility] Calcium 8.6 8.6 - 10.3 mg/dL 04/14/2024 1:18 PM ASSIST[employer] LACROS[employer]ACH [facility] Alkaline Phosphatase 88 38 - 126 U/L 04/14/2024 1:18 PM ASSIST[employer] LACROSSE COACH [facility] Aspartate Aminotransferase 47(H) 14 - 36 U/L 04/14/2024 1:18 PM ASSISTANT MEN'[employer] LACROSSE COACH [facility] Alanine Aminotransferase 31 <35 U/L 04/14/2024 1:18 PM [facility] Glucose 130(H) 74 - 100 mg/dL 04/14/2024 1:18 PM [facility] Blood Urea nitrogen 13 7 - 17 mg/dL 04/14/2024 1:18 PM [facility] Creatinine 0.64 0.52 - 1.04 mg/dL 04/14/2024 1:18 PM [facility] Protein, Total 7.1 6.3 - 8.2 g/dL 04/14/2024 1:18 PM [facility] Albumin 4.3 3.5 - 5.0 g/dL 04/14/2024 1:18 PM [facility] Bilirubin, Total 1.0 0.2 - 1.3 mg/dL 04/14/2024 1:18 PM [facility] Globulin 2.8 1.4 - 4.8 g/dL 04/14/2024 1:18 PM [facility] Anion Gap 14 5 - 15 mmol/L 04/14/2024 1:18 PM [facility] Glomerular Filtration Rate >60 >60 mL/min/1. 73 m*2 04/14/2024 1:18 PM [facility] Comment:This calculation use s CKD-EPI 2020 equation; it has not been validated in women. Blood BLOOD SPECIMEN / Unknown Venipuncture / Unknown 04/14/2024 12:57 PM ASS[employer] 04/14/2024 1:00 PM ASSIST[employer] M[employer]S LACROS[employer] COACH Hetal GONSALES CHEMISTRY ORDERABLES Final Result Performing Organization Address City/State/[facility] Co de Phone Number [facility] [address] [place] [address] * (ABNORMAL) HEMOGRAM/DIFFERENTIAL (04/14/2024 12:57 PM ASSISTANT M[employer] LACROS[employer] COACH) WBC 13.7(H) 4.0 - 11.0 10*3/uL 04/14/2024 1:09 PM [facility] RBC 4.01 3.80 - 5.20 10*6/uL 04/14/2024 1:09 PM [facility] HGB 13.2 12.0 - 16.0 g/dl 04/14/2024 1:09 PM [facility] HCT 38.1 35.0 - 47.0 % 04/14/2024 1:09 PM [facility] MCV 95.0 80 - 98 fL 04/14/2024 1:09 PM ASSIST[employer] [facility] MCH 32.9 27.0 - 34.0 pg 04/14/2024 1:09 PM ASSIST[employer] LACROS[employer]ACH [facility] MCHC 34.6 32 - 36 g/dl 04/14/2024 1:09 PM ASSIST[employer] LACROS[employer] COACH [facility] PLT 208 150 - 420 10*3/uL 04/14/2024 1:09 PM ASSIST[employer]CR[employer] [facility] Neutrophils Absolute 9.19(H) 2.10 - 7.50 10*3/uL 04/14/2024 1:09 PM ASSIST[employer] LACR[employer] [facility] Lymphocytes Absolute 3.11 0.76 - 4.00 10*3/uL 04/14/2024 1:09 PM ASSIST[employer]CROS[employer] [facility] Monocytes Absolute 0.83 0.00 - 0.90 10*3/uL 04/14/2024 1:09 PM ASSIST[employer] LACROS[employer]ACH [facility] Eosinophils Absolute 0.47 0.04 - 0.54 10*3/uL 04/14/2024 1:09 PM ASSIST[employer] M[employer] LACROS[employer]ACH [facility] Basophils Absolute 0.03 0.00 - 0.20 10*3/uL 04/14/2024 1:09 PM ASSIST[employer] M[employer]'S LACROS[employer]ACH [facility] RDW-SD 41.9 36.5 - 46.3 fL 04/14/2024 1:09 PM ASSIST[employer] M[employer]S LACROS[employer]ACH [facility] RDW-CV 12.0 11.6 - 14.4 % 04/14/2024 1:09 PM ASSIST[employer] M[employer] LACROSSE [employer]ACH [facility] Immature Granulocytes Absolute 0.03 0.00 - 0.10 10*3/uL 04/14/2024 1:09 PM ASSIST[employer]S LACROS[employer]ACH [facility] Blood BLOOD SPECIMEN / Unknown Venipuncture / Unknown 04/14/2024 12:57 PM ASSIST[employer]'S LACROS[employer] COACH 04/14/2024 1:00 PM ASSIST[employer] M[employer]'S LACROSSE COACH Hetal GONSALES HEMATOLOGY ORDERABLES Final Result [facility] [address] [place] [address] * MAGNESIUM (04/14/2024 12:57 PM ASSISTANT MEN'S LACROSSE COACH) [facility] Signature Magnesium 1.8 1.6 - 2.3 mg/dL 04/14/2024 1:34 PM ASSISTANT MEN'[employer] LACROSSE COACH [facility] Blood BLOOD SPECIMEN / Unknown Venipuncture / Unknown 04/14/2024 12:57 PM ASSISTANT MEN'S LACROSSE COACH 04/14/2024 1:00 PM ASSISTANT MEN'S LACROSSE COACH [facility] EC CHEMISTRY ORDERABLES Final Result Performing Organization Address [facility] de Phone Number [facility] [address] [place] [address] * ALCOHOL (04/14/2024 12:57 PM ASSISTANT MEN'S LACROSSE COACH) Alcohol <0.010 <=0.010 % 04/14/2024 1:16 PM [facility] Blood BLOOD SPECIMEN / Unknown Venipuncture / Unknown 04/14/2024 12:57 PM ASSIST[employer] LACROSSE COACH 04/14/2024 1:00 PM ASSISTANT MEN'S LACROSSE COACH [facility] EC CHEMISTRY ORDERABLES Final Result Performing Organization Address [facility] de Phone Number [facility] [address] [place] [address] * EKG 12-LEAD (04/14/2024 12:48 PM ASSISTANT MEN'S LACROSSE COACH) Ventricular Rate 109 BPM [facility] Atrial Rate 109 BPM [facility] P-R Interval 140 ms [facility] QRS Duration 88 ms [facility] QT 332 ms [facility] QTc 447 ms [facility] P [place] 59 degrees [facility] R [place] 15 degrees [facility] T [place] -7 degrees [facility] 04/14/2024 12:4 8 PM ASS[employer] COACH 04/16/2024 8:01 PM ASSIST[employer] M[employer]'S LACROSSE COACH Narrative [facility] - 04/16/2024 8:01 PM ASSIST[employer] COACH Confirming Doc Eliseo Stewart Sinus tachycardia Nonspecific ST abnormality Abnormal ECG No previous ECGs available Procedure Note Eliseo Stewart, DO - 04/16/[address] Eliseo Stewart Sinus tachycardia Nonspecific ST abnormality Abnormal ECG No previous ECGs available us Hetal Paris DO IP ECG ORDERABLES Final Result [facility] from Last 3 Months Insurance BLUE PLUS [facility] REF REQ [facility] [place] Care Teams V Belt Coverer Relationship Specialty Start Date End Date Gene Ashraf MD [facility] [address] [place] [address] (work) PCP - General Family Medicine 04/14/24
--- OUTSIDE RECORDS SUMMARY | 2024-05-07 12:49 | XMS_ITS | Encounter Summary ---
Author Organization [facility] Address [address] [address] Phone Care Team Providers Care Salon Sales Consultant Name Role Phone Gene Ashraf MD Primary Care Provider [phone] Reason for Visit * Reason Comments Seizure- New Onset Encounter Details Date Type Department Care Team (Late st Contact Info) Description 04/14/2024 12:38 PM CATIA DESIGNER - 04/14/2024 5:59 PM CATIA DESIGNER Emergency [facility] EMERGENCY DEPARTMENT [address] [place] [phone] Hetal Paris DO [address] [place] [address] Samir Gale MD [address] [place] [address] Witnessed seizure-like activity (HCC) (Primary [...] on file Legal Sex Female 9:34 PM CATIA DESIGNER Gender Identity Not on file Sexual Orientation Not on file documented as of this encounter Last Filed Vital Signs Vital Sign Reading Time Taken Comments Blood Pressure 146/92 04/14/2024 5:30 PM CATIA DESIGNER Pulse 93 04/14/2024 5:30 PM CATIA DESIGNER Temperature 36.9 C (98.5 F) 04/14/2024 12:52 PM CATIA DESIGNER Respiratory Rate 16 04/14/2024 12:52 PM CATIA DESIGNER Oxygen Saturation 99% 04/14/2024 5:00 PM CATIA DESIGNER Inhaled Oxygen Concentration - - Weight - - Height - - Body Mass Index - - documented in this encounter Functional Status * Patient's Vision Adequate to Safely Complete Daily Activities Answer Date of Assessment Author Yes 04/14/2024 12:45 PM CATIA DESIGNER Devaughn Sams RN * Patient's Memory Adequate to Safely Complete Daily Activities Answer Date of Assessment Author Yes 04/14/2024 12:45 PM CATIA DESIGNER Devaughn Sams RN documented as of this encounter Mental Status * Patient's Judgment Adequate to Safely Complete Daily Activities Answer Entry Date Author Yes 04/14/2024 12:45 PM CATIA DESIGNER Devaughn Sams RN documented in this encounter Discharge Instructions * Discharge Instructions* Samir Gale MD - 04/14/2024 5:39 PM CATIA DESIGNER Unclear etiology of seizure-like activity. It is [...] further evaluation of seizure as an outpatient. A DESIGNER * Attachments The following attachments cannot be sent through Care Everywhere. 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 She presentedto [address] [place] [address], where BP was 157/99. Per ED staff, pt has symptoms of alcohol withdrawal. CTHead was unrevealing. --MRI Brain +/- contrast MD Yari Avina Neurohospitalist A DESIGNER documented in this encounter ED Notes * [...] [LG] ED Course User Index [LG] Hetal aPris DO Patient was signed out to me [...] did recommend that we admit her to [facility] for continued observation on the CIWA protocol [...] unspecified headache type Samir Gale MD 04/14/24 0391 A DESIGNER * Jason Grover RN - 04/14/2024 5:04 PM CST After speaking with the MD about MRI results, pt finally admitted to ETOH use - pt states her last drink was on Friday. Plan to admit to the hospital for withdrawal protocol - pt agrees. VS stable, will continue to monitor. A DESIGNER * Tootie Sanchez HUC - 04/14/2024 2:14 PM CST [facility] neurology provider paged A DESIGNER * Hetal Paris DO - 04/14/2024 12:47 [...] Urine Appearance Cloudy (A) Clear Urine Specific Roma 1.015 1.005 - 1.030 Urine pH 6.0 [...] culture. [LG] [address] Cheng, [facility] Neurology, who recommends MRI w/ and w/o [...] my shift. [facility] Dr. [facility]ale, for continued management. Please see oncoming provider note for further disposition and plan. FINAL CLINICAL IMPRESSION: (R56.9) Witnessed seizure-like activity (HCC) (primary encounter diagnosis) (F10.91) History of alcohol withdrawal syndrome Hetal Paris DO 04/14/24 1502 A DESIGNER * Shira Sams RN - 04/14/2024 12:38 PM CST Pt arrived by [facility] from Other work alone with complaints [...] duration of seizure. No Hx of seizures A DESIGNER * Jason Grover RN - 04/14/2024 12:38 PM CST Bed: ED 7 Expected date: Expected time: Means of arrival: Comments: EMS A DESIGNER documented in this encounter Plan of Treatment Not on file documented as of this encounter Procedures Procedure Name Priority Date/Time Associated Diagnosis Comments XR CHEST 1 VIEW STAT 04/14/2024 5:03 PM CATIA DESIGNER Witnessed seizure-like activity (HCC) MR BRAIN WO W CONTRAST STAT 3:50 PM CATIA DESIGNER Witnessed seizure-like activity (HCC) LACTIC ACID W/2HR REFLEX LENY 04/14/2024 2:48 PM CATIA DESIGNER BASIC METABOLIC PANEL LENY 04/14/2024 2:48 PM CATIA DESIGNER CULTURE, URINE LENY 04/14/2024 2:20 PM CATIA DESIGNER URINALYSIS, REFLEX TO CULTURE LENY 04/14/2024 2:20 PM CATIA DESIGNER URINE DRUG SCREEN [facility] 04/14/2024 2:[address] HEAD WO IV CONTRAST STAT 1:35 PM CATIA DESIGNER LACTIC ACID W/2HR REFLEX LENY 04/14/2024 12:57 PM CATIA DESIGNER COMPREHENSIVE METABOLIC PANEL LENY 04/14/2024 12:57 PM CATIA DESIGNER HEMOGRAM/DIFF LENY 04/14/2024 12:57 PM CATIA DESIGNER MAGNESIUM Add on 04/14/2024 12:57 PM CATIA DESIGNER ALCOHOL LENY 04/14/2024 12:57 PM CATIA DESIGNER EKG 12-LEAD STAT 04/14/2024 12:48 PM CATIA DESIGNER documented in this encounter Results * XR CHEST 1 VIEW (04/14/2024 5:03 PM CATIA DESIGNER) Anatomical Region Laterality Modality Chest Radiographic Josefa ging 04/14/2024 4:57 PM CATIA DESIGNER Narrative 04/15/2024 7:16 AM CATIA DESIGNER PROCEDURE: XR CHEST 1 VIEW HISTORY: cough [...] BRAIN WO W CONTRAST (04/14/2024 3:50 PM CATIA DESIGNER) Anatomical Region Laterality Modality Head Magnetic Resonan ce 04/14/2024 3:24 PM CATIA DESIGNER Narrative 04/14/2024 4:28 PM CATIA DESIGNER EXAM: MR BRAIN WO W CONTRAST LOCATION: [...] by: Jude Wheatley M.D. 04/14/2024 4:28 PM CATIA DESIGNER Procedure Note Jude Wheatley MD - 04/14/2024 EXAM: MR BRAIN WO W CONTRAST LOCATION: [facility] DATE: 04/14/2024 INDICATION: Seizure COMPARISON: Head CT [...] and scattered foci of deep white matter [id number] involving both cerebral hemispheres, nonspecific. These could representfoci of nondescript gliosis or early chronic hypertensive/microvascular ischemicwhite matter changes. Electronically signed by: Jude Wheatley M.D. 04/14/2024 4:28 PM CATIA DESIGNER Hetal Paris DO MRI ORDERABLES Final Result * (ABNORMAL) BASIC METABOLIC PANEL (04/14/2024 2:48 PM CATIA DESIGNER) Sodium 132(L) 135 - 144 mmol/L 04/14/2024 3:14 PM CATIA DESIGNER [facility] Potassium 2.9(LL) 3.4 - 5.1 mmol/L 04/14/2024 3:14 PM CATIA DESIGNER [facility] Chloride 100 98 - 107 mmol/L 04/14/2024 3:14 PM CATIA DESIGNER [facility] Carbon Dioxide 24 22 - 30 mmol/L 04/14/2024 3:14 PM CATIA DESIGNER [facility] Calcium 8.0(L) 8.6 - 10.3 mg/dL 04/14/2024 3:14 PM CATIA DESIGNER [facility] Glucose 107(H) 74 - 100 mg/dL 04/14/2024 3:14 PM CATIA DESIGNER [facility] Blood Urea nitrogen 12 7 - 17 mg/dL 04/14/2024 3:14 PM CATIA DESIGNER [facility] Creatinine 0.61 0.52 - 1.04 mg/dL 04/14/2024 3:14 PM CATIA DESIGNER [facility] Anion Gap 8 5 - 15 mmol/L 04/14/2024 3:14 PM CATIA DESIGNER [facility] Glomerular Filtration Rate >60 >60 mL/min/1.7 3 m*2 04/14/2024 3:14 PM CATIA DESIGNER [facility] Comment:This calculation use s CKD-EPI 2020 equation; it has not been validated in women. Blood BLOOD SPECIMEN / Unknown Venipuncture / Unknown 04/14/2024 2:48 PM CATIA DESIGNER 04/14/2024 2:52 PM CATIA DESIGNER [facility] CHEMISTRY ORDERABLES Final Result Performing Organization Address [facility] de Phone Number [facility] [address] [place] [address] * LACTIC ACID W/2HR REFLEX (04/14/2024 2:48 PM CATIA DESIGNER) Lactic Acid, Venous 0.9 0.7 - 2.1 mmol/L 04/14/2024 3:[address] [facility] Blood BLOOD SPECIMEN / Unknown Venipuncture / Unknown 04/14/2024 2:48 PM CATIA DESIGNER 04/14/2024 2:52 PM CATIA DESIGNER [facility] CHEMISTRY ORDERABLES Final Result Performing Organization Address [facility] Phone Number [facility] [address] [place] [address] * (ABNORMAL) CULTURE, URINE (04/14/2024 2:20 PM CATIA DESIGNER) Pathologist [facility] Urine Culture >100,000 cfu/mL Escherichia coli(A) 04/16/2024 7:53 AM CATIA DESIGNER [facility] Urine URINE SPECIMEN COLLECTION, CLEAN CATCH / Unknown Non-blood collection / Unknown 04/14/2024 2:20 PM CATIA DESIGNER 04/14/2024 2:37 PM CATIA DESIGNER Narrative Organism Antibiotic Method Susceptibility Escherichia coli [...] Escherichia coli Trimethoprim/Sulfa ($) <=20: Sensitive Hetal Pairs DO MICROBIOLOGY - GENERAL ORDAravind DYER Final Result [facility] [address] [place] [address] * (ABNORMAL) URINE DRUG SCREEN (04/14/2024 2:20 PM CATIA DESIGNER) [facility] Urine Amphetamines Screen Negative Negative 5 2:41 PM CATIA DESIGNER [facility] Urine Barbiturates Screen Negative Negative 5 2:41 PM CATIA DESIGNER [facility] Urine Benzodiazepines Screen Negative Negative 5 2:41 PM CATIA DESIGNER [facility] Urine Cocaine Screen Negative Negative 5 2:41 PM CATIA DESIGNER [facility] Urine Fentanyl Screen Negative Negative 5 2:41 PM CATIA DESIGNER [facility] Urine Opiates Screen Negative Negative 5 2:41 PM CATIA DESIGNER [facility] Urine Oxycodone Screen Negative Negative 5 2:41 PM CATIA DESIGNER [facility] Urine Phencyclidine Screen Negative Negative 5 2:41 PM CATIA DESIGNER [facility] Urine Methadone Screen Negative Negative 5 2:41 PM CATIA DESIGNER [facility] Urine Methamphetamine Screen Negative Negative 5 2:41 PM CATIA DESIGNER [facility] Urine Tetrahydrocannabinol Screen Presumptive Positive(A) Negative 5 2:41 PM CATIA DESIGNER [facility] Urine Tricyclic Antidepressants Screen Negative Negative 5 2:41 PM CATIA DESIGNER [facility] Urine URINE SPECIMEN COLLECTION, CLEAN CATCH / Unknown Non-blood collection / Unknown 04/14/2024 2:20 PM CATIA DESIGNER 04/14/2024 2:24 PM CATIA DESIGNER Narrative [facility] - 04/14/2024 2:41 PM CATIA DESIGNER False presumptive positives may occur with prescription and [id number] medications due to cross-reactivity and interfering compounds.Urine [...] Paris DO URINE ORDERABLES Final Resu lt [facility] [address] [place] [address] * (ABNORMAL) URINALYSIS, REFLEX TO CULTURE (04/14/2024 2:20 PM CATIA DESIGNER) UA Color Kathia(A) Light Yellow, Yellow 04/14/2024 2:37 PM CATIA DESIGNER [facility] Urine Appearance Cloudy(A) Clear 04/14/19 2:37 PM CATIA DESIGNER [facility] Urine Specific Roma 1.015 1.005 - 1.030 04/14/2024 2:37 PM CATIA DESIGNER [facility] Urine pH 6.0 5.0 - 8.0 04/14/2024 2:37 PM CATIA DESIGNER [facility] Urine Leukocyte Esterase Trace(A) Negative 04/14/2024 2:37 PM CATIA DESIGNER [facility] Urine Nitrates Negative Negative 04/14/2024 2:37 PM CATIA DESIGNER [facility] Urine Protein Trace(A) Negative 04/14/2024 2:37 PM CATIA DESIGNER [facility] Urine Glucose Negative Negative 04/14/2024 2:37 PM CATIA DESIGNER [facility] Urine Ketones Negative Negative 04/14/2024 2:37 PM CATIA DESIGNER [facility] Urine Urobilinogen Normal Normal 04/14/2024 2:37 PM CATIA DESIGNER [facility] Urine Bilirubin Negative Negative 2:37 PM CATIA DESIGNER [facility] Urine Blood 2+(A) Negative 04/14/2024 2:37 PM CATIA DESIGNER [facility] Urine WBC's 0-5 0 - 5 /HPF 04/14/2024 2:37 PM CATIA DESIGNER [facility] Urine RBC's 0-2 0 - 2 /HPF 04/14/2024 2:37 PM CATIA DESIGNER [facility] Urine Epithelial Cells Occasional( A) Negative /HPF 04/14/2024 2:37 PM CATIA DESIGNER [facility] Urine Bacteria Packed(A) Negative /HPF 04/14/2024 2:37 PM CATIA DESIGNER [facility] Urine URINE SPECIMEN COLLECTION, CLEAN CATCH / Unknown Non-blood collection / Unknown 04/14/2024 2:20 PM CATIA DESIGNER 04/14/2024 2:24 PM CATIA DESIGNER Hetal Paris DO EC URINE ORDERABLES Final Resu lt Performing Organization Address City/State/[facility] Co de Phone Number [facility] [address] [place] [address] * CT HEAD WO IV CONTRAST (04/14/2024 1:35 PM CATIA DESIGNER) Anatomical Region Laterality Modality Head Computed Tomogra phy 04/14/2024 1:25 PM CATIA DESIGNER Narrative 04/14/2024 1:40 PM CATIA DESIGNER PROCEDURE: CT OF THE HEAD WITHOUT IV [...] Final Result * MAGNESIUM (04/14/2024 12:57 PM CATIA DESIGNER) Pathologist [facility] Magnesium 1.8 1.6 - 2.3 mg/dL 04/14/2024 1:34 PM CATIA DESIGNER [facility] Blood BLOOD SPECIMEN / Unknown Venipuncture / Unknown 04/14/2024 12:57 PM CATIA DESIGNER 04/14/2024 1:00 PM CATIA DESIGNER Hetal Paris DO CHEMISTRY ORDERABLES Final Result [facility] [address] [place] [address] * (ABNORMAL) COMPREHENSIVE METABOLIC PANEL (04/14/2024 12:57 PM CATIA DESIGNER) Sodium 132(L) 135 - 144 mmol/L 04/14/2024 1:18 PM CATIA DESIGNER [facility] Potassium 2.9(LL) 3.4 - 5.1 mmol/L 04/14/2024 1:18 PM [facility] Chloride 96(L) 98 - 107 mmol/L 04/14/2024 1:18 PM [facility] Carbon Dioxide 22 22 - 30 mmol/L 04/14/2024 1:18 PM [facility] Calcium 8.6 8.6 - 10.3 mg/dL 04/14/2024 1:18 PM [facility] Alkaline Phosphatase 88 38 - 126 U/L 04/14/2024 1:18 PM [facility] Aspartate Aminotransferase 47(H) 14 - 36 U/L 04/14/2024 1:18 PM [facility] Alanine Aminotransferase 31 <35 U/L 04/14/2024 1:18 PM [facility] Glucose 130(H) 74 - 100 mg/dL 04/14/2024 1:18 PM [facility] Blood Urea nitrogen 13 7 - 17 mg/dL 04/14/2024 1:18 PM [facility] Creatinine 0.64 0.52 - 1.04 mg/dL 04/14/2024 1:18 PM [facility] Protein, Total 7.1 6.3 - 8.2 g/dL 04/14/2024 1:18 PM [facility] Albumin 4.3 3.5 - 5.0 g/dL 04/14/2024 1:18 PM [facility] Bilirubin, Total 1.0 0.2 - 1.3 mg/dL 04/14/2024 1:18 PM [facility] Globulin 2.8 1.4 - 4.8 g/dL 04/14/2024 1:18 PM [facility] Anion Gap 14 5 - 15 mmol/L 04/14/2024 1:18 PM [facility] Glomerular Filtration Rate >60 >60 mL/min/1. 73 m*2 04/14/2024 1:18 PM [facility] Comment:This calculation use s CKD-EPI 2020 equation; it has not been validated in women. Blood BLOOD SPECIMEN / Unknown Venipuncture / Unknown 04/14/2024 12:57 PM [facility] 04/14/2024 1:00 PM CATIA DESIGNER Hetal Raina GREER EC CHEMISTRY ORDERABLES Final Result Performing Organization Address [facility] Phone Number [facility] [address] [place] [address] * ALCOHOL (04/14/2024 12:57 PM CATIA DESIGNER) Alcohol <0.010 <=0.010 % 04/14/2024 1:16 PM CATIA DESIGNER [facility] Blood BLOOD SPECIMEN / Unknown Venipuncture / Unknown 04/14/2024 12:57 PM CATIA DESIGNER 04/14/2024 1:00 PM CATIA DESIGNER Hetal Raina GREER EC CHEMISTRY ORDERABLES Final Result Performing Organization Address [facility] Phone Number [facility] [address] [place] [address] * (ABNORMAL) LACTIC ACID W/2HR REFLEX (04/14/2024 12:57 PM CATIA DESIGNER) Lactic Acid, Venous 2.5(H) 0.7 - 2.1 mmol/L 04/14/2024 1:13 PM CATIA DESIGNER [facility] Blood BLOOD SPECIMEN / Unknown Venipuncture / Unknown 04/14/2024 12:57 PM CATIA DESIGNER 04/14/2024 1:00 PM CATIA DESIGNER Hetal Raina GREER EC CHEMISTRY ORDERABLES Final Result Performing Organization Address [facility] de Phone Number [facility] [address] [place] [address] * (ABNORMAL) HEMOGRAM/DIFFERENTIAL (04/14/2024 12:57 PM CATIA DESIGNER) WBC 13.7(H) 4.0 - 11.0 10*3/uL 04/14/2024 1:09 PM CATIA DESIGNER [facility] RBC 4.01 3.80 - 5.20 10*6/uL 04/14/2024 1:09 PM [facility] HGB 13.2 12.0 - 16.0 g/dl 04/14/2024 1:09 PM [facility] HCT 38.1 35.0 - 47.0 % 04/14/2024 1:09 PM [facility] MCV 95.0 80 - 98 fL 04/14/2024 1:09 PM [facility] MCH 32.9 27.0 - 34.0 pg 04/14/2024 1:09 PM [facility] MCHC 34.6 32 - 36 g/dl 04/14/2024 1:09 PM [facility] PLT 208 150 - 420 10*3/uL 04/14/2024 1:09 PM [facility] Neutrophils Absolute 9.19(H) 2.10 - 7.50 10*3/uL 04/14/2024 1:09 PM [facility] Lymphocytes Absolute 3.11 0.76 - 4.00 10*3/uL 04/14/2024 1:09 PM [facility] Monocytes Absolute 0.83 0.00 - 0.90 10*3/uL 04/14/2024 1:09 PM [facility] Eosinophils Absolute 0.47 0.04 - 0.54 10*3/uL 04/14/2024 1:09 PM [facility] Basophils Absolute 0.03 0.00 - 0.20 10*3/uL 04/14/2024 1:09 PM [facility] RDW-SD 41.9 36.5 - 46.3 fL 04/14/2024 1:09 PM [facility] RDW-CV 12.0 11.6 - 14.4 % 04/14/2024 1:09 PM [facility] Immature Granulocytes Absolute 0.03 0.00 - 0.10 10*3/uL 04/14/2024 1:09 PM [facility] Blood BLOOD SPECIMEN / Unknown Venipuncture / Unknown 04/14/2024 12:57 PM CATIA DESIGNER 04/14/2024 1:00 PM [facility] Hetal Raina DO EC HEMATOLOGY ORDERABLES Final Result NAEEM CHAUDHRY [address] [phone] * EKG 12-LEAD (04/14/2024 12:48 PM CATIA DESIGNER) Ventricular Rate 109 BPM RMCMUSE Atrial Rate 109 BPM RMCMUSE P-R Interval 140 ms RMCMUSE QRS Duration 88 ms RMCMUSE QT 332 ms RMCMUSE QTc 447 ms RMCMUSE P Rohwer 59 degrees RMCMUSE R Rohwer 15 degrees RMCMUSE T Rohwer -7 degrees RMCMUSE 04/14/2024 12:4 8 PM CATIA DESIGNER 04/16/2024 8:01 PM CATIA DESIGNER Narrative RMCMUSE - 04/16/2024 8:01 PM CATIA DESIGNER Confirming Doc Eliseo Stewart Sinus tachycardia Nonspecific ST abnormality Abnormal ECG No previous ECGs available Procedure Note Eliseo Stewart DO - 04/16/2024 [address] Eliseo Stewart Sinus tachycardia Nonspecific ST abnormality Abnormal ECG No previous ECGs available Hetal Paris DO IP ECG ORDERABLES Final Result Performing Organization Address [facility] de Phone Number RMCMUSE [...] at 1300 New Bag 04/14/2024 1:02 PM CATIA DESIGNER 1,000 mg 400 mL/hr diazePAM (Valium) injection 10 mg 10 mg, IV Push, ONCE, 1 dose, On Fri04/14/24 at 1300Indications:Anxiety Given 04/14/2024 1:04 PM CATIA DESIGNER 10 mg diazePAM (Valium) injection 5-20 mg [...] Fri04/14/24 at 1630 Given 04/14/2024 4:19 PM CATIA DESIGNER 25 mg ketorolac (TORADOL) injection 15 mg 15 mg, IV Push, ONCE, 1 dose, On Fri04/14/24 at 1430 Given 04/14/2024 2:19 PM CATIA DESIGNER 15 mg metoclopramide (Reglan) injection 10 mg 10 mg, IV Push, ONCE, 1 dose, On Fri04/14/24 at 1630 Given 04/14/2024 4:21 PM CATIA DESIGNER 10 mg potassium chloride CR (K-Dur, Klor-Con M) tablet 40 mEq 40 mEq, Oral, ONCE, 1 dose, On Fri04/14/24 at 1330 Given 04/14/2024 1:46 PM CATIA DESIGNER 40 mEq sodium chloride 0.9% BOLUS BAG 1,000 mL 1,000 mL, Intravenous, at 1,000 mL/hr, ONCE, 1 dose, On Fri04/14/24 at 1300 New Bag 04/14/2024 1:08 PM CATIA DESIGNER 1,000 mL 1000 mL/hr thiamine (B-1) 400 mg in sodium chloride 0.9% (NS) 50 mL IVPB 400 mg, Intravenous, at 100 mL/hr, ONCE DAILY, 3 doses, First dose on Fri04/14/24 at 1730, Last dose on Fri04/16/24 at 0800 New Bag 04/14/2024 5:23 PM CATIA DESIGNER 400 mg 100 mL/hr thiamine (Vitamin B-1) [...] Recently Administered Medications Times are shown in CATIA DESIGNER. Scheduled Medication Order 04/12/2024 04/13/2024 04/14/2024 acetaminophen [...] 04/14/2024 documented in this encounter Care Teams Salon Sales Consultant Relationship Specialty Start Date End Date Gene Ashraf MD [address] [address] PCP - General Family Medicine 04/14/24 documented as of this encounter
--- OUTSIDE RECORDS SUMMARY | 2024-05-07 12:49 | XMS_ITS | Encounter Summary ---
Author Organization [facility] [employer] Formerly [facility] Address [address] [address] Phone Care Team Providers Care Senior Instrumentation Engineer Name Role Phone Gene Ashraf MD Primary Care Provider [phone] Encounter Details Date Type Department Care Team (Late st Contact Info) Description 04/14/2024 1:05 PM SINGLE SPINDLE SCREW MACHINE OPERATOR Ancillary Procedure [facility] [address] [id number] Social History Tobacco Use Types [...] on file Legal Sex Female 9:34 PM SINGLE SPINDLE SCREW MACHINE OPERATOR Gender Identity Not on file [...] WO IV CONTRAST STAT 04/14/2024 1:35 PM SINGLE SPINDLE SCREW MACHINE OPERATOR documented in this encounter Results * CT HEAD WO IV CONTRAST (04/14/2024 1:35 PM SINGLE SPINDLE SCREW MACHINE OPERATOR) Anatomical Region Laterality Modality Head Computed Tomogra phy 04/14/2024 1:25 PM SINGLE SPINDLE SCREW MACHINE OPERATOR Narrative 04/14/2024 1:40 PM SINGLE SPINDLE SCREW MACHINE OPERATOR PROCEDURE: CT OF THE HEAD WITHOUT IV [...] on filedocumented in this encounter Care Teams Senior Instrumentation Engineer Relationship Specialty Start Date End Date Gene Ashraf MD [facility] [address] [address] PCP - General Family Medicine 04/14/24 documented as of this encounter
--- OUTSIDE RECORDS SUMMARY | 2024-05-07 12:49 | XMS_ITS | Encounter Summary ---
Author Organization [facility] Address [address] [address] Phone Care Team Providers Care Archival Studies Professor Name Role Phone Gene Ashraf MD Primary Care Provider [phone] Encounter Details Date Type Department Care Team (Late st Contact Info) Description 03/21/2021 Scanned - Medical Reports [facility] [address] [place] [address] Abstract, Provider, Social History Tobacco Use Types Packs/Day Years Used Date Smoking Tobacco: Never Assessed Comments No Sex and Gender Information Value Date Recorded Sex Assigned at Not on file Legal Sex Female 9:34 PM EMERGENCY TECHNICIAN Gender Identity Not on file Sexual Orientation Not on file documented as of this encounter Plan of Treatment Not on file documented as of this encounter Visit Diagnoses Not on filedocumented in this encounter Care Teams Archival Studies Professor Relationship Specialty Start Date End Date Gene Ashraf MD [facility] [address], [place] [address] PCP - General Family Medicine 04/14/24 documented as of this encounter
--- OUTSIDE RECORDS SUMMARY | 2024-05-07 12:49 | XMS_ITS | Encounter Summary ---
Author Organization [facility] [place] Address [address] [address] Phone Care Team Providers Care Paper Products Machine Operator Name Role Phone Gene Ashraf MD Primary Care Provider [phone] Encounter Details Date Type Department Care Team (Latest Contact Info) Description 04/14/2024 Travel Social History Tobacco Use Types Packs/Day Years Used Date Smoking Tobacco: Every Day Cigarettes Smokeless Tobacco: Never Alcohol Use Standard Drinks/Week Comments Yes 0 (1 standard drink = 0.6 oz pur e alcohol) [facility] Custom IPV Answer Date Recorded Do you feel UNSAFE in any of your personal relationships with your family members or any other acquaintances? No 2024 Comments No Sex and Gender Information Value Date Recorded Sex Assigned at Not on file Legal Sex Female 9:34 PM TAPER PRINTED CIRCUIT LAYOUT Gender Identity Not on file Sexual Orientation [...] on filedocumented in this encounter Care Teams Paper Products Machine Operator Relationship Specialty Start Date End Date Gene Ashraf MD [place] [address] [address] [address] PCP - General Family Medicine 04/14/24 documented as of this encounter
--- OUTSIDE RECORDS SUMMARY | 2024-05-07 12:49 | XMS_ITS | Encounter Summary ---
[facility] Address [address] [address] Phone Care Team Providers Care Appeals Referee Name Role Phone Gene Ashraf MD Primary Care Provider [phone] Encounter Details Date Type Department Care Team (Late st Contact Info) Description 04/14/2024 3:05 PM OIL AND GAS RECRUITER Ancillary Procedure [facility] [address] [address] Social History Tobacco Use Types [...] on file Legal Sex Female 9:34 PM OIL AND GAS RECRUITER Gender Identity Not on file Sexual Orientation [...] WO W CONTRAST STAT 04/14/2024 3:50 PM OIL AND GAS RECRUITER Witnessed seizure-like activity (HCC) documented in this encounter Visit Diagnoses Not on filedocumented in this encounter Administered Medications Inactive Administered Medications Medication Order MAR Action Action Date Dose Rate Site gadoterate meglumine (Dotarem, Clariscan) 7.5 MMOL/15ML injection 15 mL 15 mL, IV Push, ONCE, 1 dose, On Fri04/14/24 at 1600 Given 04/14/2024 3:51 PM OIL AND GAS RECRUITER 15 mL documented in this encounter Orders Medications Ordered That Shawn ht Not Have Been Administered Count Last Ordered Date First Ordered Date gadoterate meglumine (Dotare m, Clariscan) 7.5 MMOL/15ML injection 15 mL 1 04/14/2024 documented in this encounter Care Teams Appeals Referee Relationship Specialty Start Date End Date Gene Ashraf MD [address] [address] PCP - General Family Medicine 04/14/24 documented as of this encounter
--- OUTSIDE RECORDS SUMMARY | 2024-05-07 12:49 | XMS_ITS | Clinical Summary ---
Author Organization [facility] Address [address] [place] [address] Care Team Providers Care Fine Hairer Name Role Phone Elsewhere, Pcp Primary Care Provider Unavailabl e Source Comments Patient records contain information from all sites at [facility]. For routine questions regarding patient records, call [phone] during business hours, M-F 8:00 AM - 5:00 PM Central Time. 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 Acquired (non-genetic) causes of markedly increased LDL cholesterol include cholestatic liver disease due to the presence of LpX. If a genetic form of hypercholesterolemia is suspected, family studies including biochemical testing for lipids (total cholesterol,triglycerides, LDL cholesterol and HDL cholesterol) are recommended. Please contact the laboratory at or the on-line test catalog at [employer] for information about how to order these tests or to speak with a genetic counselor. Further interpretation would require clinical information. Blood 04/06/2015 8:15 AM SCOREBOARD OPERATOR Danny D eOliveira M.D. LAB BLOOD ADD-ON Final Result POWERCHART * Pathology SPINNING FRAME FIXER Cytology (12/01/2014 12:00 AM CDT) 12/01/2014 Narrative [facility] - 12/13/2014 1:36 PM CDT [facility] [place] [address] [facility] [address] [place] [address] Patient Name: TIFFANIE ULISES MOSHER Collected: 12/01/2014 Address: [facility]/Zip: [address] [place] [phone] Received: Reported: 12/02/2014 12/13/2014 Soc. Sec. #: /Age/Sex 1975 (Age: 39) F Physician(s): SHAHANA DE OLIVEIRA MD Copy To: [facility] [id number] [address] [place] [address] [address] [place] [address] CYTOPATHOLOGY SPINNING FRAME FIXER REPORT FINAL CYTOLOGIC DIAGNOSIS Pap Smear - [...] Most Recently Relevant to Health Maintenance Insurance [facility] [facility] Care Teams Fine Hairer Relationship Specialty Start Date End Date Elsewhere, Pcp PCP - General Family Medicine 01/27/19
[2024-05-07] MEDS: LACTATED RINGERS 1000 ML 1,000 ML IV (12:50)
[2024-05-07] MEDS: HYDROmorphone 0.5 mg/0.5 ml inj IVP ×4 (12:50→19:07)
[2024-05-07 13:01] LABS: Slide Review Reflex No
[2024-05-07 14:00] LABS: Lactate* 2.8 mmol/L (0.5-1.9)
[2024-05-07] MEDS: PIPERACILLIN/TAZOBACTAM 4.5 GM in 0.9 % SODIUM CHLORIDE Mini-bag 100 ML IVPB (14:18)
[2024-05-07 14:27] LABS: Appearance Urine Clear (Clear); Bilirubin Urine Negative (Negative); Blood Urine 2+ (Negative); Color Urine Yellow (Yellow); Glucose Urine Negative (Negative); Ketones Urine Negative (Negative); Leukocyte Esterase Urine Trace (Negative); Nitrite Urine Negative (Negative); Protein Urine Negative (Negative); Urobilinogen Urine 0.2 (0.2-1.0)
[2024-05-07 14:35] LABS: Bacteria Urine Few
[2024-05-07 14:37] LABS: Hemoglobin* 12.2 gm/dL (12.0-16.0)
[2024-05-07] MEDS: VANCOMYCIN 1.5 GM/300 ML 1.5 GM/300 ML PIGGYBACK IVPB (14:57)
[2024-05-07 16:15] LABS: Ur HCG Qualitative* Negative (Negative)
== END 2024-05-07 19:26 | disposition other institution (70) ==
PROVIDERS: Emergency Provider Emergency Medicine; PCP Family Medicine
DX: S30.1XXA Contusion of abdominal wall, initial encounter (principal); N30.80 Other cystitis without hematuria
CPT/HCPCS: 36415; 74177; 80053; 81001; 81025; 82077; 83605; 83690; 83735; 85018; 85025; 87086; 93005; 96365; 96375; 99285; J1171; J2060; J2405; J2543; J3372; J7030; J7120; Q9967

== ENCOUNTER 2024-05-07 19:06 | Outpatient (CLI) | payer BC, SELFPAY | END 2024-05-07 19:07 | disposition home or self-care (01) | LOC: AMB 05-10 08:22 | PROVIDERS: PCP Family Medicine; Visit Provider Family Medicine | DX: N30.80 Other cystitis without hematuria (principal); S30.1XXA Contusion of abdominal wall, initial encounter | CPT/HCPCS: A0425; A0427 ==

== ENCOUNTER 2024-06-10 09:19 | Emergency (ER) | payer BC, SELFPAY ==
[2024-06-10] VITALS (20 sets, daily range): BP systolic 93–134; BP diastolic 50–85; PULSE 77–94; RESP 16–20; TEMP 35.7; O2SAT 89–99; BMI 23.6
--- OUTSIDE RECORDS SUMMARY | 2024-06-10 09:22 | XMS_ITS | Clinical Summary ---
Author Organization [facility] Address [facility] [place] [address] Care Team Providers Care Pulp Beater Name Role Phone Dakota Ashraf MD Primary Care Provider Allergies No known active allergies Medications omeprazole (PRILOSEC) 20 mg Delayed-Releas e capsule Take 20 mg by mouth once daily if needed. 0 Active verapamil SR (CALAN SR) 120 mg Sustained-Rele ase tablet Take 2 Tablets by mouth once daily with a meal. 0 Active acetaminophen (TYLENOL EXTRA STRGTH) 500 mg tablet Take 500 mg by mouth every 6 hours if needed for Pain. Max acetaminophen dose: 4000mg in 24 hrs. 0 0 Active buPROPion (WELLBUTRIN XL) 300 mg Extended-Relea se tablet Take 300 mg by mouth once daily in the morning. 4 Active Ventolin HFA 90 mcg/actuation inhaler Inhale 2 Puffs by mouth every 6 hours if needed for Shortness Of Breath. 5 Active busPIRone (BUSPAR) 30 mg tablet Take 30 mg by mouth two times daily. 5 Active escitalopram oxalate (LEXAPRO) 20 mg tablet Take 20 mg by mouth once daily in the morning. 5 Active gabapentin (NEURONTIN) 300 mg capsule Patient takes it differently TAKE 1 CAPSULE (300 MG) BY MOUTH IN THE MORNING AND AT MIDDAY AND 4 CAPSULES (1200 MG) AT BEDTIME. 4 CAPSULES DAILY 5 Active LORazepam (ATIVAN) 0.5 mg tab Take 1 Tablet by mouth 2 times daily if needed for Anxiety. 5 Active nicotine 21 mg/24 hr (NICODERM; HABITROL) 21 mg/24 hr patchIndicatio ns:Tobacco use disorder Apply 1 Patch on dry, clean, hairless skin once daily. 28 Patch 05/09/2024 9:19 AM QUILL MACHINE OPERATOR 5 Active nicotine 2 mg lozengeIndicat ions:Tobacco use disorder Place 1 Lozenge (2 mg) in mouth, between cheek & gum every hour while awake as needed for Nicotine Craving. 48 Lozenge 05/09/2024 9:19 AM QUILL MACHINE OPERATOR 5 Active oxyCODONE (ROXICODONE) 5 mg immediate release tabletIndicati ons:Rectus sheath hematoma, initial encounter Take 1 Tablet (5 mg) by mouth every 6 hours if needed for Pain (For moderate to severe pain.). 8 Tablet 05/09/2024 9:19 AM QUILL MACHINE OPERATOR 5 Active cephalexin 500 mg capsuleIndicat ions:urinary tract infection Take 1 Capsule (500 mg) by mouth two times daily for 5 days. 10 Capsule 5 025 Active Problems Problem Noted Date Diagnosed Date E. 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 coli UTI (urinary tract infection) (Primary Dx); Tobacco use disorder; Rectus sheath hematoma, initial encounter Discharge Disposition: Home Self Care 05/07/2024 Travel from Last 3 Months Family History Medical [...] alcohol) socially Social Connections Answer Date Recorded Do you often feel lonely or isolated from those around you? 0 05/07/2024 Financial Resource Strain Answer Date R ecorded Difficulty of Paying Living Expenses 3 05/07/2024 Difficulty of Paying Living Expenses Not on file 05/07/2024 Food Insecurity Answer Date Recorded Do you worry your food will run out before you are able to buy more? 1 05/07/2024 Transportation Needs Answer Date Record ed Does lack of transportation keep you from medica l appointments? 1 05/07/2024 Does lack of transportation keep you from work, meetings or getting things that you need? 1 05/07/2024 Housing Stability Answer Date Recorded What is your housing situation today? 1 05/07/2024 Interpersonal Safety Answer Date Record ed Are you being hit, kicked, p ushed or yelled at (see row info)? No 05/07/2024 Interpersonal Safety Abuse 12 - 18 Not on file 05/07/2024 Interpersonal Safety Ambulatory Vulnerability No t on file 05/07/2024 Utilities Answer Date Recorded Do you have trouble paying f or utilities (for example, heat, electricity, water, phone)? 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 Not on file Not on file Obstetrics History Last Filed Vital Signs Vital Sign Reading Time Taken Comments Blood Pressure 146/71 05/09/2024 8:32 AM QUILL MACHINE OPERATOR Pulse 67 05/09/2024 8:32 AM QUILL MACHINE OPERATOR Temperature 36.6 C (97.8 F) 05/09/2024 8:32 AM QUILL MACHINE OPERATOR Respiratory Rate 18 05/09/2024 8:32 AM QUILL MACHINE OPERATOR Oxygen Saturation 98% 05/09/2024 8:32 AM QUILL MACHINE OPERATOR Inhaled Oxygen Concentration - - Weight 69.9 kg (154 lb) 05/08/2024 4:37 AM QUILL MACHINE OPERATOR Height 169.4 cm (5' 6.69) 05/08/2024 4:37 AM CS T Body Mass Index 24.34 05/08/2024 4:37 AM QUILL MACHINE OPERATOR Plan of Treatment Health Maintenance Due [...] vaccine series ( season) 2023 03/14/2021 Influenza Vaccine (Season Ended) 2024 Pap test for age 21-65 01/21/2025 2, 01/21/2022, 09/16/2016, Additional history exists Pneumococcal series for age 6-49 Aged Out No longer eligible based on patient's age to complete this topic Procedures Procedure Name Priority Date/Time Associated Diagnosis Comments SCAN CORRESP-EKG RESULTS 05/10/2024 3:35 PM QUILL MACHINE OPERATOR CBC W PLT NO DIFF Early AM 05/09/2024 4:4 8 AM QUILL MACHINE OPERATOR BASIC METABOLIC PANEL Early AM 05/09/2024 4:48 AM QUILL MACHINE OPERATOR POTASSIUM Timed 05/08/2024 11:06 PM QUILL MACHINE OPERATOR HEMOGLOBIN Timed 05/08/2024 9:17 PM QUILL MACHINE OPERATOR EXTRA TUBE LAVENDER Today 05/08/2024 9 :16 [address]UILL MACHINE OPERATOR CT ABDOMEN PELVIS WWO Routine 05/08/2024 11:49 AM QUILL MACHINE OPERATOR HEMOGLOBIN Timed 05/08/2024 10:24 AM QUILL MACHINE OPERATOR STOOL PATHOGEN MULTIPLEX PCR PANEL Today 05/08/2024 8:21 AM QUILL MACHINE OPERATOR GLUCOSE METER Timed 05/08/2024 8:09 AM QUILL MACHINE OPERATOR TROPONIN T (HS) ONE TIME Timed 05/08/2024 3:36 AM QUILL MACHINE OPERATOR HEMOGLOBIN Timed 05/08/2024 3:36 AM QUILL MACHINE OPERATOR TSH Early AM 05/08/2024 3:36 AM QUILL MACHINE OPERATOR CBC W PLT NO DIFF Early AM 05/08/2024 3:3 6 AM QUILL MACHINE OPERATOR BASIC METABOLIC PANEL Early AM 05/08/2024 3:36 AM QUILL MACHINE OPERATOR SCAN-CARDIAC STRIP 05/08/2024 1: 53 AM QUILL MACHINE OPERATOR TROPONIN T (HS) ACUTE W/2HR REFLEX LENY 05/08/2024 1:05 AM QUILL MACHINE OPERATOR SODIUM STAT 05/08/2024 1:05 AM QUILL MACHINE OPERATOR EKG 12 LEAD STAT 05/08/2024 12:07 AM QUILL MACHINE OPERATOR SCAN-CARDIAC STRIP 05/07/2024 11 :00 PM QUILL MACHINE OPERATOR MRSA/SA PCR Today 05/07/2024 10:37 PM QUILL MACHINE OPERATOR COVID/FLU/RSV PANEL Today 05/07/2024 1 0:37 PM QUILL MACHINE OPERATOR LACTATE VENOUS STAT 05/07/2024 10:09 PM QUILL MACHINE OPERATOR HEMOGLOBIN STAT 05/07/2024 10:09 PM QUILL MACHINE OPERATOR HPV HIGH RISK Routine 01/21/2022 8:30 AM QUILL MACHINE OPERATOR from Last 3 Months or Most Recently Relevant to Health Maintenance Results * SCAN CORRESP-EKG RESULTS (05/10/2024 3:35 PM QUILL MACHINE OPERATOR) Narrative 05/10/2024 3:35 PM QUILL MACHINE OPERATOR Ordered by an unspecified provider. us Other Clinical Staff OTHER Final Resul t * (ABNORMAL) CBC no diff AM (05/09/2024 4:48 AM QUILL MACHINE OPERATOR) Only the most recent of2 resultswithin the time period is included. WHITE BLOOD COUNT 11.4(H) 4.5 - 11.0 thou/cu mm 05/09/2024 5:19 AM [facility] RED BLOOD COUNT 2.91(L) 4.00 - 5.20 mil/cu mm 05/09/2024 5:19 AM [facility] HEMOGLOBIN 9.6(L) 12.0 - 16.0 g/dL 05/09/2024 5:19 AM [facility] HEMATOCRIT 27.7(L) 33.0 - 51.0 % 05/09/2024 5:19 AM [facility] MCV 95 80 - 100 fL 05/09/2024 5:19 AM [facility] MCH 33.0 26.0 - 34.0 pg 05/09/2024 5:19 AM [facility] MCHC 34.7 32.0 - 36.0 g/dL 05/09/2024 5:19 AM [facility] RDW 12.6 11.5 - 15.5 % 05/09/2024 5:19 AM [facility] PLATELET COUNT 121(L) 140 - 440 thou/cu mm 05/09/2024 5:19 AM [facility] MPV 9.8 6.5 - 11.0 fL 05/09/2024 5:19 AM [facility] NRBC 0.0 % 05/09/2024 5:19 AM [facility] ABS NRBC 0.0 thou /cu mm 05/09/2024 5:19 AM [facility] Blood BLOOD SPECIMEN / Unknown Butterfly / Unknown 05/09/2024 4:48 AM QUILL MACHINE OPERATOR 05/09/2024 5:05 AM QUILL MACHINE OPERATOR us Shanon Parham MD HEMATOLOGY Final Resu lt [facility] [address] [place] [address], [place] * (ABNORMAL) Basic metabolic panel AM (05/09/2024 4:48 AM QUILL MACHINE OPERATOR) Only the most recent of2 resultswithin the time period is included. SODIUM 138 136 - 145 mmol/L 05/09/2024 5:49 AM [facility] POTASSIUM 3.2(L) 3.5 - 5.1 mmol/L 05/09/2024 5:49 AM [facility] CHLORIDE 102 98 - 107 mmol/L 05/09/2024 5:49 AM [facility] CO2,TOTAL 27 22 - 29 mmol/L 05/09/2024 5:49 AM [facility] ANION GAP 9 5 - 18 05/09/2024 5:49 AM [facility] GLUCOSE 101(H) 70 - 99 mg/dL 05/09/2024 5:49 AM [facility] CALCIUM 8.3(L) 8.8 - 10.4 mg/dL 05/09/2024 5:49 AM [facility] Comment: Reference ranges for this test were updated on 01/13/2024 to reflect our healthy population more accurately. Reference range changes are not retroactively applied to results, but previous results using the same methodology can be interpreted in the context of the new reference range. BUN 7 6 - 20 mg/dL 05/09/2024 5:49 AM [facility] CREATININE 0.52 0.50 - 0.90 mg/dL 05/09/2024 5:49 AM [facility] BUN/CREAT RATIO 13 10 - 20 5:49 AM [facility] eGFR >90 >90 mL/min/1. 73m2 05/09/2024 5:49 AM QUILL MACHINE OPERATOR [facility] Comment:As of 2021, eG FR is calculated by the CKD-EPI creatinine equation without race adjustment. eGFR can be influenced by muscle mass, exercise, and diet. The reported eGFR is an estimation only and is only applicable if the renal function is stable. Blood BLOOD SPECIMEN / Unknown Butterfly / Unknown 05/09/2024 4:48 AM QUILL MACHINE OPERATOR 05/09/2024 5:05 AM QUILL MACHINE OPERATOR Shanon Parham MD CHEMISTRY Final Resu lt [facility] [address] [place] [address], [place] * POTASSIUM (05/08/2024 11:06 PM QUILL MACHINE OPERATOR) POTASSIUM 4.2 3.5 - 5.1 mmol/L 05/09/2024 12:05 AM QUILL MACHINE OPERATOR [facility] Blood BLOOD SPECIMEN / Unknown Venipuncture / Unknown 05/08/2024 11:06 PM QUILL MACHINE OPERATOR 05/08/2024 11:11 PM QUILL MACHINE OPERATOR Shanon Parham MD CHEMISTRY Final Resu lt [facility] [address] [place] [address], [place] * (ABNORMAL) Hemoglobin q 6 (05/08/2024 9:17 PM QUILL MACHINE OPERATOR) Only the most recent of4 resultswithin the time period is included. HEMOGLOBIN 9.2(L) 12.0 - 16.0 g/dL 05/08/2024 9:30 PM QUILL MACHINE OPERATOR [facility] MCV 95 80 - 100 fL 05/08/2024 9:30 PM QUILL MACHINE OPERATOR [facility] Blood BLOOD SPECIMEN / Unknown Non-Lab Venipuncture / Unknown 05/08/2024 9:17 PM QUILL MACHINE OPERATOR 05/08/2024 9:25 PM QUILL MACHINE OPERATOR Shanon Parham MD HEMATOLOGY Final Resu lt [facility] [address] [place] [id number], [place] * EXTRA TUBE LAVENDER (05/08/2024 9:16 PM QUILL MACHINE OPERATOR) Blood BLOOD SPECIMEN / Unknown Non-Lab Venipuncture / Unknown 05/08/2024 9:16 PM QUILL MACHINE OPERATOR 05/08/2024 9:26 PM QUILL MACHINE OPERATOR Shanon Parham MD LABORATORY Final Resu lt Performing Organization Address City/[facility]/ZIP Co de Phone Number [facility] [address] [place] [id number], [place] * CT ABDOMEN PELVIS WWO (05/08/2024 11:49 AM QUILL MACHINE OPERATOR) Anatomical Region Laterality Modality Abdomen, Pelvis, AORTA, LIVER, SPLEEN Computed Tomography 05/08/2024 4:30 PM QUILL MACHINE OPERATOR Impressions 05/08/2024 4:30 PM QUILL MACHINE OPERATOR 1. Acute hematoma involving the lower aspect of the left rectus abdominis muscle. 3.5 mm focus of arterial phase hyperdensity within the muscle may reflect a small focus of active intramuscular bleeding. There is also some strandy hemorrhage within the left anterior pelvis posterior to the muscle. 2. Findings of emphysematous cystitis. 3. No gas involving either kidney. No hydronephrosis or renal abscess. 4. Mild atelectasis within the right lung base. Please note that all CT scans at this facility use dose modulation, iterative reconstruction, and/or weight-based dosing when appropriate to reduce radiation dose to as low as reasonably achievable. Dictated by Saul Narvaez MD @ 05/08/2024 4:30:22 PM (Electronically Signed) Narrative 05/08/2024 4:30 PM QUILL MACHINE OPERATOR For Patients: As a result of the Century Cures Act, medical imaging exams and procedure reports are released immediately into your electronic medical record. You may view this report before your referring provider. If you have questions, please contact your health care provider. INDICATION: Left lower quadrant abdominal pain. Known rectus sheath hematoma. Emphysematous cystitis. TECHNIQUE: Bleed protocol. Initial noncontrast CT abdomen and pelvis followed by intravenous contrast enhanced CT of the abdomen and pelvis with imaging performed in the arterial and venous phases. 99 mL Omnipaque 350 intravenous contrast administered. Multi planar MIP images were created. COMPARISON: Prior outside study not available for direct comparison at time of interpretation. FINDINGS: There is an acute hematoma present within the lower aspect of the left rectus abdominis muscle. The muscle is expanded measuring up to 4 centimeters anterior/posterior dimension compared to 1.8 centimeters anterior/posterior dimension for the contralateral normal right rectus abdominis muscle. On arterial phase image number 284 of series 3, there is an approximately 3.5 millimeter focus of intramuscular high attenuation within the inferior aspect of the left rectus abdominis muscle which may reflect tiny area of active arterial intramuscular bleeding. There is also some poorly marginated strandy hemorrhage within the left anterior pelvis just deep to the rectus abdominis muscle. No abdominal aortic aneurysm. The mesenteric arterial vasculature is patent. Renal arterial vasculature is patent. Gas is noted associated with the urinary bladder compatible with emphysematous cystitis. There is also a small amount of extraluminal gas adjacent to the urinary bladder. The urinary bladder is nondistended. No gas involving the kidney on either side. There is no hydronephrosis. No renal abscess. Trace amount of perinephric fluid is present inferiorly on the right. No urolithiasis. There is no focal liver lesion. No biliary ductal dilatation. Gallbladder measures under 4 centimeters diameter. Spleen is normal. Adrenal glands are normal. No focal pancreatic abnormality. No bowel obstruction. No bowel wall thickening. No appendicitis. No diverticulitis or colitis. No abdominal abscess. Atelectasis is present right lung base. No pleural effusion. Degenerative changes of the spine. No acute fractures. Procedure Note Saul Narvaez MD - 05/08/2024 For Patients: As a result of the Century Cures Act, medical imagingexams and procedure reports are released immediately into your electronicmedical record. You may view this report before your referring provider.If you have questions, please contact your health care provider. INDICATION: Left lower quadrant abdominal pain. Known rectus sheath hematoma.Emphysematous cystitis. TECHNIQUE: Bleed protocol. Initial noncontrast CT abdomen and pelvis followed byintravenous contrast enhanced CT of the abdomen and pelvis with imagingperformed in the arterial and venous phases. 99 mL Omnipaque 350intravenous contrast administered. Multi planar MIP images were created. COMPARISON: Prior outside study not available for direct comparison at time ofinterpretation. FINDINGS: There is an acute hematoma present within the lower aspect of the leftrectus abdominis muscle. The muscle is expanded measuring up to 4centimeters anterior/posterior dimension compared to 1.8 centimetersanterior/posterior dimension for the contralateral normal right rectusabdominis muscle. On arterial phase image number 284 of series 3, there isan approximately 3.5 millimeter focus of intramuscular high attenuationwithin the inferior aspect of the left rectus abdominis muscle which mayreflect tiny area of active arterial intramuscular bleeding. There is alsosome poorly marginated strandy hemorrhage within the left anterior pelvisjust deep to the rectus abdominis muscle. No abdominal aortic aneurysm. The mesenteric arterial vasculature ispatent. Renal arterial vasculature is patent. Gas is noted associated with the urinary bladder compatible withemphysematous cystitis. There is also a small amount of extraluminal gasadjacent to the urinary bladder. The urinary bladder is nondistended. Nogas involving the kidney on either side. There is no hydronephrosis. Norenal abscess. Trace amount of perinephric fluid is present inferiorly onthe right. No urolithiasis. There is no focal liver lesion. No biliary ductal dilatation. Gallbladdermeasures under 4 centimeters diameter. Spleen is normal. Adrenal glandsare normal. No focal pancreatic abnormality. No bowel obstruction. No bowel wall thickening. No appendicitis. Nodiverticulitis or colitis. No abdominal abscess. Atelectasis is present right lung base. No pleural effusion. Degenerative changes of the spine. No acute fractures. IMPRESSION: 1. Acute hematoma involving the lower aspect of the left rectus abdominismuscle. 3.5 mm focus of arterial phase hyperdensity within the muscle mayreflect a small focus of active intramuscular bleeding. There is also somestrandy hemorrhage within the left anterior pelvis posterior to themuscle. 2. Findings of emphysematous cystitis. 3. No gas involving either kidney. No hydronephrosis or renal abscess. 4. Mild atelectasis within the right lung base. Please note that all CT scans at this facility use dose modulation,iterative reconstruction, and/or weight-based dosing when appropriate toreduce radiation dose to as low as reasonably achievable. Dictated by Saul Narvaez MD @ 05/08/2024 4:30:22 PM (Electronically Signed) Shanon Parham MD CT Final Resu lt * stool pathogen multiplex PCR (05/08/2024 8:21 AM QUILL MACHINE OPERATOR) Campylobacter NOT Detected NOT Detected 05/08/2024 6:02 PM QUILL MACHINE OPERATOR [facility] Salmonella NOT Detected NOT Detected 05/08/2024 6:02 PM QUILL MACHINE OPERATOR [facility] Shigella NOT Detected NOT Detected 05/08/2024 6:02 PM QUILL MACHINE OPERATOR [facility] Vibrio NOT Detected NOT Detected 05/08/2024 6:02 PM QUILL MACHINE OPERATOR [facility] Yersinia Enterocolitica NOT Detected NOT Detected 05/08/2024 6:02 PM QUILL MACHINE OPERATOR [facility] Shiga Toxin 1 NOT Detected NOT Detected 05/08/2024 6:02 PM QUILL MACHINE OPERATOR [facility] Shiga Toxin 2 NOT Detected NOT Detected 05/08/2024 6:02 PM QUILL MACHINE OPERATOR [facility] Norovirus NOT Detected NOT Detected 05/08/2024 6:02 PM QUILL MACHINE OPERATOR [facility] Rotavirus NOT Detected NOT Detected 05/08/2024 6:02 PM QUILL MACHINE OPERATOR [facility] Stool STOOL SPECIMEN / Unknown Non-Blood / Unknown 05/08/2024 8:21 AM QUILL MACHINE OPERATOR 05/08/2024 8:29 AM QUILL MACHINE OPERATOR Narrative [facility] - 05/08/2024 6:02 PM QUILL MACHINE OPERATOR This test is a Culture Independent Diagnostic Test (CIDT) therefore isolates are not available for susceptibility testing. Antibiotic treatment is often contraindicated and may be detrimental in cases of enteric infections, thus routine susceptibility testing is not recommended. Tonya Block MD MICROBIOLOGY Final R esult [facility] [address] [address], [place] * (ABNORMAL) GLUCOSE METER (05/08/2024 8:09 AM QUILL MACHINE OPERATOR) GLUCOSE METER 117(H) 65 - 100 mg/dL 05/08/2024 8:15 AM QUILL MACHINE OPERATOR [facility] Blood BLOOD SPECIMEN / Unknown 05/08/2024 8:09 AM QUILL MACHINE OPERATOR 05/08/2024 8:15 AM QUILL MACHINE OPERATOR [facility] CHEMISTRY Final Re sult Performing Organization Address City/[facility] Co de Phone Number [facility] [address] [place] [address], [place] * TROPONIN T (HS) ONE TIME (05/08/2024 3:36 AM QUILL MACHINE OPERATOR) TROPONIN T HS <6 6-10 ng/L ng/L 05/08/2024 4:14 AM QUILL MACHINE OPERATOR [facility] Blood BLOOD SPECIMEN / Unknown Butterfly / Unknown 05/08/2024 3:36 AM QUILL MACHINE OPERATOR 05/08/2024 3:43 AM QUILL MACHINE OPERATOR Tonya Block MD CHEMISTRY Final R esult Performing Organization Address City/[facility]/ZIP Co de Phone Number [facility] [address] [address], [place] * TSH AM (05/08/2024 3:36 AM QUILL MACHINE OPERATOR) TSH 3.17 0.27 - 4.20 uIU/mL 05/08/2024 4:14 AM QUILL MACHINE OPERATOR [facility] Blood BLOOD SPECIMEN / Unknown Butterfly / Unknown 05/08/2024 3:36 AM QUILL MACHINE OPERATOR 05/08/2024 3:43 AM QUILL MACHINE OPERATOR Narrative [facility] - 05/08/2024 4:14 AM QUILL MACHINE OPERATOR In Adults, TSH values between 5.00 and 10.00 uIU/ml do not necessarily indicate the presence of Hypothyroidism. Correlation with clinical findings such as presence of goiter and/or Thyroperoxidase (TPO) Antibody may be helpful. For more information please refer to SAM 2004; [id number]: [phone]. Tonya Block MD CHEMISTRY Final R esult [facility] [address] [place] [address], * SCAN-CARDIAC STRIP (05/08/2024 1:53 AM QUILL MACHINE OPERATOR) us Scanner OTHER Final Result * TROPONIN T (HS) ACUTE W/2HR REFLEX (05/08/2024 1:05 AM QUILL MACHINE OPERATOR) TROPONIN T HS <6 6-10 ng/L ng/L 05/08/2024 1:57 AM QUILL MACHINE OPERATOR [facility] Blood BLOOD SPECIMEN / Unknown Butterfly / Unknown 05/08/2024 1:05 AM QUILL MACHINE OPERATOR 05/08/2024 1:14 AM QUILL MACHINE OPERATOR Narrative [facility] - 05/08/2024 1:57 AM QUILL MACHINE OPERATOR hs-cTnT (Elecsys Troponin T Gen 5) concentration (s) above the sex-specific 99th percentile (16 ng/L or greater for males or 11 ng/L or greater for females) are indicative of myocardial injury. If initial hs-cTnT <=100 ng/L at presentation, a 0h/2h ABSOLUTE (ng/L) delta change (rising or falling) of >=10 ng/L suggests a significant change, whereas a 0h/2h delta change <=3 ng/L suggests no significant change. If initial hs-cTnT >100 ng/L at presentation, a 0h/2h/ RELATIVE (percent, %) delta change of 20% is suggested to distinguish patients with acute vs. chronic myocardial injury. There are multiple etiologies that can cause hs-cTnT increases above the 99th percentile (myocardial injury) other than acute myocardial infarction. Clinical context and careful clinical evaluation are critical for diagnosis and risk-stratification. The diagnosis of acute myocardial infarction requires a rising and/or falling pattern in hs-cTnT concentrations with at least one value above the sex-specific 99th percentile PLUS at least one of the following clinical criteria: ischemic symptoms, new or presumed new significant ST-T wave changes or new LBBB, development of pathological Q waves, imaging evidence of new loss of viable myocardium or new regional wall motion abnormality, or identification of intracoronary atherothrombosis or an acute angiographic culprit on coronary angiography. In appropriate low-risk patients with a non-ischemic electrocardiogram without active chest pain with a symptom onset >3-hours without recurrence, a single initial hs-cTnT<6 ng/L identifies patient with a very low risk in emergency department patient population. Tonya Block MD CHEMISTRY Final R esult Performing Organization Address City/[facility]/ZIP Co de Phone Number [facility] [address] [place] [address], * (ABNORMAL) SODIUM (05/08/2024 1:05 AM QUILL MACHINE OPERATOR) Pathologist [facility] SODIUM 132(L) 136 - 145 mmol/L 05/08/2024 1:35 AM QUILL MACHINE OPERATOR [facility] Blood BLOOD SPECIMEN / Unknown Butterfly / Unknown 05/08/2024 1:05 AM QUILL MACHINE OPERATOR 05/08/2024 1:14 AM QUILL MACHINE OPERATOR Tonya Block MD CHEMISTRY Final R esult Performing Organization Address [facility] Co de Phone Number [facility] [address] [place] [address], * ECG STAT (05/08/2024 12:07 AM QUILL MACHINE OPERATOR) Interpretation Normal sinus rhythm ST & T wave abnormality, consider inferior ischemia ST & T wave abnormality, consider anterolateral ischemia QTcB >= 480 msec Abnormal ECG No previous ECGs available BEYOND NOW Ventricular Rate 80 BPM BEYOND NOW Atrial Rate 80 BPM BEYOND NOW P-R Interval 140 ms BEYOND NOW QRS Duration 80 ms BEYOND NOW QT 424 ms BEYOND NOW QTc 489 ms BEYOND NOW P [place] 59 degrees BEYOND NOW R [place] 12 degrees BEYOND NOW T [place] -45 degrees BEYOND NOW 05/08/2024 12:0 7 AM QUILL MACHINE OPERATOR 05/08/2024 6:34 PM QUILL MACHINE OPERATOR Tonya Block MD EKG ORD Final R esult [place] NOW [place], [place] * SCAN-CARDIAC STRIP (05/07/2024 11:00 PM QUILL MACHINE OPERATOR) Scanner OTHER Final Result * COVID/FLU/RSV PANEL (05/07/2024 10:37 PM QUILL MACHINE OPERATOR) Pathologist [facility] COVID 19 [facility] Negative Negative 05/07/2024 11:50 PM QUILL MACHINE OPERATOR [facility] Comment:All PCR tests are morales bject to false negative result due to variability in viral load and collection technique. A negative result does not rule out a SARS-CoV-2 infection. Clinical correlation required. INFLUENZA A PCR Negative 05/07/2024 11:50 PM QUILL MACHINE OPERATOR [facility] INFLUENZA B PCR Negative 11:50 PM QUILL MACHINE OPERATOR [facility] Respiratory Syncytial Virus Negative 05/07/2024 11:50 PM QUILL MACHINE OPERATOR [facility] Swab NASOPHARYNGEAL SWAB / Unknown Non-Blood / Unknown 05/07/2024 10:37 PM QUILL MACHINE OPERATOR 05/07/2024 10:55 PM QUILL MACHINE OPERATOR Tonya Block MD MICROBIOLOGY Final R esult [facility] [address] [place] [address], * (ABNORMAL) MRSA/SA PCR (05/07/2024 10:37 PM QUILL MACHINE OPERATOR) Pathologist [facility] MRSA DNA PCR Positive( A) Negative 05/08/2024 12:19 AM QUILL MACHINE OPERATOR [facility] STAPHYLOCOCCUS AUREUS PCR Positive( A) Negative 05/08/2024 12:19 AM QUILL MACHINE OPERATOR [facility] Other SPECIMEN FROM INTERNAL NOSE / Unknown Non-Blood / Unknown 05/07/2024 10:37 PM QUILL MACHINE OPERATOR 05/07/2024 10:54 PM QUILL MACHINE OPERATOR Narrative [facility] - 05/08/2024 12:19 AM QUILL MACHINE OPERATOR A positive test result does not necessarily indicate the presence of viable organisms. It is, however, presumptive for the presence of Methicillin Resistant Staphylococcus aureus (MRSA) or Staphylococcus aureus. us Tonya Block MD MICROBIOLOGY Final R esult Performing Organization Address City/[facility]/ZIP Co de Phone Number [facility] [address] [place] [address], [place] * LACTATE VENOUS (05/07/2024 10:09 PM QUILL MACHINE OPERATOR) LACTATE,VENOUS 1.1 0.5 - 2.0 mmol/L 05/07/2024 10:35 PM QUILL MACHINE OPERATOR [facility] Blood BLOOD SPECIMEN / Unknown Venipuncture / Unknown 05/07/2024 10:09 PM QUILL MACHINE OPERATOR 05/07/2024 10:13 PM QUILL MACHINE OPERATOR Tonya Block MD CHEMISTRY Final R esult Performing Organization Address City/[facility] Co de Phone Number [facility] [address] [place] [address], [place] * (ABNORMAL) HPV HIGH RISK (01/21/2022 8:30 AM QUILL MACHINE OPERATOR) TYPE 16 Negative Negative 01/23/2022 5:14 PM QUILL MACHINE OPERATOR [facility] TYPE 18 Positive(A) Negative 01/23/2022 5:14 PM QUILL MACHINE OPERATOR [facility] OTHER HIGH RISK TYPES Positive(A) Negative 01/23/2022 5:14 PM QUILL MACHINE OPERATOR [facility] Other (Cervical) 01/21/2022 8:30 AM QUILL MACHINE OPERATOR 01/22/2022 12:18 PM QUILL MACHINE OPERATOR Narrative [facility] - 01/23/2022 5:14 PM QUILL MACHINE OPERATOR Specimen is positive for HPV type 18 DNA and the DNA of any one of, or combination of, the following high risk HPV types: 31, 33, 35, 39, 45, 51, 52, 56, 58,59, 66, 68. HPV type 16 DNA was undetectable or below the pre-set threshold. Methodology: Rodriguez Digna 4800 HPV Test us Dakota Ashraf MD MICROBIOLOGY Final Resul t [facility] [address] [place] [address], [place] from Last 3 Months or Most Recently Relevant to Health Maintenance Additional Health Concerns Infection Onset Date Last Indicated MRSA Comment:Order Contact Precautions. Nares surveillance cultures needed to clear patient if <12 months since positive culture. If >12 months since positive culture, precautions can be discontinued if patient has no MRSA risk factors. #1 +MRSA 05/07/24 nares exclusions for contact precaution discontinuation (if > 12 months since positive culture): resides in acute/school clerk care, receiving hemodialysis, has chronic open wounds/skin damage, has long-term percutaneous indwelling medical devices Exclusions for nares collection (if <12 months since positive culture) include all of the previous exclusions plus patients on antibiotics 7 days prior to collection 05/07/2024 05/07/2024 Insurance [facility] Advance Directives * Full Code (Latest Code Status on File) Date Activated Date Inactivated Comments 05/07/2024 9:49 PM 05/09/2024 2:01 PM Question Answer Comments Code Status Discussion: Reviewed Preferences Care Teams Pulp Beater Relationship Specialty Start Date End Date Dakota Ashraf MD PCP - General Family Practice 07/23/16
--- OUTSIDE RECORDS SUMMARY | 2024-06-10 09:22 | XMS_ITS | Clinical Summary ---
Author Organization [facility] Address [address] [place] [address] Care Team Providers Care Live In Housekeeper Name Role Phone Elsewhere, Pcp Primary Care Provider Unavailabl e Source Comments Patient records contain information from all sites at [facility]. For routine questions regarding patient records, call [phone] during business hours, M-F 8:00 AM - 5:00 PM Central Time. Record requests for emergency care only can be directed to [phone] at any time.[facility] Allergies No known active [...] on file Legal Sex Female 9:01 PM TEA BAG MACHINE TENDER Gender Identity Not on file Sexual [...] LIPID PANEL, S Routine 04/06/2015 8:15 AM TEA BAG MACHINE TENDER PATHOLOGY [facility] CYTOLOGY Routine 5 12:00 AM CDT from [...] M.D. LAB BLOOD ADD-ON Final Resul t [facility] [address] [place] [address], [place] NPRG [facility] [address] [place] [address] * Lipid Panel (04/06/2015 8:15 AM TEA BAG MACHINE TENDER) [facility] Cholesterol, Total 174 <=199 MGDL POWERCHART [...] for FH and FDB is available through [facility]: FH/ADH Genetic Reflex Panel (test ADHP). Acquired (non-genetic) causes of markedly increased LDL cholesterol include cholestatic liver disease due to the presence of LpX. If a genetic form of hypercholesterolemia is suspected, family studies including biochemical testing for lipids (total cholesterol,triglycerides, LDL cholesterol and HDL cholesterol) are recommended. Please contact the laboratory at or the on-line test catalog at [employer] for information about how to order these tests or to speak with a genetic counselor. Further interpretation would require clinical information. Blood 04/06/2015 8:15 AM TEA BAG MACHINE TENDER us Danny De Oliveira M.D. LAB BLOOD ADD-ON Final Result POWERCHART * Pathology [facility] Cytology (12/01/2014 12:00 AM CDT) 12/01/2014 Narrative [facility] - 12/13/2014 1:36 PM CDT [facility] [address] [facility] [address] [place] [address] Patient Name: MICHAEL MORENOLL JENNIFER Collected: 12/01/2014 Address: [facility]/Zip: [address] [place], [place] [id number] Received: Reported: 12/02/2014 12/13/2014 Soc. Sec. #: /Age/Sex 1975 (Age: 39) F Physician(s): SHAHANA DE OLIVEIRA MD Copy To: [facility] [id number] [address] [place] [address] [address] [place] [address] CYTOPATHOLOGY [facility] REPORT FINAL CYTOLOGIC DIAGNOSIS Pap Smear - [...] M.D. LAB PAP COPATH ORDERABLES Final Result [facility] from Last 3 Months or Most Recently Relevant to Health Maintenance Insurance [facility] Care Teams Live In Housekeeper Relationship Specialty Start Date End Date Elsewhere, Pcp PCP - General Family Medicine 01/27/19
--- OUTSIDE RECORDS SUMMARY | 2024-06-10 09:22 | XMS_ITS | Clinical Summary ---
Author Organization [facility] [employer] [facility] Address [address] [address] Phone Care Team Providers Care Compliance And Control Analyst Name Role Phone Gene Ashraf MD Primary Care Provider [phone] Allergies No known active allergies Medications LORazepam [...] Department Care Team Description 04/14/2024 4:55 PM ESTIMATOR BINDING Ancillary Procedure [facility] RADIOLOGY [address] [facility] [address] [place] [address] 04/14/2024 3:05 PM ESTIMATOR BINDING Ancillary Procedure [facility] MRI [address] [facility] [address] [place] [address] 04/14/2024 1:05 PM ESTIMATOR BINDING Ancillary Procedure [facility] [address] [facility] [address] [place] [address] 04/14/2024 12:38 PM ESTIMATOR BINDING - 04/14/2024 5:59 PM ESTIMATOR BINDING Emergency [facility] EMERGENCY DEPARTMENT [address] [place] [id number] Hetal Paris DO Fong, Erine O, MD [...] SURGERY 03/21/2021 Right Right distal radius ORIF. ([facility]) Social History Tobacco Use Types Packs/Day Years Used Date Smoking Tobacco: Every Day Cigarettes Smokeless Tobacco: Never Tobacco Cessation:Ready to Q uit: Not Asked; Counseling Given: Not Answered Alcohol Use Standard Drinks/Week Comments Yes 0 (1 standard drink = 0.6 oz pur e alcohol) [facility] Custom IPV Answer Date Recorded Do you feel UNSAFE in any of your personal relationships with your family members or any other acquaintances? No 2024 Comments No Sex and Gender Information Value Date Recorded Sex Assigned at Not on file Legal Sex Female 9:34 PM ESTIMATOR BINDING Gender Identity Not on file Sexual Orientation Not on file Obstetrics History Last Filed Vital Signs Vital Sign Reading Time Taken Comments Blood Pressure 146/92 04/14/2024 5:30 PM ESTIMATOR BINDING Pulse 93 04/14/2024 5:30 PM ESTIMATOR BINDING Temperature 36.9 C (98.5 F) 04/14/2024 12:52 PM ESTIMATOR BINDING Respiratory Rate 16 04/14/2024 12:52 PM ESTIMATOR BINDING Oxygen Saturation 99% 04/14/2024 5:00 PM ESTIMATOR BINDING Inhaled Oxygen Concentration - - Weight 74.4 kg (164 lb) 02/12/2020 6:11 PM ESTIMATOR BINDING Height 170.2 cm (5' 7) 02/12/2020 6:11 PM ESTIMATOR BINDING Body Mass Index 25.69 02/12/2020 6:11 PM ESTIMATOR BINDING Plan of Treatment Health Maintenance Due Date [...] CHEST 1 VIEW STAT 04/14/2024 5:03 PM ESTIMATOR BINDING Witnessed seizure-like activity (HCC) MR BRAIN WO W CONTRAST STAT 3:50 PM ESTIMATOR BINDING Witnessed seizure-like activity (HCC) BASIC METABOLIC PANEL LENY 04/14/2024 2:48 PM ESTIMATOR BINDING LACTIC ACID W/2HR REFLEX LENY 04/14/2024 2:48 PM ESTIMATOR BINDING CULTURE, URINE LENY 04/14/2024 2:20 PM ESTIMATOR BINDING URINE DRUG SCREEN LENY 04/14/2024 2:2 0 PM ESTIMATOR BINDING URINALYSIS, REFLEX TO CULTURE LENY 04/14/2024 2:[address] HEAD WO IV CONTRAST STAT 1:35 PM ESTIMATOR BINDING MAGNESIUM Add on 04/14/2024 12:57 PM ESTIMATOR BINDING COMPREHENSIVE METABOLIC PANEL LENY 04/14/2024 12:57 PM ESTIMATOR BINDING ALCOHOL LENY 04/14/2024 12:57 PM ESTIMATOR BINDING LACTIC ACID W/2HR REFLEX LENY 04/14/2024 12:57 PM ESTIMATOR BINDING HEMOGRAM/DIFF LENY 04/14/2024 12:57 PM ESTIMATOR BINDING EKG 12-LEAD STAT 04/14/2024 12:48 PM ESTIMATOR BINDING from Last 3 Months Results * XR CHEST 1 VIEW (04/14/2024 5:03 PM ESTIMATOR BINDING) Anatomical Region Laterality Modality Chest Radiographic Josefa ging 04/14/2024 4:57 PM ESTIMATOR BINDING Narrative 04/15/2024 7:16 AM ESTIMATOR BINDING PROCEDURE: XR CHEST 1 VIEW HISTORY: cough [...] BRAIN WO W CONTRAST (04/14/2024 3:50 PM ESTIMATOR BINDING) Anatomical Region Laterality Modality Head Magnetic Resonan ce 04/14/2024 3:24 PM ESTIMATOR BINDING Narrative 04/14/2024 4:28 PM ESTIMATOR BINDING EXAM: MR BRAIN WO W CONTRAST [facility]ATION: [facility] DATE: 04/14/2024 INDICATION: Seizure COMPARISON: Head [...] by: Jude Wheatley M.D. 04/14/2024 4:28 PM ESTIMATOR BINDING Procedure Note Jude Wheatley MD - 04/14/2024 [...] and scattered foci of deep white matter [id number] involving both cerebral hemispheres, nonspecific. These could representfoci of nondescript gliosis or early chronic hypertensive/microvascular ischemicwhite matter changes. Electronically signed by: Jude Wheatley M.D. 04/14/2024 4:28 PM ESTIMATOR BINDING Hetal Paris DO MRI ORDERABLES Final Result * LACTIC ACID W/2HR REFLEX (04/14/2024 2:48 PM ESTIMATOR BINDING) Lactic Acid, Venous 0.9 0.7 - 2.1 mmol/L 04/14/2024 3:09 PM ESTIMATOR BINDING [facility] Blood BLOOD SPECIMEN / Unknown Venipuncture / Unknown 04/14/2024 2:48 PM ESTIMATOR BINDING 04/14/2024 2:52 PM ESTIMATOR BINDING Hetal Paris DO EC CHEMISTRY ORDERABLES Final Result [facility] [address] [place] [address] * (ABNORMAL) BASIC METABOLIC PANEL (04/14/2024 2:48 PM ESTIMATOR BINDING) Sodium 132(L) 135 - 144 mmol/L 04/14/2024 3:14 PM ESTIMATOR BINDING [facility] Potassium 2.9(LL) 3.4 - 5.1 mmol/L 04/14/2024 3:14 PM ESTIMATOR BINDING [facility] Chloride 100 98 - 107 mmol/L 04/14/2024 3:14 PM ESTIMATOR BINDING [facility] Carbon Dioxide 24 22 - 30 mmol/L 04/14/2024 3:14 PM ESTIMATOR BINDING [facility] Calcium 8.0(L) 8.6 - 10.3 mg/dL 04/14/2024 3:14 PM ESTIMATOR BINDING [facility] Glucose 107(H) 74 - 100 mg/dL 04/14/2024 3:14 PM ESTIMATOR BINDING [facility] Blood Urea nitrogen 12 7 - 17 mg/dL 04/14/2024 3:14 PM ESTIMATOR BINDING [facility] Creatinine 0.61 0.52 - 1.04 mg/dL 04/14/2024 3:14 PM ESTIMATOR BINDING [facility] Anion Gap 8 5 - 15 mmol/L 04/14/2024 3:14 PM ESTIMATOR BINDING [facility] Glomerular Filtration Rate >60 >60 mL/min/1.7 3 m*2 04/14/2024 3:14 PM ESTIMATOR BINDING [facility] Comment:This calculation use s CKD-EPI 2020 equation; it has not been validated in women. Blood BLOOD SPECIMEN / Unknown Venipuncture / Unknown 04/14/2024 2:48 PM ESTIMATOR BINDING 04/14/2024 2:52 PM ESTIMATOR BINDING Hetal Paris DO EC CHEMISTRY ORDERABLES Final Result [facility] [address] [place] [address] * (ABNORMAL) CULTURE, URINE (04/14/2024 2:20 PM ESTIMATOR BINDING) Pathologist [facility] Urine Culture >100,000 cfu/mL Escherichia coli(A) 04/16/2024 7:53 AM ESTIMATOR BINDING [facility] Urine URINE SPECIMEN COLLECTION, CLEAN CATCH / Unknown Non-blood collection / Unknown 04/14/2024 2:20 PM ESTIMATOR BINDING 04/14/2024 2:37 PM ESTIMATOR BINDING Narrative Organism Antibiotic Method Susceptibility Escherichia coli [...] GOMEZ Final Result [facility] [address] [place] [address] * (ABNORMAL) URINALYSIS, REFLEX TO CULTURE (04/14/2024 2:20 PM ESTIMATOR BINDING) Pathologist [facility] UA Color Kathia(A) Light Yellow, Yellow 04/14/2024 2:37 PM ESTIMATOR BINDING [facility] Urine Appearance Cloudy(A) Clear 04/14/19 2:37 PM ESTIMATOR BINDING [facility] Urine Specific [place] 1.015 1.005 - 1.030 04/14/2024 2:37 PM ESTIMATOR BINDING [facility] Urine pH 6.0 5.0 - 8.0 04/14/2024 2:37 PM ESTIMATOR BINDING [facility] Urine Leukocyte Esterase Trace(A) Negative 04/14/2024 2:37 PM ESTIMATOR BINDING [facility] Urine Nitrates Negative Negative 04/14/2024 2:37 PM ESTIMATOR BINDING [facility] Urine Protein Trace(A) Negative 04/14/2024 2:37 PM ESTIMATOR BINDING [facility] Urine Glucose Negative Negative 04/14/2024 2:37 PM ESTIMATOR BINDING [facility] Urine Ketones Negative Negative 04/14/2024 2:37 PM ESTIMATOR BINDING [facility] Urine Urobilinogen Normal Normal 04/14/2024 2:37 PM ESTIMATOR BINDING [facility] Urine Bilirubin Negative Negative 2:37 PM ESTIMATOR BINDING [facility] Urine Blood 2+(A) Negative 04/14/2024 2:37 PM ESTIMATOR BINDING [facility] Urine WBC's 0-5 0 - 5 /HPF 04/14/2024 2:37 PM ESTIMATOR BINDING [facility] Urine RBC's 0-2 0 - 2 /HPF 04/14/2024 2:37 PM ESTIMATOR BINDING [facility] Urine Epithelial Cells Occasional( A) Negative /HPF 04/14/2024 2:37 PM ESTIMATOR BINDING [facility] Urine Bacteria Packed(A) Negative /HPF 04/14/2024 2:37 PM ESTIMATOR BINDING [facility] Urine URINE SPECIMEN COLLECTION, CLEAN CATCH / Unknown Non-blood collection / Unknown 04/14/2024 2:20 PM ESTIMATOR BINDING 04/14/2024 2:24 PM ESTIMATOR BINDING Hetal Paris DO URINE ORDERABLES Final Resu lt [facility] [address] [place] [address] * (ABNORMAL) URINE DRUG SCREEN (04/14/2024 2:20 PM ESTIMATOR BINDING) Pathologist [facility] Urine Amphetamines Screen Negative Negative 2:41 PM ESTIMATOR BINDING [facility] Urine Barbiturates Screen Negative Negative 2:41 PM ESTIMATOR BINDING [facility] Urine Benzodiazepines Screen Negative Negative 5 2:41 PM ESTIMATOR BINDING [facility] Urine Cocaine Screen Negative Negative 0 5 2:41 PM ESTIMATOR BINDING [facility] Urine Fentanyl Screen Negative Negative 5 2:41 PM ESTIMATOR BINDING [facility] Urine Opiates Screen Negative Negative 0 5 2:41 PM ESTIMATOR BINDING [facility] Urine Oxycodone Screen Negative Negative 5 2:41 PM ESTIMATOR BINDING [facility] Urine Phencyclidine Screen Negative Negative 5 2:41 PM ESTIMATOR BINDING [facility] Urine Methadone Screen Negative Negative 5 2:41 PM ESTIMATOR BINDING [facility] Urine Methamphetamine Screen Negative Negative 5 2:41 PM ESTIMATOR BINDING [facility] Urine Tetrahydrocannabinol Screen Presumptive Positive(A) Negative 5 2:41 PM ESTIMATOR BINDING [facility] Urine Tricyclic Antidepressants Screen Negative Negative 5 2:41 PM ESTIMATOR BINDING [facility] Urine URINE SPECIMEN COLLECTION, CLEAN CATCH / Unknown Non-blood collection / Unknown 04/14/2024 2:20 PM ESTIMATOR BINDING 04/14/2024 2:24 PM ESTIMATOR BINDING Narrative [facility] - 04/14/2024 2:41 PM ESTIMATOR BINDING False presumptive positives may occur with prescription and [id number] medications due to cross-reactivity and interfering compounds.Urine [...] DO EC URINE ORDERABLES Final Resu lt [facility] [address] [phone] * CT HEAD WO IV CONTRAST (04/14/2024 1:35 PM ESTIMATOR BINDING) Anatomical Region Laterality Modality Head Computed Tomogra phy 04/14/2024 1:25 PM ESTIMATOR BINDING Narrative 04/14/2024 1:40 PM ESTIMATOR BINDING PROCEDURE: CT OF THE HEAD WITHOUT IV [...] LACTIC ACID W/2HR REFLEX (04/14/2024 12:57 PM ESTIMATOR BINDING) Lactic Acid, Venous 2.5(H) 0.7 - 2.1 mmol/L 04/14/2024 1:13 PM ESTIMATOR BINDING [facility] Blood BLOOD SPECIMEN / Unknown Venipuncture / Unknown 04/14/2024 12:57 PM ESTIMATOR BINDING 04/14/2024 1:00 PM ESTIMATOR BINDING Hetal Paris DO CHEMISTRY ORDERABLES Final Result [facility] [address] [place] [address] * (ABNORMAL) COMPREHENSIVE METABOLIC PANEL (04/14/2024 12:57 PM ESTIMATOR BINDING) Pathologist [facility] Sodium 132(L) 135 - 144 mmol/L 04/14/2024 1:18 PM ESTIMATOR BINDING [facility] Potassium 2.9(LL) 3.4 - 5.1 mmol/L 04/14/2024 1:18 PM ESTIMATOR BINDING [facility] Chloride 96(L) 98 - 107 mmol/L 04/14/2024 1:18 PM [facility] Carbon Dioxide 22 22 - 30 mmol/L 04/14/2024 1:18 PM [facility] Calcium 8.6 8.6 - 10.3 mg/dL 04/14/2024 1:18 PM ESTIMATOR BINDING [facility] Alkaline Phosphatase 88 38 - 126 U/L 04/14/2024 1:18 PM ESTIMATOR BINDING [facility] Aspartate Aminotransferase 47(H) 14 - 36 U/L 04/14/2024 1:18 PM ESTIMATOR BINDING [facility] Alanine Aminotransferase 31 <35 [...] PM [facility] Anion Gap 14 5 - [...] Unknown Venipuncture / Unknown 04/14/2024 12:57 PM ESTIMATOR BINDING 04/14/2024 1:00 PM ESTIMATOR BINDING Hetal GONSALES CHEMISTRY ORDERABLES Final Result Performing Organization Address City/State/[facility] Co de Phone Number [facility] [address] [place] [address] * (ABNORMAL) HEMOGRAM/DIFFERENTIAL (04/14/2024 12:57 PM ESTIMATOR BINDING) WBC 13.7(H) 4.0 - 11.0 10*3/uL 04/14/2024 1:09 PM [facility] RBC 4.01 3.80 - 5.20 10*6/uL 04/14/2024 1:09 PM [facility] HGB 13.2 12.0 - 16.0 g/dl 04/14/2024 1:09 PM [facility] HCT 38.1 35.0 - 47.0 % 04/14/2024 1:09 PM [facility] MCV 95.0 80 - 98 fL 04/14/2024 1:09 PM ESTIMATOR BINDING [facility] MCH 32.9 27.0 - 34.0 pg 04/14/2024 1:09 PM ESTIMATOR BINDING [facility] MCHC 34.6 32 - 36 g/dl 04/14/2024 1:09 PM ESTIMATOR BINDING [facility] PLT 208 150 - 420 10*3/uL 04/14/2024 1:09 PM ESTIMATOR BINDING [facility] Neutrophils Absolute 9.19(H) 2.10 - 7.50 10*3/uL 04/14/2024 1:09 PM ESTIMATOR BINDING [facility] Lymphocytes Absolute 3.11 0.76 - 4.00 10*3/uL 04/14/2024 1:09 PM ESTIMATOR BINDING [facility] Monocytes Absolute 0.83 0.00 - 0.90 10*3/uL 04/14/2024 1:09 PM ESTIMATOR BINDING [facility] Eosinophils Absolute 0.47 0.04 - 0.54 10*3/uL 04/14/2024 1:09 PM ESTIMATOR BINDING [facility] Basophils Absolute 0.03 0.00 - 0.20 10*3/uL 04/14/2024 1:09 PM ESTIMATOR BINDING [facility] RDW-SD 41.9 36.5 - 46.3 fL 04/14/2024 1:09 PM ESTIMATOR BINDING [facility] RDW-CV 12.0 11.6 - 14.4 % 04/14/2024 1:09 PM ESTIMATOR BINDING [facility] Immature Granulocytes Absolute 0.03 0.00 - 0.10 10*3/uL 04/14/2024 1:09 PM ESTIMATOR BINDING [facility] Blood BLOOD SPECIMEN / Unknown Venipuncture / Unknown 04/14/2024 12:57 PM ESTIMATOR BINDING 04/14/2024 1:00 PM ESTIMATOR BINDING Hetal GONSALES HEMATOLOGY ORDERABLES Final Result [facility] [address] [place] [address] * MAGNESIUM (04/14/2024 12:57 PM ESTIMATOR BINDING) [facility] Signature Magnesium 1.8 1.6 - 2.3 mg/dL 04/14/2024 1:34 PM ESTIMATOR BINDING [facility] Blood BLOOD SPECIMEN / Unknown Venipuncture / Unknown 04/14/2024 12:57 PM ESTIMATOR BINDING 04/14/2024 1:00 PM ESTIMATOR BINDING [facility] EC CHEMISTRY ORDERABLES Final Result Performing Organization Address [facility] de Phone Number [facility] [address] [place] [address] * ALCOHOL (04/14/2024 12:57 PM ESTIMATOR BINDING) Alcohol <0.010 <=0.010 % 04/14/2024 1:16 PM [facility] Blood BLOOD SPECIMEN / Unknown Venipuncture / Unknown 04/14/2024 12:57 PM ESTIMATOR BINDING 04/14/2024 1:00 PM ESTIMATOR BINDING [facility] EC CHEMISTRY ORDERABLES Final Result Performing Organization Address [facility] de Phone Number [facility] [address] [place] [address] * EKG 12-LEAD (04/14/2024 12:48 PM ESTIMATOR BINDING) Ventricular Rate 109 BPM [facility] Atrial Rate 109 BPM [facility] P-R Interval 140 ms [facility] QRS Duration 88 ms [facility] QT 332 ms [facility] QTc 447 ms [facility]USE P [place] 59 degrees RMCMUSE R [place] 15 degrees RMCMUSE T [place] -7 degrees RMCMUSE 04/14/2024 12:4 8 PM ESTIMATOR BINDING 04/16/2024 8:01 PM ESTIMATOR BINDING Narrative [facility] - 04/16/2024 8:01 PM ESTIMATOR BINDING Confirming Doc Eliseo Stewart Sinus tachycardia Nonspecific ST abnormality Abnormal ECG No previous ECGs available Procedure Note Eliseo Stewart, DO - 04/16/[address] Eliseo Stewart Sinus tachycardia Nonspecific ST abnormality Abnormal ECG No previous ECGs available us Hetal Paris DO IP ECG ORDERABLES Final Result RMCMUSE from Last 3 Months Insurance BLUE PLUS [facility] REF REQ [facility] BLUE PLUS [place] Care Teams Compliance And Control Analyst Relationship Specialty Start Date End Date Gene Ashraf MD [facility] [address] [place] [address] (work) PCP - General Family Medicine 04/14/24
--- OUTSIDE RECORDS SUMMARY | 2024-06-10 09:22 | XMS_ITS | Encounter Summary ---
Author Organization [facility] Address [address] [address] Phone Care Team Providers Care Experience Designer Name Role Phone Gene Ashraf MD Primary Care Provider [phone] Encounter Details Date Type Department Care Team (Late st Contact Info) Description 03/21/2021 Scanned - Medical Reports [facility] [address] [place] [address] Abstract, Provider, Social History Tobacco Use Types Packs/Day Years Used Date Smoking Tobacco: Never Assessed Comments No Sex and Gender Information Value Date Recorded Sex Assigned at Not on file Legal Sex Female 9:34 PM HEEL LINING PASTER Gender Identity Not on file Sexual Orientation Not on file documented as of this encounter Plan of Treatment Not on file documented as of this encounter Visit Diagnoses Not on filedocumented in this encounter Care Teams Experience Designer Relationship Specialty Start Date End Date Gene Ashraf MD [facility] [address], [place] [address] PCP - General Family Medicine 04/14/24 documented as of this encounter
--- NOTE | 2024-06-10 09:45 | CRLHL7_ITS ---
For Patients: As a result of the Cures Act, medical imaging exams and procedure reports are released immediately into your electronic medical record. You may view this report before your referring provider. If you have questions, please contact your health care provider. INDICATION: Fall, left rib pain TECHNIQUE: Axial images were obtained from the thoracic inlet to the diaphragm. Reformats: Coronal and sagittal IV Contrast: None COMPARISON: Chest CT 08/24/2022 FINDINGS: Mediastinum: Thoracic aorta is normal in caliber. No pericardial effusion. Subcentimeter mediastinal lymph nodes. Lungs and Pleural Space: No pneumothorax or pleural effusion. Bilateral ground-glass opacities, some of which have a peripheral distribution. Chest wall: No masses. Upper abdomen: Mildly decreased density of the liver without focal lesion. 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 Old healed right 6th rib fracture. Acute left 9th and 10th rib fractures. Left 9th rib is nondisplaced with 2 millimeter displacement of the left 10th rib. No definite left 11th or 12th rib fracture although note these ribs are incompletely included on the exam. Cervical spine surgery, partially included on the exam. IMPRESSION: 1. Acute nondisplaced left 9th rib fracture and minimally displaced left 10th rib fracture. No pneumothorax. 2. Bilateral ground-glass opacities suggestive of a viral pneumonia. 3. Minimal hepatic steatosis. Please note that all CT scans at this facility use dose modulation, iterative reconstruction, and/or weight-based dosing when appropriate to reduce radiation dose to as low as reasonably achievable. Dictated by Papo Ross MD @ 06/10/2024 10:36:42 AM (Electronically Signed)
--- OUTSIDE RECORDS SUMMARY | 2024-06-10 10:00 | XMS_ITS | Clinical Summary ---
Author Organization [employer] Address [facility] [place] [address] Care Team Providers Care Logistics Planning Manager Name Role Phone Dakota Ashraf MD Primary [...] once daily. 28 Patch 05/09/2024 9:19 AM LOOM STARTER 5 Active nicotine 2 mg lozengeIndicat ions:Tobacco use disorder Place 1 Lozenge (2 mg) in mouth, between cheek & gum every hour while awake as needed for Nicotine Craving. 48 Lozenge 05/09/2024 9:19 AM LOOM STARTER 5 Active oxyCODONE (ROXICODONE) 5 mg immediate release tabletIndicati ons:Rectus sheath hematoma, initial encounter Take 1 Tablet (5 mg) by mouth every 6 hours if needed for Pain (For moderate to severe pain.). 8 Tablet 05/09/2024 9:19 AM LOOM STARTER 5 Active cephalexin 500 mg capsuleIndicat ions:urinary [...] Department Care Team Description 05/07/2024 8:22 PM LOOM STARTER - 05/09/2024 12:01 PM LOOM STARTER Hospital Encounter [facility] [address] [place] [address] [facility] 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 Not on file Not on file Obstetrics History Last Filed Vital Signs Vital Sign Reading Time Taken Comments Blood Pressure 146/71 05/09/2024 8:32 AM LOOM STARTER Pulse 67 05/09/2024 8:32 AM LOOM STARTER Temperature 36.6 C (97.8 F) 05/09/2024 8:32 AM LOOM STARTER Respiratory Rate 18 05/09/2024 8:32 AM LOOM STARTER Oxygen Saturation 98% 05/09/2024 8:32 AM LOOM STARTER Inhaled Oxygen Concentration - - Weight 69.9 kg (154 lb) 05/08/2024 4:37 AM LOOM STARTER Height 169.4 cm (5' 6.69) 05/08/2024 4:37 AM CS T Body Mass Index 24.34 05/08/2024 4:37 AM LOOM STARTER Plan of Treatment Health Maintenance Due Date [...] Comments SCAN CORRESP-EKG RESULTS 05/10/2024 3:35 PM LOOM STARTER CBC W PLT NO DIFF Early AM 05/09/2024 4:4 8 AM LOOM STARTER BASIC METABOLIC PANEL Early AM 05/09/2024 4:48 AM LOOM STARTER POTASSIUM Timed 05/08/2024 11:06 PM LOOM STARTER HEMOGLOBIN Timed 05/08/2024 9:17 PM LOOM STARTER EXTRA TUBE LAVENDER Today 05/08/2024 9 :[address] ABDOMEN PELVIS WWO Routine 05/08/2024 11:49 AM LOOM STARTER HEMOGLOBIN Timed 05/08/2024 10:24 AM LOOM STARTER STOOL PATHOGEN MULTIPLEX PCR PANEL Today 05/08/2024 8:21 AM LOOM STARTER GLUCOSE METER Timed 05/08/2024 8:09 AM LOOM STARTER TROPONIN T (HS) ONE TIME Timed 05/08/2024 3:36 AM LOOM STARTER HEMOGLOBIN Timed 05/08/2024 3:36 AM LOOM STARTER TSH Early AM 05/08/2024 3:36 AM LOOM STARTER CBC W PLT NO DIFF Early AM 05/08/2024 3:3 6 AM LOOM STARTER BASIC METABOLIC PANEL Early AM 05/08/2024 3:36 AM LOOM STARTER SCAN-CARDIAC STRIP 05/08/2024 1: 53 AM LOOM STARTER TROPONIN T (HS) ACUTE W/2HR REFLEX LENY 05/08/2024 1:05 AM LOOM STARTER SODIUM STAT 05/08/2024 1:05 AM LOOM STARTER EKG 12 LEAD STAT 05/08/2024 12:07 AM LOOM STARTER SCAN-CARDIAC STRIP 05/07/2024 11 :00 PM LOOM STARTER MRSA/SA PCR Today 05/07/2024 10:37 PM LOOM STARTER COVID/FLU/RSV PANEL Today 05/07/2024 1 0:37 PM LOOM STARTER LACTATE VENOUS STAT 05/07/2024 10:09 PM LOOM STARTER HEMOGLOBIN STAT 05/07/2024 10:09 PM LOOM STARTER HPV HIGH RISK Routine 01/21/2022 8:30 AM LOOM STARTER from Last 3 Months or Most Recently Relevant to Health Maintenance Results * SCAN CORRESP-EKG RESULTS (05/10/2024 3:35 PM LOOM STARTER) Narrative 05/10/2024 3:35 PM LOOM STARTER Ordered by an unspecified provider. us Other Clinical Staff OTHER Final Resul t * (ABNORMAL) CBC no diff AM (05/09/2024 4:48 AM LOOM STARTER) Only the most recent of2 resultswithin the time period is included. WHITE BLOOD COUNT 11.4(H) 4.5 - 11.0 thou/cu mm 05/09/2024 5:19 AM [facility] RED BLOOD COUNT 2.91(L) 4.00 - 5.20 mil/cu mm 05/09/2024 5:19 AM [facility] HEMOGLOBIN 9.6(L) 12.0 - 16.0 g/dL 05/09/2024 5:19 AM [facility] HEMATOCRIT 27.7(L) 33.0 - 51.0 % 05/09/2024 5:19 AM [facility] MCV 95 80 - 100 fL 05/09/2024 5:19 AM [facility] MCH 33.0 26.0 - 34.0 pg 05/09/2024 5:19 AM [facility] MCHC 34.7 32.0 - 36.0 g/dL 05/09/2024 5:19 AM [facility] RDW 12.6 11.5 - 15.5 % 05/09/2024 5:19 AM [facility] PLATELET COUNT 121(L) 140 - 440 thou/cu mm 05/09/2024 5:19 AM [facility] MPV 9.8 6.5 - 11.0 fL 05/09/2024 5:19 AM [facility] NRBC 0.0 % 05/09/2024 5:19 AM [facility] ABS NRBC 0.0 thou /cu mm 05/09/2024 5:19 AM [facility] Blood BLOOD SPECIMEN / Unknown Butterfly / Unknown 05/09/2024 4:48 AM LOOM STARTER 05/09/2024 5:05 AM LOOM STARTER us Shanon Parham MD HEMATOLOGY Final Resu lt [facility] [address] [place] [address], [place] * (ABNORMAL) Basic metabolic panel AM (05/09/2024 4:48 AM LOOM STARTER) Only the most recent of2 resultswithin the time period is included. SODIUM 138 136 - 145 mmol/L 05/09/2024 5:49 AM [facility] POTASSIUM 3.2(L) 3.5 - 5.1 mmol/L 05/09/2024 5:49 AM [facility] CHLORIDE 102 98 - 107 mmol/L 05/09/2024 5:49 AM [facility] CO2,TOTAL 27 22 - 29 mmol/L 05/09/2024 5:49 AM [facility] ANION GAP 9 5 - 18 05/09/2024 5:49 AM [facility] GLUCOSE 101(H) 70 - 99 mg/dL 05/09/2024 5:49 AM [facility] CALCIUM 8.3(L) 8.8 - 10.4 mg/dL 05/09/2024 5:49 AM [facility] Comment: Reference ranges for this test were updated on 01/13/2024 to reflect our healthy population more accurately. Reference range changes are not retroactively applied to results, but previous results using the same methodology can be interpreted in the context of the new reference range. BUN 7 6 - 20 mg/dL 05/09/2024 5:49 AM [facility] CREATININE 0.52 0.50 - 0.90 mg/dL 05/09/2024 5:49 AM [facility] BUN/CREAT RATIO 13 10 - 20 5:49 AM [facility] eGFR >90 >90 mL/min/1. 73m2 05/09/2024 5:49 AM LOOM STARTER [facility] Comment:As of 2021, eG FR is calculated by the CKD-EPI creatinine equation without race adjustment. eGFR can be influenced by muscle mass, exercise, and diet. The reported eGFR is an estimation only and is only applicable if the renal function is stable. Blood BLOOD SPECIMEN / Unknown Butterfly / Unknown 05/09/2024 4:48 AM LOOM STARTER 05/09/2024 5:05 AM LOOM STARTER Shanon Parham MD CHEMISTRY Final Resu lt [facility] [address] [place] [address], [place] * POTASSIUM (05/08/2024 11:06 PM LOOM STARTER) POTASSIUM 4.2 3.5 - 5.1 mmol/L 05/09/2024 12:05 AM LOOM STARTER [facility] Blood BLOOD SPECIMEN / Unknown Venipuncture / Unknown 05/08/2024 11:06 PM LOOM STARTER 05/08/2024 11:11 PM LOOM STARTER Shanon Parham MD CHEMISTRY Final Resu lt [facility] [address] [place] [address], [place] * (ABNORMAL) Hemoglobin q 6 (05/08/2024 9:17 PM LOOM STARTER) Only the most recent of4 resultswithin the time period is included. HEMOGLOBIN 9.2(L) 12.0 - 16.0 g/dL 05/08/2024 9:30 PM LOOM STARTER [facility] MCV 95 80 - 100 fL 05/08/2024 9:30 PM LOOM STARTER [facility] Blood BLOOD SPECIMEN / Unknown Non-Lab Venipuncture / Unknown 05/08/2024 9:17 PM LOOM STARTER 05/08/2024 9:25 PM LOOM STARTER Shanon Parham MD HEMATOLOGY Final Resu lt [facility] [address] [place] [id number], [place] * EXTRA TUBE LAVENDER (05/08/2024 9:16 PM LOOM STARTER) Blood BLOOD SPECIMEN / Unknown Non-Lab Venipuncture / Unknown 05/08/2024 9:16 PM LOOM STARTER 05/08/2024 9:26 PM LOOM STARTER Shanon Parham MD LABORATORY Final Resu lt Performing Organization Address City/[facility]/ZIP Co de Phone Number [facility] [address] [place] [id number], [place] * CT ABDOMEN PELVIS WWO (05/08/2024 11:49 AM LOOM STARTER) Anatomical Region Laterality Modality Abdomen, Pelvis, AORTA, LIVER, SPLEEN Computed Tomography 05/08/2024 4:30 PM LOOM STARTER Impressions 05/08/2024 4:30 PM LOOM STARTER 1. Acute hematoma involving the lower aspect [...] low as reasonably achievable. Dictated by Saul Naravez MD @ 05/08/2024 4:30:22 PM (Electronically Signed) Narrative 05/08/2024 4:30 PM LOOM STARTER For Patients: As a result of the [...] stool pathogen multiplex PCR (05/08/2024 8:21 AM LOOM STARTER) Campylobacter NOT Detected NOT Detected 05/08/2024 6:02 PM LOOM STARTER [facility] Salmonella NOT Detected NOT Detected 05/08/2024 6:02 PM LOOM STARTER [facility] Shigella NOT Detected NOT Detected 05/08/2024 6:02 PM LOOM STARTER [facility] Vibrio NOT Detected NOT Detected 05/08/2024 6:02 PM LOOM STARTER [facility] Yersinia Enterocolitica NOT Detected NOT Detected 05/08/2024 6:02 PM LOOM STARTER [facility] Shiga Toxin 1 NOT Detected NOT Detected 05/08/2024 6:02 PM LOOM STARTER [facility] Shiga Toxin 2 NOT Detected NOT Detected 05/08/2024 6:02 PM LOOM STARTER [facility] Norovirus NOT Detected NOT Detected 05/08/2024 6:02 PM LOOM STARTER [facility] Rotavirus NOT Detected NOT Detected 05/08/2024 6:02 PM LOOM STARTER [facility] Stool STOOL SPECIMEN / Unknown Non-Blood / Unknown 05/08/2024 8:21 AM LOOM STARTER 05/08/2024 8:29 AM LOOM STARTER Narrative [facility] - 05/08/2024 6:02 PM LOOM STARTER This test is a Culture Independent Diagnostic Test (CIDT) therefore isolates are not available for susceptibility testing. Antibiotic treatment is often contraindicated and may be detrimental in cases of enteric infections, thus routine susceptibility testing is not recommended. Tonya Block MD MICROBIOLOGY Final R esult [facility] [address] [address], [place] * (ABNORMAL) GLUCOSE METER (05/08/2024 8:09 AM LOOM STARTER) GLUCOSE METER 117(H) 65 - 100 mg/dL 05/08/2024 8:15 AM LOOM STARTER [facility] Blood BLOOD SPECIMEN / Unknown 05/08/2024 8:09 AM LOOM STARTER 05/08/2024 8:15 AM LOOM STARTER [facility] CHEMISTRY Final Re sult Performing Organization Address City/[facility] Co de Phone Number [facility] [address] [place] [address], [place] * TROPONIN T (HS) ONE TIME (05/08/2024 3:36 AM LOOM STARTER) TROPONIN T HS <6 6-10 ng/L ng/L 05/08/2024 4:14 AM LOOM STARTER [facility] Blood BLOOD SPECIMEN / Unknown Butterfly / Unknown 05/08/2024 3:36 AM LOOM STARTER 05/08/2024 3:43 AM LOOM STARTER Tonya Block MD CHEMISTRY Final R esult Performing Organization Address City/[facility]/ZIP Co de Phone Number [facility] [address] [address], [place] * TSH AM (05/08/2024 3:36 AM LOOM STARTER) TSH 3.17 0.27 - 4.20 uIU/mL 05/08/2024 4:14 AM LOOM STARTER [facility] Blood BLOOD SPECIMEN / Unknown Butterfly / Unknown 05/08/2024 3:36 AM LOOM STARTER 05/08/2024 3:43 AM LOOM STARTER Narrative [facility] - 05/08/2024 4:14 AM LOOM STARTER In Adults, TSH values between 5.00 and 10.00 uIU/ml do not necessarily indicate the presence of Hypothyroidism. Correlation with clinical findings such as presence of goiter and/or Thyroperoxidase (TPO) Antibody may be helpful. For more information please refer to SAM 2004; [id number]: [phone]. Tonya Block MD CHEMISTRY Final R esult [facility] [address] [place] [address], * SCAN-CARDIAC STRIP (05/08/2024 1:53 AM LOOM STARTER) us Scanner OTHER Final Result * TROPONIN T (HS) ACUTE W/2HR REFLEX (05/08/2024 1:05 AM LOOM STARTER) TROPONIN T HS <6 6-10 ng/L ng/L 05/08/2024 1:57 AM LOOM STARTER [facility] Blood BLOOD SPECIMEN / Unknown Butterfly / Unknown 05/08/2024 1:05 AM LOOM STARTER 05/08/2024 1:14 AM LOOM STARTER Narrative [facility] - 05/08/2024 1:57 AM LOOM STARTER hs-cTnT (Elecsys Troponin T Gen 5) concentration [...] CHEMISTRY Final R esult Performing Organization Address City/[facility]/ZIP Co de Phone Number [facility] [address] [place] [address], * (ABNORMAL) SODIUM (05/08/2024 1:05 AM LOOM STARTER) Pathologist [facility] SODIUM 132(L) 136 - 145 mmol/L 05/08/2024 1:35 AM LOOM STARTER [facility] Blood BLOOD SPECIMEN / Unknown Butterfly / Unknown 05/08/2024 1:05 AM LOOM STARTER 05/08/2024 1:14 AM LOOM STARTER Tonya Block MD CHEMISTRY Final R esult Performing Organization Address [facility] Co de Phone Number [facility] [address] [place] [address], * ECG STAT (05/08/2024 12:07 AM LOOM STARTER) Interpretation Normal sinus rhythm ST & T [...] NOW QTc 489 ms BEYOND NOW P [place] 59 degrees BEYOND NOW R [place] 12 degrees BEYOND NOW T [place] -45 degrees BEYOND NOW 05/08/2024 12:0 7 AM LOOM STARTER 05/08/2024 6:34 PM LOOM STARTER Tonya Block MD EKG ORD Final R esult BEYOND NOW [place], [place] * SCAN-CARDIAC STRIP (05/07/2024 11:00 PM LOOM STARTER) Scanner OTHER Final Result * COVID/FLU/RSV PANEL (05/07/2024 10:37 PM LOOM STARTER) Pathologist [facility] COVID 19 ALLCAMARGO MOLECULAR Negative Negative 05/07/2024 11:50 PM LOOM STARTER [facility] Comment:All PCR tests are morales bject to false negative result due to variability in viral load and collection technique. A negative result does not rule out a SARS-CoV-2 infection. Clinical correlation required. INFLUENZA A PCR Negative 05/07/2024 11:50 PM LOOM STARTER [facility] INFLUENZA B PCR Negative 11:50 PM LOOM STARTER [facility] Respiratory Syncytial Virus Negative 05/07/2024 11:50 PM LOOM STARTER [facility] Swab NASOPHARYNGEAL SWAB / Unknown Non-Blood / Unknown 05/07/2024 10:37 PM LOOM STARTER 05/07/2024 10:55 PM LOOM STARTER Tonya Block MD MICROBIOLOGY Final R esult [facility] [address] [place] [address], * (ABNORMAL) MRSA/SA PCR (05/07/2024 10:37 PM LOOM STARTER) Pathologist [facility] MRSA DNA PCR Positive( A) Negative 05/08/2024 12:19 AM LOOM STARTER [facility] STAPHYLOCOCCUS AUREUS PCR Positive( A) Negative 05/08/2024 12:19 AM LOOM STARTER [facility] Other SPECIMEN FROM INTERNAL NOSE / Unknown Non-Blood / Unknown 05/07/2024 10:37 PM LOOM STARTER 05/07/2024 10:54 PM LOOM STARTER Narrative [facility] - 05/08/2024 12:19 AM LOOM STARTER A positive test result does not necessarily indicate the presence of viable organisms. It is, however, presumptive for the presence of Methicillin Resistant Staphylococcus aureus (MRSA) or Staphylococcus aureus. us Tonya Block MD MICROBIOLOGY Final R esult Performing Organization Address City/[facility]/ZIP Co de Phone Number [facility] [address] [place] [address], [place] * LACTATE VENOUS (05/07/2024 10:09 PM LOOM STARTER) LACTATE,VENOUS 1.1 0.5 - 2.0 mmol/L 05/07/2024 10:35 PM LOOM STARTER [facility] Blood BLOOD SPECIMEN / Unknown Venipuncture / Unknown 05/07/2024 10:09 PM LOOM STARTER 05/07/2024 10:13 PM LOOM STARTER Tonya Block MD CHEMISTRY Final R esult Performing Organization Address City/[facility] Co de Phone Number [facility] [address] [place] [address], [place] * (ABNORMAL) HPV HIGH RISK (01/21/2022 8:30 AM LOOM STARTER) TYPE 16 Negative Negative 01/23/2022 5:14 PM LOOM STARTER [facility] TYPE 18 Positive(A) Negative 01/23/2022 5:14 PM LOOM STARTER [facility] OTHER HIGH RISK TYPES Positive(A) Negative 01/23/2022 5:14 PM LOOM STARTER [facility] Other (Cervical) 01/21/2022 8:30 AM LOOM STARTER 01/22/2022 12:18 PM LOOM STARTER Narrative [facility] - 01/23/2022 5:14 PM LOOM STARTER Specimen is positive for HPV type 18 DNA and the DNA of any one of, or combination of, the following high risk HPV types: 31, 33, 35, 39, 45, 51, 52, 56, 58,59, 66, 68. HPV type 16 DNA was undetectable or below the pre-set threshold. Methodology: Rodriguez Digna 4800 HPV Test us Dakota Ashraf MD MICROBIOLOGY Final Resul t [facility] 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 in acute/intermediate teacher care, receiving hemodialysis, has chronic open wounds/skin damage, has long-term percutaneous indwelling medical devices Exclusions for nares collection (if <12 months since positive culture) include all of the previous exclusions plus patients on antibiotics 7 days prior to collection 05/07/2024 05/07/2024 Insurance [facility] Advance Directives * Full Code (Latest Code Status on File) Date Activated Date Inactivated Comments 05/07/2024 9:49 PM 05/09/2024 2:01 PM Question Answer Comments Code Status Discussion: Reviewed Preferences Care Teams Logistics Planning Manager Relationship Specialty Start Date End Date Dakota Ashraf MD PCP - General Family Practice 07/23/16
--- OUTSIDE RECORDS SUMMARY | 2024-06-10 10:00 | XMS_ITS | Clinical Summary ---
Author Organization [facility] Address [address] [address] Phone Care Team Providers Care Rn Pediatric Icu Name Role Phone Gene Ashraf MD Primary Care Provider [phone] Allergies No known active allergies Medications LORazepam [...] Department Care Team Description 04/14/2024 4:55 PM PRODUCTION ADMINISTRATIVE ASSISTANT Ancillary Procedure [facility] RADIOLOGY [address] [place] [address] 04/14/2024 3:05 PM PRODUCTION ADMINISTRATIVE ASSISTANT Ancillary Procedure [facility] MRI [address] [place] [address] 04/14/2024 1:05 PM PRODUCTION ADMINISTRATIVE ASSISTANT Ancillary Procedure [facility] CT [address] [place] [address] 04/14/2024 12:38 PM PRODUCTION ADMINISTRATIVE ASSISTANT - 04/14/2024 5:59 PM PRODUCTION ADMINISTRATIVE ASSISTANT Emergency [facility] [address] [place] [id number] Hetal Paris DO Fong, Erine O, MD [...] SURGERY 03/21/2021 Right Right distal radius [facility]. ([facility]) Social History Tobacco Use Types Packs/Day Years Used Date Smoking Tobacco: Every Day Cigarettes Smokeless Tobacco: Never Tobacco Cessation:Ready to Q uit: Not Asked; Counseling Given: Not Answered Alcohol Use Standard Drinks/Week Comments Yes 0 (1 standard drink = 0.6 oz pur e alcohol) [facility] Custom IPV Answer Date Recorded Do you feel UNSAFE in any of your personal relationships with your family members or any other acquaintances? No 2024 Comments No Sex and Gender Information Value Date Recorded Sex Assigned at Not on file Legal Sex Female 9:34 PM PRODUCTION ADMINISTRATIVE ASSISTANT Gender Identity Not on file Sexual Orientation Not on file Obstetrics History Last Filed Vital Signs Vital Sign Reading Time Taken Comments Blood Pressure 146/92 04/14/2024 5:30 PM PRODUCTION ADMINISTRATIVE ASSISTANT Pulse 93 04/14/2024 5:30 PM PRODUCTION ADMINISTRATIVE ASSISTANT Temperature 36.9 C (98.5 F) 04/14/2024 12:52 PM PRODUCTION ADMINISTRATIVE ASSISTANT Respiratory Rate 16 04/14/2024 12:52 PM PRODUCTION ADMINISTRATIVE ASSISTANT Oxygen Saturation 99% 04/14/2024 5:00 PM PRODUCTION ADMINISTRATIVE ASSISTANT Inhaled Oxygen Concentration - - Weight 74.4 kg (164 lb) 02/12/2020 6:11 PM PRODUCTION ADMINISTRATIVE ASSISTANT Height 170.2 cm (5' 7) 02/12/2020 6:11 PM PRODUCTION ADMINISTRATIVE ASSISTANT Body Mass Index 25.69 02/12/2020 6:11 PM PRODUCTION ADMINISTRATIVE ASSISTANT Plan of Treatment Health Maintenance Due Date [...] CHEST 1 VIEW STAT 04/14/2024 5:03 PM PRODUCTION ADMINISTRATIVE ASSISTANT Witnessed seizure-like activity (HCC) MR BRAIN WO W CONTRAST STAT 3:50 PM PRODUCTION ADMINISTRATIVE ASSISTANT Witnessed seizure-like activity (HCC) BASIC METABOLIC PANEL LENY 04/14/2024 2:48 PM PRODUCTION ADMINISTRATIVE ASSISTANT LACTIC ACID W/2HR REFLEX LENY 04/14/2024 2:48 PM PRODUCTION ADMINISTRATIVE ASSISTANT CULTURE, URINE LENY 04/14/2024 2:20 PM PRODUCTION ADMINISTRATIVE ASSISTANT URINE DRUG SCREEN LENY 04/14/2024 2:2 0 PM PRODUCTION ADMINISTRATIVE ASSISTANT URINALYSIS, REFLEX TO CULTURE LENY 04/14/2024 2:20 PM PRODUCTION [address]MINISTRATIVE ASSISTANT CT HEAD WO IV CONTRAST STAT 1:35 PM PRODUCTION ADMINISTRATIVE ASSISTANT MAGNESIUM Add on 04/14/2024 12:57 PM PRODUCTION ADMINISTRATIVE ASSISTANT COMPREHENSIVE METABOLIC PANEL LENY 04/14/2024 12:57 PM PRODUCTION ADMINISTRATIVE ASSISTANT ALCOHOL LENY 04/14/2024 12:57 PM PRODUCTION ADMINISTRATIVE ASSISTANT LACTIC ACID W/2HR REFLEX LENY 04/14/2024 12:57 PM PRODUCTION ADMINISTRATIVE ASSISTANT HEMOGRAM/DIFF LENY 04/14/2024 12:57 PM PRODUCTION ADMINISTRATIVE ASSISTANT EKG 12-LEAD STAT 04/14/2024 12:48 PM PRODUCTION ADMINISTRATIVE ASSISTANT from Last 3 Months Results * XR CHEST 1 VIEW (04/14/2024 5:03 PM PRODUCTION ADMINISTRATIVE ASSISTANT) Anatomical Region Laterality Modality Chest Radiographic Josefa ging 04/14/2024 4:57 PM PRODUCTION ADMINISTRATIVE ASSISTANT Narrative 04/15/2024 7:16 AM PRODUCTION ADMINISTRATIVE ASSISTANT PROCEDURE: XR CHEST 1 VIEW HISTORY: cough [...] BRAIN WO W CONTRAST (04/14/2024 3:50 PM PRODUCTION ADMINISTRATIVE ASSISTANT) Anatomical Region Laterality Modality Head Magnetic Resonan ce 04/14/2024 3:24 PM PRODUCTION ADMINISTRATIVE ASSISTANT Narrative 04/14/2024 4:28 PM PRODUCTION ADMINISTRATIVE ASSISTANT EXAM: MR BRAIN WO W CONTRAST [facility] DATE: 04/14/2024 INDICATION: Seizure COMPARISON: Head [...] by: Jude Wheatley M.D. 04/14/2024 4:28 PM PRODUCTION ADMINISTRATIVE ASSISTANT Procedure Note Jude Wheatley MD - 04/14/2024 [...] and scattered foci of deep white matter [id number] involving both cerebral hemispheres, nonspecific. These could representfoci of nondescript gliosis or early chronic hypertensive/microvascular ischemicwhite matter changes. Electronically signed by: Jude Wheatley M.D. 04/14/2024 4:28 PM PRODUCTION ADMINISTRATIVE ASSISTANT Hetal Paris DO MRI ORDERABLES Final Result * LACTIC ACID W/2HR REFLEX (04/14/2024 2:48 PM PRODUCTION ADMINISTRATIVE ASSISTANT) Lactic Acid, Venous 0.9 0.7 - 2.1 mmol/L 04/14/2024 3:09 PM PRODUCTION ADMINISTRATIVE ASSISTANT [facility] Blood BLOOD SPECIMEN / Unknown Venipuncture / Unknown 04/14/2024 2:48 PM PRODUCTION ADMINISTRATIVE ASSISTANT 04/14/2024 2:52 PM PRODUCTION ADMINISTRATIVE ASSISTANT Hetal Paris DO EC CHEMISTRY ORDERABLES Final Result [facility] [address] [place] [address] * (ABNORMAL) BASIC METABOLIC PANEL (04/14/2024 2:48 PM PRODUCTION ADMINISTRATIVE ASSISTANT) Sodium 132(L) 135 - 144 mmol/L 04/14/2024 3:14 PM PRODUCTION ADMINISTRATIVE ASSISTANT [facility] Potassium 2.9(LL) 3.4 - 5.1 mmol/L 04/14/2024 3:14 PM PRODUCTION ADMINISTRATIVE ASSISTANT [facility] Chloride 100 98 - 107 mmol/L 04/14/2024 3:14 PM PRODUCTION ADMINISTRATIVE ASSISTANT [facility] Carbon Dioxide 24 22 - 30 mmol/L 04/14/2024 3:14 PM PRODUCTION ADMINISTRATIVE ASSISTANT [facility] Calcium 8.0(L) 8.6 - 10.3 mg/dL 04/14/2024 3:14 PM PRODUCTION ADMINISTRATIVE ASSISTANT [facility] Glucose 107(H) 74 - 100 mg/dL 04/14/2024 3:14 PM PRODUCTION ADMINISTRATIVE ASSISTANT [facility] Blood Urea nitrogen 12 7 - 17 mg/dL 04/14/2024 3:14 PM PRODUCTION ADMINISTRATIVE ASSISTANT [facility] Creatinine 0.61 0.52 - 1.04 mg/dL 04/14/2024 3:14 PM PRODUCTION ADMINISTRATIVE ASSISTANT [facility] Anion Gap 8 5 - 15 mmol/L 04/14/2024 3:14 PM PRODUCTION ADMINISTRATIVE ASSISTANT [facility] Glomerular Filtration Rate >60 >60 mL/min/1.7 3 m*2 04/14/2024 3:14 PM PRODUCTION ADMINISTRATIVE ASSISTANT [facility] Comment:This calculation use s CKD-EPI 2020 equation; it has not been validated in women. Blood BLOOD SPECIMEN / Unknown Venipuncture / Unknown 04/14/2024 2:48 PM PRODUCTION ADMINISTRATIVE ASSISTANT 04/14/2024 2:52 PM PRODUCTION ADMINISTRATIVE ASSISTANT Hetal Paris DO EC CHEMISTRY ORDERABLES Final Result [facility] [address] [place] [address] * (ABNORMAL) CULTURE, URINE (04/14/2024 2:20 PM PRODUCTION ADMINISTRATIVE ASSISTANT) Pathologist [facility] Urine Culture >100,000 cfu/mL Escherichia coli(A) 04/16/2024 7:53 AM PRODUCTION ADMINISTRATIVE ASSISTANT [facility] Urine URINE SPECIMEN COLLECTION, CLEAN CATCH / Unknown Non-blood collection / Unknown 04/14/2024 2:20 PM PRODUCTION ADMINISTRATIVE ASSISTANT 04/14/2024 2:37 PM PRODUCTION ADMINISTRATIVE ASSISTANT Narrative Organism Antibiotic Method Susceptibility Escherichia coli [...] MICROBIOLOGY - GENERAL ORDE GOMEZ Final Result [facility] [address] [place] [address] * (ABNORMAL) URINALYSIS, REFLEX TO CULTURE (04/14/2024 2:20 PM PRODUCTION ADMINISTRATIVE ASSISTANT) Pathologist [facility] UA Color Kathia(A) Light Yellow, Yellow 04/14/2024 2:37 PM PRODUCTION ADMINISTRATIVE ASSISTANT [facility] Urine Appearance Cloudy(A) Clear 04/14/19 2:37 PM PRODUCTION ADMINISTRATIVE ASSISTANT [facility] Urine Specific [place] 1.015 1.005 - 1.030 04/14/2024 2:37 PM PRODUCTION ADMINISTRATIVE ASSISTANT [facility] Urine pH 6.0 5.0 - 8.0 04/14/2024 2:37 PM PRODUCTION ADMINISTRATIVE ASSISTANT [facility] Urine Leukocyte Esterase Trace(A) Negative 04/14/2024 2:37 PM PRODUCTION ADMINISTRATIVE ASSISTANT [facility] Urine Nitrates Negative Negative 04/14/2024 2:37 PM PRODUCTION ADMINISTRATIVE ASSISTANT [facility] Urine Protein Trace(A) Negative 04/14/2024 2:37 PM PRODUCTION ADMINISTRATIVE ASSISTANT [facility] Urine Glucose Negative Negative 04/14/2024 2:37 PM PRODUCTION ADMINISTRATIVE ASSISTANT [facility] Urine Ketones Negative Negative 04/14/2024 2:37 PM PRODUCTION ADMINISTRATIVE ASSISTANT [facility] Urine Urobilinogen Normal Normal 04/14/2024 2:37 PM PRODUCTION ADMINISTRATIVE ASSISTANT [facility] Urine Bilirubin Negative Negative 2:37 PM PRODUCTION ADMINISTRATIVE ASSISTANT [facility] Urine Blood 2+(A) Negative 04/14/2024 2:37 PM PRODUCTION ADMINISTRATIVE ASSISTANT [facility] Urine WBC's 0-5 0 - 5 /HPF 04/14/2024 2:37 PM PRODUCTION ADMINISTRATIVE ASSISTANT [facility] Urine RBC's 0-2 0 - 2 /HPF 04/14/2024 2:37 PM PRODUCTION ADMINISTRATIVE ASSISTANT [facility] Urine Epithelial Cells Occasional( A) Negative /HPF 04/14/2024 2:37 PM PRODUCTION ADMINISTRATIVE ASSISTANT [facility] Urine Bacteria Packed(A) Negative /HPF 04/14/2024 2:37 PM PRODUCTION ADMINISTRATIVE ASSISTANT [facility] Urine URINE SPECIMEN COLLECTION, CLEAN CATCH / Unknown Non-blood collection / Unknown 04/14/2024 2:20 PM PRODUCTION ADMINISTRATIVE ASSISTANT 04/14/2024 2:24 PM PRODUCTION ADMINISTRATIVE ASSISTANT Hetal Paris DO URINE ORDERABLES Final Resu lt [facility] [address] [place] [address] * (ABNORMAL) URINE DRUG SCREEN (04/14/2024 2:20 PM PRODUCTION ADMINISTRATIVE ASSISTANT) Pathologist [facility] Urine Amphetamines Screen Negative Negative 2:41 PM PRODUCTION ADMINISTRATIVE ASSISTANT [facility] Urine Barbiturates Screen Negative Negative 2:41 PM PRODUCTION ADMINISTRATIVE ASSISTANT [facility] Urine Benzodiazepines Screen Negative Negative 5 2:41 PM PRODUCTION ADMINISTRATIVE ASSISTANT [facility] Urine Cocaine Screen Negative Negative 0 5 2:41 PM PRODUCTION ADMINISTRATIVE ASSISTANT [facility] Urine Fentanyl Screen Negative Negative 5 2:41 PM PRODUCTION ADMINISTRATIVE ASSISTANT [facility] Urine Opiates Screen Negative Negative 0 5 2:41 PM PRODUCTION ADMINISTRATIVE ASSISTANT [facility] Urine Oxycodone Screen Negative Negative 5 2:41 PM PRODUCTION ADMINISTRATIVE ASSISTANT [facility] Urine Phencyclidine Screen Negative Negative 5 2:41 PM PRODUCTION ADMINISTRATIVE ASSISTANT [facility] Urine Methadone Screen Negative Negative 5 2:41 PM PRODUCTION ADMINISTRATIVE ASSISTANT [facility] Urine Methamphetamine Screen Negative Negative 5 2:41 PM PRODUCTION ADMINISTRATIVE ASSISTANT [facility] Urine Tetrahydrocannabinol Screen Presumptive Positive(A) Negative 5 2:41 PM PRODUCTION ADMINISTRATIVE ASSISTANT [facility] Urine Tricyclic Antidepressants Screen Negative Negative 5 2:41 PM PRODUCTION ADMINISTRATIVE ASSISTANT [facility] Urine URINE SPECIMEN COLLECTION, CLEAN CATCH / Unknown Non-blood collection / Unknown 04/14/2024 2:20 PM PRODUCTION ADMINISTRATIVE ASSISTANT 04/14/2024 2:24 PM PRODUCTION ADMINISTRATIVE ASSISTANT Narrative [facility] - 04/14/2024 2:41 PM PRODUCTION ADMINISTRATIVE ASSISTANT False presumptive positives may occur with prescription and [id number] medications due to cross-reactivity and interfering compounds.Urine [...] DO EC URINE ORDERABLES Final Resu lt [facility] [address] [phone] * CT HEAD WO IV CONTRAST (04/14/2024 1:35 PM PRODUCTION ADMINISTRATIVE ASSISTANT) Anatomical Region Laterality Modality Head Computed Tomogra phy 04/14/2024 1:25 PM PRODUCTION ADMINISTRATIVE ASSISTANT Narrative 04/14/2024 1:40 PM PRODUCTION ADMINISTRATIVE ASSISTANT PROCEDURE: CT OF THE HEAD WITHOUT IV [...] LACTIC ACID W/2HR REFLEX (04/14/2024 12:57 PM PRODUCTION ADMINISTRATIVE ASSISTANT) Lactic Acid, Venous 2.5(H) 0.7 - 2.1 mmol/L 04/14/2024 1:13 PM PRODUCTION ADMINISTRATIVE ASSISTANT [facility] Blood BLOOD SPECIMEN / Unknown Venipuncture / Unknown 04/14/2024 12:57 PM PRODUCTION ADMINISTRATIVE ASSISTANT 04/14/2024 1:00 PM PRODUCTION ADMINISTRATIVE ASSISTANT Hetal Paris DO CHEMISTRY ORDERABLES Final Result [facility] [address] [place] [address] * (ABNORMAL) COMPREHENSIVE METABOLIC PANEL (04/14/2024 12:57 PM PRODUCTION ADMINISTRATIVE ASSISTANT) Pathologist [facility] Sodium 132(L) 135 - 144 mmol/L 04/14/2024 1:18 PM PRODUCTION ADMINISTRATIVE ASSISTANT [facility] Potassium 2.9(LL) 3.4 - 5.1 mmol/L 04/14/2024 1:18 PM PRODUCTION ADMINISTRATIVE ASSISTANT [facility] Chloride 96(L) 98 - 107 mmol/L 04/14/2024 1:18 PM [facility] Carbon Dioxide 22 22 - 30 mmol/L 04/14/2024 1:18 PM [facility] Calcium 8.6 8.6 - 10.3 mg/dL 04/14/2024 1:18 PM PRODUCTION ADMINISTRATIVE ASSISTANT [facility] Alkaline Phosphatase 88 38 - 126 U/L 04/14/2024 1:18 PM PRODUCTION ADMINISTRATIVE ASSISTANT [facility] Aspartate Aminotransferase 47(H) 14 - 36 U/L 04/14/2024 1:18 PM PRODUCTION ADMINISTRATIVE ASSISTANT [facility] Alanine Aminotransferase 31 <35 U/L 04/14/2024 1:18 PM [facility] Glucose 130(H) 74 - 100 mg/dL 04/14/2024 1:18 PM [facility] Blood Urea nitrogen 13 7 - 17 mg/dL 04/14/2024 1:18 PM [facility] Creatinine 0.64 0.52 - 1.04 mg/dL 04/14/2024 1:18 PM [facility] Protein, Total 7.1 6.3 - 8.2 g/dL 04/14/2024 1:18 PM [facility] Albumin 4.3 3.5 - 5.0 g/dL 04/14/2024 1:18 PM [facility] Bilirubin, Total 1.0 0.2 - 1.3 mg/dL 04/14/2024 1:18 PM [facility] Globulin 2.8 1.4 - 4.8 g/dL 04/14/2024 1:18 PM [facility] Anion Gap 14 5 - 15 mmol/L 04/14/2024 1:18 PM [facility] Glomerular Filtration Rate >60 >60 mL/min/1. 73 m*2 04/14/2024 1:18 PM [facility] Comment:This calculation use s CKD-EPI 2020 equation; it has not been validated in women. Blood BLOOD SPECIMEN / Unknown Venipuncture / Unknown 04/14/2024 12:57 PM PRODUCTION ADMINISTRATIVE ASSISTANT 04/14/2024 1:00 PM PRODUCTION ADMINISTRATIVE ASSISTANT Hetal GONSALES CHEMISTRY ORDERABLES Final Result Performing Organization Address City/State/[facility] Co de Phone Number [facility] [address] [place] [address] * (ABNORMAL) HEMOGRAM/DIFFERENTIAL (04/14/2024 12:57 PM PRODUCTION ADMINISTRATIVE ASSISTANT) WBC 13.7(H) 4.0 - 11.0 10*3/uL 04/14/2024 1:09 PM [facility] RBC 4.01 3.80 - 5.20 10*6/uL 04/14/2024 1:09 PM [facility] HGB 13.2 12.0 - 16.0 g/dl 04/14/2024 1:09 PM [facility] HCT 38.1 35.0 - 47.0 % 04/14/2024 1:09 PM [facility] MCV 95.0 80 - 98 fL 04/14/2024 1:09 PM PRODUCTION ADMINISTRATIVE ASSISTANT [facility] MCH 32.9 27.0 - 34.0 pg 04/14/2024 1:09 PM PRODUCTION ADMINISTRATIVE ASSISTANT [facility] MCHC 34.6 32 - 36 g/dl 04/14/2024 1:09 PM PRODUCTION ADMINISTRATIVE ASSISTANT [facility] PLT 208 150 - 420 10*3/uL 04/14/2024 1:09 PM PRODUCTION ADMINISTRATIVE ASSISTANT [facility] Neutrophils Absolute 9.19(H) 2.10 - 7.50 10*3/uL 04/14/2024 1:09 PM PRODUCTION ADMINISTRATIVE ASSISTANT [facility] Lymphocytes Absolute 3.11 0.76 - 4.00 10*3/uL 04/14/2024 1:09 PM PRODUCTION ADMINISTRATIVE ASSISTANT [facility] Monocytes Absolute 0.83 0.00 - 0.90 10*3/uL 04/14/2024 1:09 PM PRODUCTION ADMINISTRATIVE ASSISTANT [facility] Eosinophils Absolute 0.47 0.04 - 0.54 10*3/uL 04/14/2024 1:09 PM PRODUCTION ADMINISTRATIVE ASSISTANT [facility] Basophils Absolute 0.03 0.00 - 0.20 10*3/uL 04/14/2024 1:09 PM PRODUCTION ADMINISTRATIVE ASSISTANT [facility] RDW-SD 41.9 36.5 - 46.3 fL 04/14/2024 1:09 PM PRODUCTION ADMINISTRATIVE ASSISTANT [facility] RDW-CV 12.0 11.6 - 14.4 % 04/14/2024 1:09 PM PRODUCTION ADMINISTRATIVE ASSISTANT [facility] Immature Granulocytes Absolute 0.03 0.00 - 0.10 10*3/uL 04/14/2024 1:09 PM PRODUCTION ADMINISTRATIVE ASSISTANT [facility] Blood BLOOD SPECIMEN / Unknown Venipuncture / Unknown 04/14/2024 12:57 PM PRODUCTION ADMINISTRATIVE ASSISTANT 04/14/2024 1:00 PM PRODUCTION ADMINISTRATIVE ASSISTANT Hetal GONSALES HEMATOLOGY ORDERABLES Final Result [facility] [address] [place] [address] * MAGNESIUM (04/14/2024 12:57 PM PRODUCTION ADMINISTRATIVE ASSISTANT) [facility] Signature Magnesium 1.8 1.6 - 2.3 mg/dL 04/14/2024 1:34 PM PRODUCTION ADMINISTRATIVE ASSISTANT [facility] Blood BLOOD SPECIMEN / Unknown Venipuncture / Unknown 04/14/2024 12:57 PM PRODUCTION ADMINISTRATIVE ASSISTANT 04/14/2024 1:00 PM PRODUCTION ADMINISTRATIVE ASSISTANT [facility] EC CHEMISTRY ORDERABLES Final Result Performing Organization Address [facility] de Phone Number [facility] [address] [place] [address] * ALCOHOL (04/14/2024 12:57 PM PRODUCTION ADMINISTRATIVE ASSISTANT) Alcohol <0.010 <=0.010 % 04/14/2024 1:16 PM [facility] Blood BLOOD SPECIMEN / Unknown Venipuncture / Unknown 04/14/2024 12:57 PM PRODUCTION ADMINISTRATIVE ASSISTANT 04/14/2024 1:00 PM PRODUCTION ADMINISTRATIVE ASSISTANT [facility] EC CHEMISTRY ORDERABLES Final Result Performing Organization Address [facility] de Phone Number [facility] [address] [place] [address] * EKG 12-LEAD (04/14/2024 12:48 PM PRODUCTION ADMINISTRATIVE ASSISTANT) Ventricular Rate 109 BPM RMCMUSE Atrial Rate 109 BPM RMCMUSE P-R Interval 140 ms RMCMUSE QRS Duration 88 ms RMCMUSE QT 332 ms RMCMUSE QTc 447 ms RMCMUSE P [place] 59 degrees RMCMUSE R [place] 15 degrees RMCMUSE T [place] -7 degrees RMCMUSE 04/14/2024 12:4 8 PM PRODUCTION ADMINISTRATIVE ASSISTANT 04/16/2024 8:01 PM PRODUCTION ADMINISTRATIVE ASSISTANT Narrative RMCMUSE - 04/16/2024 8:01 PM PRODUCTION ADMINISTRATIVE ASSISTANT Confirming Doc Eliseo Stewart Sinus tachycardia Nonspecific ST abnormality Abnormal ECG No previous ECGs available Procedure Note Eliseo Stewart, DO - 04/16/[address] Eliseo Stewart Sinus tachycardia Nonspecific ST abnormality Abnormal ECG No previous ECGs available us Hetal Paris DO IP ECG ORDERABLES Final Result RMCMUSE from Last 3 Months Insurance BLUE PLUS [facility] REF REQ [facility] BLUE PLUS [place] Care Teams Rn Pediatric Icu Relationship Specialty Start Date End Date Gene Ashraf MD [facility] [address] [place] [address] (work) PCP - General Family Medicine 04/14/24
--- OUTSIDE RECORDS SUMMARY | 2024-06-10 10:00 | XMS_ITS | Clinical Summary ---
Author Organization [facility] Address [address] [place] [address] Care Team Providers Care Therapeutic Radiologist Name Role Phone Elsewhere, Pcp Primary Care Provider Unavailabl e Source Comments Patient records contain information from all sites at [facility]. For routine questions regarding patient records, call [phone] during business hours, M-F 8:00 AM - 5:00 PM Central Time. Record requests for emergency care only can be directed to [phone] at any time.[facility] Allergies No known active allergies Medications [...] on file Legal Sex Female 9:01 PM [employer]OTH PICKER Gender Identity Not on file Sexual Orientation [...] LIPID PANEL, S Routine 04/06/2015 8:15 AM [employer] P[employer]ER PATHOLOGY [employer] INSPECTOR CYTOLOGY Routine 5 12:00 AM CDT from [...] LAB BLOOD ADD-ON Final Resul t [facility] [address] [place] [address], [place] NPRG [facility] [address] [place] [address] * Lipid Panel (04/06/2015 8:15 AM CLOTH PICKER) [facility] Cholesterol, Total 174 <=199 MGDL POWERCHART [...] for FH and FDB is available through [facility] [employer]: FH/ADH Genetic Reflex Panel (test ADHP). Acquired (non-genetic) causes of markedly increased LDL cholesterol include cholestatic liver disease due to the presence of LpX. If a genetic form of hypercholesterolemia is suspected, family studies including biochemical testing for lipids (total cholesterol,triglycerides, LDL cholesterol and HDL cholesterol) are recommended. Please contact the laboratory at or the on-line test catalog at [employer] for information about how to order these tests or to speak with a genetic counselor. Further interpretation would require clinical information. Blood 04/06/2015 8:15 AM CLOTH PICKER us Danny De Oliveira M.D. LAB BLOOD ADD-ON Final Result POWERCHART * Pathology METER AND SERVICE LINE INSPECTOR Cytology (12/01/2014 12:00 AM CDT) 12/01/2014 Narrative [facility] - 12/13/2014 1:36 PM CDT [facility] [place] [address] [facility] [address] [place] [address] Patient Name: MICHAEL MORENOLL JENNIFER Collected: 12/01/2014 Address: [facility]/Zip: [address] [place], [place] [id number] Received: Reported: 12/02/2014 12/13/2014 Soc. Sec. #: /Age/Sex 1975 (Age: 39) F Physician(s): SHAHANA DE OLIVEIRA MD Copy To: [facility] [id number] [address] [place] [address] [address] [place] [address] CYTOPATHOLOGY [employer] AND [employer]ICE LINE INSPECTOR REPORT FINAL CYTOLOGIC DIAGNOSIS Pap Smear - [...] M.D. LAB PAP COPATH ORDERABLES Final Result [facility] from Last 3 Months or Most Recently Relevant to Health Maintenance Insurance [facility] Care Teams Therapeutic Radiologist Relationship Specialty Start Date End Date Elsewhere, Pcp PCP - General Family Medicine 01/27/19
--- OUTSIDE RECORDS SUMMARY | 2024-06-10 10:00 | XMS_ITS | Encounter Summary ---
Author Organization [facility] Address [address] [address] Phone Care Team Providers Care Chamber Walker Name Role Phone Gene Ashraf MD Primary Care Provider [phone] Encounter Details Date Type Department Care Team (Late st Contact Info) Description 03/21/2021 Scanned - Medical Reports [facility] [address] [place] [address] Abstract, Provider, Social History Tobacco Use Types Packs/Day Years Used Date Smoking Tobacco: Never Assessed Comments No Sex and Gender Information Value Date Recorded Sex Assigned at Not on file Legal Sex Female 9:34 PM 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
[2024-06-10] MEDS: KETOROLAC 15 MG/ML inj IVP (10:06)
--- NOTE | 2024-06-10 10:09 | ED_ITS ---
HPI - General Adult General Date Seen: 06/10/24 Chief complaint: Rib Pain Stated complaint: broken rib? 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 She has a bruise in that area, and says it is painful to move and breathe. No specific shortness of breath. Denies abdominal pain. Denies other injuries. She is not anticoagulated Related Data Home Medications ?Medication ?Instructions ?Recorded ?Confirmed cephalexin 500 mg capsule 500 mg PO BID 05/12/24 05/12/24 Previous Rx's ?Medication ?Instructions ?Recorded gabapentin 100 mg capsule See Rx Instructions PO .ud #240 04/02/23 caps alprazolam 1 mg tablet 1 mg PO TID PRN anxiety #30 tabs 05/29/23 ibuprofen 600 mg tablet 600 mg PO QID PRN #30 tabs 06/05/23 escitalopram oxalate 20 mg tablet 20 mg PO QDAY #90 tabs 06/16/23 naltrexone 50 mg tablet 50 mg PO QDAY #90 tabs 06/16/23 omeprazole 20 mg capsule,delayed 20 mg PO QDAY #90 caps 11/17/23 release albuterol sulfate 90 mcg/actuation 2 puff inhalation Q4H PRN 12/04/23 aerosol inhaler (Proventil HFA) shortness of breath or wheezing #8.5 grams verapamil 120 mg tablet,extended 120 mg PO BID #180 tabs 12/24/23 release bupropion HCl 300 mg 24 hr tablet, 300 mg PO QAM #90 tabs 02/06/24 extended release albuterol sulfate 90 mcg/actuation 2 puff inhalation Q4-6H PRN 04/30/24 aerosol inhaler shortness of breath or wheezing #6.7 grams buspirone 30 mg tablet 30 mg PO BID #180 tabs 05/06/24 oxycodone 5 mg tablet 5 mg PO 3XD PRN 4 OR GREATER ON 05/12/24 PAIN SCALE #10 tabs gabapentin 300 mg capsule See Rx Instructions PO .ud #120 05/13/24 caps lorazepam 0.5 mg tablet 0.5 mg PO BID PRN anxiety #20 tabs 04/01/25 oxycodone 5 mg tablet 5 mg PO Q6H PRN pain #10 tabs 06/10/24 potassium chloride 20 mEq 20 meq PO BID #20 tabs 06/10/24 tablet,extended release Allergies Allergy/AdvReac Type Severity Reaction Status Date / Time No Known Allergies Allergy Unknown Verified 06/10/24 09:29 [facility] Medical History Hypertension ?I10 - Essential (primary) hypertension (ICD-10) History of alcoholic hepatitis ?Z87.19 - Personal history of other diseases of the digestive system (ICD-10) COVID-19 ?U07.1 - COVID-19 (ICD-10) Bartholin's gland abscess ?N75.1 - Abscess of Bartholin's gland (ICD-10) Injury of finger of right hand ?S69.91XA - Unspecified injury of right wrist, hand and finger(s), initial encounter (ICD-10) Hypothyroidism ?E03.9 - Hypothyroidism, unspecified (ICD-10) Fracture of rib ?S22.39XA - Fracture of one rib, unspecified side, initial encounter for closed fracture (ICD-10) Surgical History Status post cervical spinal arthrodesis ?Z98.1 - Arthrodesis status (ICD-10) History of tubal ligation ?Z98.51 - Tubal ligation status (ICD-10) History of loop electrical excision procedure (LEEP) ?Z98.890 - Other specified postprocedural states (ICD-10) History of section ?Z98.891 - History of uterine scar from previous surgery (ICD-10) Family History Other Diabetes Social History Narrative: alcohol abuse Smoking Status: Current every day smoker What tobacco products do you use: cigarettes Smoking packs per day: 1 Smoking cigarettes per day: 20.0 Years smoked: 10 Smoking pack-years: 10.00 Do you use any of these nicotine containing products: None Second hand tobacco smoke exposure: No How often do you have a drink containing alcohol: 2-4 times a month How many standard drinks containing alcohol do you have on a typical day: 3 or 4 How often do you have six or more drinks on one occasion: Less than monthly AUDIT-C Alcohol total score: 4 Non-prescribed substance use: denies use Caffeine: Yes Are you using contraception or practicing any form of control: Yes (tubal) service: No Exam Narrative: Exam Narrative: Vital signs reviewed In general, alert, nontoxic middle-aged woman. Head: Normocephalic, atraumatic. Eyes: Sclera clear. Pupils equal and reactive. ENT: Mucous membranes moist. Neck: Supple without adenopathy. Heart: Regular rate and rhythm without murmur. Lungs: Clear. No increased work of breathing, crackles or wheezes. Breath sounds are equal. There is a bruise on the left lateral slightly posterior ribcage. Tenderness in this area. No pain with AP compression of the chest. No subcutaneous air or emphysema. Abdomen: Soft, nontender to palpation. Specifically no left upper quadrant tenderness. Extremities: Well perfused, pulses intact. No significant edema. Neurologic: Alert, conversant. Speech fluent, face symmetric. Moves all extremities equally. Skin: Warm, dry well perfused. Affect: Normal. Const: Vital Signs, click to edit/add: Vital Signs - 24 hr 06/10/24 09:29 06/10/24 09:46 06/10/24 10:00 Temperature 96.3 F L Pulse Rate 83 90 Pulse Rate [Pulse Oximeter] 90 Respiratory Rate 20 Blood Pressure Blood Pressure [Le ft Upper Arm] 133/85 Pulse Oximetry 96 96 [facility] 06/10/24 10:02 06/10/24 10:15 06/10/24 10:30 Temperature Pulse Rate 94 82 80 Pulse Rate [Pulse Oximeter] Respiratory Rate 16 Blood Pressure 134/81 Blood Pressure [Le ft Upper Arm] Pulse Oximetry 99 91 89 Oxygen Delivery Ky thod 06/10/24 10:31 06/10/24 10:31 06/10/24 10:31 Temperature Pulse Rate 80 80 80 Pulse Rate [Pulse Oximeter] Respiratory Rate Blood Pressure 103/72 103/72 103/72 Blood Pressure [Le ft Upper Arm] Pulse Oximetry 91 91 91 [facility] 06/10/24 10:32 06/10/24 10:45 06/10/24 11:02 Temperature Pulse Rate 80 79 Pulse Rate [Pulse Oximeter] Respiratory Rate Blood Pressure 99/73 Blood Pressure [Le ft Upper Arm] Pulse Oximetry 93 95 Oxygen Delivery Me thod 06/10/24 11:08 06/10/24 11:15 06/10/24 11:30 Temperature Pulse Rate 86 87 78 Pulse Rate [Pulse Oximeter] Respiratory Rate Blood Pressure Blood Pressure [Le ft Upper Arm] Pulse Oximetry 93 94 96 Oxygen Delivery Me thod 06/10/24 11:32 06/10/24 11:45 06/10/24 12:00 Temperature Pulse Rate 77 80 79 Pulse Rate [Pulse Oximeter] Respiratory Rate Blood Pressure 104/67 Blood Pressure [Le ft Upper Arm] Pulse Oximetry 93 94 94 Oxygen Delivery Me thod 06/10/24 12:02 06/10/24 12:15 06/10/24 12:30 Temperature Pulse Rate 82 78 89 Pulse Rate [Pulse Oximeter] Respiratory Rate Blood Pressure 93/50 L Blood Pressure [Le ft Upper Arm] Pulse Oximetry 95 94 98 Oxygen Delivery Ky thod 06/10/24 12:31 Temperature Pulse Rate 86 Pulse Rate [Pulse Oximeter] Respiratory Rate 20 Blood Pressure 99/62 Blood Pressure [Le ft Upper Arm] Pulse Oximetry 98 Oxygen Delivery Me thod Course Course ED Course: Patient does have a history of alcohol dependence, prior LFTs and INR a year ago were normal. Will do CT scan to evaluate for pulmonary or rib injury, Toradol 15 mg IV, routine labs including an INR. Labs [place] [address], normal hemoglobin, no left shift. Platelets are 177,000. INR is normal. Metabolic panel is notable for mildly increased gap of 17 and a potassium of 2.7. Magnesium was checked and is normal at 2. I did give her oral and IV potassium replacement here. She says that she has been told before that her potassium is low. She denies being on any diuretics. CT scan by my review showed some patchy infiltrates in both lungs, no pneumothorax or hemothorax, at least 1 rib fracture on the left. Read by Radiology as showing minimally displaced fractures of the 9th and 10th ribs, no pneumothorax, patchy ground-glass infiltrate bilaterally consistent with viral pneumonia. Also noted is minimal hepatic steatosis as well as old rib fractures. I reviewed all this with her. She does request pain medication for home, I prescribed oxycodone but have stressed that she should not combine this with alcohol. With regard to her potassium, I am prescribing potassium replacement for home, she should be seen in about a week for repeat potassium. Discussed reasons to return such as severe uncontrolled pain, fevers, difficulty breathing. Vital Signs Vital signs: Initial Vital Signs Temperature 96.3 F L 06/10/24 09:29 Temperature Source Temporal Artery Scan 06/10/24 09:29 Pulse Rate 90 06/10/24 09:29 Pulse Rhythm Regular 06/10/24 09:29 Respiratory Rate 20 06/10/24 09:29 Blood Pressure 133/85 06/10/24 09:29 Blood Pressure Mean 101 06/10/24 09:29 Blood Pressure Position Right Lateral 06/10/24 09:29 Pulse Oximetry 96 06/10/24 09:29 Oxygen Delivery Method Room Air 06/10/24 09:29 Vital Signs Temperature 96.3 F L 06/10/24 09:29 Pulse Rate 90 06/10/24 09:29 Respiratory Rate 20 06/10/24 09:29 Blood Pressure 133/85 06/10/24 09:29 Pulse Oximetry 96 06/10/24 09:29 Oxygen Delivery Method Room Air 06/10/24 09:29 Temperature 96.3 F L 06/10/24 09:29 Pulse Rate 86 06/10/24 12:31 Respiratory Rate 20 06/10/24 12:31 Blood Pressure 99/62 06/10/24 12:31 Pulse Oximetry 98 06/10/24 12:31 Oxygen Delivery Method Room Air 06/10/24 09:29 Medications Administered Medications: Discontinued Medications Generic Name Dose Route Start Last Admin Trade Name Freq PRN Reason Stop Dose Admin Potassium Chloride 10 meq in 100 mls @ 100 mls/hr 06/10/24 10:45 06/10/24 12:11 Potassium Chloride IVPB 06/10/24 11:44 Infused ONCE ONE Infusion Ketorolac Tromethamine 15 mg 06/10/24 09:45 06/10/24 10:06 Ketorolac 15 Mg/Ml Inj IVP 06/10/24 09:46 15 mg ONCE ONE Administration Potassium Chloride 40 meq 06/10/24 10:45 06/10/24 11:07 Potassium Chloride 10 Meq Capsule Er PO 06/10/24 10:46 40 meq ONCE ONE Administration Medical Decision Making Lab Data Lab results reviewed: Yes I reviewed the patient's lab results Labs: Lab Results 06/10/24 Range/Units 10:05 WBC 18.74 H (4.50-11.00) K/uL RBC 4.07 (4.00-5.20) m/uL Hgb 13.0 (12.0-16.0) gm/dL Hct 37.5 (33.0-51.0) % MCV 92 (80-100) fL MCH 32 (26-34) pg MCHC 35 (32-36) gm/dL RDW Coeff of Comfort 12.8 (11.5-15.5) % Plt Count 177 (140-440) K/uL Neut % (Auto) 65.2 (42.0-72.0) % Lymph % (Auto) 26.5 (20-44) % Wilkinson % (Auto) 7.3 (0.0-11.0) % Eos % (Auto) 0.4 (0.0-7.0) % Baso % (Auto) 0.2 (0.0-3.0) % Neut # (Auto) 12.20 H (1.7-7.0) K/uL Lymph # (Auto) 5.00 H (0.90-2.90) K/uL Wilkinson # (Auto) 1.40 H (0.00-0.90) K/UL Eos # (Auto) 0.10 (0.00-0.50) K/uL Baso # (Auto) 0.00 (0.00-0.30) K/uL Abs Immat Gran (auto) 0.10 (0.00-0.30) K/uL Imm/Tot Granulo (auto) 0.4 % INR 0.92 (0.91-1.10) Sodium 138 (135-149) mmol/L Potassium 2.7 L* (3.6-5.1) mmol/L Chloride 97 (96-114) mmol/L Carbon Dioxide 24 (20-32) mmol/L Anion Gap 17 H (7-15) mEq/L BUN 6 (5-24) mg/dL Creatinine 0.6 (0.5-1.5) mg/dL Estimated Creat Clear 111.51 Estimated GFR 111 ml/min Glucose 101 (60-115) mg/dL Calcium 8.7 (8.4-10.6) mg/dL Magnesium 2.0 (1.5-2.6) mg/dL Imaging Data CT scan - chest: Attestation: I have reviewed the pertinent imaging results. Radiologist's impression: [facility] [address] [place] [address] Diagnostic Imaging Report Patient: Stefany Murray MR#: [id number] : 1975 Acct:[id number] Loc: ED Service Date: 06/10/[address]: Ordering Physician: Anaya Moore M.D. Date of Service: 06/10/24 Procedure(s): CT chest wo con Accession Number(s): [id number] cc: Anaya Moore M.D.; Dakota Ashraf M.D.~ For Patients: As a result of the Cures Act, medical imaging exams and procedure reports are released immediately into your electronic medical record. You may view this report before your referring provider. If you have questions, please contact your health care provider. INDICATION: Fall, left rib pain TECHNIQUE: Axial images were obtained from the thoracic inlet to the diaphragm. Reformats: Coronal and sagittal IV Contrast: None COMPARISON: Chest CT 08/24/2022 FINDINGS: Mediastinum: Thoracic aorta is normal in caliber. No pericardial effusion. Subcentimeter mediastinal lymph nodes. Lungs and Pleural Space: No pneumothorax or pleural effusion. Bilateral ground-glass opacities, some of which have a peripheral distribution. Chest wall: No masses. Upper abdomen: Mildly decreased density of the liver without focal lesion. 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 Old healed right 6th rib fracture. Acute left 9th and 10th rib fractures. Left 9th rib is nondisplaced with 2 millimeter displacement of the left 10th rib. No definite left 11th or 12th rib fracture although note these ribs are incompletely included on the exam. Cervical spine surgery, partially included on the exam. IMPRESSION: 1. Acute nondisplaced left 9th rib fracture and minimally displaced left 10th rib fracture. No pneumothorax. 2. Bilateral ground-glass opacities suggestive of a viral pneumonia. 3. Minimal hepatic steatosis. Please note that all CT scans at this facility use dose modulation, iterative reconstruction, and/or weight-based dosing when appropriate to reduce radiation dose to as low as reasonably achievable. Dictated by Papo Ross MD @ 06/10/2024 10:36:42 AM Discharge Plan Discharge Clinical Impression: Fracture of rib of left side, Hypokalemia Patient Disposition: Home, Self-Care Condition: Improved Instructions: Rib Fracture (ED), Hypokalemia (ED) Additional Instructions: I prescribed oxycodone for pain. This should not be combined with alcohol as both are sedating. I would recommend taking some ibuprofen or Tylenol as baseline pain control and then using oxycodone as needed for pain that is not controlled. Ice is often helpful as well. If you have severe uncontrolled pain, difficulty breathing, fevers or other worsening, return to the emergency department at any time. Your potassium is low today. I prescribed replacement for you which I would recommend that you take for the next 7-10 days, please make an appointment to follow-up in the clinic for repeat potassium level. Prescriptions: New oxycodone 5 mg tablet 5 mg PO Q6H PRN (Reason: pain) Qty: 10 0RF potassium chloride 20 mEq tablet extended release 20 meq PO BID Qty: 20 0RF No Action gabapentin 100 mg capsule See Rx Instructions PO .ud Qty: 240 2RF Rx Instructions: 100-200 mg QAM and Qmidday orally UD; (To be used with her 300 mg dose) escitalopram oxalate 20 mg tablet 20 mg PO QDAY Qty: 90 3RF Rx Instructions: Take along with 10 mg tablet naltrexone 50 mg tablet 50 mg PO QDAY Qty: 90 3RF albuterol sulfate 90 mcg/actuation HFA aerosol inhaler 2 puff inhalation Q4-6H PRN (Reason: shortness of breath or wheezing) Qty: 6.7 0RF cephalexin 500 mg capsule 500 mg PO BID oxycodone 5 mg tablet 5 mg PO 3XD PRN (Reason: 4 OR GREATER ON PAIN SCALE) Qty: 10 0RF ibuprofen 600 mg tablet 600 mg PO QID PRNQty: 30 0RF alprazolam 1 mg tablet 1 mg PO TID PRN (Reason: anxiety) Qty: 30 0RF omeprazole 20 mg capsule,delayed release(DR/EC) 20 mg PO QDAY Qty: 90 0RF albuterol sulfate [Proventil HFA] 90 mcg/actuation HFA aerosol inhaler 2 puff inhalation Q4H PRN (Reason: shortness of breath or wheezing) Qty: 8.5 0RF verapamil 120 mg tablet extended release 120 mg PO BID Qty: 180 3RF bupropion HCl 300 mg tablet extended release 24 hr 300 mg PO QAM Qty: 90 0RF buspirone 30 mg tablet 30 mg PO BID Qty: 180 3RF gabapentin 300 mg capsule See Rx Instructions PO .ud Qty: 120 5RF Rx Instructions: 300 mg QAM and QMidday, and 600 mg QHS orally UD; lorazepam 0.5 mg tablet 0.5 mg PO BID PRN (Reason: anxiety) Qty: 20 0RF Follow Up/Referrals: Dakota Ashraf MD [Primary Care Provider] - Stand Alone Forms: [employer] Info Instructions
[2024-06-10 10:15] LABS: Hematocrit* 37.5 % (33.0-51.0); Mean Corpuscular Volume 92 fL (80-100); Red Blood Count* 4.07 m/uL (4.00-5.20); White Blood Count* 18.74 K/uL (4.50-11.00)
[2024-06-10 10:16] LABS: Basophils Percent Auto 0.2 % (0.0-3.0); Eosinophils Percent Auto 0.4 % (0.0-7.0); Immature Granulocytes Pct Auto 0.4 %; Lymphocytes Percent Auto 26.5 % (20-44); Mean Corpuscular HGB Conc 35 gm/dL (32-36); Mean Corpuscular Hemoglobin 32 pg (26-34); Monocytes Percent Auto 7.3 % (0.0-11.0); Neutrophils Percent Auto 65.2 % (42.0-72.0); Platelet Count* 177 K/uL (140-440); RDW Coefficient of Variation % 12.8 % (11.5-15.5)
[2024-06-10 10:23] LABS: Slide Review Reflex No
[2024-06-10 10:31] LABS: Chloride* 97 mmol/L (96-114); INR 0.92 (0.91-1.10); Prothrombin Time 13.2 Seconds; Sodium* 138 mmol/L (135-149)
[2024-06-10 10:34] LABS: Anion Gap 17 mEq/L (7-15); Blood Urea Nitrogen* 6 mg/dL (5-24); Calcium* 8.7 mg/dL (8.4-10.6); Carbon Dioxide* 24 mmol/L (20-32); Creatinine* 0.6 mg/dL (0.5-1.5); Est. Creatinine Clearance* 111.51; Estimated Glomerular Filt Rate 111 ml/min; Glucose* 101 mg/dL (60-115)
[2024-06-10 10:36] LABS: Potassium* 2.7 mmol/L (3.6-5.1)
[2024-06-10] MEDS: POTASSIUM CHLORIDE 10 MEQ CAPSULE ER 40 MEQ PO (11:07)
[2024-06-10] MEDS: POTASSIUM CHLORIDE 10 MEQ/100 ML PIGGYBACK 100 MEQ IVPB (11:07)
== END 2024-06-10 12:46 | disposition home or self-care (01) ==
PROVIDERS: Emergency Provider Emergency Medicine; PCP Family Medicine
DX: S22.32XA Fracture of one rib, left side, initial encounter for closed fracture (principal); W01.0XXA Fall on same level from slipping, tripping and stumbling without subsequent striking against object, initial encounter
CPT/HCPCS: 36415; 71250; 80048; 83735; 85025; 85610; 96365; 96375; 99284; A9270; J1885; J3480

== ENCOUNTER 2024-10-27 08:57 | Outpatient (CLI) | payer BC, SELFPAY | END 2024-10-27 08:58 | disposition home or self-care (01) | LOC: AMB 10-28 09:05 | PROVIDERS: PCP Family Medicine; Visit Provider Family Medicine | DX: R20.0 Anesthesia of skin (principal) | CPT/HCPCS: A0425; A0427 ==

== ENCOUNTER 2024-10-27 09:50 | Emergency (ER) | payer BC, SELFPAY ==
[2024-10-27 09:51] VITALS: BP 102/70; PULSE 71; RESP 16; TEMP 36.9; O2SAT 93; BMI 24.6
--- OUTSIDE RECORDS SUMMARY | 2024-10-27 09:55 | XMS_ITS | Clinical Summary ---
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 28 Patch 05/09/2024 9:19 AM PRINCIPAL DEVELOPER 5 Active nicotine 2 mg lozengeIndicat ions:Tobacco use disorder Place 1 Lozenge (2 mg) in mouth, between cheek & gum every hour while awake as needed for Nicotine Craving. 48 Lozenge 05/09/2024 9:19 AM PRINCIPAL DEVELOPER 5 Active oxyCODONE (ROXICODONE) 5 mg immediate release tabletIndicati ons:Rectus sheath hematoma, initial encounter Take 1 Tablet (5 mg) by mouth every 6 hours if needed for Pain (For moderate to severe pain.). 8 Tablet 05/09/2024 9:19 AM PRINCIPAL DEVELOPER 5 Active Active Problems Problem Noted Date Diagnosed Date E. 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 Not on file Not on file Not on file Obstetrics History Last Filed Vital Signs Vital Sign Reading Time Taken Comments Blood Pressure 146/71 05/09/2024 8:32 AM PRINCIPAL DEVELOPER Pulse 67 05/09/2024 8:32 AM PRINCIPAL DEVELOPER Temperature 36.6 C (97.8 F) 05/09/2024 8:32 AM PRINCIPAL DEVELOPER Respiratory Rate 18 05/09/2024 8:32 AM PRINCIPAL DEVELOPER Oxygen Saturation 98% 05/09/2024 8:32 AM PRINCIPAL DEVELOPER Inhaled Oxygen Concentration - - Weight 69.9 kg (154 lb) 05/08/2024 4:37 AM PRINCIPAL DEVELOPER Height 169.4 cm (5' 6.69) 05/08/2024 4:37 AM CS T Body Mass Index 24.34 05/08/2024 4:37 AM PRINCIPAL DEVELOPER Plan of Treatment Health Maintenance Due Date Last Done Comments Tetanus booster 07/09/1986 Depression screening for age 12+ 1987 HIV for age 15-65 07/09/1990 Hepatitis C screening for age 18-79 07/09/1993 Hepatitis B series for 19+ (1 of 3 - 19+ 3-dose series) 07/09/1994 Colonoscopy through age 75 07/09/2020 Lipids for age 45-75 07/09/2020 Mammogram for age 45-75 07/09/2020 BMI (ht and wt on same day) for age 18+ 02/20/2021 02/21/2020 COVID-19 vaccine series ( season) 2023 03/14/2021 Influenza Vaccine (#1) 2024 Pap test for age 21-65 01/21/2025 , 01/21/2022, 09/16/2016, Additional history exists Pneumococcal series for age 6-49 Aged Out No longer eligible based on patient's age to complete this topic Procedures Procedure Name Priority Date/Time Associated Diagnosis Comments HPV HIGH RISK Routine 01/21/2022 8:30 AM PRINCIPAL DEVELOPER from Last 3 Months or Most Recently Relevant to Health Maintenance Results * (ABNORMAL) HPV HIGH RISK (01/21/2022 8:30 AM PRINCIPAL DEVELOPER) TYPE 16 Negative Negative 01/23/2022 5:14 PM [facility] TYPE 18 Positive(A) Negative 01/23/2022 5:14 PM [facility] OTHER HIGH RISK TYPES Positive(A) Negative 01/23/2022 5:14 PM [facility] Other (Cervical) 01/21/2022 8:30 AM PRINCIPAL DEVELOPER 01/22/2022 12:18 PM PRINCIPAL DEVELOPER [facility] - 01/23/2022 5:14 PM PRINCIPAL DEVELOPER Specimen is positive for HPV type 18 DNA and the DNA of any one of, or combination of, the following high risk HPV types: 31, 33, 35, 39, 45, 51, 52, 56, 58,59, 66, 68. HPV type 16 DNA was undetectable or below the pre-set threshold. Methodology: Rodriguez Digna 4800 HPV Test us Dakota Ashraf MD MICROBIOLOGY Final Resul t [facility] [address] [place] [address], from Last 3 Months or Most Recently [...] 12 months since positive culture): resides in acute/termite helper care, receiving hemodialysis, has chronic open wounds/skin damage, has long-term percutaneous indwelling medical devices Exclusions for nares collection (if <12 months since positive culture) include all of the previous exclusions plus patients on antibiotics 7 days prior to collection 05/07/2024 05/07/2024 Insurance Well[employer] Well[employer] Advance Directives * Full Code (Latest Code Status on File) Date Activated Date Inactivated Comments 05/07/2024 9:49 PM 05/09/2024 2:01 PM Question Answer Comments Code Status Discussion: Reviewed Preferences Care Teams Sanding Machine Tender Automatic Relationship Specialty Start Date End Date Dakota Ashraf MD PCP - General Family Practice 07/23/16
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
[2024-10-27 10:41] VITALS: O2SAT 96
--- NOTE | 2024-10-27 10:43 | CRLHL7_ITS ---
For Patients: As a result of the Century Cures Act, medical imaging exams and procedure reports are released immediately into your electronic medical record. You may view this report before your referring provider. If you have questions, please contact your health care provider. INDICATION: Seizure TECHNIQUE: Noncontrast axial CT of the head. Coronal and sagittal reformats. Bone and soft tissue algorithms. COMPARISON: CT head 10/15/2023 FINDINGS: The ventricles and cortical sulci appear age-appropriate. No midline shift or mass effect. No acute intracranial hemorrhage or extra-axial fluid collection. Warner-white matter differentiation is grossly maintained. White matter attenuation is within normal limits. Intracranial vessels are unremarkable for technique. Midline structures are unremarkable. The calvarium appears grossly intact. Visualized paranasal sinuses and mastoid air cells are clear. Included orbits are unremarkable. IMPRESSION: 1. Unremarkable CT head. Please note that all CT scans at this facility use dose modulation, iterative reconstruction, and/or weight-based dosing when appropriate to reduce radiation dose to as low as reasonably achievable. Dictated by Ana Antunez MD @ 10/27/2024 11:54:10 AM (Electronically Signed)
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
--- OUTSIDE RECORDS SUMMARY | 2024-10-27 10:54 | XMS_ITS | Clinical Summary ---
Author Organization [facility] Address [address] [place] [address] Care Team Providers Care Automated Equipment Engineer Technician Name Role Phone Elsewhere, Pcp Primary Care Provider Unavailabl e Source Comments Patient records contain information from all sites at [facility]. For routine questions regarding patient records, call [phone] during business hours, M-F 8:00 AM - 5:00 PM Central Time. Record requests for emergency care only can be directed to [phone] at any time.[facility] Allergies No known active allergies Medications clonazePAM [...] uit: Not Asked; Counseling Given: Not Answered Comments No Sex and Gender Information Value Date Recorded Sex Assigned at Not on file Legal Sex Female 9:01 PM PLANT SCIENCE PROFESSOR Gender Identity Not on file Sexual Orientation [...] Vaccine (2 - 2023- season) 2023 03/14/2021 Depression Screening (Annual PHQ-2) 03/10/2024 Influenza Vaccine (#1) 2024 Cervical/Vaginal Cancer Screening 01/21/2025 01/21/2022, 12/01/2014 Fasting [...] LIPID PANEL, S Routine 04/06/2015 8:15 AM PLANT SCIENCE PROFESSOR PATHOLOGY RIP AND GROOVE MACHINE OPERATOR CYTOLOGY Routine 5 12:00 AM CDT from [...] M.D. LAB BLOOD ADD-ON Final Resul t [facility] [place] [address] [place] [address], [place] NPRG [facility] [address] [place] [address] * Lipid Panel (04/06/2015 8:15 AM PLANT SCIENCE PROFESSOR) Pathologist [facility] Cholesterol, Total 174 <=199 MGDL POWERCHART Comment: [...] for FH and FDB is available through [facility] [employer]: FH/ADH Genetic Reflex Panel (test ADHP). Acquired (non-genetic) causes of markedly increased LDL cholesterol include cholestatic liver disease due to the presence of LpX. If a genetic form of hypercholesterolemia is suspected, family studies including biochemical testing for lipids (total cholesterol,triglycerides, LDL cholesterol and HDL cholesterol) are recommended. Please contact the laboratory at or the on-line test catalog at [employer] for information about how to order these tests or to speak with a genetic counselor. Further interpretation would require clinical information. Blood 04/06/2015 8:15 AM PLANT SCIENCE PROFESSOR Danyn De Oliveira M.D. LAB BLOOD ADD-ON Final Result POWERCHART * Pathology RIP AND GROOVE MACHINE OPERATOR Cytology (12/01/2014 12:00 AM CDT) 12/01/2014 Narrative LC LAB - 12/13/2014 1:36 PM CDT [facility] in [address] [place] [address] Patient Name: ULISES MORENO Collected: 12/01/2014 Address: [facility]/Zip: [address] [place] [address] [id number] Received: Reported: 12/02/2014 12/13/2014 Soc. Sec. #: /Age/Sex 1975 (Age: 39) F Physician(s): SHAHANA DE OLIVEIRA MD Copy To: [facility] [place] [id number] [address] [place] [address] [address] [place] [address] CYTOPATHOLOGY RIP AND GROOVE MACHINE OPERATOR REPORT FINAL CYTOLOGIC DIAGNOSIS Pap Smear - ThinPrep: NEGATIVE FOR INTRAEPITHELIAL LESION OR MALIGNANCY SPARSE TO NO ENDOCERVICAL COMPONENT PRESENT. SATISFACTORY SPECIMEN FOR EVALUATION. Electronically Signed Out By ajw/12/13/2014 DEYANIRA Hatchwrzynphan QUINTEROS(ASCP) The Pap test is a screening [...] M.D. LAB PAP COPATH ORDERABLES Final Result Performing Organization Address City/State/[facility] Co de Phone Number [facility] from Last 3 Months or Most Recently Relevant to Health Maintenance Insurance [facility] Care Teams Automated Equipment Engineer Technician Relationship Specialty Start Date End Date Elsewhere, Pcp PCP - General Family Medicine 01/27/19
[2024-10-27 11:08] LABS: Hematocrit 36.2 % (33.0-51.0); Hemoglobin* 12.2 gm/dL (12.0-16.0); Mean Corpuscular HGB Conc 34 gm/dL (32-36); Mean Corpuscular Hemoglobin 31 pg (26-34); Mean Corpuscular Volume 93 fL (80-100); RDW Coefficient of Variation % 14.4 % (11.5-15.5); Red Blood Count 3.90 m/uL (4.00-5.20); White Blood Count* 7.88 K/uL (4.50-11.00)
[2024-10-27 11:09] LABS: Immature Granulocytes Abs Auto 0.11 K/uL (0.00-0.30); Immature Granulocytes Pct Auto 1.4 %; Lymphocytes Absolute Auto 2.49 K/uL (0.90-2.90)
[2024-10-27 11:11] LABS: Slide Review Reflex No
[2024-10-27 11:22] LABS: Albumin* 3.9 g/dL (3.3-5.0); Chloride* 101 mmol/L (96-114); Potassium* 3.7 mmol/L (3.6-5.1); Sodium* 137 mmol/L (135-149)
[2024-10-27 11:24] LABS: Blood Urea Nitrogen* 8 mg/dL (5-24); Creatinine* 0.6 mg/dL (0.5-1.5); Est. Creatinine Clearance* 110.30; Estimated Glomerular Filt Rate 110 ml/min
[2024-10-27 11:25] LABS: Alanine Aminotransferase* 48 U/L (4-35); Alkaline Phosphatase* 89 U/L (40-150); Anion Gap 4 mEq/L (7-15); Aspartate Amino Transferase* 49 U/L (12-35); Bilirubin Direct* 0.2 mg/dL (0.0-0.5); Bilirubin Total* 0.4 mg/dL (0.1-1.5); Calcium* 8.8 mg/dL (8.4-10.6); Carbon Dioxide* 32 mmol/L (20-32); Glucose* 156 mg/dL (60-115); Total Protein* 7.1 g/dL (6.0-8.3)
[2024-10-27 11:28] LABS: Troponin, Point-of-Care* 0.00 ng/ml (0.01-0.04)
[2024-10-27 11:41] LABS: Ethanol* < 0.01 % (0.01-0.03)
[2024-10-27 12:12] LABS: Appearance Urine Clear (Clear)
[2024-10-27 12:21] LABS: Cannabinoid Screen Urine POSITIVE (Negative); Methamphetamines Screen Urine Negative (Negative); Tricyclic Antidepressant Urine POSITIVE (Negative)
== END 2024-10-27 13:39 | disposition home or self-care (01) ==
PROVIDERS: Emergency Provider Family Medicine; PCP Family Medicine
DX: F41.9 Anxiety disorder, unspecified (principal); F10.10 Alcohol abuse, uncomplicated
CPT/HCPCS: 36415; 70450; 80048; 80076; 80306; 81001; 82077; 84484; 85025; 86140; 87086; 93005; 94761; 96374; 99285; A9270; J2060; J7030

== ENCOUNTER 2024-11-07 20:33 | Emergency (ER) | payer BC, SELFPAY ==
--- OUTSIDE RECORDS SUMMARY | 2020-02-23 23:30 | XMS_ITS | Continuity of Care Document ---
Author Organization [facility] Address [address] [address] [place] [address] Phone Care Team Providers Care Sorter/Assay Tech Name Role Phone No Information Unavailable Unavailable Allergies, Adverse Reactions, Alerts Substance Reaction Status Criticality No Known Allergies Active No Inform ation Medications Medication Instructions Dosage Effective Dates (start - stop) Status Comments omeprazole 40 mg capsule,delayed release take 1 capsule by oral route every day before a meal 40 MG - Active lorazepam 1 mg tablet take 1 tablet by oral route 3 times every day as needed - TOOK 1MG @ 2am today - Active omeprazole 20 mg capsule,delayed release take 1 capsule by oral route every day 30 minutes to 1 hour before a meal 20 MG - Active verapamil ER (SR) 120 mg tablet,extended release take 1 tablet by oral route every day with food 120 MG - Active CRANBERRY (unknown strength) take as directed Not Available - Active VITAMIN E (unknown strength) take as directed Not Available - Active Procedures Procedure Date Established Level 3 or 15-24 min 2019 Ugi Endo; W/bx 1/mx Level Iv-surg Path Gross/micro 20 Established Level 4 or 25-39 min 2019 Routine Serum Collection Comp Metabolic Panel Established Level 4 or 25-39 min 2019 Advance Directives Directive Yes / No Effective Date File Name No Information Encounters Encounter Description Practice Location Reason(s) For Visit Diagnoses Date Provider Providers Copied on Encounter [facility], [address] [address], [place], [id number], [place] tel:[phone] No Information 0 No Information [facility], [address] [address], [place], [id number], [place] tel:[phone] [facility] No Information 0 Jerry Barros. [address] [place] [address], [id number], [place]. [phone] Established Level 3 or 15-24 min [facility], [address] [address], [place], [id number], [place] tel:[phone] [facility] GI Symptoms or Concerns (chief complaint) Gagging episodeUnspec ified abdominal painAbnormal results of liver function studies 0 Jerry Barros. [address] [place] [address], [id number], [place]. tel:[phone] Referring Provider: Referral Self, USE FOR SELF REFERRALS. [facility], [address] [address], [place], [id number], [place] tel:[phone] [facility] Superficial gastritis, presence of bleeding unspecified, unspecified chronicityNau sea with vomiting, unspecifiedUn specified abdominal painOther gastritis without bleeding 0 Jerry Barros. [address] [place] [address], [id number], [place]. tel:[phone] Referring Provider: Referral Self, USE FOR SELF REFERRALS. Established Level 4 or 25-39 min [facility], [address] [address], [place], [id number], [place] tel:[phone] [facility] Comment (chief complaint) Gagging episodeAbnorm al results of liver function studies 0 Jerry Barros. [address] [place] [address], [id number], [place]. tel:[phone] Referring Provider: Referral Self, USE FOR SELF REFERRALS. [facility], [address] [address], [place], [id number], [place] tel:[phone] [facility] Abnormal results of liver function studies 0 Jerry Barros. [address] [facility], [address], [id number], [place]. tel:[phone] Referring Provider: Referral Self, USE FOR SELF REFERRALS. [facility], [address] [address], [place], [id number], [place] tel:[phone] [facility] No Information 0 Jerry Barros. [address], [id number], [place]. [phone] Referring Provider: Referral Self, USE FOR SELF REFERRALS. Established Level 4 or 25-39 min [facility], [address] [address], [place], [id number], [place] tel:[phone] [facility] GI Symptoms or Concerns (chief complaint) Abnormal LFTsGagging episode 0 Jerry Barros. [address], [id number], [place]. [phone] Referring Provider: Papo Fuller, [address], [address] . tel:[phone] [facility], [address] [address], [facility] [place], [id number], [place] tel:[phone] [facility] No Information 0 Pilar Gomes. [address] [facility], [address], [id number], [place]. tel:[phone] Family History Family Member Type Diagnosis Age At Onset Sister Problem (finding) Alive and well Brother Problem (finding) Alive and well Mother Problem (finding) Cirrhosis Immunizations Vaccine Date Status Comments tetanus and diphtheria toxoi ds, adsorbed, preservative free, for adult use (2 Lf of tetanus toxoid and 2 Lf of diphtheria toxoid) administered Note: [facility] bi-direct ional interface ; Source: Other Registry Payers Payer name Insurance type Covered constitution party ID Authoriza tion(s) No Information Social History Type Description Quantity Date Captured Comments Sex Female Smoking Status No Information Chief Complaint And Reason For Visit No Information Reason For Referral Reason For Referral No Information Plan Of Treatment Date Type Action Status Referral Ordered: Hepatic Function Panel Appointment date/timeframe: 02/24/2020 ordered Referral Ordered: Hep B surface Ag Appointment date/timeframe: 01/28/2020 ordered Referral Ordered: EGD With Dilation Appointment date/timeframe: 01/28/2020 ordered Referral Ordered: Hep B Surface Ab Appointment date/timeframe: 01/28/2020 ordered Referral Ordered: Hep C Ab Appointment date/timeframe: 01/28/2020 ordered Referral Ordered: Hep B Core Ab, Tot Appointment date/timeframe: 01/28/2020 ordered Referral Ordered: CMP Appointment date/timeframe: 01/03/2020 ordered History Of Present Illness Encounter Date Complaint History Of Prese nt Illness GI Symptoms or Concerns Stefany zambrano is a pleasant 44-year-old female with whom I am conducting a virtual visit. The patient gave informed consent for the visit and confirmed that she was in a private location where she would not reveal PMI. The patient was initially referred for abnormal LFTs. At that time, the patient admitted she was drinking a combination of vodka a significant amount as well as beer and has been actively seeking chemical dependency guidance. She has eliminated the hard liquor from her diet, but still continues to have 2 to 3 beers per day. She states she is talking to an Alcoholics Anonymous counselor regarding possible chemical dependency treatment. She then brought up issues with a gagging sensation in the posterior pharynx. EGD on January 13 showed no significant abnormalities in the esophagus, and biopsies of the esophagus showed no evidence of esophageal eosinophilia. Biopsies of normal-appearing stomach did show some nonerosive reactive gastropathy. It is unclear how much Comment Stefany Murray is a very pleasant 44-year-old female who I am seeing in a virtual visit for followup of increased LFTs and a gagging sensation. The patient confirmed that she was in a private location and gave consent for the visit. When first referred her transaminases were significantly more elevated than when recently checked, having fallen from AST of 470 down to 171 and ALT of 260, which has fallen to 98. Alkaline phosphatase of 337 which has fallen to 224 and a bilirubin, which is now normal. The patient states that since her last clinic visit, she has dropped her alcohol intake dramatically. She is no longer drinking spirit beverages (vodka), but continues to drink several beers a day. She states that she feels less bloating, however, her gagging sensation is becoming more significant. She feels something is in the back of her throat, although she denies aby dysphagia or odynophagia. She is having nausea with dry heaves every morning, but is not losing any weight. She i GI Symptoms or Concerns Stefany zambrano is a very pleasant 44-year-old female who I am conducting a virtual visit with regard to her increased LFTs and some gagging sensation. Consent was obtained for the virtual visit, she confirmed she was in the private location so as to protect personal medical information and understood that if physical examination required that this would have to be rescheduled as a clinic visit. The patient states that she has had a very difficult time with BETTIEID and since being under lock-down and/or snf in place, she has been turning increasingly to alcohol. She initially stated she would have a perhaps a couple beers a day. Denies any IV drug use. On further questioning, she stated that perhaps on the weekend with her friends, she might have over 6 beers and at the onset of COVID was maybe drinking a 12 pack of beer per day, although she denies that is her current level of consumption. She was recently seen in the emergency room where her LFTs were noted to be markedly babita Functional Status Date Functional Assessmen t No Information Instructions Date Instruction Additional Infor mation No Information Assessments Type Assessment Date No Information Patient Care Teams Name Effective Dates (start - stop) Status Members No Information
--- OUTSIDE RECORDS SUMMARY | 2020-02-23 23:30 | XMS_ITS | Continuity of Care Document ---
Author Organization [facility] Address [address] [address] [place] [address] Phone Care Team Providers Care Wireless Team Member Name Role Phone No Information Unavailable Unavailable [...] Diagnoses Date Provider Providers Copied on Encounter [facility], [address] [address], [place], [id number], [place] tel:[phone] No Information 0 No Information [facility], [address] [address], [place], [id number], [place] tel:[phone] [facility] No Information 0 Jerry Barros. [address] [place] [address], [id number], [place]. [phone] Established Level 3 or 15-24 min [facility], [address] [address], [place], [id number], [place] tel:[phone] [facility] GI Symptoms or Concerns (chief complaint) Gagging episodeUnspec ified abdominal painAbnormal results of liver function studies 0 Jerry Barros. [address] [place] [address], [id number], [place]. tel:[phone] Referring Provider: Referral Self, USE FOR SELF REFERRALS. [facility], [address] [address], [place], [id number], [place] tel:[phone] [facility] Superficial gastritis, presence of bleeding unspecified, unspecified chronicityNau sea with vomiting, unspecifiedUn specified abdominal painOther gastritis without bleeding 0 Jerry Barros. [address] [place] [address], [id number], [place]. tel:[phone] Referring Provider: Referral Self, USE FOR SELF REFERRALS. Established Level 4 or 25-39 min [facility], [address] [address], [place], [id number], [place] tel:[phone] [facility] Comment (chief complaint) Gagging episodeAbnorm al results of liver function studies 0 Jerry Barros. [address] [place] [address], [id number], [place]. tel:[phone] Referring Provider: Referral Self, USE FOR SELF REFERRALS. [facility], [address] [address], [place], [id number], [place] tel:[phone] [facility] Abnormal results of liver function studies 0 Jerry Barros. [address] [facility], [address], [id number], [place]. tel:[phone] Referring Provider: Referral Self, USE FOR SELF REFERRALS. [facility], [address] [address], [place], [id number], [place] tel:[phone] [facility] No Information 0 Jerry Barros. [address], [id number], [place]. [phone] Referring Provider: Referral Self, USE FOR SELF REFERRALS. Established Level 4 or 25-39 min [facility], [address] [address], [place], [id number], [place] tel:[phone] [facility] GI Symptoms or Concerns (chief complaint) Abnormal LFTsGagging episode 0 Jerry Barros. [address], [id number], [place]. [phone] Referring Provider: Papo Fuller, [address], [address] . tel:[phone] [facility], [address] [address], [facility] [place], [id number], [place] tel:[phone] [facility] No Information 0 Pilar Gomes. [address] [facility], [address], [id number], [place]. tel:[phone] Family History Family Member Type Diagnosis Age [...] Registry Payers Payer name Insurance type Covered green party ID Authoriza tion(s) No Information Social [...] BETTIEID and since being under lock-down and/or intermediate in place, she has been turning increasingly [...]
[2024-11-07] VITALS (8 sets, daily range): BP systolic 130; BP diastolic 92; PULSE 101–120; RESP 13–24; TEMP 36.1; O2SAT 94–98; BMI 24.6
--- OUTSIDE RECORDS SUMMARY | 2024-11-07 20:36 | XMS_ITS | Clinical Summary ---
Author Organization [facility] Address [address] [place] [address] Care Team Providers Care College And Career Counselor Name Role Phone Unavailable Primary Care Provider [...] 0.5 30.3 Started: 07/11/1994 Smokeless Tobacco: Never [facility] Utilities Answer Date Recorded In the past 12 months has th e [employer], gas, oil, or water [employer] threatened to shut off services in your [...] time in the past 12 m [facility], were you homeless or living in a mcc (including now)? No 07/13/2024 Comments Unknown Sex [...] 136 - 145 mmol/L 07/13/2024 8:19 AM [facility] Potassium 3.0(L) 3.4 - 5.1 mmol/L 07/13/2024 8:19 AM [facility] Chloride 102 98 - 108 mmol/L 07/13/2024 8:19 AM [facility] Carbon Dioxide 28 20 - 31 mmol/L 07/13/2024 8:19 AM [facility] BUN (Urea Nitro) <5(L) 9 - 23 mg/dL 07/13/2024 8:19 AM [facility] Creatinine 0.42(L) 0.55 - 1.02 mg/dL 07/13/2024 8:19 AM [facility] Est GFR (CKD-EPI) >60.00 >60.00 mL/min/1. 73m2 07/13/2024 8:19 AM [facility] Comment:Calculation based on the Chronic Kidney Disease Epidemiology Collaboration (CKD-EPI) equation refit without adjustment for race. Glucose 98 74 - 106 mg/dL 07/13/2024 8:19 AM [facility] Calcium, Serum 8.4(L) 8.7 - 10.4 mg/dL 07/13/2024 8:19 AM [facility] Anion Gap 8.0 0.0 - 15.0 mmol/L 07/13/2024 8:19 AM [facility] Blood 07/13/2024 5:00 AM CDT 07/13/2024 5:28 AM T us Lety Julien PA-C CHEMISTRY ORDERABLE F inal Result [facility] [address] [place] [address] from Last 3 Months or Most Recently Relevant to Health Maintenance Insurance [facility] PMAP/[facility] Address: [place] [address] Advance Directives For more information, please contact: [phone] * Full Code (Latest Code Status on File) Date Activated Date Inactivated Comments 07/11/2024 5:13 AM 07/14/2024 7:32 PM Question Answer Comments How was code status determined? Patient
--- OUTSIDE RECORDS SUMMARY | 2024-11-07 20:36 | XMS_ITS | Clinical Summary ---
Author Organization [facility] Address [facility] [place] [address] Care Team Providers Care Indian Blanket Weaver Name Role Phone Dakota Ashraf MD Primary [...] once daily. 28 Patch 05/09/2024 9:19 AM CORRESPONDENCE REPRESENTATIVE 5 Active nicotine 2 mg lozengeIndicat ions:Tobacco use disorder Place 1 Lozenge (2 mg) in mouth, between cheek & gum every hour while awake as needed for Nicotine Craving. 48 Lozenge 05/09/2024 9:19 AM CORRESPONDENCE REPRESENTATIVE 5 Active oxyCODONE (ROXICODONE) 5 mg immediate release tabletIndicati ons:Rectus sheath hematoma, initial encounter Take 1 Tablet (5 mg) by mouth every 6 hours if needed for Pain (For moderate to severe pain.). 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 file Not on file Not on file Obstetrics History Last Filed Vital Signs Vital Sign Reading Time Taken Comments Blood Pressure 146/71 05/09/2024 8:32 AM CORRESPONDENCE REPRESENTATIVE Pulse 67 05/09/2024 8:32 AM CORRESPONDENCE REPRESENTATIVE Temperature 36.6 C (97.8 F) 05/09/2024 8:32 AM CORRESPONDENCE REPRESENTATIVE Respiratory Rate 18 05/09/2024 8:32 AM CORRESPONDENCE REPRESENTATIVE Oxygen Saturation 98% 05/09/2024 8:32 AM CORRESPONDENCE REPRESENTATIVE Inhaled Oxygen Concentration - - Weight 69.9 kg (154 lb) 05/08/2024 4:37 AM CORRESPONDENCE REPRESENTATIVE Height 169.4 cm (5' 6.69) 05/08/2024 4:37 AM CS T Body Mass Index 24.34 05/08/2024 4:37 AM CORRESPONDENCE REPRESENTATIVE Plan of Treatment Health Maintenance Due Date [...] HPV HIGH RISK Routine 01/21/2022 8:30 AM CORRESPONDENCE REPRESENTATIVE from Last 3 Months or Most Recently Relevant to Health Maintenance Results * (ABNORMAL) HPV HIGH RISK (01/21/2022 8:30 AM CORRESPONDENCE REPRESENTATIVE) TYPE 16 Negative Negative 01/23/2022 5:14 PM [facility] TRAL LABORATORY TYPE 18 Positive(A) Negative 01/23/2022 5:14 PM [facility] TRA LABORATORY OTHER HIGH RISK TYPES Positive(A) Negative 01/23/2022 5:14 PM [facility] Other (Cervical) 01/21/2022 8:30 AM CORRESPONDENCE REPRESENTATIVE 01/22/2022 12:[address] [facility] LABORATORY - 01/23/2022 5:14 PM CORRESPONDENCE REPRESENTATIVE Specimen is positive for HPV type 18 DNA and the DNA of any one of, or combination of, the following high risk HPV types: 31, 33, 35, 39, 45, 51, 52, 56, 58,59, 66, 68. HPV type 16 DNA was undetectable or below the pre-set threshold. Methodology: Rodriguez Digna 4800 HPV Test us Dakota Ashraf MD MICROBIOLOGY Final Resul t [facility] [address] [place] [address], from Last 3 Months or Most Recently [...] 12 months since positive culture): resides in acute/terminal computer operator care, receiving hemodialysis, has chronic open wounds/skin damage, has long-term percutaneous indwelling medical devices Exclusions for nares collection (if <12 months since positive culture) include all of the previous exclusions plus patients on antibiotics 7 days prior to collection 05/07/2024 05/07/2024 Insurance [employer] Advance Directives * Full Code (Latest Code Status on File) Date Activated Date Inactivated Comments 05/07/2024 9:49 PM 05/09/2024 2:01 PM Question Answer Comments Code Status Discussion: Reviewed Preferences Care Teams Indian Blanket Weaver Relationship Specialty Start Date End Date Dakota Ashraf MD PCP - General Family Practice 07/23/16
--- OUTSIDE RECORDS SUMMARY | 2024-11-07 20:36 | XMS_ITS | Clinical Summary ---
Author Organization [facility] Address [address] [place] [address] Care Team Providers Care Account Services Representative Name Role Phone Elsewhere, Pcp Primary Care Provider Unavailabl e Source Comments Patient records contain information from all sites at [facility]. For routine questions regarding patient records, call [phone] during business hours, M-F 8:00 AM - 5:00 PM Central Time. Record requests for emergency care only can be directed to [phone] at any time.[facility] Allergies No known active allergies Medications clonazePAM [...] on file Legal Sex Female 9:01 PM WATERWORKS EMPLOYEE Gender Identity Not on file Sexual Orientation [...] LIPID PANEL, S Routine 04/06/2015 8:15 AM WATERWORKS EMPLOYEE PATHOLOGY HARVEST MANAGER CYTOLOGY Routine 5 12:00 AM CDT from [...] M.D. LAB BLOOD ADD-ON Final Resul t [facility] [address] [place] [address], [place] NPRG [facility] [address] [place] [address] * Lipid Panel (04/06/2015 8:15 AM WATERWORKS EMPLOYEE) Pathologist [facility] Cholesterol, Total 174 <=199 MGDL POWERCHART Comment: [...] is available through [facility] [employer]: FH/ADH Genetic Reflex Panel (test ADHP). Acquired (non-genetic) causes of markedly increased LDL cholesterol include cholestatic liver disease due to the presence of LpX. If a genetic form of hypercholesterolemia is suspected, family studies including biochemical testing for lipids (total cholesterol,triglycerides, LDL cholesterol and HDL cholesterol) are recommended. Please contact the laboratory at or the on-line test catalog at [facility] for information about how to order these tests or to speak with a genetic counselor. Further interpretation would require clinical information. Blood 04/06/2015 8:15 AM WATERWORKS EMPLOYEE Danny De Oliveira M.D. LAB BLOOD ADD-ON Final Result POWERCHART * Pathology HARVEST MANAGER Cytology (12/01/2014 12:00 AM CDT) 12/01/2014 Narrative LC LAB - 12/13/2014 1:36 PM CDT [facility] in [address] [place] [address] Patient Name: ULISES MORENO Collected: 12/01/2014 Address: [facility]/Zip: [address] [place] [phone] Received: Reported: 12/02/2014 12/13/2014 Soc. Sec. #: /Age/Sex 1975 (Age: 39) F Physician(s): SHAHANA DE OLIVEIRA MD Copy To: [facility] [place] [id number] [address] [place] [address] [address] [place] [address] CYTOPATHOLOGY HARVEST MANAGER REPORT FINAL CYTOLOGIC DIAGNOSIS Pap Smear - [...] COPATH ORDERABLES Final Result Performing Organization Address City/State/[facility] Co de Phone Number [facility] from Last 3 Months or Most Recently Relevant to Health Maintenance Insurance [facility] Care Teams Account Services Representative Relationship Specialty Start Date End Date Elsewhere, Pcp PCP - General Family Medicine 01/27/19
[2024-11-07 21:25] LABS: Hematocrit 47.9 % (33.0-51.0); Hemoglobin* 16.3 gm/dL (12.0-16.0); Immature Granulocytes Abs Auto 0.03 K/uL (0.00-0.30); Immature Granulocytes Pct Auto 0.3 %; Lymphocytes Absolute Auto 2.67 K/uL (0.90-2.90); Mean Corpuscular HGB Conc 34 gm/dL (32-36); Mean Corpuscular Hemoglobin 31 pg (26-34); Mean Corpuscular Volume 92 fL (80-100); RDW Coefficient of Variation % 14.7 % (11.5-15.5); Red Blood Count 5.23 m/uL (4.00-5.20); White Blood Count* 9.43 K/uL (4.50-11.00)
[2024-11-07] MEDS: LACTATED RINGERS 1000 ML 1,000 ML IV (21:27)
[2024-11-07] MEDS: ONDANSETRON 2 MG/ML inj 4 MG IVP (21:29)
--- NOTE | 2024-11-07 21:36 | ED_ITS ---
HPI - Nausea/Vomiting/Diarrhea General Date Seen: 11/07/24 Chief complaint: Nausea/Vomiting Stated complaint: Potential dehydration, can't keep fluids down Time Seen by Provider: 11/07/24 20:39 Source: patient Mode of arrival: ambulatory Limitations: no limitations History of Present Illness HPI Narrative: Patient is a 49-year-old female presenting for epigastric pain and nausea and concerning for dehydration it has been going on for the past couple days. States she has a history of alcohol abuse and was previously 1 month sober but start drinking again this past Friday. Has not had another drink since Friday morning. States since then she has been feeling very nauseated and has been vomiting multiple times. Has not been able hold anything down. States she gets symptoms like this in the past when she would stop drinking. Denies any tremors but states she is feeling very anxious because she cannot get her anxiety medication down either due to the nausea. Has not had any diarrhea. Has tried to eat and drink but vomits every time. Tried THC gummy but that has not helped either. Denies any other drug use. Denies fevers, chills, chest pain, shortness of breath, numbness. Does feel fatigued. Related Data Home Medications ?Medication ?Instructions ?Recorded ?Confirmed escitalopram oxalate 20 mg tablet mg PO 11/07/24 Previous Rx's ?Medication ?Instructions ?Recorded gabapentin 100 mg capsule See Rx Instructions PO .ud # 240 04/02/23 caps alprazolam 1 mg tablet 1 mg PO TID PRN anxiety #30 tabs 05/29/23 ibuprofen 600 mg tablet 600 mg PO QID PRN #30 tabs 0 06/05/23 naltrexone 50 mg tablet 50 mg PO QDAY #90 tabs 06/15 omeprazole 20 mg capsule,delayed 20 mg PO QDAY #90 cap s 11/17/23 release albuterol sulfate 90 mcg/actuation 2 puff inhalation Q 4H PRN 12/04/23 aerosol inhaler (Proventil HFA) shortness of breath or wheezing #8.5 grams verapamil 120 mg tablet,extended 120 mg PO BID #180 ta bs 12/24/23 release albuterol sulfate 90 mcg/actuation 2 puff inhalation Q 4-6H PRN 04/30/24 aerosol inhaler shortness of breath or wheez ing #6.7 grams buspirone 30 mg tablet 30 mg PO BID #180 tabs 05/06 gabapentin 300 mg capsule See Rx Instructions PO .ud # 120 05/13/24 caps lorazepam 0.5 mg tablet 0.5 mg PO BID PRN anxiety #2 0 tabs 07/26/24 bupropion HCl 300 mg 24 hr tablet, 300 mg PO QAM #90 t abs 09/06/24 extended release Allergies Allergy/AdvReac Type Severity Reaction Status Date / Time No Known Allergies Allergy Unknown Verified 10/27/24 09:59 Review of Systems Status of ROS: Reports: 10 or more systems reviewed and unremarkable except as noted in History and below [facility] Medical History Hypertension ?I10 - Essential (primary) hypertension (ICD-10) History of alcoholic hepatitis ?Z87.19 - Personal history of other diseases of the digestive system (ICD-10) COVID-19 ?U07.1 - COVID-19 (ICD-10) Bartholin's gland abscess ?N75.1 - Abscess of Bartholin's gland (ICD-10) Injury of finger of right hand ?S69.91XA - Unspecified injury of right wrist, hand and finger(s), initial encounter (ICD-10) Hypothyroidism ?E03.9 - Hypothyroidism, unspecified (ICD-10) Fracture of rib ?S22.39XA - Fracture of one rib, unspecified side, initial encounter for closed fracture (ICD-10) Surgical History Status post cervical spinal arthrodesis ?Z98.1 - Arthrodesis status (ICD-10) History of tubal ligation ?Z98.51 - Tubal ligation status (ICD-10) History of loop electrical excision procedure (LEEP) ?Z98.890 - Other specified postprocedural states (ICD-10) History of section ?Z98.891 - History of uterine scar from previous surgery (ICD-10) Family History Other Diabetes Social History Narrative: alcohol abuse Smoking Status: Current every day smoker What tobacco products do you use: cigarettes Smoking packs per day: 1 Smoking cigarettes per day: 20.0 Years smoked: 10 Smoking pack-years: 10.00 Do you use any of these nicotine containing products: None Second hand tobacco smoke exposure: No How often do you have a drink containing alcohol: 2-4 times a month How many standard drinks containing alcohol do you have on a typical day: 3 or 4 How often do you have six or more drinks on one occasion: Less than monthly AUDIT-C Alcohol total score: 4 Non-prescribed substance use: denies use Caffeine: Yes Are you using contraception or practicing any form of control: Yes (tubal) service: No Exam Narrative: Exam Narrative: Const: Well-nourished, Well-developed, in mild distress Eyes: PERRL, no conjunctival injection, and symmetrical lids HENT: Atraumatic external nose and ears. Moist mucous membranes. Neck: Symmetric, trachea midline, No thyromegaly. CVS: RRR, No murmurs or gallops. Peripheral pulses 2+ and equal in all extremities RESP: Unlabored respiratory effort. Clear to auscultation bilaterally. GI: Epigastric tenderness, Nondistended, No rebound or guarding. MSK:Extremities w/o deformity, Normal Active ROM Skin: Warm, Dry. No rashes or lesions. Neuro: Normal Muscle tone, No focal neurological deficits. Psych: Awake, Alert, & Oriented x3. Appropriate mood and affect. Const: Vital Signs, click to edit/add: Vital Signs - 24 hr 11/07/24 20:45 11/07/24 21:13 11/07/24 21:15 Temperature 97 F L Pulse Rate Pulse Rate [Pulse Oximeter] 120 H Respiratory Rate 18 13 23 Blood Pressure [Ri ght Upper Arm] 130/92 H Pulse Oximetry 97 Oxygen Delivery Me thod Room Air 11/07/24 21:30 11/07/24 21:45 11/07/24 22:00 Temperature Pulse Rate 101 H 101 H Pulse Rate [Pulse Oximeter] Respiratory Rate 18 24 24 Blood Pressure [Ri ght Upper Arm] Pulse Oximetry 97 98 Oxygen Delivery Me thod 11/07/24 22:15 11/07/24 22:30 Temperature Pulse Rate 103 H 105 H Pulse Rate [Pulse Oximeter] Respiratory Rate 13 15 Blood Pressure [Ri ght Upper Arm] Pulse Oximetry 97 94 Oxygen Delivery Me thod Course Vital Signs Vital signs: Initial Vital Signs Temperature 97 F L 11/07/24 20:45 Temperature Source Temporal Artery Scan 11/07/24 20:45 Pulse Rate 120 H 11/07/24 20:45 Respiratory Rate 18 11/07/24 20:45 Blood Pressure 130/92 H 11/07/24 20:45 Blood Pressure Mean 104 11/07/24 20:45 Blood Pressure Position Sitting 11/07/24 20:45 Pulse Oximetry 97 11/07/24 20:45 Oxygen Delivery Method Room Air 11/07/24 20:45 Vital Signs Temperature 97 F L 11/07/24 20:45 Pulse Rate 120 H 11/07/24 20:45 Respiratory Rate 18 11/07/24 20:45 Blood Pressure 130/92 H 11/07/24 20:45 Pulse Oximetry 97 11/07/24 20:45 Oxygen Delivery Method Room Air 11/07/24 20:45 Temperature 97 F L 11/07/24 20:45 Pulse Rate 105 H 11/07/24 22:30 Respiratory Rate 15 11/07/24 22:30 Blood Pressure 130/92 H 11/07/24 20:45 Pulse Oximetry 94 11/07/24 22:30 Oxygen Delivery Method Room Air 11/07/24 20:45 Medications Administered Medications: Discontinued Medications Generic Name Dose Route Start Last Admin Trade Name Daiana PRN Reason Stop Dose Admin Lactated Ringer's 1,000 mls @ 1,000 mls/hr 11/07/24 21:15 11/07/24 22:16 Lactated Ringers 1000 Ml IV 11/07/24 22:14 Infused .Q1H ONE Infusion Ondansetron HCl 4 mg 11/07/24 21:15 11/07/24 21:29 Ondansetron 2 Mg/Ml Inj IVP 11/07/24 21:16 4 mg ONCE ONE Administration MDM - Nausea/Vomiting/Diarrhea MDM Narrative Medical decision making narrative: Patient is a 49-year-old female presenting to the emergency department for nausea and vomiting. This is likely due to her recent binge of alcohol. Will give her Zofran for nausea and L of fluids. Symptoms could also be from pancreatitis or gastroenteritis. CBC, CMP, lipase all ordered. At this time I will hold off on a CT scan until lab work here and medications are in to see how she is doing. EKG shows no acute concerning abnormalities. Lab work appears to show metabolic alkalosis. This is consistent with her vomiting. Her liver enzymes are slightly elevated but they have been more elevated in the past. I spoke to her again after she got her medications and she is feeling much better. Is no longer having the abdominal pain. At this time I do not believe a CT scan is ne cessary as symptoms improved with fluids and Zofran. Her creatinine has increased but this is likely dehydration. I offered another L of fluid but she declined. States she feels good enough to go home. She will be discharged. Lab Data Labs: Lab Results 11/07/24 Range/Units 21:10 WBC 9.43 (4.50-11.00) K/uL RBC 5.23 H (4.00-5.20) m/uL Hgb 16.3 H (12.0-16.0) gm/dL Hct 47.9 (33.0-51.0) % MCV 92 (80-100) fL MCH 31 (26-34) pg MCHC 34 (32-36) gm/dL RDW Coeff of Comfort 14.7 (11.5-15.5) % Plt Count 411 (140-440) K/uL Neut % (Auto) 56.9 (42.0-72.0) % Lymph % (Auto) 28.3 (20-44) % [place] % (Auto) 12.9 H (0.0-11.0) % Eos % (Auto) 0.2 (0.0-7.0) % Baso % (Auto) 1.4 (0.0-3.0) % Neut # (Auto) 5.36 (1.7-7.0) K/uL Lymph # (Auto) 2.67 (0.90-2.90) K/uL [place] # (Auto) 1.20 H (0.00-0.90) K/UL Eos # (Auto) 0.02 (0.00-0.50) K/uL Baso # (Auto) 0.13 (0.00-0.30) K/uL Abs Immat Gran (auto) 0.03 (0.00-0.30) K/uL Imm/Tot Granulo (auto) 0.3 % Sodium 133 L (135-149) mmol/L Potassium 3.9 (3.6-5.1) mmol/L Chloride 81 L (96-114) mmol/L Carbon Dioxide 18 L (20-32) mmol/L Anion Gap 34 H (7-15) mEq/L BUN 30 H (5-24) mg/dL Creatinine 1.3 (0.5-1.5) mg/dL Estimated Creat Clear 50.91 Estimated GFR 50 ml/min Glucose 121 H (60-115) mg/dL Calcium 9.7 (8.4-10.6) mg/dL Total Bilirubin 1.3 (0.1-1.5) mg/dL AST 113 H (12-35) U/L ALT 90 H (4-35) U/L Alkaline Phosphatase 130 (40-150) U/L Total Protein 10.6 H (6.0-8.3) g/dL Albumin 5.6 H (3.3-5.0) g/dL Lipase 141 (23-300) U/L ECG Data Attestation: I personally reviewed and interpreted this ECG as follows: Prior ECG tracings: available for review Interpretation: Sinus tachycardia with rate 109 beats per minute, normal intervals, normal axis, ST abnormalities. There are T-wave inversions in lateral leads but this is consistent with previous EKGs on file. Discharge Plan Discharge Clinical Impression: Acute dehydration Patient Disposition: Home, Self-Care Condition: Improved Instructions: Dehydration (DC) Additional Instructions: You were quite dehydrated and I do recommend using the Zofran as needed for nausea so that he can drink plenty of fluids. Try drinking Pedialyte 1st try and help with electrolytes. Your liver function tests were slightly elevated compared to her baseline. This could very well be related to dehydration but do recommend following up to primary care provider to recheck lab work. Your kidney function was also elevated but again this is most likely related to dehydration. 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 Prescriptions: No Action gabapentin 100 mg capsule See Rx Instructions PO .ud Qty: 240 2RF Rx Instructions: 100-200 mg QAM and Qmidday orally UD; (To be used with her 300 mg dose) naltrexone 50 mg tablet 50 mg PO QDAY Qty: 90 3RF albuterol sulfate 90 mcg/actuation HFA aerosol inhaler 2 puff inhalation Q4-6H PRN (Reason: shortness of breath or wheezing) Qty: 6.7 0RF ibuprofen 600 mg tablet 600 mg PO QID PRNQty: 30 0RF escitalopram oxalate 20 mg tablet PO alprazolam 1 mg tablet 1 mg PO TID PRN (Reason: anxiety) Qty: 30 0RF omeprazole 20 mg capsule,delayed release(DR/EC) 20 mg PO QDAY Qty: 90 0RF albuterol sulfate [Proventil HFA] 90 mcg/actuation HFA aerosol inhaler 2 puff inhalation Q4H PRN (Reason: shortness of breath or wheezing) Qty: 8.5 0RF verapamil 120 mg tablet extended release 120 mg PO BID Qty: 180 3RF buspirone 30 mg tablet 30 mg PO BID Qty: 180 3RF gabapentin 300 mg capsule See Rx Instructions PO .ud Qty: 120 5RF Rx Instructions: 300 mg QAM and QMidday, and 600 mg QHS orally UD; lorazepam 0.5 mg tablet 0.5 mg PO BID PRN (Reason: anxiety) Qty: 20 0RF bupropion HCl 300 mg tablet extended release 24 hr 300 mg PO QAM Qty: 90 0RF Follow Up/Referrals: Dakota Ashraf MD [Primary Care Provider, Family Practice] Stand Alone Forms: [employer] Info Instructions
[2024-11-07 21:43] LABS: Slide Review Reflex No
[2024-11-07 21:46] LABS: Albumin* 5.6 g/dL (3.3-5.0); Chloride* 81 mmol/L (96-114); Sodium* 133 mmol/L (135-149)
[2024-11-07 21:47] LABS: Potassium* 3.9 mmol/L (3.6-5.1)
[2024-11-07 21:49] LABS: Alanine Aminotransferase* 90 U/L (4-35); Alkaline Phosphatase* 130 U/L (40-150); Anion Gap 34 mEq/L (7-15); Aspartate Amino Transferase* 113 U/L (12-35); Bilirubin Total* 1.3 mg/dL (0.1-1.5); Blood Urea Nitrogen* 30 mg/dL (5-24); Calcium* 9.7 mg/dL (8.4-10.6); Carbon Dioxide* 18 mmol/L (20-32); Creatinine* 1.3 mg/dL (0.5-1.5); Est. Creatinine Clearance* 50.91; Estimated Glomerular Filt Rate 50 ml/min; Glucose* 121 mg/dL (60-115); Total Protein* 10.6 g/dL (6.0-8.3)
== END 2024-11-07 22:44 | disposition home or self-care (01) ==
PROVIDERS: Emergency Provider Student in an Organized Health Care Education/Training Program; PCP Family Medicine
DX: R11.2 Nausea with vomiting, unspecified (principal)
CPT/HCPCS: 36415; 80053; 83690; 85025; 96374; 99284; J2405; J7120

== ENCOUNTER 2025-01-20 18:53 | Outpatient (CLI) | payer BC, SELFPAY | END 2025-01-20 18:54 | disposition home or self-care (01) | LOC: AMB 01-22 22:16 | PROVIDERS: PCP Family Medicine; Visit Provider Student in an Organized Health Care Education/Training Program | DX: F10.129 Alcohol abuse with intoxication, unspecified (principal); R55 Syncope and collapse | CPT/HCPCS: A0425; A0429 ==

== ENCOUNTER 2025-01-20 19:27 | Emergency (ER) | payer BC, SELFPAY ==
[2025-01-20] VITALS (24 sets, daily range): BP systolic 108–118; BP diastolic 70–80; PULSE 74–91; RESP 12–23; TEMP 36.9; O2SAT 1–99; BMI 29.0
--- OUTSIDE RECORDS SUMMARY | 2025-01-20 19:28 | XMS_ITS | Encounter Summary ---
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
--- OUTSIDE RECORDS SUMMARY | 2025-01-20 19:28 | XMS_ITS | Clinical Summary ---
Author Organization [facility] Address [facility] [place] [address] Care Team Providers Care Explosive Man Name Role Phone Dakota Ashraf MD Primary [...] once daily. 28 Patch 05/09/2024 9:19 AM GUEST ADVISOR 5 Active nicotine 2 mg lozengeIndicat ions:Tobacco use disorder Place 1 Lozenge (2 mg) in mouth, between cheek & gum every hour while awake as needed for Nicotine Craving. 48 Lozenge 05/09/2024 9:19 AM GUEST ADVISOR 5 Active oxyCODONE (ROXICODONE) 5 mg immediate release tabletIndicati ons:Rectus sheath hematoma, initial encounter Take 1 Tablet (5 mg) by mouth every 6 hours if needed for Pain (For moderate to severe pain.). 8 Tablet 05/09/2024 9:19 AM GUEST ADVISOR 5 Active Active Problems Problem Noted Date Diagnosed Date E. 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 Not on file Not on file Not on file Obstetrics History Last Filed Vital Signs Vital Sign Reading Time Taken Comments Blood Pressure 146/71 05/09/2024 8:32 AM GUEST ADVISOR Pulse 67 05/09/2024 8:32 AM GUEST ADVISOR Temperature 36.6 C (97.8 F) 05/09/2024 8:32 AM GUEST ADVISOR Respiratory Rate 18 05/09/2024 8:32 AM GUEST ADVISOR Oxygen Saturation 98% 05/09/2024 8:32 AM GUEST ADVISOR Inhaled Oxygen Concentration - - Weight 69.9 kg (154 lb) 05/08/2024 4:37 AM GUEST ADVISOR Height 169.4 cm (5' 6.69) 05/08/2024 4:37 AM CS T Body Mass Index 24.34 05/08/2024 4:37 AM GUEST ADVISOR Plan of Treatment Health Maintenance Due [...] same day) for age 18+ 02/20/2021 02/21/2020 Influenza Vaccine (#1) 2024 Pap test for age 21-65 01/21/2025 2, 01/21/2022, 09/16/2016, Additional history exists RSV vaccine for adults or (1 - 1-dose 75+ series) 07/09/2050 Pneumococcal series for age 6-49 Aged Out No longer eligible based on patient's age to complete this topic Procedures Procedure Name Priority Date/Time Associated Diagnosis Comments HPV HIGH RISK Routine 01/21/2022 8:30 AM GUEST ADVISOR from Last 3 Months or Most Recently Relevant to Health Maintenance Results * (ABNORMAL) HPV HIGH RISK (01/21/2022 8:30 AM GUEST ADVISOR) TYPE 16 Negative Negative 01/23/2022 5:14 PM GUEST ADVISOR [facility] TYPE 18 Positive(A) Negative 01/23/2022 5:14 PM GUEST ADVISOR [facility] OTHER HIGH RISK TYPES Positive(A) Negative 01/23/2022 5:14 PM GUEST ADVISOR [facility] Other (Cervical) 01/21/2022 8:30 AM GUEST ADVISOR 01/22/2022 12:18 PM GUEST ADVISOR Narrative [facility] - 01/23/2022 5:14 PM GUEST ADVISOR Specimen is positive for HPV type 18 DNA and the DNA of any one of, or combination of, the following high risk HPV types: 31, 33, 35, 39, 45, 51, 52, 56, 58,59, 66, 68. HPV type 16 DNA was undetectable or below the pre-set threshold. Methodology: Rodriguez Digna 4800 HPV Test us Dakota Ashraf MD MICROBIOLOGY Final Resul t [facility] 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, receiving hemodialysis, has chronic open wounds/skin damage, has long-term percutaneous indwelling medical devices Exclusions for nares collection (if <12 months since positive culture) include all of the previous exclusions plus patients on antibiotics 7 days prior to collection 05/07/2024 05/07/2024 Insurance [employer] [place] Advance Directives * Full Code (Latest Code Status on File) Date Activated Date Inactivated Comments 05/07/2024 9:49 PM 05/09/2024 2:01 PM Question Answer Comments Code Status Discussion: Reviewed Preferences Care Teams Explosive Man Relationship Specialty Start Date End Date Dakota Ashraf MD PCP - General Family Practice 07/23/16
--- OUTSIDE RECORDS SUMMARY | 2025-01-20 19:29 | XMS_ITS | Clinical Summary ---
Author Organization [facility] Address [address] [place] [address] Care Team Providers Care Cracking Still Operator Name Role Phone Unavailable Primary Care Provider [...] Date Smoking Tobacco: Every Day Cigarettes 0.5 30.5 Started: 07/11/1994 Smokeless Tobacco: Never [facility] Utilities Answer Date Recorded In the past 12 months has th e [employer], gas, oil, or water [employer] threatened to shut off services in your [...] any time in the past 12 m [facility], were you homeless or living in a longterm (including now)? No 07/13/2024 Comments Unknown Sex [...] - PCV) 07/09/1994 COVID-19 Vaccine ( season) 2024 Influenza Vaccine (#1) 2024 Diabetes Screening 07/14/2027 [...] 136 - 145 mmol/L 07/13/2024 8:[address] [facility] Potassium 3.0(L) 3.4 - 5.1 mmol/L 07/13/2024 8:[address] [facility] Chloride 102 98 - 108 mmol/L 07/13/2024 8:[address] [facility] Carbon Dioxide 28 20 - 31 mmol/L 07/13/2024 8:[address] [facility] BUN (Urea Nitro) <5(L) 9 - 23 mg/dL 07/13/2024 8:[address] [facility] Creatinine 0.42(L) 0.55 - 1.02 mg/dL 07/13/2024 8:[address] [facility] Est GFR (CKD-EPI) >60.00 >60.00 mL/min/1. 73m2 07/13/2024 8:[address] [facility] Comment:Calculation based on the Chronic Kidney Disease Epidemiology Collaboration (CKD-EPI) equation refit without adjustment for race. Glucose 98 74 - 106 mg/dL 07/13/2024 8:[address] [facility] Calcium, Serum 8.4(L) 8.7 - 10.4 mg/dL 07/13/2024 8:[address] [facility] Anion Gap 8.0 0.0 - 15.0 mmol/L 07/13/2024 8:[address] [facility] Blood 07/13/2024 5:00 AM CDT 07/13/2024 5:28 AM T us Lety Julien PA-C CHEMISTRY ORDERABLE F inal Result [facility] [address] [place] [address] from Last 3 Months or Most Recently Relevant to Health Maintenance Insurance [address] [facility] KARLAEELNA PRINCE [id number] [facility] Advance Directives For more information, please contact: [phone] * Full Code (Latest Code Status on File) Date Activated Date Inactivated Comments 07/11/2024 5:13 AM 07/14/2024 7:32 PM Question Answer Comments How was code status determined? Patient
--- OUTSIDE RECORDS SUMMARY | 2025-01-20 19:29 | XMS_ITS | Clinical Summary ---
Author Organization [facility] Address [address] [place] [address] Care Team Providers Care Product Sales Engineer Name Role Phone Elsewhere, Pcp Primary Care Provider Unavailabl e Source Comments Patient records contain information from all sites at [facility]. For routine questions regarding patient records, call [phone] during business hours, M-F 8:00 AM - 5:00 PM Central Time. 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 LAB BLOOD ADD-ON Final Resul t [facility] [address] [place] [address], [place] NPRG [facility] [address] [place] [address] * Lipid Panel (04/06/2015 8:15 AM INSPECTOR PENETRANT) Pathologist [facility] Cholesterol, Total 174 <=199 MGDL POWERCHART Comment: [...] for FH and FDB is available through [facility] [employer] [place]: FH/ADH Genetic Reflex Panel (test ADHP). Acquired (non-genetic) causes of markedly increased LDL cholesterol include cholestatic liver disease due to the presence of LpX. If a genetic form of hypercholesterolemia is suspected, family studies including biochemical testing for lipids (total cholesterol,triglycerides, LDL cholesterol and HDL cholesterol) are recommended. Please contact the laboratory at or the on-line test catalog at [employer] for information about how to order these tests or to speak with a genetic counselor. Further interpretation would require clinical information. Blood 04/06/2015 8:15 AM INSPECTOR PENETRANT Danny De Oliveira M.D. LAB BLOOD ADD-ON Final Result POWERCHART * Pathology CIGARETTE LIGHTER REPAIRER Cytology (12/01/2014 12:00 AM CDT) 12/01/2014 Narrative LC LAB - 12/13/2014 1:36 PM CDT [facility] in [address] [place] [address] Patient Name: ULISES MORENO Collected: 12/01/2014 Address: [facility]/Zip: [address] [place] [id number] Received: Reported: 12/02/2014 12/13/2014 Soc. Sec. #: /Age/Sex 1975 (Age: 39) F Physician(s): SHAHANA DE OLIVEIRA MD Copy To: [facility] [id number] [address] [place] [address] [address] [place] [address] CYTOPATHOLOGY CIGARETTE LIGHTER REPAIRER REPORT FINAL CYTOLOGIC DIAGNOSIS Pap Smear - [...] COPATH ORDERABLES Final Result Performing Organization Address City/State/[facility] Co de Phone Number [facility] from Last 3 Months or Most Recently Relevant to Health Maintenance Insurance [facility] Care Teams Product Sales Engineer Relationship Specialty Start Date End Date Elsewhere, Pcp PCP - General Family Medicine 01/27/19
--- OUTSIDE RECORDS SUMMARY | 2025-01-20 19:29 | XMS_ITS | Clinical Summary ---
Author Organization [facility] Address [address] [address] Phone Care Team Providers Care Hot Top Liner Name Role Phone Gene Ashraf MD Primary Care Provider [phone] Allergies No known active allergies Medications LORazepam [...] Do not crush. 30 Tablet 5 Active Immunizations Immunization Administration Dates Next Due TD >7yrs With Preservative 09/26/2003 Tdap (7 years and older) 10/28/2011 Surgical History Surgery Date Site/Laterality Comments WRIST FRACTURE SURGERY 03/21/2021 Right Right distal radius [facility]. ([facility]) Social History Tobacco Use Types [...] on file Legal Sex Female 9:34 PM VISION RE[employer]ER[employer] Gender Identity Not on file Sexual Orientation Not on file Last Filed Vital Signs Vital Sign Reading Time Taken Comments Blood Pressure 140/99 09/13/2024 2:00 PM CDT Pulse 98 09/13/2024 2:00 PM CDT Temperature 36.7 C (98 F) 09/13/2024 12:32 PM CDT Respiratory Rate 16 09/13/2024 2:00 PM CDT Oxygen Saturation 96% 09/13/2024 2:00 PM CDT Inhaled Oxygen Concentration - - Weight 72.6 kg (160 lb) 09/13/2024 12:32 PM CDT Height 170.2 cm (5' 7) 09/13/2024 12:32 PM CDT Body Mass Index 25.06 09/13/2024 12:32 PM CDT Plan of Treatment Health Maintenance [...] TETANUS (Standing Order) 10/27/2021 012, 09/26/2003 COVID-19 Single Dose 11/08/2024 Influenza Vaccine Seasonal (Standing Order) (#1) 2024 PERTUSSIS (Standing Order) Completed 10/28/2011 HPV Vaccine (Standing Order) Aged Out No longer eligible based on patient's age to complete this topic Insurance BLUE [facility] Address: [facility] [id number] [place] [phone] [facility] [employer] PLUS [facility] Commercial Address: [facility] [address] [place] [address] Care Teams Hot Top Liner Relationship Specialty Start Date End Date Gene Ashraf MD PCP - General Family Medicine 04/14/24
--- NOTE | 2025-01-20 19:54 | ED_ITS ---
HPI - Alcohol General Date Seen: 01/20/25 <Curt Weaver - Last Filed: 01/20/25 22:47> Chief Complaint: Alcohol/Intoxication <Curt Weaver DO - Last Filed: 01/20/25 22:47> Stated Complaint: intoxication <Curt Weaver DO - Last Filed: 01/20/25 22:47> Time Seen by Provider: 01/20/25 19:35 <Curt Dipak Owen DO - Last Filed: 01/20/25 22:47> Source: patient and EMS <Curt Weaver DO - Last Filed: 01/20/25 22:47> Mode of arrival: EMS <Curt Weaver - Last Filed: 01/20/25 22:47> Limitations: no limitations <Curt Weaver DO - Last Filed: 01/20/25 22:47> History of Present Illness HPI narrative: Patient is a 49-year-old female with a history of alcoholism presenting to the emergency department for alcohol intoxication. She states she use a chronic alcoholic and has been drinking heavily on and off for several years. States she brought a follow-up ricardo yesterday drink some of it yesterday and drink the rest of it today. Has been drinking since she woke up she states. She was found passed out by a neighbor surrounded by empty vodka bowel loops per report from EMS. They states she was unconscious so they thought there was something on just being intoxicated. For me she is responsive and answering questions appropriately. She denies homicidal ideation. Does admit to depression with thoughts of hurting herself. Denies any other drug use. Does states he is open to detox but needs to get someone to take care of her dog. Denies fevers, chills, chest pain, shortness of breath, abdominal pain, vision changes, weakness, numbness, lightheadedness, dizziness. <Curt Weaver - Last Filed: 01/20/25 22:47> Related Data Home Medications: Home Medications ?Medication ?Instructions ?Recorded ?Confirmed escitalopram oxalate 20 mg tablet mg PO 11/07/24 Previous Rx's ?Medication ?Instructions ?Recorded gabapentin 100 mg capsule See Rx Instructions PO .ud # 240 04/02/23 caps alprazolam 1 mg tablet 1 mg PO TID PRN anxiety #30 tabs 05/29/23 ibuprofen 600 mg tablet 600 mg PO QID PRN #30 tabs 0 06/05/23 naltrexone 50 mg tablet 50 mg PO QDAY #90 tabs 06/15 omeprazole 20 mg capsule,delayed 20 mg PO QDAY #90 cap s 11/17/23 release albuterol sulfate 90 mcg/actuation 2 puff inhalation Q 4H PRN 12/04/23 aerosol inhaler (Proventil HFA) shortness of breath or wheezing #8.5 grams albuterol sulfate 90 mcg/actuation 2 puff inhalation Q 4-6H PRN 04/30/24 aerosol inhaler shortness of breath or wheez ing #6.7 grams buspirone 30 mg tablet 30 mg PO BID #180 tabs 05/06 gabapentin 300 mg capsule See Rx Instructions PO .ud # 120 05/13/24 caps bupropion HCl 300 mg 24 hr tablet, 300 mg PO QAM #90 t abs 09/06/24 extended release lorazepam 0.5 mg tablet 0.5 mg PO BID PRN anxiety #1 0 tabs 01/11/25 verapamil 120 mg tablet,extended 120 mg PO BID #180 ta bs 01/11/25 release lorazepam 1 mg tablet (Ativan) 1 mg PO TID PRN #6 tabs 01/21/25 ondansetron 4 mg disintegrating 4 mg PO Q6H PRN nausea and 01/21/25 tablet vomiting #10 tabs <Curt Weaver DO - Last Filed: 01/20/25 22:47> Allergies/Adverse Reactions: Allergies Allergy/AdvReac Type Severity Reaction Status Date / Time No Known Allergies Allergy Unknown Verified 01/20/25 19:42 <Curt Weaver DO - Last Filed: 01/20/25 22:47> Review of Systems Status of ROS Reports: 10 or more systems reviewed and unremarkable except as noted in History and below <Curt Weaver DO - Last Filed: 01/20/25 22:47> [facility] Medical History: Medical History Hypertension ?I10 - Essential (primary) hypertension (ICD-10) History of alcoholic hepatitis ?Z87.19 - Personal history of other diseases of the digestive system (ICD-10) COVID-19 ?U07.1 - COVID-19 (ICD-10) Bartholin's gland abscess ?N75.1 - Abscess of Bartholin's gland (ICD-10) Injury of finger of right hand ?S69.91XA - Unspecified injury of right wrist, hand and finger(s), initial encounter (ICD-10) Hypothyroidism ?E03.9 - Hypothyroidism, unspecified (ICD-10) Fracture of rib ?S22.39XA - Fracture of one rib, unspecified side, initial encounter for closed fracture (ICD-10) <Curt Weaver DO - Last Filed: 01/20/25 22:47> Surgical History: Surgical History Status post cervical spinal arthrodesis ?Z98.1 - Arthrodesis status (ICD-10) History of tubal ligation ?Z98.51 - Tubal ligation status (ICD-10) History of loop electrical excision procedure (LEEP) ?Z98.890 - Other specified postprocedural states (ICD-10) History of section ?Z98.891 - History of uterine scar from previous surgery (ICD-10) <Curt Weaver DO - Last Filed: 01/20/25 22:47> Family History: Family History Other Diabetes <Curt Weaver DO - Last Filed: 01/20/25 22:47> Social History: Social History Narrative: alcohol abuse Smoking Status: Current every day smoker What tobacco products do you use: cigarettes Smoking packs per day: 1 Smoking cigarettes per day: 20.0 Years smoked: 10 Smoking pack-years: 10.00 Do you use any of these nicotine containing products: None Second hand tobacco smoke exposure: No How often do you have a drink containing alcohol: 2-4 times a month How many standard drinks containing alcohol do you have on a typical day: 3 or 4 How often do you have six or more drinks on one occasion: Less than monthly AUDIT-C Alcohol total score: 4 Non-prescribed substance use: denies use Caffeine: Yes Are you using contraception or practicing any form of control: Yes (tubal) service: No <Curt Weaver DO - Last Filed: 01/20/25 22:47> Exam Narrative: Exam Narrative: Const: Well-nourished, Well-developed, in no distress, appears intoxicated Eyes: PERRL, no conjunctival injection, and symmetrical lids HENT: Atraumatic external nose and ears. Moist mucous membranes. Neck: Symmetric, trachea midline, No thyromegaly. CVS: RRR, No murmurs or gallops. Peripheral pulses 2+ and equal in all extremities RESP: Unlabored respiratory effort. Clear to auscultation bilaterally. GI: Nontender/Nondistended, No rebound or guarding. MSK:Extremities w/o deformity, Normal Active ROM Skin: Warm, Dry. No rashes or lesions. Neuro: Normal Muscle tone, No focal neurological deficits. Psych: Awake, Alert, & Oriented x3. Appropriate mood and affect. <Curt Weaver DO - Last Filed: 01/20/25 22:47> Const: Vital Signs, click to edit/add: Vital Signs - 24 hr 01/20/25 19:33 01/20/25 19:39 01/20/25 19:42 Temperature 98.4 F Pulse Rate 87 86 Pulse Rate [Right Pulse Oximeter] 82 Respiratory Rate 16 Blood Pressure 115/74 Blood Pressure [Ri ght Upper Arm] 115/74 Pulse Oximetry 98 85 L 84 L Oxygen Delivery Me thod Room Air Room Air Nasal Cannula Oxygen Flow Rate 2 01/20/25 19:44 01/20/25 19:45 01/20/25 20:00 Temperature Pulse Rate 84 86 86 Pulse Rate [Right Pulse Oximeter] Respiratory Rate 21 Blood Pressure 118/73 Blood Pressure [Ri ght Upper Arm] Pulse Oximetry 87 L 90 92 Oxygen Delivery Me thod Nasal Cannula Oxygen Flow Rate 3 01/20/25 20:02 01/20/25 20:15 01/20/25 20:21 Temperature Pulse Rate 86 91 87 Pulse Rate [Right Pulse Oximeter] Respiratory Rate 20 14 12 Blood Pressure 108/70 110/80 Blood Pressure [Ri ght Upper Arm] Pulse Oximetry 91 96 95 Oxygen Delivery Me thod Nasal Cannula Nasal Cannula Oxygen Flow Rate 3 3 01/20/25 20:30 01/20/25 20:42 01/20/25 20:45 Temperature Pulse Rate 83 Pulse Rate [Right Pulse Oximeter] Respiratory Rate 12 12 18 Blood Pressure 111/70 Blood Pressure [Ri ght Upper Arm] Pulse Oximetry 92 Oxygen Delivery Me thod Nasal Cannula Oxygen Flow Rate 3 01/20/25 21:00 01/20/25 21:04 01/20/25 21:05 Temperature Pulse Rate 89 88 89 Pulse Rate [Right Pulse Oximeter] Respiratory Rate 18 Blood Pressure Blood Pressure [Ri ght Upper Arm] Pulse Oximetry 99 97 97 Oxygen Delivery Me thod Oxygen Flow Rate 01/20/25 21:15 01/20/25 21:24 01/20/25 21:45 Temperature Pulse Rate 84 86 Pulse Rate [Right Pulse Oximeter] Respiratory Rate 19 15 16 Blood Pressure Blood Pressure [Ri ght Upper Arm] Pulse Oximetry Oxygen Delivery Me thod Oxygen Flow Rate 01/20/25 22:00 01/20/25 22:15 01/20/25 22:30 Temperature Pulse Rate 79 Pulse Rate [Right Pulse Oximeter] Respiratory Rate 15 16 16 Blood Pressure Blood Pressure [Ri ght Upper Arm] Pulse Oximetry 93 95 Oxygen Delivery Me thod Nasal Cannula Oxygen Flow Rate 2 01/20/25 22:45 01/20/25 23:00 01/20/25 23:30 Temperature Pulse Rate 79 75 Pulse Rate [Right Pulse Oximeter] Respiratory Rate 16 14 Blood Pressure Blood Pressure [Ri ght Upper Arm] Pulse Oximetry 95 95 1 L Oxygen Delivery Me thod Nasal Cannula Oxygen Flow Rate 01/20/25 23:30 01/21/25 00:00 01/21/25 00:30 Temperature Pulse Rate 74 81 77 Pulse Rate [Right Pulse Oximeter] Respiratory Rate 23 20 13 Blood Pressure Blood Pressure [Ri ght Upper Arm] Pulse Oximetry 95 96 91 Oxygen Delivery Me thod Oxygen Flow Rate 01/21/25 00:45 01/21/25 01:00 01/21/25 01:24 Temperature Pulse Rate 78 79 Pulse Rate [Right Pulse Oximeter] Respiratory Rate 15 15 35 H Blood Pressure Blood Pressure [Ri ght Upper Arm] Pulse Oximetry 92 90 Oxygen Delivery Me thod Oxygen Flow Rate 01/21/25 01:26 01/21/25 01:30 01/21/25 01:31 Temperature 97.7 F Pulse Rate 79 80 78 Pulse Rate [Right Pulse Oximeter] Respiratory Rate 16 22 14 Blood Pressure 137/113 H 142/94 H Blood Pressure [Ri ght Upper Arm] Pulse Oximetry 96 97 94 Oxygen Delivery Me thod Nasal Cannula Oxygen Flow Rate 1 01/21/25 01:45 01/21/25 02:00 01/21/25 02:30 Temperature Pulse Rate 77 76 75 Pulse Rate [Right Pulse Oximeter] Respiratory Rate 8 L 17 11 L Blood Pressure Blood Pressure [Ri ght Upper Arm] Pulse Oximetry 94 91 92 Oxygen Delivery Me thod Oxygen Flow Rate 01/21/25 03:00 01/21/25 04:00 01/21/25 05:28 Temperature Pulse Rate 77 78 Pulse Rate [Right Pulse Oximeter] Respiratory Rate 21 17 Blood Pressure Blood Pressure [Ri ght Upper Arm] Pulse Oximetry 89 96 95 Oxygen Delivery Me thod Room Air Room Air Room Air Oxygen Flow Rate 01/21/25 05:30 01/21/25 05:45 01/21/25 06:00 Temperature Pulse Rate 76 83 77 Pulse Rate [Right Pulse Oximeter] Respiratory Rate 16 Blood Pressure Blood Pressure [Ri ght Upper Arm] Pulse Oximetry 93 98 97 Oxygen Delivery Me thod Oxygen Flow Rate 01/21/25 06:15 01/21/25 06:30 01/21/25 06:45 Temperature Pulse Rate 81 80 73 Pulse Rate [Right Pulse Oximeter] Respiratory Rate 22 Blood Pressure Blood Pressure [Ri ght Upper Arm] Pulse Oximetry 96 96 92 Oxygen Delivery Me thod Oxygen Flow Rate 01/21/25 07:00 01/21/25 07:15 01/21/25 07:30 Temperature Pulse Rate 85 75 69 Pulse Rate [Right Pulse Oximeter] Respiratory Rate 13 16 13 Blood Pressure Blood Pressure [Ri ght Upper Arm] Pulse Oximetry 95 92 96 Oxygen Delivery Me thod Oxygen Flow Rate 01/21/25 07:41 01/21/25 07:43 01/21/25 07:45 Temperature Pulse Rate 88 84 Pulse Rate [Right Pulse Oximeter] Respiratory Rate 14 19 Blood Pressure 151/93 H Blood Pressure [Ri ght Upper Arm] 151/93 H Pulse Oximetry 99 98 Oxygen Delivery Me thod Oxygen Flow Rate 01/21/25 08:00 01/21/25 08:15 01/21/25 08:30 Temperature Pulse Rate 76 80 82 Pulse Rate [Right Pulse Oximeter] Respiratory Rate 12 12 14 Blood Pressure Blood Pressure [Ri ght Upper Arm] Pulse Oximetry 96 97 99 Oxygen Delivery Me thod Oxygen Flow Rate 01/21/25 09:26 Temperature Pulse Rate Pulse Rate [Right Pulse Oximeter] 89 Respiratory Rate 20 Blood Pressure Blood Pressure [Ri ght Upper Arm] 152/94 H Pulse Oximetry 98 Oxygen Delivery Me thod Oxygen Flow Rate <Curt Weaver, DO - Last Filed: 01/20/25 22:47> Vital Signs, click to edit/add: Vital Signs - 24 hr 01/20/25 19:33 01/20/25 19:39 01/20/25 19:42 Temperature 98.4 F Pulse Rate 87 86 Pulse Rate [Right Pulse Oximeter] 82 Respiratory Rate 16 Blood Pressure 115/74 Blood Pressure [Ri ght Upper Arm] 115/74 Pulse Oximetry 98 85 L 84 L Oxygen Delivery Me thod Room Air Room Air Nasal Cannula Oxygen Flow Rate 2 01/20/25 19:44 01/20/25 19:45 01/20/25 20:00 Temperature Pulse Rate 84 86 86 Pulse Rate [Right Pulse Oximeter] Respiratory Rate 21 Blood Pressure 118/73 Blood Pressure [Ri ght Upper Arm] Pulse Oximetry 87 L 90 92 Oxygen Delivery Me thod Nasal Cannula Oxygen Flow Rate 3 01/20/25 20:02 01/20/25 20:15 01/20/25 20:21 Temperature Pulse Rate 86 91 87 Pulse Rate [Right Pulse Oximeter] Respiratory Rate 20 14 12 Blood Pressure 108/70 110/80 Blood Pressure [Ri ght Upper Arm] Pulse Oximetry 91 96 95 Oxygen Delivery Me thod Nasal Cannula Nasal Cannula Oxygen Flow Rate 3 3 01/20/25 20:30 01/20/25 20:42 01/20/25 20:45 Temperature Pulse Rate 83 Pulse Rate [Right Pulse Oximeter] Respiratory Rate 12 12 18 Blood Pressure 111/70 Blood Pressure [Ri ght Upper Arm] Pulse Oximetry 92 Oxygen Delivery Me thod Nasal Cannula Oxygen Flow Rate 3 01/20/25 21:00 01/20/25 21:04 01/20/25 21:05 Temperature Pulse Rate 89 88 89 Pulse Rate [Right Pulse Oximeter] Respiratory Rate 18 Blood Pressure Blood Pressure [Ri ght Upper Arm] Pulse Oximetry 99 97 97 Oxygen Delivery Me thod Oxygen Flow Rate 01/20/25 21:15 01/20/25 21:24 01/20/25 21:45 Temperature Pulse Rate 84 86 Pulse Rate [Right Pulse Oximeter] Respiratory Rate 19 15 16 Blood Pressure Blood Pressure [Ri ght Upper Arm] Pulse Oximetry Oxygen Delivery Me thod Oxygen Flow Rate 01/20/25 22:00 01/20/25 22:15 01/20/25 22:30 Temperature Pulse Rate 79 Pulse Rate [Right Pulse Oximeter] Respiratory Rate 15 16 16 Blood Pressure Blood Pressure [Ri ght Upper Arm] Pulse Oximetry 93 95 Oxygen Delivery Me thod Nasal Cannula Oxygen Flow Rate 2 01/20/25 22:45 01/20/25 23:00 01/20/25 23:30 Temperature Pulse Rate 79 75 Pulse Rate [Right Pulse Oximeter] Respiratory Rate 16 14 Blood Pressure Blood Pressure [Ri ght Upper Arm] Pulse Oximetry 95 95 1 L Oxygen Delivery Me thod Nasal Cannula Oxygen Flow Rate 01/20/25 23:30 01/21/25 00:00 01/21/25 00:30 Temperature Pulse Rate 74 81 77 Pulse Rate [Right Pulse Oximeter] Respiratory Rate 23 20 13 Blood Pressure Blood Pressure [Ri ght Upper Arm] Pulse Oximetry 95 96 91 Oxygen Delivery Me thod Oxygen Flow Rate 01/21/25 00:45 01/21/25 01:00 01/21/25 01:24 Temperature Pulse Rate 78 79 Pulse Rate [Right Pulse Oximeter] Respiratory Rate 15 15 35 H Blood Pressure Blood Pressure [Ri ght Upper Arm] Pulse Oximetry 92 90 Oxygen Delivery Me thod Oxygen Flow Rate 01/21/25 01:26 01/21/25 01:30 01/21/25 01:31 Temperature 97.7 F Pulse Rate 79 80 78 Pulse Rate [Right Pulse Oximeter] Respiratory Rate 16 22 14 Blood Pressure 137/113 H 142/94 H Blood Pressure [Ri ght Upper Arm] Pulse Oximetry 96 97 94 Oxygen Delivery Me thod Nasal Cannula Oxygen Flow Rate 1 01/21/25 01:45 01/21/25 02:00 01/21/25 02:30 Temperature Pulse Rate 77 76 75 Pulse Rate [Right Pulse Oximeter] Respiratory Rate 8 L 17 11 L Blood Pressure Blood Pressure [Ri ght Upper Arm] Pulse Oximetry 94 91 92 Oxygen Delivery Me thod Oxygen Flow Rate 01/21/25 03:00 01/21/25 04:00 01/21/25 05:28 Temperature Pulse Rate 77 78 Pulse Rate [Right Pulse Oximeter] Respiratory Rate 21 17 Blood Pressure Blood Pressure [Ri ght Upper Arm] Pulse Oximetry 89 96 95 Oxygen Delivery Me thod Room Air Room Air Room Air Oxygen Flow Rate 01/21/25 05:30 01/21/25 05:45 01/21/25 06:00 Temperature Pulse Rate 76 83 77 Pulse Rate [Right Pulse Oximeter] Respiratory Rate 16 Blood Pressure Blood Pressure [Ri ght Upper Arm] Pulse Oximetry 93 98 97 Oxygen Delivery Me thod Oxygen Flow Rate 01/21/25 06:15 01/21/25 06:30 01/21/25 06:45 Temperature Pulse Rate 81 80 73 Pulse Rate [Right Pulse Oximeter] Respiratory Rate 22 Blood Pressure Blood Pressure [Ri ght Upper Arm] Pulse Oximetry 96 96 92 Oxygen Delivery Me thod Oxygen Flow Rate 01/21/25 07:00 01/21/25 07:15 01/21/25 07:30 Temperature Pulse Rate 85 75 69 Pulse Rate [Right Pulse Oximeter] Respiratory Rate 13 16 13 Blood Pressure Blood Pressure [Ri ght Upper Arm] Pulse Oximetry 95 92 96 Oxygen Delivery Me thod Oxygen Flow Rate 01/21/25 07:41 01/21/25 07:43 01/21/25 07:45 Temperature Pulse Rate 88 84 Pulse Rate [Right Pulse Oximeter] Respiratory Rate 14 19 Blood Pressure 151/93 H Blood Pressure [Ri ght Upper Arm] 151/93 H Pulse Oximetry 99 98 Oxygen Delivery Me thod Oxygen Flow Rate 01/21/25 08:00 01/21/25 08:15 01/21/25 08:30 Temperature Pulse Rate 76 80 82 Pulse Rate [Right Pulse Oximeter] Respiratory Rate 12 12 14 Blood Pressure Blood Pressure [Ri ght Upper Arm] Pulse Oximetry 96 97 99 Oxygen Delivery Me thod Oxygen Flow Rate 01/21/25 09:26 Temperature Pulse Rate Pulse Rate [Right Pulse Oximeter] 89 Respiratory Rate 20 Blood Pressure Blood Pressure [Ri ght Upper Arm] 152/94 H Pulse Oximetry 98 Oxygen Delivery Me thod Oxygen Flow Rate <Farzaneh Villarreal MD - Last Filed: 01/21/25 09:27> Course Reevaluation(s) Time of Reevaluation #1: 08:17 <Farzaneh Villarreal MD - Last Filed: 01/21/25 09:27> Reevaluation #1: Mckinley is a week, no apparent intoxication at all at this time. She is trembly. We discussed her suicidal comments yesterday, she does not even remember that. She states there is lot of stress in her life right now which probably prompted her to drink to excess. We discussed what her alcohol level was, she was quite surprised by that. She is trying to sell her house, she is starting a new job. She does not want to go to detox at this point. She actually has a counseling appointment today, plans to start attending AA again. She has had a history of alcohol abuse and dependence, has stopped before, her mom's has precipitated some relapses recently. She does want to quit. She is feeling nauseated right now. I am to going to provide her with some Zofran, more Ativan and we will plan to discharge to home so she can get to her therapy appointment. This is what she would like to do. She is absolutely not suicidal and she is functionally at baseline, no apparent intoxication at this time. I was going to order repeat alcohol but it really is not going to change my management and thus I feel not necessary. I certainly feel that this patient is functionally sober, probably in some early withdrawal. <Farzaneh Kamara MD - Last Filed: 01/21/25 09:27> Time of Reevaluation #2: 09:27 <Farzaneh Villarreal MD - Last Filed: 01/21/25 09:27> Reevaluation #2: CIWA score cell of 14, patient does not have a ride yet. Will give her another dose of Ativan 1 mg oral, will also add in some Vistaril to help with overall nausea and anxiety. <Farzaneh Villarreal MD - Last Filed: 01/21/25 09:27> Vital Signs Vital signs: Initial Vital Signs Temperature 98.4 F 01/20/25 19:33 Temperature Source Temporal Artery Scan 01/20/25 19:33 Pulse Rate 82 01/20/25 19:33 Respiratory Rate 16 01/20/25 19:33 Blood Pressure 115/74 01/20/25 19:33 Blood Pressure Mean 87 01/20/25 19:33 Blood Pressure Position Supine 01/20/25 19:33 Pulse Oximetry 98 01/20/25 19:33 Oxygen Delivery Method Room Air 01/20/25 19:33 Vital Signs Temperature 98.4 F 01/20/25 19:33 Pulse Rate 82 01/20/25 19:33 Respiratory Rate 16 01/20/25 19:33 Blood Pressure 115/74 01/20/25 19:33 Pulse Oximetry 98 01/20/25 19:33 Oxygen Delivery Method Room Air 01/20/25 19:33 Temperature 97.7 F 01/21/25 01:26 Pulse Rate 89 01/21/25 09:26 Respiratory Rate 20 01/21/25 09:26 Blood Pressure 152/94 H 01/21/25 09:26 Pulse Oximetry 98 01/21/25 09:26 Oxygen Delivery Method Room Air 01/21/25 05:28 Oxygen Flow Rate 1 01/21/25 01:26 <Curt Weaver, DO - Last Filed: 01/20/25 22:47> Initial Vital Signs Temperature 98.4 F 01/20/25 19:33 Temperature Source Temporal Artery Scan 01/20/25 19:33 Pulse Rate 82 01/20/25 19:33 Respiratory Rate 16 01/20/25 19:33 Blood Pressure 115/74 01/20/25 19:33 Blood Pressure Mean 87 01/20/25 19:33 Blood Pressure Position Supine 01/20/25 19:33 Pulse Oximetry 98 01/20/25 19:33 Oxygen Delivery Method Room Air 01/20/25 19:33 Vital Signs Temperature 98.4 F 01/20/25 19:33 Pulse Rate 82 01/20/25 19:33 Respiratory Rate 16 01/20/25 19:33 Blood Pressure 115/74 01/20/25 19:33 Pulse Oximetry 98 01/20/25 19:33 Oxygen Delivery Method Room Air 01/20/25 19:33 Temperature 97.7 F 01/21/25 01:26 Pulse Rate 89 01/21/25 09:26 Respiratory Rate 20 01/21/25 09:26 Blood Pressure 152/94 H 01/21/25 09:26 Pulse Oximetry 98 01/21/25 09:26 Oxygen Delivery Method Room Air 01/21/25 05:28 Oxygen Flow Rate 1 01/21/25 01:26 <Farzaneh Villarreal MD - Last Filed: 01/21/25 09:27> Medications Administered Medications: Discontinued Medications Generic Name Dose Route Start Last Admin Trade Name Freq PRN Reason Stop Dose Admin Lorazepam 0.5 mg 01/20/25 21:02 01/20/25 21:09 Lorazepam 0.5 Mg Tablet PO 01/20/25 21:03 0.5 mg ONCE ONE Administration Lorazepam 0.5 mg 01/21/25 01:43 01/21/25 01:51 Lorazepam 0.5 Mg Tablet PO 01/21/25 01:44 0.5 mg ONCE ONE Administration Lorazepam 0.5 mg 01/21/25 06:30 01/21/25 04:10 Lorazepam 0.5 Mg Tablet PO 01/21/25 06:31 0.5 mg ONCE ONE Administration Lorazepam 1 mg 01/21/25 07:47 01/21/25 08:02 Lorazepam 1 Mg Tablet PO 01/21/25 07:48 1 mg ONCE ONE Administration <Curt Weaver DO - Last Filed: 01/20/25 22:47> Discontinued Medications Generic Name Dose Route Start Last Admin Trade Name Freq PRN Reason Stop Dose Admin Lorazepam 0.5 mg 01/20/25 21:02 01/20/25 21:09 Lorazepam 0.5 Mg Tablet PO 01/20/25 21:03 0.5 mg ONCE ONE Administration Lorazepam 0.5 mg 01/21/25 01:43 01/21/25 01:51 Lorazepam 0.5 Mg Tablet PO 01/21/25 01:44 0.5 mg ONCE ONE Administration Lorazepam 0.5 mg 01/21/25 06:30 01/21/25 04:10 Lorazepam 0.5 Mg Tablet PO 01/21/25 06:31 0.5 mg ONCE ONE Administration Lorazepam 1 mg 01/21/25 07:47 01/21/25 08:02 Lorazepam 1 Mg Tablet PO 01/21/25 07:48 1 mg ONCE ONE Administration <Farzaneh Villarreal MD - Last Filed: 01/21/25 09:27> MDM - Alcohol MDM Narrative Medical decision making narrative: Patient is a 49-year-old female presenting to emergency department for alcohol intoxication. She does admit to some suicidal thoughts but currently is intoxicated so will wait for her to sober up before considering inpatient treatment for any suicidal ideation. She does states she is open to detox but needs someone to take care of her dog 1st. Will do mental health lab work. Of note she is also currently desatting while on room air. This is likely due to the alcohol intoxication. Will do chest x-ray to look for any abnormalities. Also do EKG and troponin. Patient's lab work shows she has a alcohol level of 0.42. Pressor lab work is not concerning. She is starting to get anxious and a small dose of Ativan was given. Chest x-ray interpreted by myself and the radiologist shows no acute concerning abnormalities. EKG shows no acute concerning abnormalities as interpreted by myself. Patient will not be sober until sometime tomorrow. She will be signed out to my colleague. <Curt Weaver, - Last Filed: 01/20/25 22:47> Lab Data Labs: Lab Results 01/20/25 01/20/25 01/21/25 Range/Units 19:34 19:51 01:20 WBC 7.27 (4.50-11.00) K/uL RBC 3.62 L (4.00-5.20) m/uL Hgb 12.0 (12.0-16.0) gm/dL Hct 35.8 (33.0-51.0) % MCV 99 (80-100) fL MCH 33 (26-34) pg MCHC 34 (32-36) gm/dL RDW Coeff of Comfort 15.6 H (11.5-15.5) % Plt Count 165 (140-440) K/uL Neut % (Auto) 31.9 L (42.0-72.0) % Lymph % (Auto) 54.9 H (20-44) % [place] % (Auto) 6.6 (0.0-11.0) % Eos % (Auto) 5.5 (0.0-7.0) % Baso % (Auto) 1.0 (0.0-3.0) % Neut # (Auto) 2.30 (1.7-7.0) K/uL Lymph # (Auto) 4.00 H (0.90-2.90) K/uL [place] # (Auto) 0.50 (0.00-0.90) K/UL Eos # (Auto) 0.40 (0.00-0.50) K/uL Baso # (Auto) 0.07 (0.00-0.30) K/uL Abs Immat Gran (auto) 0.01 (0.00-0.30) K/uL Imm/Tot Granulo (auto) 0.1 % Sodium 145 (135-149) mmol/L Potassium 3.3 L (3.6-5.1) mmol/L Chloride 101 (96-114) mmol/L Carbon Dioxide 24 (20-32) mmol/L Anion Gap 20 H (7-15) mEq/L BUN 6 (5-24) mg/dL Creatinine 0.7 (0.5-1.5) mg/dL Estimated Creat Clear 94.54 Estimated GFR 106 ml/min Glucose 147 H (60-115) mg/dL Calcium 8.6 (8.4-10.6) mg/dL Magnesium 1.8 (1.5-2.6) mg/dL Troponin I < 0.01 (0.01-0.04) ng/mL Urine Color Yellow (Yellow) Urine Appearance Clear (Clear) Urine pH 5.5 (5.0-8.5) Ur Specific [place] <= 1.005 (1.000-1.030) Urine Protein Negative (Negative) Urine Glucose (UA) Negative (Negative) Urine Ketones Negative (Negative) Urine Blood 1+ A (Negative) Urine Nitrite Negative (Negative) Urine Bilirubin Negative (Negative) Urine Urobilinogen 0.2 (0.2-1.0) Ur Leukocyte Esterase Negative (Negative) Urine RBC 0-2 (0-2) Urine WBC 0-2 (0-5) Ur Squamous Epith Cells None (None-Few) Urine Bacteria None (None) Salicylates < 1.0 L (1.0-10) mg/dL Urine Opiates Screen Negative (Negative) Ur Oxycodone Screen Negative (Negative) Urine Methadone Screen Negative (Negative) Acetaminophen < 10.0 (10.0-30.0) ug/mL Ur Barbiturates Screen Negative (Negative) U Tricyclic Antidepress Negative (Negative) Ur Phencyclidine Scrn Negative (Negative) Ur Amphetamines Screen Negative (Negative) U Methamphetamines Scrn Negative (Negative) U Benzodiazepines Scrn Negative (Negative) Urine Cocaine Screen Negative (Negative) U Marijuana (THC) Screen POSITIVE A (Negative) Ur Drug Screen Comment See Note Ethyl Alcohol 0.42 H* (0.01-0.03) % <Curt Weaver, DO - Last Filed: 01/20/25 22:47> Lab Results 01/20/25 01/20/25 01/21/25 Range/Units 19:34 19:51 01:20 WBC 7.27 (4.50-11.00) K/uL RBC 3.62 L (4.00-5.20) m/uL Hgb 12.0 (12.0-16.0) gm/dL Hct 35.8 (33.0-51.0) % MCV 99 (80-100) fL MCH 33 (26-34) pg MCHC 34 (32-36) gm/dL RDW Coeff of Comfort 15.6 H (11.5-15.5) % Plt Count 165 (140-440) K/uL Neut % (Auto) 31.9 L (42.0-72.0) % Lymph % (Auto) 54.9 H (20-44) % [place] % (Auto) 6.6 (0.0-11.0) % Eos % (Auto) 5.5 (0.0-7.0) % Baso % (Auto) 1.0 (0.0-3.0) % Neut # (Auto) 2.30 (1.7-7.0) K/uL Lymph # (Auto) 4.00 H (0.90-2.90) K/uL [place] # (Auto) 0.50 (0.00-0.90) K/UL Eos # (Auto) 0.40 (0.00-0.50) K/uL Baso # (Auto) 0.07 (0.00-0.30) K/uL Abs Immat Gran (auto) 0.01 (0.00-0.30) K/uL Imm/Tot Granulo (auto) 0.1 % Sodium 145 (135-149) mmol/L Potassium 3.3 L (3.6-5.1) mmol/L Chloride 101 (96-114) mmol/L Carbon Dioxide 24 (20-32) mmol/L Anion Gap 20 H (7-15) mEq/L BUN 6 (5-24) mg/dL Creatinine 0.7 (0.5-1.5) mg/dL Estimated Creat Clear 94.54 Estimated GFR 106 ml/min Glucose 147 H (60-115) mg/dL Calcium 8.6 (8.4-10.6) mg/dL Magnesium 1.8 (1.5-2.6) mg/dL Troponin I < 0.01 (0.01-0.04) ng/mL Urine Color Yellow (Yellow) Urine Appearance Clear (Clear) Urine pH 5.5 (5.0-8.5) Ur Specific [place] <= 1.005 (1.000-1.030) Urine Protein Negative (Negative) Urine Glucose (UA) Negative (Negative) Urine Ketones Negative (Negative) Urine Blood 1+ A (Negative) Urine Nitrite Negative (Negative) Urine Bilirubin Negative (Negative) Urine Urobilinogen 0.2 (0.2-1.0) Ur Leukocyte Esterase Negative (Negative) Urine RBC 0-2 (0-2) Urine WBC 0-2 (0-5) Ur Squamous Epith Cells None (None-Few) Urine Bacteria None (None) Salicylates < 1.0 L (1.0-10) mg/dL Urine Opiates Screen Negative (Negative) Ur Oxycodone Screen Negative (Negative) Urine Methadone Screen Negative (Negative) Acetaminophen < 10.0 (10.0-30.0) ug/mL Ur Barbiturates Screen Negative (Negative) U Tricyclic Antidepress Negative (Negative) Ur Phencyclidine Scrn Negative (Negative) Ur Amphetamines Screen Negative (Negative) U Methamphetamines Scrn Negative (Negative) U Benzodiazepines Scrn Negative (Negative) Urine Cocaine Screen Negative (Negative) U Marijuana (THC) Screen POSITIVE A (Negative) Ur Drug Screen Comment See Note Ethyl Alcohol 0.42 H* (0.01-0.03) % <Farzaneh Villarreal MD - Last Filed: 01/21/25 09:27> Imaging Data Chest x-ray: Attestation: I have reviewed the pertinent imaging results. <Curt Weaver DO - Last Filed: 01/20/25 22:47> Radiologist's impression: 1. Small lung volumes are noted with mild bibasilar atelectasis. Dictated by Micah Beck MD @ 01/20/2025 8:42:53 PM <Curt Dipak Owen, - Last Filed: 01/20/25 22:47> ECG Data Attestation: I personally reviewed and interpreted this ECG as follows: <Curt Dipak Weaver DO - Last Filed: 01/20/25 22:47> Prior ECG tracings: available for review <Curtrandy Weaver DO - Last Filed: 01/20/25 22:47> Interpretation: Normal sinus rhythm with a rate of 85 beats per minute, normal intervals, normal axis, no ST or T-wave abnormalities. Appears similar previous EKGs on file. <Curt Dipak Henderson, - Last Filed: 01/20/25 22:47> Discharge Plan Discharge Clinical Impression: Alcoholic intoxication Qualifiers: Complication of substance-induced condition: uncomplicated Qualified Code(s): F10.920 - Alcohol use, unspecified with intoxication, uncomplicated <Curt Dipak Henderson, - Last Filed: 01/20/25 22:47> Patient Disposition: Home, Self-Care <Curt Dipak Weaver - Last Filed: 01/20/25 22:47> Condition: Stable <Curt Weaver DO - Last Filed: 01/20/25 22:47> Instructions: Alcohol Withdrawal (ED), Alcohol Use Disorder (ED) <Curt Dipak Owen, - Last Filed: 01/20/25 22:47> Additional Instructions: Please keep your therapy appointment that you have scheduled for today. I have written for Zofran to help with nausea vomiting, stay hydrated, attempt to eat when you are feeling better. I have written for some Ativan to help with withdrawal symptoms. You cannot drink alcohol and use Ativan, could increase risk of respiratory depression and possibly even . You need to work on alcohol cessation, work with a therapist and make a follow-up appointment in clinic with your primary care provider. They can potentially help with medications as well. <Curt Weaver DO - Last Filed: 01/20/25 22:47> Activity Level: Activity as Tolerated <Curt Weaver DO - Last Filed: 01/20/25 22:47> Activity as Tolerated <Farzaneh Villarreal MD - Last Filed: 01/21/25 09:27> Discharge Diet: Regular <Curt Weaver DO - Last Filed: 01/20/25 22:47> Regular <Farzaneh Villarreal MD - Last Filed: 01/21/25 09:27> Prescriptions: New ondansetron 4 mg tablet,disintegrating 4 mg PO Q6H PRN (Reason: nausea and vomiting) Qty: 10 0RF lorazepam [Ativan] 1 mg tablet 1 mg PO TID PRNQty: 6 0RF No Action gabapentin 100 mg capsule See Rx Instructions PO .ud Qty: 240 2RF Rx Instructions: 100-200 mg QAM and Qmidday orally UD; (To be used with her 300 mg dose) naltrexone 50 mg tablet 50 mg PO QDAY Qty: 90 3RF albuterol sulfate 90 mcg/actuation HFA aerosol inhaler 2 puff inhalation Q4-6H PRN (Reason: shortness of breath or wheezing) Qty: 6.7 0RF ibuprofen 600 mg tablet 600 mg PO QID PRNQty: 30 0RF escitalopram oxalate 20 mg tablet PO alprazolam 1 mg tablet 1 mg PO TID PRN (Reason: anxiety) Qty: 30 0RF omeprazole 20 mg capsule,delayed release(DR/EC) 20 mg PO QDAY Qty: 90 0RF albuterol sulfate [Proventil HFA] 90 mcg/actuation HFA aerosol inhaler 2 puff inhalation Q4H PRN (Reason: shortness of breath or wheezing) Qty: 8.5 0RF buspirone 30 mg tablet 30 mg PO BID Qty: 180 3RF gabapentin 300 mg capsule See Rx Instructions PO .ud Qty: 120 5RF Rx Instructions: 300 mg QAM and QMidday, and 600 mg QHS orally UD; bupropion HCl 300 mg tablet extended release 24 hr 300 mg PO QAM Qty: 90 0RF lorazepam 0.5 mg tablet 0.5 mg PO BID PRN (Reason: anxiety) Qty: 10 0RF verapamil 120 mg tablet extended release 120 mg PO BID Qty: 180 3RF <Curt Weaver DO - Last Filed: 01/20/25 22:47> Follow Up/Referrals: Dakota Ashraf MD [Primary Care Provider, Family Practice] <Curt Weaver DO - Last Filed: 01/20/25 22:47> Stand Alone Forms: MyHealth Info Instructions <Curt Weaver, DO - Last Filed: 01/20/25 22:47>
[2025-01-20 19:59] LABS: Hematocrit* 35.8 % (33.0-51.0); Hemoglobin* 12.0 gm/dL (12.0-16.0); Immature Granulocytes Abs Auto 0.01 K/uL (0.00-0.30); Immature Granulocytes Pct Auto 0.1 %; Mean Corpuscular HGB Conc 34 gm/dL (32-36); Mean Corpuscular Hemoglobin 33 pg (26-34); Mean Corpuscular Volume 99 fL (80-100); RDW Coefficient of Variation % 15.6 % (11.5-15.5); Red Blood Count* 3.62 m/uL (4.00-5.20); White Blood Count* 7.27 K/uL (4.50-11.00)
--- NOTE | 2025-01-20 19:59 | CRLHL7_ITS ---
For Patients: As a result of the Century Cures Act, medical imaging exams and procedure reports are released immediately into your electronic medical record. You may view this report before your referring provider. If you have questions, please contact your health care provider. INDICATION: Shortness of breath TECHNIQUE: Chest radiograph 1 view COMPARISON: 05/03/2024, CT 06/10/2024 FINDINGS: Mediastinum: The right mediastinal border has a convex appearance and consistent with the mild ascending aortic ectasia noted on prior CT. The heart silhouette is normal in size and morphology. Lung: Small lung volumes are noted with mild bibasilar atelectasis. No sign of pleural effusion seen. No pneumothorax is identified. Bone and Soft tissue: Unremarkable for age. IMPRESSION: 1. Small lung volumes are noted with mild bibasilar atelectasis. Dictated by Micah Beck MD @ 01/20/2025 8:42:53 PM Dictated by: Micah Beck MD @ 01/20/2025 20:42:56 (Electronically Signed)
[2025-01-20 20:12] LABS: Sodium* 145 mmol/L (135-149)
[2025-01-20 20:14] LABS: Lymphocytes Absolute Auto 4.00 K/uL (0.90-2.90); Slide Review Reflex No
[2025-01-20 20:17] LABS: Chloride* 101 mmol/L (96-114); Potassium* 3.3 mmol/L (3.6-5.1)
[2025-01-20 20:19] LABS: Blood Urea Nitrogen* 6 mg/dL (5-24); Creatinine* 0.7 mg/dL (0.5-1.5); Est. Creatinine Clearance* 94.54; Estimated Glomerular Filt Rate 106 ml/min
[2025-01-20 20:20] LABS: Anion Gap 20 mEq/L (7-15); Calcium* 8.6 mg/dL (8.4-10.6); Carbon Dioxide* 24 mmol/L (20-32); Glucose* 147 mg/dL (60-115)
[2025-01-20 20:22] LABS: Acetaminophen* < 10.0 ug/mL (10.0-30.0); Salicylate* < 1.0 mg/dL (1.0-10)
[2025-01-20 20:33] LABS: Ethanol* 0.42 % (0.01-0.03)
[2025-01-21] VITALS (30 sets, daily range): BP systolic 137–152; BP diastolic 93–113; PULSE 69–89; RESP 8–35; TEMP 36.5; O2SAT 89–99
[2025-01-21 01:48] LABS: Cannabinoid Screen Urine POSITIVE (Negative); Methamphetamines Screen Urine Negative (Negative); Tricyclic Antidepressant Urine Negative (Negative)
[2025-01-21 04:07] LABS: Appearance Urine Clear (Clear)
== END 2025-01-21 11:04 | disposition home or self-care (01) ==
PROVIDERS: Emergency Provider Student in an Organized Health Care Education/Training Program; PCP Family Medicine
DX: F10.129 Alcohol abuse with intoxication, unspecified (principal)
CPT/HCPCS: 36415; 71045; 80048; 80143; 80179; 80306; 81001; 81003; 82077; 83735; 84484; 85025; 93005; 99284; A9270